=== PATIENT | female | born 1990 | race Caucasian/White ===

== ENCOUNTER 2016-09-26 11:56 | Emergency (ER) | payer OTHER ==
[2016-09-26] MEDS ORDERED: NS 0.9% 1000 ML* 1,000 ML IV ONE (12:34)
[2016-09-26] MEDS ORDERED: NS 0.9% 1000 ML* 2,500 ML IV ONE (12:38)
[2016-09-26 13:11] LABS: Hematocrit 40 % (35-47); Mean Corpuscular HGB Conc 35 g/dl (31-36); Mean Corpuscular Hemoglobin 30 pg (27-31); Mean Corpuscular Volume 87 fL (80-97); Mean Platelet Volume 9 um3 (7.4-10.4); Red Blood Count 4.63 10^6/ul (4.0-5.4); Red Cell Distribution Width 13 % (10.5-15); White Blood Count 9.2 10^3/ul (3.5-10.8)
[2016-09-26 13:28] LABS: ALT 29 U/L (7-52); AST 23 U/L (13-39); Albumin 3.6 g/dL (3.2-5.2); Alkaline Phosphatase 79 U/L (34-104); BUN/Creatinine Ratio 12.7 (8-20); Blood Urea Nitrogen 10 mg/dL (6-24); CO2 Carbon Dioxide 29 mmol/L (22-32); Calcium 8.9 mg/dL (8.6-10.3); Chloride 90 mmol/L (101-111); EGFR African American 112.3 (>60); EGFR Non-African American 87.3 (>60); Globulin 3.9 g/dL (2-4); Glucose 101 mg/dL (70-100); Sodium 129 mmol/L (133-145); Total Protein 7.5 g/dL (6.4-8.9)
[2016-09-26 13:31] LABS: Anion Gap 10 mmol/L (2-11); Potassium 2.5 mmol/L (3.5-5.0)
--- NOTE | 2016-09-26 13:41 | ED ---
Laceration/Wound HPI - History of Current Complaint Stated Complaint: CHEST PAIN/VOMITING/FEVER Time Seen by Provider: 09/26/16 12:34 Pain Intensity: 10 - Allergy/Home Medications Allergies/Adverse Reactions: Allergies Allergy/AdvReac Type Severity Reaction Status Date / Time Ibuprofen Allergy Intermediate Rash Verified 04/23/13 10:44 Sulfa Drugs Allergy Unknown Unknown Verified 04/23/13 10:44 Reaction Details PMH/Surg Hx/FS Hx/Imm Hx Endocrine/Hematology History: Denies: Hx Anticoagulant Therapy Infectious Disease History: No Infectious Disease History: Denies: Traveled Outside the [place] in Last 30 Days - Social History Alcohol Use: Rare Substance Use Type: Reports: None 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 Smoking Status (MU): Light Every Day Tobacco Smoker Physical Exam Vital Signs On Initial Exam: Initial Vitals Temp Pulse Resp BP Pulse Ox 103.3 F 126 20 150/78 100 09/26/16 11:59 09/26/16 11:59 09/26/16 11:59 09/26/16 11:59 09/26/16 11:59 - Valerie Coma Scale Coma Scale Total: 15 Diagnostics - Vital Signs Vital Signs Temp Pulse Resp BP Pulse Ox 09/26/16 13:20 98.8 F 112 18 118/62 100 09/26/16 13:00 117 118/82 94 09/26/16 12:52 130/90 09/26/16 12:47 116 94 09/26/16 12:41 128 97 09/26/16 11:59 103.3 F 126 20 150/78 100 - Laboratory Lab Results: Lab Results 09/26/16 09/26/16 09/26/16 Range/Units 13:00 13:00 13:00 WBC 9.2 (3.5-10.8) 10^3/ul RBC 4.63 (4.0-5.4) 10^6/ul Hgb 14.0 (12.0-16.0) g/dl Hct 40 (35-47) % MCV 87 (80-97) fL MCH 30 (27-31) pg MCHC 35 (31-36) g/dl RDW 13 (10.5-15) % Plt Count 110 L (150-450) 10^3/ul MPV 9 (7.4-10.4) um3 Neut % (Auto) 89.0 H (38-83) % Lymph % (Auto) 7.0 L (25-47) % [place] % (Auto) 3.6 (1-9) % Eos % (Auto) 0.1 (0-6) % Baso % (Auto) 0.3 (0-2) % Absolute Neuts (auto) 8.2 H (1.5-7.7) 10^3/ul Absolute Lymphs (auto) 0.6 L (1.0-4.8) 10^3/ul Absolute Monos (auto) 0.3 (0-0.8) 10^3/ul Absolute Eos (auto) 0 (0-0.6) 10^3/ul Absolute Basos (auto) 0 (0-0.2) 10^3/ul Absolute Nucleated RBC 0 10^3/ul Nucleated RBC % 0.1 Sodium 129 L (133-145) mmol/L Potassium 2.5 L* (3.5-5.0) mmol/L Chloride 90 L (101-111) mmol/L Carbon Dioxide 29 (22-32) mmol/L Anion Gap 10 (2-11) mmol/L BUN 10 (6-24) mg/dL Creatinine 0.79 (0.51-0.95) mg/dL Est GFR ( Amer) 112.3 (>60) Est GFR (Non-Af Amer) 87.3 (>60) BUN/Creatinine Ratio 12.7 (8-20) Glucose 101 H (70-100) mg/dL Lactic Acid 2.2 H* (0.5-2.0) mmol/L Calcium 8.9 (8.6-10.3) mg/dL Total Bilirubin 0.60 (0.2-1.0) mg/dL AST 23 (13-39) U/L ALT 29 (7-52) U/L Alkaline Phosphatase 79 (34-104) U/L C-React Prot High Sens Pending Total Protein 7.5 (6.4-8.9) g/dL Albumin 3.6 (3.2-5.2) g/dL Globulin 3.9 (2-4) g/dL Albumin/Globulin Ratio 0.9 L (1-3) Beta HCG, Quant < 0.60 mIU/mL Result Diagrams: 09/26/16 13:00 09/26/16 13:00 Lab Statement: Any lab studies that have been ordered have been reviewed, and results considered in the medical decision making process.
[2016-09-26] MEDS ORDERED: Potassium Chlor TAB* 20 MEQ TAB.ER PO ONE (13:43)
[2016-09-26] MEDS ORDERED: KCL 10 MEQ/50 ML IVPREMIX* 10 MEQ/50 ML BAG IV ONE ×2 (13:44→14:21)
--- NOTE | 2016-09-26 14:12 | ED ---
Influenza-Like Illness - HPI Summary HPI Summary: 26F presents with fever, cough, headache for 6 days. She said it started with cough and chest tightness 6 days ago and then she developed a fever. She states she is having chest pain only when she coughs. She is nauseous and vomiting. She states she does not have an appetite. She denies any abdominal pain. She develops SOB when she coughs. She states her symptoms are worst when she lies down. She smokes and is on the mirena. She denies any recent travel, history of blood clots, calf pain, She also admits to a generalized headache. - History of Current Complaint Chief Complaint: EDUpperRespComplaint Time Seen by Provider: 09/26/16 12:34 - Allergy/Home Medications Allergies/Adverse Reactions: Allergies Allergy/AdvReac Type Severity Reaction Status Date / Time Ibuprofen Allergy Intermediate Rash Verified 04/23/13 10:44 Sulfa Drugs Allergy Unknown Unknown Verified 04/23/13 10:44 Reaction Details PMH/Surg Hx/FS Hx/Imm Hx Endocrine/Hematology History: Denies: Hx Anticoagulant Therapy Respiratory History: Denies: Hx Asthma Infectious Disease History: No Infectious Disease History: Denies: Traveled Outside the [place] in Last 30 Days - Family History Known Family History: Positive: Cardiac Disease - Social History Alcohol Use: Rare Substance Use Type: Reports: None 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 Negative: Abdominal Pain, Diarrhea Positive: Headache All Other Systems Reviewed And Are Negative: Yes Physical Exam Triage Information Reviewed: Yes Vital Signs On Initial Exam: Initial Vitals Temp Pulse Resp BP Pulse Ox 103.3 F 126 20 150/78 100 09/26/16 11:59 09/26/16 11:59 09/26/16 11:59 09/26/16 11:59 09/26/16 11:59 Vital Signs Reviewed: Yes Appearance: Positive: Ill-Appearing Skin: Positive: Warm, Dry Head/Face: Positive: Normal Head/Face Inspection Eyes: Positive: Normal, Conjunctiva Clear ENT: Positive: Normal ENT inspection, Pharynx normal, TMs normal Respiratory/Lung Sounds: Positive: Breath Sounds Present, Other - rhonchi presents with some wheezes Cardiovascular: Positive: Normal, Tachycardia Abdomen Description: Positive: Nontender, Soft Bowel Sounds: Positive: Present - [place] Coma Scale Coma Scale Total: 15 Diagnostics - Vital Signs Vital Signs Temp Pulse Resp BP Pulse Ox 09/26/16 14:00 121 21 95 09/26/16 13:30 111 21 124/80 95 09/26/16 13:20 98.8 F 112 18 118/62 100 09/26/16 13:00 117 118/82 94 09/26/16 12:52 130/90 09/26/16 12:47 116 94 09/26/16 12:41 128 97 09/26/16 11:59 103.3 F 126 20 150/78 100 - Laboratory Lab Results: Lab Results 09/26/16 09/26/16 09/26/16 Range/Units 13:00 13:00 13:00 WBC 9.2 (3.5-10.8) 10^3/ul RBC 4.63 (4.0-5.4) 10^6/ul Hgb 14.0 (12.0-16.0) g/dl Hct 40 (35-47) % MCV 87 (80-97) fL MCH 30 (27-31) pg MCHC 35 (31-36) g/dl RDW 13 (10.5-15) % Plt Count 110 L (150-450) 10^3/ul MPV 9 (7.4-10.4) um3 Neut % (Auto) 89.0 H (38-83) % Lymph % (Auto) 7.0 L (25-47) % [place] % (Auto) 3.6 (1-9) % Eos % (Auto) 0.1 (0-6) % Baso % (Auto) 0.3 (0-2) % Absolute Neuts (auto) 8.2 H (1.5-7.7) 10^3/ul Absolute Lymphs (auto) 0.6 L (1.0-4.8) 10^3/ul Absolute Monos (auto) 0.3 (0-0.8) 10^3/ul Absolute Eos (auto) 0 (0-0.6) 10^3/ul Absolute Basos (auto) 0 (0-0.2) 10^3/ul Absolute Nucleated RBC 0 10^3/ul Nucleated RBC % 0.1 Sodium 129 L (133-145) mmol/L Potassium 2.5 L* (3.5-5.0) mmol/L Chloride 90 L (101-111) mmol/L Carbon Dioxide 29 (22-32) mmol/L Anion Gap 10 (2-11) mmol/L BUN 10 (6-24) mg/dL Creatinine 0.79 (0.51-0.95) mg/dL Est GFR ( Amer) 112.3 (>60) Est GFR (Non-Af Amer) 87.3 (>60) BUN/Creatinine Ratio 12.7 (8-20) Glucose 101 H (70-100) mg/dL Lactic Acid 2.2 H* (0.5-2.0) mmol/L Calcium 8.9 (8.6-10.3) mg/dL Total Bilirubin 0.60 (0.2-1.0) mg/dL AST 23 (13-39) U/L ALT 29 (7-52) U/L Alkaline Phosphatase 79 (34-104) U/L C-React Prot High Sens Pending Total Protein 7.5 (6.4-8.9) g/dL Albumin 3.6 (3.2-5.2) g/dL Globulin 3.9 (2-4) g/dL Albumin/Globulin Ratio 0.9 L (1-3) Beta HCG, Quant < 0.60 mIU/mL Result Diagrams: 09/26/16 13:00 09/26/16 13:00 Lab Statement: Any lab studies that have been ordered have been reviewed, and results considered in the medical decision making process. - Radiology chest Xray Interpretation: Positive (See Comments) - IMPRESSION: BILATERAL NODULAR AND PATCHY INFILTRATES MOST CONSISTENT WITH PNEUMONIA. RECOMMEND FOLLOW-UP CHEST X-RAYS TO RESOLUTION. Radiology Interpretation Completed By: Radiologist - CT chest CT Interpretation: Positive (See Comments) - IMPRESSION: 1. Multiple cavitary pulmonary lesions most consistent with infectious etiology given the clinical context. The differential includes typical and atypical bacterial as well as fungal pathogens. Less likely potential noninfectious etiologies include granulomatous disease or cavitary metastasis. Correlate with clinical assessment. 2. Upper normal bilateral hilar lymph nodes. Negative for thoracic lymphadenopathy by size criteria. 3. Negative for pulmonary embolus. 4. Splenomegaly. CT Interpretation Completed By: Radiologist - EKG 1st Cardiac Rate: Tachycardia EKG Rhythm: Sinus Tachycardia ST Segment: Non-Specific EKG Interpretation: Abnormalities of T waves, large R waves V1,V@ 2nd Cardiac Rate: Tachycardia EKG Rhythm: Sinus Tachycardia EKG Interpretation: ST depression, flat T waves EKG Comparison: Other - large R waves lessen in v, v2 Re-Evaluation - Re-Evaluation First Eval Re-Evaluation Time: 15:55 Change: Improved Comment: feeling better after nebulize treatment, lungs CTA Flu Symptom Course/Dx - Course Course Of Treatment: 26F presents with fever, cough, chest pain with coughing, n /v for 6 days, no exam lungs have rhonchi with wheezes, patient fits sepsis criteria so did septic workup, xray had some difficulty transmitting but final appeared and said pneumonia present so gave levofloxacin, potassium was low so supplemented, patient had EKG changes with some ST depression and tachycardia rate 130, dr radford called dr laureano and said likely pericarditis, dr radford saw patient and states that lungs sound like upper respiratory illness, gave nebulizer and lungs sounded better, due to persistent tachycardia spoke to dr vines said get d-dimer which was positive so got CTA, heart rate final dropped to 110 and patient did not want to be admitted so felt okay to send her home, will treat for pneumonia and potential pericarditis, patient understands and agrees with plan - Diagnoses Differential Diagnosis/HQI/PQRI: Positive: Influenza, Pneumonia, Upper Respiratory Infection, Other - pericariditis Provider Diagnoses: Pneumonia - Physician Notifications Discussed Care Of Patient With: dr laureano Time Discussed With Above Provider: 14:00 - dr radford spoke with dr laureano said to get repeat ekg, esr, and crp likely pericarditis Discharge - Discharge Plan Condition: Stable Disposition: HOME Prescriptions: Albuterol 2.5MG/3ML (0.083%)* [Ventolin 2.5 MG/3 ML NEB.KVNG*] 2.5 mg INH Q4H # 20 neb.kvng Benzonatate CAP* [Tessalon CAP*] 100 mg PO TID PRN #15 cap PRN Reason: Cough Levofloxacin TAB* [Levaquin 750 MG TAB*] 750 mg PO DAILY #7 tab predniSONE TAB* [Deltasone TAB*] 40 mg PO DAILY #5 tab Patient Education Materials: Community Acquired Pneumonia (ED) Referrals: Alex Castellano MD [Primary Care Provider] - Additional Instructions: Take antibiotic once a day for 7 days, starting tomorrow Take steroid once a day for 5 days Use inhaler as need every 4 hours for cough Take tessalon three times a day for cough Drink fluids and eat food as tolerate Take ibuprofen every 6 hours for fever and potential pericarditis Follow up with primary within 5 days Return to ED if develop shortness of breath, fever that not respond to ibuprofen , or any new or worsening symptoms
[2016-09-26] MEDS ORDERED: Acetaminophen TAB* 325 MG PO ONE (14:30)
[2016-09-26 14:32] LABS: Troponin I 0.03 ng/mL (<0.04)
[2016-09-26 14:40] LABS: C Reactive Protein 286.06 mg/L (< 5.00)
--- NOTE | 2016-09-26 15:12 | RAD ---
INDICATION: Cough and fever. COMPARISON: Correlation is made with a prior study from April 30, 2012. TECHNIQUE: Dual-energy PA and lateral views of the chest were obtained. FINDINGS: The heart is within normal limits in size. Mediastinal and hilar contours appear within normal limits. There are nodular patchy infiltrates present at both lung bases and in the left upper lobe. No pleural effusion is seen. IMPRESSION: BILATERAL NODULAR AND PATCHY INFILTRATES MOST CONSISTENT WITH PNEUMONIA. RECOMMEND FOLLOW-UP CHEST X-RAYS TO RESOLUTION.
[2016-09-26] MEDS ORDERED: Albuterol 2.5 MG/3 ML NEB.SOL* (0.083%) INH ONE (15:23)
[2016-09-26] MEDS ORDERED: Levofloxacin 500 MG IVPREMIX(* 500 MG/100 ML BAG IVPB ONE (15:32)
[2016-09-26 15:39] LABS: Erythrocyte Sed Rate 66 mm/Hr (0-14)
[2016-09-26 16:35] LABS: Urine Bacteria Absent (Absent); Urine Bilirubin Negative (Negative); Urine Glucose Negative (Negative); Urine Nitrite Negative (Negative)
[2016-09-26] MEDS ORDERED: Iohexol 350* (CONTRAST) 500 ML MDV IV ONE (17:11)
--- NOTE | 2016-09-26 17:54 | RAD ---
INDICATION: Fever, cold, chills, chest congestion and pain. Nausea and vomiting. Elevated d-dimer, tachycardia. COMPARISON: September 26, 2016 chest radiograph. TECHNIQUE: Multidetector CT images were obtained from the lung apices to the upper abdomen with 73 mL Omnipaque 350 IV contrast. Pulmonary angiogram protocol. Multiplanar reformation including with maximum intensity projection. REPORT: Bilateral predominantly mid to lower lung zone ill-defined and well-defined pulmonary nodules with the dominant nodules demonstrating central cavitation. Dominant RIGHT pulmonary lesion measures up to 1.9 cm maximum dimension at the posterior basal segment of the RIGHT lower lobe. Dominant LEFT upper lobe lesion measures up to 1.7 cm diameter at the apical posterior segment. Dominant LEFT lower lobe lesion measures up to 1.4 cm at the posterior basal segment of the LEFT lower lobe. Negative for pleural effusion or pneumothorax. Upper normal bilateral hilar lymph nodes. Negative for lymphadenopathy by size criteria. No filling defects are identified from the main to the subsegmental pulmonary arteries to indicate presence of a pulmonary embolism. Limited images through the upper abdomen are remarkable for splenomegaly. 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 No suspicious focal osseous lesions evident. IMPRESSION: 1. Multiple cavitary pulmonary lesions most consistent with infectious etiology given the clinical context. The differential includes typical and atypical bacterial as well as fungal pathogens. Less likely potential noninfectious etiologies include granulomatous disease or cavitary metastasis. Correlate with clinical assessment. 2. Upper normal bilateral hilar lymph nodes. Negative for thoracic lymphadenopathy by size criteria. 3. Negative for pulmonary embolus. 4. Splenomegaly.
[2016-09-26] MEDS ORDERED: Albuterol HFA INHALER* 8 gm MDI INH ONE (18:08)
[2016-09-26 18:14] VITALS: BP 117/76
--- NOTE | 2016-09-27 19:43 | ED ---
Progress - Progress Note Progress Note: Pt's bood cx returns w/ (+) staph aureus - after reviewing report, pt needs to return to ED for admission. LMTC. Will also mail letter. Notified tere [place] clerk. Re-Evaluation - Re-Evaluation First Eval Re-Evaluation Time: 15:55 Change: Improved Comment: feeling better after nebulize treatment, lungs CTA Course/Dx - Course Course Of Treatment: 26F presents with fever, cough, chest pain with coughing, n /v for 6 days, no exam lungs have rhonchi with wheezes, patient fits sepsis criteria so did septic workup, xray had some difficulty transmitting but final appeared and said pneumonia present so gave levofloxacin, potassium was low so supplemented, patient had EKG changes with some ST depression and tachycardia rate 130, dr radford called dr laureano and said likely pericarditis, dr radford saw patient and states that lungs sound like upper respiratory illness, gave nebulizer and lungs sounded better, due to persistent tachycardia spoke to dr vines said get d-dimer which was positive so got CTA, heart rate final dropped to 110 and patient did not want to be admitted so felt okay to send her home, will treat for pneumonia and potential pericarditis, patient understands and agrees with plan - Diagnoses Provider Diagnoses: Pneumonia - Provider Notifications Discussed Care Of Patient With: dr laureano Time Discussed With Above Provider: 14:00 - dr radford spoke with dr laureano said to get repeat ekg, esr, and crp likely pericarditis
== END 2016-09-26 18:14 | disposition home or self-care (01) ==
LOC: ED 11:56
DX: J18.9 Pneumonia, unspecified organism (principal); R07.9 Chest pain, unspecified; R11.2 Nausea with vomiting, unspecified; R50.9 Fever, unspecified; R05 Cough; R51 Headache; F17.210 Nicotine dependence, cigarettes, uncomplicated
CPT/HCPCS: 36415; 71020; 71275; 80053; 81003; 81015; 83605; 84484; 84702; 85025; 85379; 85652; 86140; 86141; 87040; 87077; 87086; 87150; 87186; 87205; 87502; 93005; 94640; 99283; A9270-GY; J1956; J3480; Q9967

== ENCOUNTER 2016-10-06 17:33 | Emergency (ER) | payer OTHER ==
[2016-10-06 18:48] LABS: Hematocrit 41 % (35-47); Hemoglobin 13.7 g/dl (12.0-16.0); Mean Corpuscular HGB Conc 34 g/dl (31-36); Mean Corpuscular Hemoglobin 29 pg (27-31); Mean Corpuscular Volume 87 fL (80-97); Mean Platelet Volume 8 um3 (7.4-10.4); Red Blood Count 4.68 10^6/ul (4.0-5.4); Red Cell Distribution Width 14 % (10.5-15); White Blood Count 11.5 10^3/ul (3.5-10.8)
--- NOTE | 2016-10-06 19:03 | RAD ---
Indication: Chest discomfort. 2 views of the chest including dual energy PA views are reviewed. No mediastinal shift is noted. Heart is of normal size and configuration. There is a left upper lobe nodule which was present on September 26, 2016. This is likely due to the cavitary lesion identified previously. Nodular densities are noted in the right and left lung base. Base. These likely represent nodules identified on prior CT of September 26, 2016. IMPRESSION: LEFT UPPER LOBE NODULE AND MULTIPLE RIGHT BASILAR NODULE. THERE MAY BE LEFT BASILAR NODULES WELL. THIS IS CONSISTENT WITH MULTIPLE CAVITARY LESIONS IDENTIFIED ON CT..
[2016-10-06 19:06] LABS: Albumin 3.7 g/dL (3.2-5.2); BUN/Creatinine Ratio 15.7 (8-20); Calcium 9.4 mg/dL (8.6-10.3); EGFR African American 129.1 (>60); EGFR Non-African American 100.4 (>60); Potassium 4.2 mmol/L (3.5-5.0); Total Bilirubin 0.6 mg/dL (0.2-1.0); Total Protein 7.7 g/dL (6.4-8.9)
--- NOTE | 2016-10-06 19:11 | ED ---
Respiratory - HPI Summary HPI Summary: 26 F states has difficulty swallowing for a couple days. She was seen here and treated for pneumonia a week ago. She said that since she stopped the prednisone she noticed that she feels like there is a lump in her esophagus. She says that she is still able to swallow food and water. She does not vomiting and she denies any symptoms of heart burn. She denies any fever or cough. She says the prednisone helps. She states that she did use IV drugs a couple years ago. She states that she has not traveled anywhere. She denies any recent fevers besides the one had with pneumonia. She denies any night sweats or weight loss. - History of Current Complaint Chief Complaint: EDGeneral Stated Complaint: DX PNEUMONIA/CHEST DISCOMFORT Time Seen by Provider: 10/06/16 18:20 Pain Intensity: 3 - Allergy/Home Medications Allergies/Adverse Reactions: Allergies Allergy/AdvReac Type Severity Reaction Status Date / Time Ibuprofen Allergy Intermediate Rash Verified 04/23/13 10:44 Sulfa Drugs Allergy Unknown Unknown Verified 04/23/13 10:44 Reaction Details PMH/Surg Hx/FS Hx/Imm Hx Endocrine/Hematology History: Denies: Hx Anticoagulant Therapy, Hx Diabetes Respiratory History: Denies: Hx Asthma Infectious Disease History: No Infectious Disease History: Denies: Traveled Outside the [place] in Last 30 Days - Family History Known Family History: Positive: Cardiac Disease - Social History Alcohol Use: Rare Substance Use Type: Reports: None 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 Smoking Status (MU): Light Every Day Tobacco Smoker Review of Systems Negative: Fever Negative: Chest Pain Negative: Shortness Of Breath Positive: Other - lump in esophagus All Other Systems Reviewed And Are Negative: Yes Physical Exam Triage Information Reviewed: Yes Vital Signs On Initial Exam: Initial Vitals Temp Pulse Resp BP Pulse Ox 98.9 F 95 16 120/60 100 10/06/16 17:35 10/06/16 17:35 10/06/16 17:35 10/06/16 17:35 10/06/16 17:35 Vital Signs Reviewed: Yes Appearance: Positive: Well-Appearing Skin: Positive: Warm, Dry, Other - yellow crusted lesion present near mouth Head/Face: Positive: Normal Head/Face Inspection ENT: Positive: Normal ENT inspection, Pharynx normal, TMs normal Respiratory/Lung Sounds: Positive: Clear to Auscultation, Breath Sounds Present Cardiovascular: Positive: Normal, RRR - [place] Coma Scale Coma Scale Total: 15 Diagnostics - Vital Signs Vital Signs Temp Pulse Resp BP Pulse Ox 10/06/16 17:57 55 84 10/06/16 17:35 98.9 F 95 16 120/60 100 - Laboratory Lab Results: Lab Results 10/06/16 10/06/16 10/06/16 Range/Units 18:40 18:40 18:40 WBC 11.5 H (3.5-10.8) 10^3/ul RBC 4.68 (4.0-5.4) 10^6/ul Hgb 13.7 (12.0-16.0) g/dl Hct 41 (35-47) % MCV 87 (80-97) fL MCH 29 (27-31) pg MCHC 34 (31-36) g/dl RDW 14 (10.5-15) % Plt Count 309 (150-450) 10^3/ul MPV 8 (7.4-10.4) um3 Neut % (Auto) 86.5 H (38-83) % Lymph % (Auto) 8.9 L (25-47) % [place] % (Auto) 3.5 (1-9) % Eos % (Auto) 0.2 (0-6) % Baso % (Auto) 0.9 (0-2) % Absolute Neuts (auto) 10.0 H (1.5-7.7) 10^3/ul Absolute Lymphs (auto) 1.0 (1.0-4.8) 10^3/ul Absolute Monos (auto) 0.4 (0-0.8) 10^3/ul Absolute Eos (auto) 0 (0-0.6) 10^3/ul Absolute Basos (auto) 0.1 (0-0.2) 10^3/ul Absolute Nucleated RBC 0 10^3/ul Nucleated RBC % 0 Sodium 133 (133-145) mmol/L Potassium 4.2 (3.5-5.0) mmol/L Chloride 100 L (101-111) mmol/L Carbon Dioxide 28 (22-32) mmol/L Anion Gap 5 (2-11) mmol/L BUN 11 (6-24) mg/dL Creatinine 0.70 (0.51-0.95) mg/dL Est GFR ( Amer) 129.1 (>60) Est GFR (Non-Af Amer) 100.4 (>60) BUN/Creatinine Ratio 15.7 (8-20) Glucose 111 H (70-100) mg/dL Lactic Acid 1.1 (0.5-2.0) mmol/L Calcium 9.4 (8.6-10.3) mg/dL Total Bilirubin 0.60 (0.2-1.0) mg/dL AST 15 (13-39) U/L ALT 15 (7-52) U/L Alkaline Phosphatase 66 (34-104) U/L C-React Prot High Sens 50.05 mg/L Total Protein 7.7 (6.4-8.9) g/dL Albumin 3.7 (3.2-5.2) g/dL Globulin 4.0 (2-4) g/dL Albumin/Globulin Ratio 0.9 L (1-3) Result Diagrams: 10/06/16 18:40 10/06/16 18:40 Lab Statement: Any lab studies that have been ordered have been reviewed, and results considered in the medical decision making process. - Radiology chest Xray Interpretation: Positive (See Comments) - IMPRESSION: LEFT UPPER LOBE NODULE AND MULTIPLE RIGHT BASILAR NODULE. THERE MAY BE LEFT BASILAR NODULES WELL. THIS IS CONSISTENT WITH MULTIPLE CAVITARY LESIONS IDENTIFIED ON CT.. Radiology Interpretation Completed By: Radiologist Disposition - Course Course Of Treatment: 26F presents with lump in esophagus. Was seen by me a week ago and diagnosed with pneumonia. blood cultures later showed staph aureus which patient did not return for. patient currently asx and says that is feeling great. only compliant is that after stopped prednisone stated to feel lump in esophagus. She is still able to drink and eat okay. discussed with dr carson and due to age unlike is stricture and not having vomiting or regurgation and is still able to swallow. got a follow up chest xray and still has nodule in lungs. will test for TB and have follow up with primary and pulmonology. discussed options and patient would like to do a short course of prednisone again. also has yellow crusted lesions near mouth so will treat for impetigo. patient understands and agrees with plan - Differential Dx - Cardiopulmonary Differential Diagnoses - Cardiopulmonary: Bronchitis, Lower Resp Infection, Other - TB, stricture - Diagnoses Provider Diagnoses: Pulmonary nodules, Impetigo, Dysphagia Discharge - Discharge Plan Condition: Good Disposition: HOME Prescriptions: Ibuprofen TAB* [Motrin TAB* 800 MG] 800 mg PO Q6H #25 tab Mupirocin 2% CREAM* [Bactroban 2% CREAM*] 1 applic TOPICAL TID #1 tube predniSONE TAB* [Deltasone TAB*] 40 mg PO DAILY #5 tab Patient Education Materials: Pulmonary Nodules (ED), Impetigo (ED) Referrals: Zak MON,Maksim Staley [Primary Care Provider] - Avril Cheatham MD [Medical Doctor] - Additional Instructions: Take prednisone once a day for 5 days Apply ointment to affected area 3 times daily until resolves Take ibuprofen as needed for pain every 6 hours Establish care with primary to follow up about nodules in lungs and about difficulty swallowing Follow up with pulmonology Return to ED if develop any new or worsening symptoms
[2016-10-06 20:17] VITALS: BP 115/63
[2016-10-07 12:24] LABS: Call Hep C TO BE CALLED
[2016-10-08 13:39] LABS: M tuberculosis by Quantiferon Negative (Negative); TB Ag minus Nil Result 0.01 IU/mL
--- NOTE | 2016-10-08 15:47 | ED ---
Progress - Progress Note Progress Note: Pt with lab results of + Hep C. Called phone number in pt's chart without option to leave message. Then called Pilar Gonzalez, next of kin contact, and mailbox is full w/o option to leave a message. Will mail letter to address provided. tere Hernandez, aware. Needs education about diagnosis as well as f/u w/ Dr. Jimy Sterling (Infectious Disease). Will leave note at PA desk to continue to attempt contacting pt. Course/Dx - Course Course Of Treatment: 26F presents with lump in esophagus. Was seen by me a week ago and diagnosed with pneumonia. blood cultures later showed staph aureus which patient did not return for. patient currently asx and says that is feeling great. only compliant is that after stopped prednisone stated to feel lump in esophagus. She is still able to drink and eat okay. discussed with dr carson and due to age unlike is stricture and not having vomiting or regurgation and is still able to swallow. got a follow up chest xray and still has nodule in lungs. will test for TB and have follow up with primary and pulmonology. discussed options and patient would like to do a short course of prednisone again. also has yellow crusted lesions near mouth so will treat for impetigo. patient understands and agrees with plan - Diagnoses Provider Diagnoses: Pulmonary nodules, Impetigo, Dysphagia
== END 2016-10-06 20:15 | disposition home or self-care (01) ==
LOC: ED 17:33
DX: R91.1 Solitary pulmonary nodule (principal); L01.00 Impetigo, unspecified; R13.10 Dysphagia, unspecified; Z72.0 Tobacco use; Z88.2 Allergy status to sulfonamides
CPT/HCPCS: 36415; 71020; 80053; 83605; 85025; 86141; 86480; 86703; 86803; 99283

== ENCOUNTER 2016-10-12 18:52 | Inpatient (IN) | payer OTHER ==
[2016-10-12] MEDS: NS 0.9% 1000 ML* 2,000 ML IV ONE (20:19)
[2016-10-12 20:22] LABS: Hematocrit 36 % (35-47); Hemoglobin 12.2 g/dl (12.0-16.0); Mean Corpuscular HGB Conc 34 g/dl (31-36); Mean Corpuscular Hemoglobin 29 pg (27-31); Mean Corpuscular Volume 85 fL (80-97); Mean Platelet Volume 11 um3 (7.4-10.4); Red Blood Count 4.22 10^6/ul (4.0-5.4); Red Cell Distribution Width 15 % (10.5-15); White Blood Count 13.3 10^3/ul (3.5-10.8)
[2016-10-12 20:27] LABS: Add Diff/Slide Review? Slide Review Added; Comments Flag Yes
[2016-10-12 20:40] LABS: ALT 15 U/L (7-52); Albumin 2.7 g/dL (3.2-5.2); Alkaline Phosphatase 117 U/L (34-104); BUN/Creatinine Ratio 24.7 (8-20); Blood Urea Nitrogen 39 mg/dL (6-24); C Reactive Protein 309.51 mg/L (< 5.00); CO2 Carbon Dioxide 23 mmol/L (22-32); Calcium 8.7 mg/dL (8.6-10.3); Chloride 92 mmol/L (101-111); Creatine Kinase 30 U/L (10-223); EGFR African American 50.5 (>60); EGFR Non-African American 39.2 (>60); Globulin 4.2 g/dL (2-4); Glucose 88 mg/dL (70-100); Sodium 126 mmol/L (133-145); Total Protein 6.9 g/dL (6.4-8.9)
[2016-10-12 20:43] LABS: Troponin I 0.02 ng/mL (<0.04)
--- NOTE | 2016-10-12 21:16 | RAD ---
Indication: Shortness of breath. Single frontal view of the chest performed at 2052 hours was reviewed. Comparison is made with previous exam dated October 06, 2016. No mediastinal shift is noted. Heart is normal size and configuration. Multiple areas of rounded areas of airspace disease are noted. The possibility of septic emboli should BE considered. This has progressed since October 06, 2016. IMPRESSION: MULTIPLE AREAS OF ROUNDED AIRSPACE DISEASE SOME OF WHICH MAY BE CAVITARY. THIS MAY REPRESENT SEPTIC EMBOLI. THIS APPEARS TO BE PROGRESSIVE SINCE PREVIOUS EXAM.
[2016-10-12] MEDS ORDERED: Acetaminophen SUPP* 650 MG SUPP PR PRN (21:31)
[2016-10-12] MEDS ORDERED: NS 0.9% 1000 ML* 1,000 ML IV SCH (21:45)
--- NOTE | 2016-10-12 22:27 | RAD ---
Indication: Right foot pain and swelling. 3 views of the right foot demonstrates no fracture. No other bone or joint abnormality is identified. IMPRESSION: No fracture of the right foot is noted.
--- NOTE | 2016-10-12 22:28 | RAD ---
Indication: Right hand pain and swelling. 4 views of the right hand demonstrates no fracture. No other bone or joint abnormality is identified. IMPRESSION: Unremarkable right hand.
[2016-10-12 22:44] LABS: Erythrocyte Sed Rate 63 mm/Hr (0-14)
--- NOTE | 2016-10-12 22:47 | ED ---
Newton Sheppard Janilya, scribed for Drew Stallworth MD on 10/12/16 at 1936 . HPI Chest Pain - HPI Summary HPI Summary: A 26 y/o female came in to [facility] presenting w/ a gradual onset of constant CP and SOB starting end of August. Pt states 2 weeks ago she was diagnosed with PNA. The medication (Abx) helped: pt felt better and a lump in her chest dissolved. However, after her medication ended, her condition deteriorated. She states there is swelling in both upper and lower extremities as well as pain ( started yesterday) in feet and hands. She states she has also been coughing up blood in the past 2 days. In addition, pt reports visual changes; she states there is a line peripherally in her right eye. In the night time, she has also been having fevers, that is alleviated with ibuprofen. SHx drug use 4-5 years ago. - History of Current Complaint Chief Complaint: EDChestPainROMI Time Seen by Provider: 10/12/16 19:32 Hx Obtained From: Patient Onset/Duration: Started Weeks Ago, Atraumatic, Still Present Timing: Constant Initial Severity: Moderate Current Severity: Moderate Pain Intensity: 10 Pain Scale Used: 0-10 Numeric Chest Pain Location: Diffuse Chest Pain Radiates: No Aggravating Factor(s): Nothing Alleviating Factor(s): Other: - Abx Associated Signs and Symptoms: Positive: Chest Pain, Shortness of Breath, Swelling, Cough, Calf Pain/Swelling - Allergy/Home Medications Allergies/Adverse Reactions: Allergies Allergy/AdvReac Type Severity Reaction Status Date / Time Sulfa Drugs Allergy Unknown Unknown Verified 10/12/16 18:57 Reaction Details Home Medications: Home Medications Mupirocin 2% OINT* [Bactroban 2 % Oint*] 1 apply TOPICAL TID PRN 10/12/16 [ History Confirmed 10/12/16] PMH/Surg Hx/FS Hx/Imm Hx Previously Healthy: Yes Endocrine/Hematology History: Denies: Hx Anticoagulant Therapy, Hx Diabetes Respiratory History: Denies: Hx Asthma Infectious Disease History: No Infectious Disease History: Denies: Traveled Outside the [place] in Last 30 Days - Family History Known Family History: Positive: Cardiac Disease - Social History Alcohol Use: None Substance Use Type: Reports: None 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 Smoking Status (MU): Light Every Day Tobacco Smoker Review of Systems Positive: Fever Positive: Chest Pain Positive: Shortness Of Breath, Cough - bloody Positive: Arthralgia - both extremities, Myalgia - both extremities, Edema - both extremities All Other Systems Reviewed And Are Negative: Yes Physical Exam Triage Information Reviewed: Yes Vital Signs On Initial Exam: Initial Vitals Temp Pulse Resp BP Pulse Ox 96.8 F 134 24 147/77 97 10/12/16 18:58 10/12/16 18:58 10/12/16 18:58 10/12/16 18:58 10/12/16 18:58 Vital Signs Reviewed: Yes Appearance: Positive: No Pain Distress, Ill-Appearing - mildly Skin: Positive: Warm, Skin Color Reflects Adequate Perfusion, Dry Head/Face: Positive: Normal Head/Face Inspection Eyes: Positive: Normal, EOMI, ALYSA ENT: Positive: Normal ENT inspection Neck: Positive: Supple, Nontender Respiratory/Lung Sounds: Positive: Clear to Auscultation, Breath Sounds Present Cardiovascular: Positive: Tachycardia Abdomen Description: Positive: Nontender, Soft Bowel Sounds: Positive: Present Musculoskeletal: Positive: Strength/ROM Intact, Pain @, Edema Right, Other - Dorsal right hand and dorsal right foot tednerness and swelling with full ROM and good capillary refill. No calf tenderness. Neurological: Positive: Normal, Sensory/Motor Intact, Alert, Oriented to Person Place, Time Psychiatric: Positive: Affect/Mood Appropriate - Valerie Coma Scale Coma Scale Total: 15 Diagnostics - Vital Signs Vital Signs Temp Pulse Resp BP Pulse Ox 10/12/16 19:21 96.5 F 121 25 116/68 96 10/12/16 18:58 96.8 F 134 24 147/77 97 - Laboratory Lab Results: Lab Results 10/12/16 10/12/16 10/12/16 Range/Units 20:10 20:10 20:10 WBC 13.3 H (3.5-10.8) 10^3/ul RBC 4.22 (4.0-5.4) 10^6/ul Hgb 12.2 (12.0-16.0) g/dl Hct 36 (35-47) % MCV 85 (80-97) fL MCH 29 (27-31) pg MCHC 34 (31-36) g/dl RDW 15 (10.5-15) % Plt Count 104 L (150-450) 10^3/ul MPV 11 H (7.4-10.4) um3 Neut % (Auto) 86.1 H (38-83) % Lymph % (Auto) 5.0 L (25-47) % [place] % (Auto) 6.7 (1-9) % Eos % (Auto) 1.9 (0-6) % Baso % (Auto) 0.3 (0-2) % Absolute Neuts (auto) 11.4 H (1.5-7.7) 10^3/ul Absolute Lymphs (auto) 0.7 L (1.0-4.8) 10^3/ul Absolute Monos (auto) 0.9 H (0-0.8) 10^3/ul Absolute Eos (auto) 0.3 (0-0.6) 10^3/ul Absolute Basos (auto) 0 (0-0.2) 10^3/ul Absolute Nucleated RBC 0 10^3/ul Nucleated RBC % 0 ESR 63 H (0-14) mm/Hr INR (Anticoag Therapy) 1.23 H (0.89-1.11) APTT 25.1 L (26.0-36.3) seconds Sodium 126 L (133-145) mmol/L Potassium TNP Chloride 92 L (101-111) mmol/L Carbon Dioxide 23 (22-32) mmol/L Anion Gap TNP BUN 39 H (6-24) mg/dL Creatinine 1.58 H (0.51-0.95) mg/dL Est GFR ( Amer) 50.5 (>60) Est GFR (Non-Af Amer) 39.2 (>60) BUN/Creatinine Ratio 24.7 H (8-20) Glucose 88 (70-100) mg/dL Lactic Acid (0.5-2.0) mmol/L Calcium 8.7 (8.6-10.3) mg/dL Magnesium TNP Total Bilirubin 1.60 H (0.2-1.0) mg/dL AST TNP ALT 15 (7-52) U/L Alkaline Phosphatase 117 H (34-104) U/L Total Creatine Kinase 30 (10-223) U/L CK-MB (CK-2) 4.3 (0.6-6.3) ng/mL Troponin I 0.02 (<0.04) ng/mL C-Reactive Protein 309.51 H (< 5.00) mg/L Total Protein 6.9 (6.4-8.9) g/dL Albumin 2.7 L (3.2-5.2) g/dL Globulin 4.2 H (2-4) g/dL Albumin/Globulin Ratio 0.6 L (1-3) TSH Pending Beta HCG, Quant 0.81 mIU/mL 10/12/16 Range/Units 20:10 WBC (3.5-10.8) 10^3/ul RBC (4.0-5.4) 10^6/ul Hgb (12.0-16.0) g/dl Hct (35-47) % MCV (80-97) fL MCH (27-31) pg MCHC (31-36) g/dl RDW (10.5-15) % Plt Count (150-450) 10^3/ul MPV (7.4-10.4) um3 Neut % (Auto) (38-83) % Lymph % (Auto) (25-47) % [place] % (Auto) (1-9) % Eos % (Auto) (0-6) % Baso % (Auto) (0-2) % Absolute Neuts (auto) (1.5-7.7) 10^3/ul Absolute Lymphs (auto) (1.0-4.8) 10^3/ul Absolute Monos (auto) (0-0.8) 10^3/ul Absolute Eos (auto) (0-0.6) 10^3/ul Absolute Basos (auto) (0-0.2) 10^3/ul Absolute Nucleated RBC 10^3/ul Nucleated RBC % ESR (0-14) mm/Hr INR (Anticoag Therapy) (0.89-1.11) APTT (26.0-36.3) seconds Sodium (133-145) mmol/L Potassium Chloride (101-111) mmol/L Carbon Dioxide (22-32) mmol/L Anion Gap BUN (6-24) mg/dL Creatinine (0.51-0.95) mg/dL Est GFR ( Amer) (>60) Est GFR (Non-Af Amer) (>60) BUN/Creatinine Ratio (8-20) Glucose (70-100) mg/dL Lactic Acid 1.2 (0.5-2.0) mmol/L Calcium (8.6-10.3) mg/dL Magnesium Total Bilirubin (0.2-1.0) mg/dL AST ALT (7-52) U/L Alkaline Phosphatase (34-104) U/L Total Creatine Kinase (10-223) U/L CK-MB (CK-2) (0.6-6.3) ng/mL Troponin I (<0.04) ng/mL C-Reactive Protein (< 5.00) mg/L Total Protein (6.4-8.9) g/dL Albumin (3.2-5.2) g/dL Globulin (2-4) g/dL Albumin/Globulin Ratio (1-3) TSH Beta HCG, Quant mIU/mL Result Diagrams: 10/12/16 20:10 10/12/16 21:32 Lab Statement: Any lab studies that have been ordered have been reviewed, and results considered in the medical decision making process. - Radiology CXR Xray Interpretation: Positive (See Comments) - IMPRESSION: MULTIPLE AREAS OF ROUNDED AIRSPACE DISEASE SOME OF WHICH MAY BE CAVITARY. THIS MAY REPRESENT SEPTIC EMBOLI. THIS APPEARS TO BE PROGRESSIVE SINCE PREVIOUS EXAM. Radiology Interpretation Completed By: Radiologist - EKG 1910 Cardiac Rate: Tachycardia - 127 bpm EKG Rhythm: Sinus Rhythm EKG Interpretation: Left atrial enlargement, premature atrial complex, LVH Chest Pain Course/Dx - Course Assessment/Plan: Pt is a 26 y/o female c/o CP, SOB, weakness, tenderness and swelling of extremities. Pt was seen on 09/26 d/c with CP, fever, and vomiting and on 10/06 d/c with pneumonia and chest congestion. Her EKG shows tachycardia , PAC, LVH, left ventricular enlargement. CXR, that's much more progressive since previous exam, suggests possible septic emboli. Pt used to be IV drug user. She states the last time was 4-5 years ago. Pt is going to be admitted for bilateral pneumonia. Dr. Swartz (hospitalist) agrees. Pt also agrees with this plan. ADMIT HOSPITALIST GUARDED. - Diagnoses Provider Diagnoses: Endocarditis, Pneumonia - Provider Notifications Discussed Care Of Patient With: Dr. Swartz (hospitalist) at 2044: agrees to admit pt. Discharge - Discharge Plan Condition: Guarded Disposition: ADMITTED TO [facility] The documentation as recorded by the Newton rivera Janilya accurately reflects the service I personally performed and the decisions made by me, Drew Stallworth MD.
[2016-10-12 23:09] LABS: Urine Bacteria 1+ (Absent); Urine Bilirubin Negative (Negative); Urine Glucose Negative (Negative); Urine Nitrite Negative (Negative)
[2016-10-12 23:16] LABS: TSH (Thyroid Stimulating Horm) 7.54 mcIU/mL (0.34-5.60)
[2016-10-13] MEDS: Heparin VIAL(*) 5000 UNITS/ML VIAL (FIVE THOUSAND) SUBCUT SCH ×4 (00:04→20:52)
[2016-10-13] MEDS: NS 0.9% w/ 20 Meq KCL 1000 ML* 1,000 ML IV SCH ×2 (00:10→15:54)
[2016-10-13] MEDS ORDERED: Ibuprofen TAB* 600 MG ONE (01:18)
[2016-10-13] MEDS ORDERED: LORazepam INJ* 2 MG/ML 1 ML VIAL ONE (01:18)
[2016-10-13] MEDS: Ibuprofen TAB* 600 MG PO PRN ×2 (01:20→09:41)
[2016-10-13] MEDS: LORazepam INJ* 2 MG/ML 1 ML VIAL IV PUSH PRN ×3 (01:22→19:54)
--- NOTE | 2016-10-13 02:38 | HP ---
HISTORY AND PHYSICAL: DATE OF ADMISSION: 10/12/16 CHIEF COMPLAINT: Ankle, foot, and hand pain. HISTORY OF PRESENT ILLNESS: The patient is a 26-year-old woman who presents to [facility] with a chief complaint of right foot, ankle and right hand pain. This started in the last 1 to 2 days. This actually initially started approximately 1 month ago when she thought she had pneumonia. Her chest would hurt and she would have a cough. She came to the ER, was evaluated , was placed on Levaquin and prednisone and felt better. However, after she finished the prednisone, about a day or two later, she felt like something was stuck in her esophagus. This lasted for another day or two and then went away. Then yesterday, she felt her ankle and her hands kept hurting. They felt like they were broken, but she did not do any damage to it. She has also had a fever in night and shortness of breath at rest. When the patient came to the ER initially, she has blood cultures done on 09/26/16. Those blood cultures grew out methicillin sensitive Staph aureus. The patient was advised to stay in the hospital but refused and received oral antibiotics. Today, she comes in with similar symptoms. She is an IV drug user. She has an x-ray, which looks consistent with septic emboli. PAST MEDICAL HISTORY: She has no significant past medical history. MEDICATIONS: Include: 1. IUD. 2. Ibuprofen p.r.n. ALLERGIES: She has an allergy/adverse reaction to SULFA DRUGS. FAMILY HISTORY: Mother is alive at 51, alive and well. Father at young age of lung cancer. SOCIAL HISTORY: Smokes one pack a day, denies the need for nicotine replacement. No alcohol. Shoots heroin occasionally and did so in fact today. She is unemployed. She has a son. She is not . REVIEW OF SYSTEMS: A 14-point review of systems was completed with the patient. All pertinent positives and negatives are in the history of present illness; otherwise, it is negative. PHYSICAL EXAMINATION GENERAL: She is a pleasant woman, lying in bed, in no acute distress. VITAL SIGNS: Blood pressure is 116/67, pulse ox 96%, respiratory rate 30 breaths per minute, heart rate 118 beats per minute, temperature 96.5 degrees. HEENT: Normocephalic, atraumatic. Pupils equal, round, reactive to light. Moist mucous membranes. NECK: Supple. No JVD, bruits, palpable thyroid, or lymphadenopathy. CHEST: Clear to auscultation and percussion bilaterally. CARDIOVASCULAR: S1, S2 appreciated. No murmurs, gallops or rubs. ABDOMEN: Positive bowel sounds in all 4 quadrants. Soft, nontender. EXTREMITIES: She does have some swelling in her right hand and tenderness, but no erythema. No warmth. She has some tenderness in her right foot, but no swelling or erythema or warmth. NEUROLOGICAL: She is alert and oriented x3. Moves all extremities. She is nonfocal. SKIN: No distinct rashes or abnormalities. DIAGNOSTIC STUDIES/LAB DATA: White count 13.3, hemoglobin 12.2, hematocrit 36 , platelets 104, ESR is pending. Sodium 126, potassium 2.8, chloride 92, CO2 is 23, BUN 39, creatinine 1.58, glucose 88, CRP is 309.51. Total bili 1.6. Chest x-ray was interpreted by Radiology as multiple areas of rounded airspace disease some of which may be cavitary. This may represent septic emboli. This appears to be progressive since previous exam. Right foot x-ray was interpreted by Radiology as no fracture of the right foot is noted. Right hand x-ray interpreted by Radiology as unremarkable right hand. EKG shows sinus tachycardia at 127 beats per minute. Normal axis. No acute ST- T wave changes. Possible LVH. ASSESSMENT AND PLAN: 1. Likely endocarditis. The patient is an intravenous drug user. She looks like she has septic emboli. She has MSSA in her blood culture of 09/26/16. I will place her on oxacillin 2 g IV q.4 hours. We will get ID consult. We will get transthoracic echocardiogram initially, but may benefit from transesophageal echocardiogram. Long discussion with the patient about her continued use of intravenous drugs and how serious this infection is and she states she understands and will comply with all the regimen we will prescribe. 2. FEN. Regular diet. 3. DVT prophylaxis. Heparin subcu. 4. The patient is a full code. TIME SPENT: Over 75 minutes were spent on this H and P, and more than 40 minutes of which was spent in direct [id number] contact with the patient in evaluation, physical exam, and counseling, and coordination of care. CC: Dr. Maksim Crespo * [id number]/[facility] #: [id number] LAY
[2016-10-13] MEDS ORDERED: Loperamide CAP* 4 MG INITIAL PRN DOSE PO ONE (09:00)
[2016-10-13] MEDS ORDERED: Loperamide CAP* 2 MG AFTER EACH LOOSE STOOL MDD 16 MG PO PRN (09:00)
[2016-10-13] MEDS ORDERED: Acetaminophen TAB* 325 MG PO PRN (09:13)
[2016-10-13] MEDS ORDERED: Cyclobenzaprine TAB* 10 MG PO PRN (09:15)
[2016-10-13] MEDS ORDERED: LORazepam INJ* 2 MG/ML 1 ML VIAL IV PUSH ONE (09:32)
--- NOTE | 2016-10-13 09:42 | PN ---
Subjective Date of Service: 10/13/16 Interval History: Patient seen and examined at bedside. She is clearly distressed and is hyperventilating and crying out. Patient reports that it hurts to breathe and reports pain in her right wrist, right ankle, and right foot. She reports her last heroin use was yesterday (10/12) and has a 3-4 year IVDA history. She reports coughing up blood-tinged sputum. She denies n/v/d. Patient reports that she was treated for pneumonia "a few weeks ago" but then started to feel progressively worse, finally coming to the ED due to pain in her wrist and RLE. Family History: Unchanged from Admission Social History: Unchanged from Admission Past Medical History: Unchanged from Admission Objective Active Medications: Acetaminophen (Tylenol Supp*) 650 mg NJ Q4H PRN PRN Reason: FEVER/PAIN Acetaminophen (Tylenol Tab*) 650 mg PO Q4H PRN PRN Reason: FEVER/PAIN Clonidine HCl (Catapres Tab*) 0.4 mg PO ONCE ONE Stop: 10/13/16 10:01 Clonidine HCl (Catapres Tab*) 0.1 mg PO Q4HR [facility] Stop: 10/16/16 23:59 Clonidine HCl (Catapres Tab*) 0 - 0.6 mg PO Q8HR [facility] Stop: 10/17/16 23:59 Clonidine HCl (Catapres Tab*) 0 - 0.3 mg PO Q8HR [facility] Stop: 10/18/16 23:59 Clonidine HCl (Catapres Tab*) 0 - 0.15 mg PO Q12HR AYDIN PRN Reason: Protocol Stop: 10/19/16 23:59 Clonidine HCl (Catapres Tab*) 0.1 mg PO Q4H PRN PRN Reason: DETOX Stop: 10/16/16 23:59 Cyclobenzaprine HCl (Flexeril Tab*) 10 mg PO TID PRN PRN Reason: SPASMS - MUSCLE Heparin Sodium (Porcine) (Heparin Vial(*)) 5,000 units SUBCUT Q8HR [facility] Last Admin: 10/13/16 05:49 Dose: 5,000 units Oxacillin Sodium 2 gm/ Sodium (Chloride) 100 mls @ 200 mls/hr IVPB Q4H [facility] Last Admin: 10/13/16 08:36 Dose: 200 mls/hr Potassium Chloride/Sodium Chloride (Ns 0.9% W/ 20 Meq Kcl 1000 Ml*) 1,000 mls @ 100 mls/hr IV PER RATE AYDIN Last Admin: 10/13/16 00:10 Dose: 100 mls/hr Ibuprofen (Motrin Tab*) 600 mg PO Q8H PRN PRN Reason: PAIN Last Admin: 10/13/16 01:20 Dose: 600 mg Loperamide HCl (Imodium Cap*) 2 mg PO .SEE BELOW PRN PRN Reason: DIARRHEA Lorazepam (Ativan Inj*) 1 mg IV PUSH Q6H PRN PRN Reason: ANXIETY Last Admin: 10/13/16 07:39 Dose: 1 mg Multivitamins/Minerals (Theragran/Minerals Tab*) 1 tab PO DAILY [facility] Vital Signs 10/12/16 10/12/16 10/12/16 21:57 22:00 23:02 Temperature 97.5 F Pulse Rate 117 118 128 Respiratory 30 23 32 Rate Blood Pressure 116/67 111/65 109/55 (mmHg) O2 Sat by Pulse 96 95 98 Oximetry 10/12/16 10/13/16 10/13/16 23:28 01:22 02:22 Temperature Pulse Rate Respiratory 32 36 32 Rate Blood Pressure (mmHg) O2 Sat by Pulse Oximetry 10/13/16 10/13/16 10/13/16 03:56 07:39 08:32 Temperature 97.6 F 98.0 F Pulse Rate 121 128 Respiratory 30 30 32 Rate Blood Pressure 125/94 130/77 (mmHg) O2 Sat by Pulse 93 96 Oximetry 10/13/16 08:35 Temperature Pulse Rate Respiratory 32 Rate Blood Pressure (mmHg) O2 Sat by Pulse Oximetry Oxygen Devices in Use Now: None Appearance: Ill-appearing, female patient, lying in bed, hyperventilating and crying out Eyes: PERRLA Ears/Nose/Mouth/Throat: - - dry oral mucosa, poor dentition/mostly edentulous Neck: NL Appearance and Movements; NL JVP Respiratory: Symmetrical Chest Expansion and Respiratory Effort, Clear to Auscultation - coarse Cardiovascular: NL Sounds; No Murmurs; No JVD, RRR - tachycardic Abdominal: NL Sounds; No Tenderness; No Distention Extremities: - - right wrist edema, mild right ankle edema Skin: - - no splinter hemorrhages or Jan[place]ay lesions noted; patient with hyperemic palms. Multiple puncture wounds to BUE resembling track molina Neurological: Alert and Oriented x 3, NL Muscle Strength and Tone Lines/Tubes/Other Access: Clean, Dry and Intact Peripheral IV Nutrition: Taking PO's Result Diagrams: 10/12/16 20:10 10/13/16 11:22 Additional Lab and Data: Lab Results 10/12/16 10/12/16 10/12/16 Range/Units 20:10 20:10 20:10 WBC 13.3 H (3.5-10.8) 10^3/ul RBC 4.22 (4.0-5.4) 10^6/ul Hgb 12.2 (12.0-16.0) g/dl Hct 36 (35-47) % MCV 85 (80-97) fL MCH 29 (27-31) pg MCHC 34 (31-36) g/dl RDW 15 (10.5-15) % Plt Count 104 L (150-450) 10^3/ul MPV 11 H (7.4-10.4) um3 Neut % (Auto) 86.1 H (38-83) % Lymph % (Auto) 5.0 L (25-47) % [place] % (Auto) 6.7 (1-9) % Eos % (Auto) 1.9 (0-6) % Baso % (Auto) 0.3 (0-2) % Absolute Neuts (auto) 11.4 H (1.5-7.7) 10^3/ul Absolute Lymphs (auto) 0.7 L (1.0-4.8) 10^3/ul Absolute Monos (auto) 0.9 H (0-0.8) 10^3/ul Absolute Eos (auto) 0.3 (0-0.6) 10^3/ul Absolute Basos (auto) 0 (0-0.2) 10^3/ul Absolute Nucleated RBC 0 10^3/ul Nucleated RBC % 0 ESR 63 H (0-14) mm/Hr INR (Anticoag Therapy) 1.23 H (0.89-1.11) APTT 25.1 L (26.0-36.3) seconds Sodium 126 L (133-145) mmol/L Potassium TNP Chloride 92 L (101-111) mmol/L Carbon Dioxide 23 (22-32) mmol/L Anion Gap TNP BUN 39 H (6-24) mg/dL Creatinine 1.58 H (0.51-0.95) mg/dL Est GFR ( Amer) 50.5 (>60) Est GFR (Non-Af Amer) 39.2 (>60) BUN/Creatinine Ratio 24.7 H (8-20) Glucose 88 (70-100) mg/dL Lactic Acid (0.5-2.0) mmol/L Calcium 8.7 (8.6-10.3) mg/dL Magnesium TNP Total Bilirubin 1.60 H (0.2-1.0) mg/dL AST TNP ALT 15 (7-52) U/L Alkaline Phosphatase 117 H (34-104) U/L Total Creatine Kinase 30 (10-223) U/L CK-MB (CK-2) 4.3 (0.6-6.3) ng/mL Troponin I 0.02 (<0.04) ng/mL C-Reactive Protein 309.51 H (< 5.00) mg/L Total Protein 6.9 (6.4-8.9) g/dL Albumin 2.7 L (3.2-5.2) g/dL Globulin 4.2 H (2-4) g/dL Albumin/Globulin Ratio 0.6 L (1-3) TSH Pending Beta HCG, Quant 0.81 mIU/mL 10/12/16 Range/Units 20:10 WBC (3.5-10.8) 10^3/ul RBC (4.0-5.4) 10^6/ul Hgb (12.0-16.0) g/dl Hct (35-47) % MCV (80-97) fL MCH (27-31) pg MCHC (31-36) g/dl RDW (10.5-15) % Plt Count (150-450) 10^3/ul MPV (7.4-10.4) um3 Neut % (Auto) (38-83) % Lymph % (Auto) (25-47) % [place] % (Auto) (1-9) % Eos % (Auto) (0-6) % Baso % (Auto) (0-2) % Absolute Neuts (auto) (1.5-7.7) 10^3/ul Absolute Lymphs (auto) (1.0-4.8) 10^3/ul Absolute Monos (auto) (0-0.8) 10^3/ul Absolute Eos (auto) (0-0.6) 10^3/ul Absolute Basos (auto) (0-0.2) 10^3/ul Absolute Nucleated RBC 10^3/ul Nucleated RBC % ESR (0-14) mm/Hr INR (Anticoag Therapy) (0.89-1.11) APTT (26.0-36.3) seconds Sodium (133-145) mmol/L Potassium Chloride (101-111) mmol/L Carbon Dioxide (22-32) mmol/L Anion Gap BUN (6-24) mg/dL Creatinine (0.51-0.95) mg/dL Est GFR ( Amer) (>60) Est GFR (Non-Af Amer) (>60) BUN/Creatinine Ratio (8-20) Glucose (70-100) mg/dL Lactic Acid 1.2 (0.5-2.0) mmol/L Calcium (8.6-10.3) mg/dL Magnesium Total Bilirubin (0.2-1.0) mg/dL AST ALT (7-52) U/L Alkaline Phosphatase (34-104) U/L Total Creatine Kinase (10-223) U/L CK-MB (CK-2) (0.6-6.3) ng/mL Troponin I (<0.04) ng/mL C-Reactive Protein (< 5.00) mg/L Total Protein (6.4-8.9) g/dL Albumin (3.2-5.2) g/dL Globulin (2-4) g/dL Albumin/Globulin Ratio (1-3) TSH Beta HCG, Quant mIU/mL Microbiology and Other Data: Microbiology 10/12/16 21:32 Aerobic Blood Culture - Preliminary Blood Venous Assess/Plan/Problems-Billing Assessment: Ms. Gonzalez is a 26 yo female with a PMH of heroin use who presented to the ED with wrist and lower extremity pain that is likely secondary to septic emboli from infective endocarditis; patient also with cavitary lesions that also appear to be secondary to septic emboli. - Patient Problems (1) Endocarditis Code(s): I38 - ENDOCARDITIS, VALVE UNSPECIFIED Comment: Awaiting echocardiogram to confirm diagnosis. Blood cultures from 09/26/16 and this admission growing MSSA. Continue oxacillin q4h. ID consult for Friday. (2) Septic embolism Code(s): I26.90 - SEPTIC PULMONARY EMBOLISM WITHOUT ACUTE COR PULMONALE Comment: Now with worsening cavitary pulmonary nodules and mediastinal and hilar lymphadenopathy seen on CTA, likely secondary to septic emobli. Patient initially evaluated in ED on 09/26/16 and discharged on levofloxacin for treatment of CAP and suspected pericarditis. Message and letter sent to patient to return to hospital on 09/27/16 after positive MSSA blood cx; pt did not return. Likely secondary to endocarditis, continue oxacillin. (3) Opiate withdrawal Code(s): F11.23 - OPIOID DEPENDENCE WITH WITHDRAWAL Comment: Last heroin use was 10/12 prior to coming in to hospital. Clonidine protocol (obtained form [facility]) ordered. Supportive care. Will attempt to avoid narcotic use, but given acuity of patient and presence of septic emboli, narcotic use may be clinically warranted for the time being. SW consult. (4) DVT prophylaxis Code(s): EDD3544 - Status and Disposition: Inpatient admission. Anticipate increased LOS secondary to need for IV antibiotics.
[2016-10-13] MEDS: Multivitamins/Minerals TAB* DAILY PO SCH (09:56)
[2016-10-13] MEDS ORDERED: cloNIDine TAB* 0.4 FIRST DOSE PT > 70 KG PO ONE (10:00)
[2016-10-13] MEDS: cloNIDine TAB* 0.1 MG Q4H DAYS 1 TO 4 PO SCH ×4 (10:04→20:40)
[2016-10-13] MEDS ORDERED: Iodixanol* (CONTRAST) 320 MG/ML 100 ML SDV IV ONE (10:16)
--- NOTE | 2016-10-13 11:31 | RAD ---
INDICATION: Tachypnea, hemoptysis. History of endocarditis. COMPARISON: September 26, 2016 CT. TECHNIQUE: Multidetector CT images were obtained from the lung apices to the upper abdomen with 80 mL Visipaque 320 IV contrast. Pulmonary angiogram protocol. Multiplanar reformation including with maximum intensity projection. REPORT: Severe burden of the cavitary pulmonary nodules with severe progression of disease compared with the September 26, 2016 exam. Dominant cavitary lesion on the RIGHT measures up to 2.9 cm maximum dimension at the anterior basal segment of the RIGHT lower lobe. Dominant cavitary pulmonary lesion on the LEFT measures up to 2.5 cm diameter at the anterior segment of the LEFT upper lobe. Trace RIGHT and small LEFT pleural effusions. Negative for pneumothorax. Mediastinum and bilateral hilar lymphadenopathy with interval enlargement of lymph nodes compared with the prior exam. RIGHT suprahilar node measures 1.5 cm short axis. Subcarinal node measures 1.2 cm short axis, LEFT infrahilar node measures 1.5 cm short axis. Upper normal heart size. Small pericardial effusion increased over the prior exam. Motion artifact degrades image quality of the CT pulmonary angiogram. While assessment is limited there is no compelling filling defect from the main through the segmental and where visualized subsegmental pulmonary arteries to indicate pulmonary embolism. Images through the upper abdomen are remarkable for splenomegaly. 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 No suspicious focal pulmonary lesions. IMPRESSION: 1. Severe burden of the cavitary pulmonary nodules with severe progression of disease compared with the September 26, 2016 exam. Given history of endocarditis and marked change agent a short time interval septic emboli are strongly favored. 2. Mediastinal and hilar lymphadenopathy, likely reactive, with interval enlargement of lymph nodes. 3. Small pericardial effusion. 4. Splenomegaly.
[2016-10-13 11:54] LABS: BUN/Creatinine Ratio 30.7 (8-20); Calcium 7.9 mg/dL (8.6-10.3); EGFR African American 99.1 (>60); EGFR Non-African American 77.1 (>60)
[2016-10-13 11:58] LABS: Potassium 2.7 mmol/L (3.5-5.0)
[2016-10-13] MEDS ORDERED: Morphine INJ* 4 MG/ML 1 ML SYRINGE IV PRN ×2 (11:58→17:51)
[2016-10-13] MEDS: KCL 20 MEQ/100 ML IVPREMIX* 20 MEQ/100 ML BAG IV SCH ×3 (13:04→20:41)
--- NOTE | 2016-10-13 13:47 | ECHO ---
Patient: ALYSON BASURTO [facility] Rec#: [id number] : 1990 Date: 10/13/2016 Age: 26y Height: 170.18 cm / 67.0 in Weight: 83.91 kg / 184.9 lbs Sex: F BSA: 1.96 Room#: 341 Admit Date#: 10/12/2016 Type: Inpatient Referring: Desmond Swartz MD Reading: Chun Ferguson DO Linseed Cake Trimmer: Pilar Jimenez OMAR CC: Maksim Crespo MD Transthoracic Echocardiogram Indication: Endocarditis/Bacteremia BP: 125/94 HR: 126 Rhythm: Tachycardia Findings History: Heroin IVDA,MRSA,smoker. Technical Comments: The study is technically limited due to patient body habitus. The study is technically limited due to the patient's smoking history. The study was technically limited due to the patient's inability to lay in the left lateral decubitus position. Left Ventricle: The left ventricular chamber size is normal. There is no left ventricular hypertrophy. Global left ventricular wall motion and contractility are within normal limits. There is normal left ventricular systolic function. The estimated ejection fraction is 60-65%. The patient was unable to perform a Valsalva maneuver. Left Atrium: The left atrial chamber size is normal. Right Ventricle: The right ventricle is mildly dilated. The right ventricular global systolic function is mildly reduced. Aortic Valve: The aortic valve is trileaflet. There is no evidence of aortic regurgitation. There is no evidence of aortic stenosis. Mitral Valve: The mitral valve leaflets appear myxomatous. There is a trace of mitral regurgitation. There is no evidence of mitral stenosis. Tricuspid Valve: There is mild tricuspid regurgitation.that is eccentric. There appears to be a possible mobile echodensity attached to the tricuspid valve best visualized image 19 Unable to estimate the right ventricular systolic pressure. There is no tricuspid stenosis. Pulmonic Valve: The pulmonic valve structure is not well visualized. There is no evidence of pulmonic regurgitation. There is no pulmonic stenosis. Pericardium: There is a small pericardial effusion. There are no signs of significant hemodynamic compromise. Aorta: There is no dilatation of the ascending aorta. There is no dilatation of the aortic arch. There is no dilation of the aortic root. Pulmonary Artery: The main pulmonary artery is not well visualized. Venous: The venous system is not well visualized. Conclusions The left ventricular chamber size is normal. There is no left ventricular hypertrophy. Global left ventricular wall motion and contractility are within normal limits. There is normal left ventricular systolic function. The estimated ejection fraction is 60-65%. The left atrial chamber size is normal. The right ventricle is mildly dilated. The right ventricular global systolic function is mildly reduced. There is mild tricuspid valve regurgitation that is eccentric. There appears to be a possible mobile echodensity (vs. leaflet destruction or a combination of both) attached to the tricuspid valve best visualized on image 19. In the setting of IVDU, + blood cultures with staph aureus and septic emboli, finding is highly concerning for infective endocarditis. There is a very small pericardial effusion with no signs of significant hemodynamic compromise. No prior studies available for comparison at time of interpretation. Measurements Name Value Normal Range RVIDd (AP) 2D 2.1 cm (0.9 - 2.6) RVDdMajor (2D) 3.5 cm (2.2 - 4.4) RAd ISD 4CH 4.3 cm (3.4 - 4.9) RA (A4C)W 3.6 cm (2.9 - 4.6) IVSd (2D) 1 cm (0.6 - 1) LVPWd (2D) 1 cm (0.6 - 1) LVIDd (2D) 3.8 cm (3.6 - 5.4) LVIDs (2D) 2.4 cm - LV FS (2D) 36 % (25 - 45) Aortic Annulus 1.9 cm (1.4 - 2.6) Ao root diameter (2D) 3.1 cm (2.1 - 3.5) Ascending Ao 3.1 cm (2.1 - 3.4) Aortic arch 2 cm (1.8 - 3.4) Descending Ao 1.1 cm - LA dimension (AP) 2D 2.7 cm (2.3 - 3.8) LAd ISD 4CH 4.3 cm (2.9 - 5.3) LA ISD 4CH W 4.4 cm (2.5 - 4.5) Name Value Normal Range LA ESV SP 4CH (A/L) 33 ml - LA ESV SP 2CH (A/L) 20 ml - LA ESV BP (A/L) 27 ml - LA ESV BP (A/L) index 13.58 ml/m2 - LA ESV SP 4CH (MOD) 28 ml - LA ESV SP 2CH (MOD) 18 ml - Name Value Normal Range MV E-wave Vmax 0.7 m/sec - MV deceleration time 116 msec - MV A-wave Vmax 1 m/sec - MV E:A ratio 0.67 ratio - LV septal e' Vmax 0.09 m/sec - LV lateral e' Vmax 0.08 m/sec - LV E:e' septal ratio 7.78 ratio - LV E:e' lateral ratio 8.75 ratio - Name Value Normal Range AV Vmax 1.5 m/sec - AV VTI 17.8 cm - AV peak gradient 8.77 mmHg - AV mean gradient 4.99 mmHg - LVOT Vmax 1.1 m/sec - LVOT VTI 14 cm - LVOT peak gradient 4.5 mmHg - LVOT mean gradient 2.56 mmHg - Name Value Normal Range TR Vmax 2.3 m/sec - TR peak gradient 21 mmHg - Name Value Normal Range PV Vmax 0.9 m/sec - PV peak gradient 3.12 mmHg -
[2016-10-13] MEDS: Chlorhexidine MOUTHWASH 0.12%* 15 ML UDC SWISH SPIT SCH ×2 (15:19→20:58)
[2016-10-13] MEDS ORDERED: LORazepam INJ* 2 MG/ML 1 ML VIAL IV PUSH PRN (17:51)
[2016-10-13] MEDS: Morphine INJ* 10 MG/ML 1 ML SYRINGE IV PRN ×2 (20:51→23:30)
[2016-10-14] MEDS: LORazepam INJ* 2 MG/ML 1 ML VIAL IV PUSH PRN ×3 (00:24→17:10)
[2016-10-14] MEDS: HYDROmorphone* 2 MG/ML 1 ML SYR IV SLOW PU PRN (01:49)
[2016-10-14] MEDS: cloNIDine TAB* 0.1 MG Q4H DAYS 1 TO 4 PO SCH ×6 (01:59→22:25)
[2016-10-14] MEDS: Morphine INJ* 10 MG/ML 1 ML SYRINGE IV PRN ×4 (04:54→20:28)
[2016-10-14] MEDS: Heparin VIAL(*) 5000 UNITS/ML VIAL (FIVE THOUSAND) SUBCUT SCH ×3 (05:12→22:26)
[2016-10-14] MEDS: NS 0.9% w/ 20 Meq KCL 1000 ML* 1,000 ML IV SCH (05:12)
[2016-10-14 06:44] LABS: Hematocrit 32 % (35-47); Hemoglobin 10.8 g/dl (12.0-16.0); Mean Corpuscular HGB Conc 34 g/dl (31-36); Mean Corpuscular Hemoglobin 29 pg (27-31); Mean Corpuscular Volume 85 fL (80-97); Mean Platelet Volume 11 um3 (7.4-10.4); Red Blood Count 3.76 10^6/ul (4.0-5.4); Red Cell Distribution Width 15 % (10.5-15); White Blood Count 17.9 10^3/ul (3.5-10.8)
[2016-10-14 08:03] LABS: BUN/Creatinine Ratio 31.4 (8-20); Calcium 7.6 mg/dL (8.6-10.3); EGFR African American 129.1 (>60); EGFR Non-African American 100.4 (>60); Potassium 3.6 mmol/L (3.5-5.0)
[2016-10-14] MEDS: Multivitamins/Minerals TAB* DAILY PO SCH (08:56)
[2016-10-14] MEDS: Ibuprofen TAB* 600 MG PO PRN (08:56)
[2016-10-14] MEDS: Chlorhexidine MOUTHWASH 0.12%* 15 ML UDC SWISH SPIT SCH ×3 (08:57→22:27)
[2016-10-14] MEDS ORDERED: Metoprolol Tartrate IV* 1 MG/ML 5 ML VIAL IV ONE (12:11)
--- NOTE | 2016-10-14 12:12 | PN ---
Subjective Date of Service: 10/14/16 Interval History: Patient seen and examined at bedside. She reports persistent pain that is "all over" though worse in her right hand and in her right leg. She reports cough and pain with inspiration. Denies n/v, abd pain. She thinks the medications are helping but "is not sure." Telemetry: Sinus tachycardia 130s Family History: Unchanged from Admission Social History: Unchanged from Admission Past Medical History: Unchanged from Admission Objective Active Medications: Acetaminophen (Tylenol Supp*) 650 mg TX Q4H PRN PRN Reason: FEVER/PAIN Acetaminophen (Tylenol Tab*) 650 mg PO Q4H PRN PRN Reason: FEVER/PAIN Chlorhexidine Gluconate (Peridex Mouth Wash 0.12%*) 15 ml SWISH SPIT TID [facility] Last Admin: 10/14/16 08:57 Dose: 15 ml Clonidine HCl (Catapres Tab*) 0.1 mg PO Q4HR AYDIN Stop: 10/16/16 23:59 Last Admin: 10/14/16 08:56 Dose: 0.1 mg Clonidine HCl (Catapres Tab*) 0 - 0.6 mg PO Q8HR AYDIN Stop: 10/17/16 23:59 Clonidine HCl (Catapres Tab*) 0 - 0.3 mg PO Q8HR AYDIN Stop: 10/18/16 23:59 Clonidine HCl (Catapres Tab*) 0 - 0.15 mg PO Q12HR AYDIN PRN Reason: Protocol Stop: 10/19/16 23:59 Clonidine HCl (Catapres Tab*) 0.1 mg PO Q4H PRN PRN Reason: DETOX Stop: 10/16/16 23:59 Cyclobenzaprine HCl (Flexeril Tab*) 10 mg PO TID PRN PRN Reason: SPASMS - MUSCLE Heparin Sodium (Porcine) (Heparin Vial(*)) 5,000 units SUBCUT Q8HR AYDIN Last Admin: 10/14/16 05:12 Dose: 5,000 units Hydromorphone HCl (Dilaudid Iv*) 2 mg IV SLOW PU Q4H PRN PRN Reason: PAIN Last Admin: 10/14/16 01:49 Dose: 2 mg Oxacillin Sodium 2 gm/ Sodium (Chloride) 100 mls @ 200 mls/hr IVPB Q4H AYDIN Last Admin: 10/14/16 08:57 Dose: 200 mls/hr Potassium Chloride/Sodium Chloride (Ns 0.9% W/ 20 Meq Kcl 1000 Ml*) 1,000 mls @ 100 mls/hr IV PER RATE [facility] Last Admin: 10/14/16 05:12 Dose: 100 mls/hr Ibuprofen (Motrin Tab*) 600 mg PO Q8H PRN PRN Reason: PAIN Last Admin: 10/14/16 08:56 Dose: 600 mg Loperamide HCl (Imodium Cap*) 2 mg PO .SEE BELOW PRN PRN Reason: DIARRHEA Lorazepam (Ativan Inj*) 2 mg IV PUSH Q4H PRN PRN Reason: ANXIETY Last Admin: 10/14/16 08:57 Dose: 2 mg Morphine Sulfate (Morphine Inj (Syringe)*) 6 mg IV Q2H PRN PRN Reason: PAIN Last Admin: 10/14/16 04:54 Dose: 6 mg Multivitamins/Minerals (Theragran/Minerals Tab*) 1 tab PO DAILY [facility] Last Admin: 10/14/16 08:56 Dose: 1 tab Vital Signs 10/13/16 10/13/16 10/13/16 12:26 13:00 13:26 Temperature Pulse Rate Respiratory 38 40 Rate Blood Pressure (mmHg) O2 Sat by Pulse 90 Oximetry 10/13/16 10/13/16 10/13/16 13:31 14:30 15:00 Temperature 98.0 F 99.4 F 99.4 F Pulse Rate 127 126 126 Respiratory 40 26 26 Rate Blood Pressure 154/81 136/80 136/80 (mmHg) O2 Sat by Pulse 95 96 2 Oximetry 10/13/16 10/13/16 10/13/16 15:18 17:00 18:10 Temperature 97.8 F 98.7 F Pulse Rate 125 124 Respiratory 19 26 25 Rate Blood Pressure 124/79 130/78 (mmHg) O2 Sat by Pulse 97 96 Oximetry 10/13/16 10/13/16 10/13/16 19:10 19:29 19:54 Temperature 98.4 F Pulse Rate 121 Respiratory 26 19 26 Rate Blood Pressure 123/69 (mmHg) O2 Sat by Pulse 97 Oximetry 10/13/16 10/13/16 10/13/16 20:00 20:51 20:54 Temperature Pulse Rate Respiratory 26 28 23 Rate Blood Pressure (mmHg) O2 Sat by Pulse Oximetry 10/13/16 10/13/16 10/14/16 21:51 23:30 00:13 Temperature 98.1 F Pulse Rate 125 Respiratory 26 26 Rate Blood Pressure 150/92 (mmHg) O2 Sat by Pulse 92 Oximetry 10/14/16 10/14/16 10/14/16 00:24 00:30 00:49 Temperature 98.7 F Pulse Rate 126 Respiratory 28 32 Rate Blood Pressure 151/77 (mmHg) O2 Sat by Pulse Oximetry 10/14/16 10/14/16 10/14/16 01:24 01:49 02:49 Temperature Pulse Rate Respiratory 30 32 26 Rate Blood Pressure (mmHg) O2 Sat by Pulse Oximetry 10/14/16 10/14/16 10/14/16 03:36 04:54 05:54 Temperature 100.1 F Pulse Rate 133 Respiratory 28 24 Rate Blood Pressure 123/85 (mmHg) O2 Sat by Pulse 93 Oximetry 10/14/16 10/14/16 10/14/16 08:00 08:11 08:57 Temperature 97.6 F Pulse Rate 136 Respiratory 28 28 28 Rate Blood Pressure 147/85 (mmHg) O2 Sat by Pulse 92 Oximetry 10/14/16 10/14/16 09:13 09:57 Temperature Pulse Rate 130 Respiratory 24 Rate Blood Pressure (mmHg) O2 Sat by Pulse Oximetry Oxygen Devices in Use Now: None Appearance: Female patient, lying in bed, tachypneic, ill-appearing Eyes: PERRLA Ears/Nose/Mouth/Throat: - - thrush Neck: NL Appearance and Movements; NL JVP Respiratory: Symmetrical Chest Expansion and Respiratory Effort, Clear to Auscultation - fair aeration through all lung holley, coarse breath sounds Cardiovascular: NL Sounds; No Murmurs; No JVD, RRR - tachycardic Abdominal: NL Sounds; No Tenderness; No Distention Extremities: - - right hand/wrist swelling, lateral right foot with mild edema Skin: - - multiple scars and puncture type wounds to BUE Neurological: Alert and Oriented x 3 Lines/Tubes/Other Access: Clean, Dry and Intact Peripheral IV Nutrition: Taking PO's Result Diagrams: 10/14/16 05:17 10/14/16 05:17 Additional Lab and Data: Lab Results 10/12/16 10/12/16 10/12/16 Range/Units 20:10 20:10 20:10 WBC 13.3 H (3.5-10.8) 10^3/ul RBC 4.22 (4.0-5.4) 10^6/ul Hgb 12.2 (12.0-16.0) g/dl Hct 36 (35-47) % MCV 85 (80-97) fL MCH 29 (27-31) pg MCHC 34 (31-36) g/dl RDW 15 (10.5-15) % Plt Count 104 L (150-450) 10^3/ul MPV 11 H (7.4-10.4) um3 Neut % (Auto) 86.1 H (38-83) % Lymph % (Auto) 5.0 L (25-47) % [place] % (Auto) 6.7 (1-9) % Eos % (Auto) 1.9 (0-6) % Baso % (Auto) 0.3 (0-2) % Absolute Neuts (auto) 11.4 H (1.5-7.7) 10^3/ul Absolute Lymphs (auto) 0.7 L (1.0-4.8) 10^3/ul Absolute Monos (auto) 0.9 H (0-0.8) 10^3/ul Absolute Eos (auto) 0.3 (0-0.6) 10^3/ul Absolute Basos (auto) 0 (0-0.2) 10^3/ul Absolute Nucleated RBC 0 10^3/ul Nucleated RBC % 0 ESR 63 H (0-14) mm/Hr INR (Anticoag Therapy) 1.23 H (0.89-1.11) APTT 25.1 L (26.0-36.3) seconds Sodium 126 L (133-145) mmol/L Potassium TNP Chloride 92 L (101-111) mmol/L Carbon Dioxide 23 (22-32) mmol/L Anion Gap TNP BUN 39 H (6-24) mg/dL Creatinine 1.58 H (0.51-0.95) mg/dL Est GFR ( Amer) 50.5 (>60) Est GFR (Non-Af Amer) 39.2 (>60) BUN/Creatinine Ratio 24.7 H (8-20) Glucose 88 (70-100) mg/dL Lactic Acid (0.5-2.0) mmol/L Calcium 8.7 (8.6-10.3) mg/dL Magnesium TNP Total Bilirubin 1.60 H (0.2-1.0) mg/dL AST TNP ALT 15 (7-52) U/L Alkaline Phosphatase 117 H (34-104) U/L Total Creatine Kinase 30 (10-223) U/L CK-MB (CK-2) 4.3 (0.6-6.3) ng/mL Troponin I 0.02 (<0.04) ng/mL C-Reactive Protein 309.51 H (< 5.00) mg/L Total Protein 6.9 (6.4-8.9) g/dL Albumin 2.7 L (3.2-5.2) g/dL Globulin 4.2 H (2-4) g/dL Albumin/Globulin Ratio 0.6 L (1-3) TSH Pending Beta HCG, Quant 0.81 mIU/mL 10/12/16 Range/Units 20:10 WBC (3.5-10.8) 10^3/ul RBC (4.0-5.4) 10^6/ul Hgb (12.0-16.0) g/dl Hct (35-47) % MCV (80-97) fL MCH (27-31) pg MCHC (31-36) g/dl RDW (10.5-15) % Plt Count (150-450) 10^3/ul MPV (7.4-10.4) um3 Neut % (Auto) (38-83) % Lymph % (Auto) (25-47) % [place] % (Auto) (1-9) % Eos % (Auto) (0-6) % Baso % (Auto) (0-2) % Absolute Neuts (auto) (1.5-7.7) 10^3/ul Absolute Lymphs (auto) (1.0-4.8) 10^3/ul Absolute Monos (auto) (0-0.8) 10^3/ul Absolute Eos (auto) (0-0.6) 10^3/ul Absolute Basos (auto) (0-0.2) 10^3/ul Absolute Nucleated RBC 10^3/ul Nucleated RBC % ESR (0-14) mm/Hr INR (Anticoag Therapy) (0.89-1.11) APTT (26.0-36.3) seconds Sodium (133-145) mmol/L Potassium Chloride (101-111) mmol/L Carbon Dioxide (22-32) mmol/L Anion Gap BUN (6-24) mg/dL Creatinine (0.51-0.95) mg/dL Est GFR ( Amer) (>60) Est GFR (Non-Af Amer) (>60) BUN/Creatinine Ratio (8-20) Glucose (70-100) mg/dL Lactic Acid 1.2 (0.5-2.0) mmol/L Calcium (8.6-10.3) mg/dL Magnesium Total Bilirubin (0.2-1.0) mg/dL AST ALT (7-52) U/L Alkaline Phosphatase (34-104) U/L Total Creatine Kinase (10-223) U/L CK-MB (CK-2) (0.6-6.3) ng/mL Troponin I (<0.04) ng/mL C-Reactive Protein (< 5.00) mg/L Total Protein (6.4-8.9) g/dL Albumin (3.2-5.2) g/dL Globulin (2-4) g/dL Albumin/Globulin Ratio (1-3) TSH Beta HCG, Quant mIU/mL Microbiology and Other Data: Microbiology 10/12/16 21:32 Aerobic Blood Culture - Preliminary Blood Venous Assess/Plan/Problems-Billing Assessment: Ms. Gonzalez is a 26 yo female with a PMH of heroin use who presented to the ED with wrist and lower extremity pain that is likely secondary to septic emboli from infective endocarditis; patient also with cavitary lesions that also appear to be secondary to septic emboli. - Patient Problems (1) Endocarditis Code(s): I38 - ENDOCARDITIS, VALVE UNSPECIFIED Comment: Echocardiogram shows possible mobile echodensity to tricuspid valve, highly suspicious for infective endocarditis. Blood cultures from 09/26/16 and this admission growing MSSA. Continue oxacillin q4h. ID consult for Friday. Concern for joint involvement; CT scan ordered but currently on hold. Per radiology, it would be best to determine a plan with ID (given her multiple complaints) in order to best utilize radiology resources. (2) Septic embolism Code(s): I26.90 - SEPTIC PULMONARY EMBOLISM WITHOUT ACUTE COR PULMONALE Comment: Now with worsening cavitary pulmonary nodules and mediastinal and hilar lymphadenopathy seen on CTA, likely secondary to septic emobli. Also with RUE and RLE pain. Patient initially evaluated in ED on 09/26/16 and discharged on levofloxacin for treatment of CAP and suspected pericarditis. Message and letter sent to patient to return to hospital on 09/27/16 after positive MSSA blood cx; pt did not return. Likely secondary to endocarditis, continue oxacillin. (3) Opiate withdrawal Code(s): F11.23 - OPIOID DEPENDENCE WITH WITHDRAWAL Comment: Last heroin use was 10/12 prior to coming in to hospital. Clonidine protocol (obtained form [facility]) ordered. Supportive care. Overall would like to avoid narcotic use, but given acuity of patient and presence of septic emboli, narcotic use clinically warranted for the time being. SW consult. (4) DVT prophylaxis Code(s): LBQ4630 - Comment: SQ heparin Status and Disposition: Inpatient admission. Anticipate increased LOS secondary to need for IV antibiotics.
[2016-10-14 12:35] LABS: Call Hep C TO BE CALLED
[2016-10-14] MEDS: cloNIDine TAB* 0.1 MG ADDITIONAL PRN DOSES DAYS 1-4 PO (12:44)
[2016-10-14] MEDS: Nystatin SUSPENSION* 100000 UNITS/ML 5 ML UDC PO SCH ×2 (17:10→22:27)
[2016-10-14 17:34] LABS: T4 3.17 g/dL (6.09-12.23)
[2016-10-14 17:40] LABS: Free T4 0.89 ng/dL (0.61-1.12)
[2016-10-14 17:44] LABS: Total T3 0.48 ng/mL (0.87-1.78)
[2016-10-14] MEDS: Ibuprofen TAB* 600 MG PO SCH (18:09)
--- NOTE | 2016-10-15 00:28 | CONS ---
CONSULTATION REPORT: DATE OF CONSULTATION: 10/14/16 REQUESTING PROVIDER: Claudia Streeter NP. CONSULTING SERVICE: Infectious Disease. REASON FOR CONSULTATION: Staphylococcal endocarditis. IMPRESSION: 1. MSSA bacteremia with a tricuspid valve vegetation on transthoracic echocardiogram; tricuspid valve endocarditis complicated by bilateral septic pulmonary emboli which is quite severe. 2. Right wrist and hand finger edema, decreased flexion and extension, question tenosynovitis. I think abscess less likely, immune complex arthritis is a consideration given endocarditis. 3. Right foot and ankle pain without ankle effusion, I do not think there is a septic joint, could also be a new complex or injection, complication related. 4. Injection drug use, in brief remission. 5. Hepatitis C antibody positive. RECOMMENDATIONS: 1. Oxacillin 2 g IV every 4 hours. Recheck the blood cultures tomorrow. When the blood cultures are cleared, she could have a midline catheter. If there are access issues before then, she could have a midline catheter. 2. MRI of the right wrist and hand to evaluate for tenosynovitis, which could be an embolic complication or could be immune complex related. 3. Outpatient hepatitis C viral load and genotype, not needed while in the hospital. 4. Scheduled Tylenol and ibuprofen. HISTORY OF PRESENT ILLNESS: A 26-year-old woman who injects heroin has been to the ER a couple of times with chest pain or cough, found to have bilateral pulmonary abnormalities on a chest CT scan, September 26, and is readmitted with staphylococcal bacteremia and chest pain. White count 13,000, fevers and sweats at home, 2 to 3 days of right wrist pain is what brought her in. She does inject in her right hand, has had worsening pain and swelling in that joint as well as in the right foot, though not as bad as in the wrist. She was started on oxacillin here. Her blood cultures are growing Staphylococcus aureus , methicillin sensitive. Her drug of choice is heroin. She has been injecting up until a couple of weeks ago when she got sick. ALLERGIES: SULFA, unknown reaction. MEDICATIONS: 1. Tylenol. 2. Chlorhexidine swish and spit. 3. Flexeril. 4. Dilaudid. 5. Heparin subcutaneous injection. 6. Ibuprofen. 7. Oxacillin 3 g every 4 hours. 8. Clonidine p.r.n. SOCIAL HISTORY: Inject heroin, lives with her mother. She smokes tobacco. She has one son. She is unemployed. FAMILY HISTORY: Mother is alive at 51 and healthy. Father of lung cancer. REVIEW OF SYSTEMS: A 12-point review of systems was all negative except as noted above. PHYSICAL EXAM: Vital Signs: Temperature 36, heart rate 140, respiratory rate 20, blood pressure 130/60, O2 sat 95% on 2 L. In general, she appears in pain and distress. She is not diaphoretic. Neurologically, she awakens her eyes to voice. She follows some commands and answers questions. She is oriented x3. Cranial nerves II through XII are intact. HEENT: There is no conjunctival hemorrhage. Oropharynx without lesions. Neck is supple without nuchal rigidity. Lymph Nodes: There is no cervical, supraclavicular, inguinal, axillary, or epitrochlear lymphadenopathy. Heart is regular and tachycardic without murmurs. Lungs: There are coarse bilateral breath sounds throughout without wheeze or rale. Abdomen is mildly distended. Soft. There are bowel sounds present. There is no hepatosplenomegaly. Skin: There is no rash or splinter hemorrhages. Musculoskeletal: There is no spine tenderness to palpation. The right wrist, there is diffuse edema. There is no crepitus or fluctuance. Her fingers are flexed. There is decreased flexion and marked decreased extension. The right ankle, there is trace edema. There is no effusion. There is tenderness through the midfoot without crepitus or fluctuance. There is no erythema. There is trace warmth. LABORATORY DATA: White blood cell count 17, hemoglobin 10, platelets 62,000. Creatinine is 0.7. HCG is negative. CRP 300. Please see impressions and recommendations as outlined above, which I have discussed with Claudia Streeter NP. Thanks for asking me to see Ms. Gonzalez in consultation. [id number]/[facility] #: [id number] LAY
[2016-10-15] MEDS: LORazepam INJ* 2 MG/ML 1 ML VIAL IV PUSH PRN ×2 (01:18→08:46)
[2016-10-15] MEDS: Ibuprofen TAB* 600 MG PO SCH ×3 (01:33→18:15)
[2016-10-15] MEDS: cloNIDine TAB* 0.1 MG Q4H DAYS 1 TO 4 PO SCH ×4 (01:35→14:30)
[2016-10-15] MEDS: Morphine INJ* 10 MG/ML 1 ML SYRINGE IV PRN ×4 (01:36→11:31)
[2016-10-15 04:52] LABS: Hematocrit 29 % (35-47); Hemoglobin 9.7 g/dl (12.0-16.0); Mean Corpuscular HGB Conc 34 g/dl (31-36); Mean Corpuscular Hemoglobin 28 pg (27-31); Mean Corpuscular Volume 84 fL (80-97); Mean Platelet Volume 10 um3 (7.4-10.4); Red Blood Count 3.43 10^6/ul (4.0-5.4); Red Cell Distribution Width 15 % (10.5-15); White Blood Count 15.5 10^3/ul (3.5-10.8)
[2016-10-15 04:59] LABS: Comments Flag Yes
[2016-10-15 05:02] LABS: Albumin 1.7 g/dL (3.2-5.2); BUN/Creatinine Ratio 34.7 (8-20); Calcium 7.9 mg/dL (8.6-10.3); EGFR African American 119.2 (>60); EGFR Non-African American 92.7 (>60); Globulin 3.7 g/dL (2-4); Total Bilirubin 3.3 mg/dL (0.2-1.0); Total Protein 5.4 g/dL (6.4-8.9)
[2016-10-15] MEDS: Heparin VIAL(*) 5000 UNITS/ML VIAL (FIVE THOUSAND) SUBCUT SCH ×3 (05:52→21:22)
[2016-10-15] MEDS ORDERED: LORazepam INJ* 2 MG/ML 1 ML VIAL IM ONE (08:28)
[2016-10-15] MEDS: Nystatin SUSPENSION* 100000 UNITS/ML 5 ML UDC PO SCH ×4 (08:31→21:21)
[2016-10-15] MEDS: Chlorhexidine MOUTHWASH 0.12%* 15 ML UDC SWISH SPIT SCH ×3 (08:31→21:21)
[2016-10-15] MEDS: Potassium Chlor TAB* 20 MEQ TAB.ER PO SCH ×3 (08:32→21:22)
[2016-10-15] MEDS: Multivitamins/Minerals TAB* DAILY PO SCH (08:32)
[2016-10-15] MEDS ORDERED: Potassium Chlor TAB* 20 MEQ TAB.ER PO ONE ×2 (09:00→14:02)
--- NOTE | 2016-10-15 10:00 | PN ---
Subjective Date of Service: 10/15/16 Interval History: Patient seen and examined at bedside at 0955 and again at 1200. Patient reports pain to right hand and with respirations. She reports overall body aches. She responds "yes" when I ask if she has pain in her BLE, though her left leg looks more swollen. She states her breathing is not worse, it just "hurts." At 1200, patient with increased O2 requirements, now requiring 5L to maintain O2 of 90-93%. Telemetry: Sinus tachycardia 120s Family History: Unchanged from Admission Social History: Unchanged from Admission Past Medical History: Unchanged from Admission Objective Active Medications: Acetaminophen (Tylenol Supp*) 650 mg WI Q4H PRN PRN Reason: FEVER/PAIN Acetaminophen (Tylenol Tab*) 650 mg PO Q4H PRN PRN Reason: FEVER/PAIN Chlorhexidine Gluconate (Peridex Mouth Wash 0.12%*) 15 ml SWISH SPIT TID [facility] Last Admin: 10/15/16 08:31 Dose: 15 ml Clonidine HCl (Catapres Tab*) 0.1 mg PO Q4HR [facility] Stop: 10/16/16 23:59 Last Admin: 10/15/16 08:32 Dose: 0.1 mg Clonidine HCl (Catapres Tab*) 0 - 0.6 mg PO Q8HR [facility] Stop: 10/17/16 23:59 Clonidine HCl (Catapres Tab*) 0 - 0.3 mg PO Q8HR [facility] Stop: 10/18/16 23:59 Clonidine HCl (Catapres Tab*) 0 - 0.15 mg PO Q12HR AYDIN PRN Reason: Protocol Stop: 10/19/16 23:59 Clonidine HCl (Catapres Tab*) 0.1 mg PO Q4H PRN PRN Reason: DETOX Stop: 10/16/16 23:59 Last Admin: 10/14/16 12:44 Dose: 0.1 mg Cyclobenzaprine HCl (Flexeril Tab*) 10 mg PO TID PRN PRN Reason: SPASMS - MUSCLE Last Admin: 10/15/16 08:34 Dose: 10 mg Heparin Sodium (Porcine) (Heparin Vial(*)) 5,000 units SUBCUT Q8HR [facility] Last Admin: 10/15/16 05:52 Dose: 5,000 units Hydromorphone HCl (Dilaudid Iv*) 2 mg IV SLOW PU Q4H PRN PRN Reason: PAIN Last Admin: 10/14/16 01:49 Dose: 2 mg Oxacillin Sodium 2 gm/ Sodium (Chloride) 100 mls @ 200 mls/hr IVPB Q4H [facility] Last Admin: 10/15/16 08:53 Dose: 200 mls/hr Lactated Ringer's (Lactated Ringers 1000 Ml Bag*) 1,000 mls @ 125 mls/hr IV PER RATE [facility] Last Admin: 10/15/16 02:07 Dose: 125 mls/hr Ibuprofen (Motrin Tab*) 600 mg PO Q8H [facility] Last Admin: 10/15/16 01:33 Dose: 600 mg Loperamide HCl (Imodium Cap*) 2 mg PO .SEE BELOW PRN PRN Reason: DIARRHEA Lorazepam (Ativan Inj*) 2 mg IV PUSH Q4H PRN PRN Reason: ANXIETY Last Admin: 10/15/16 08:46 Dose: 2 mg Morphine Sulfate (Morphine Inj (Syringe)*) 6 mg IV Q2H PRN PRN Reason: PAIN Last Admin: 10/15/16 08:21 Dose: 6 mg Multivitamins/Minerals (Theragran/Minerals Tab*) 1 tab PO DAILY [facility] Last Admin: 10/15/16 08:32 Dose: 1 tab Nystatin (Nystatin Suspension*) 500,000 units PO QID [facility] Stop: 10/21/16 16:38 Last Admin: 10/15/16 08:31 Dose: 500,000 units Potassium Chloride (Klor Con Er Tab*) 20 meq PO TID [facility] Last Admin: 10/15/16 08:32 Dose: 20 meq Vital Signs 10/14/16 10/14/16 10/14/16 11:27 12:45 13:45 Temperature 97.3 F Pulse Rate 125 Respiratory 28 22 22 Rate Blood Pressure 135/91 (mmHg) O2 Sat by Pulse 94 Oximetry 10/14/16 10/14/16 10/14/16 15:33 16:07 17:07 Temperature 97.3 F Pulse Rate 132 Respiratory 22 22 22 Rate Blood Pressure 131/63 (mmHg) O2 Sat by Pulse 95 Oximetry 10/14/16 10/14/16 10/14/16 17:10 18:10 20:00 Temperature Pulse Rate Respiratory 22 22 40 Rate Blood Pressure (mmHg) O2 Sat by Pulse 95 Oximetry 10/14/16 10/14/16 10/14/16 20:28 20:41 21:28 Temperature 97.7 F Pulse Rate 91 Respiratory 40 26 40 Rate Blood Pressure 124/69 (mmHg) O2 Sat by Pulse 95 Oximetry 10/15/16 10/15/16 10/15/16 00:00 00:13 01:18 Temperature 98.4 F Pulse Rate 115 Respiratory 44 40 Rate Blood Pressure 145/86 (mmHg) O2 Sat by Pulse 94 94 Oximetry 10/15/16 10/15/16 10/15/16 01:36 02:18 02:36 Temperature Pulse Rate Respiratory 44 35 35 Rate Blood Pressure (mmHg) O2 Sat by Pulse Oximetry 10/15/16 10/15/16 10/15/16 03:14 05:53 06:53 Temperature 98.1 F Pulse Rate 130 Respiratory 42 18 38 Rate Blood Pressure 140/95 (mmHg) O2 Sat by Pulse 94 Oximetry 10/15/16 10/15/16 10/15/16 07:44 08:21 08:34 Temperature 99.2 F Pulse Rate 111 Respiratory 30 30 34 Rate Blood Pressure 129/80 (mmHg) O2 Sat by Pulse 97 Oximetry 10/15/16 10/15/16 08:46 09:21 Temperature Pulse Rate Respiratory 37 28 Rate Blood Pressure (mmHg) O2 Sat by Pulse Oximetry Oxygen Devices in Use Now: None Appearance: Ill appearing, female patient, lying in bed, increased work of breathing Eyes: PERRLA Ears/Nose/Mouth/Throat: - - poor dentition, appears to have thrush and cold sores around lips Neck: NL Appearance and Movements; NL JVP Respiratory: Symmetrical Chest Expansion and Respiratory Effort, - - coarse, crackles in RUL anteriorly Cardiovascular: NL Sounds; No Murmurs; No JVD, RRR - tachycardic Abdominal: NL Sounds; No Tenderness; No Distention Extremities: - - LLE edema, right hand/wrist edema Skin: - - multiple puncture wounds to right hand wrist and to BUE Neurological: - - arousable, slow to respond Lines/Tubes/Other Access: Clean, Dry and Intact Peripheral IV Nutrition: Taking PO's Result Diagrams: 10/15/16 04:36 10/15/16 04:36 Additional Lab and Data: Lab Results 10/12/16 10/12/16 10/12/16 Range/Units 20:10 20:10 20:10 WBC 13.3 H (3.5-10.8) 10^3/ul RBC 4.22 (4.0-5.4) 10^6/ul Hgb 12.2 (12.0-16.0) g/dl Hct 36 (35-47) % MCV 85 (80-97) fL MCH 29 (27-31) pg MCHC 34 (31-36) g/dl RDW 15 (10.5-15) % Plt Count 104 L (150-450) 10^3/ul MPV 11 H (7.4-10.4) um3 Neut % (Auto) 86.1 H (38-83) % Lymph % (Auto) 5.0 L (25-47) % [place] % (Auto) 6.7 (1-9) % Eos % (Auto) 1.9 (0-6) % Baso % (Auto) 0.3 (0-2) % Absolute Neuts (auto) 11.4 H (1.5-7.7) 10^3/ul Absolute Lymphs (auto) 0.7 L (1.0-4.8) 10^3/ul Absolute Monos (auto) 0.9 H (0-0.8) 10^3/ul Absolute Eos (auto) 0.3 (0-0.6) 10^3/ul Absolute Basos (auto) 0 (0-0.2) 10^3/ul Absolute Nucleated RBC 0 10^3/ul Nucleated RBC % 0 ESR 63 H (0-14) mm/Hr INR (Anticoag Therapy) 1.23 H (0.89-1.11) APTT 25.1 L (26.0-36.3) seconds Sodium 126 L (133-145) mmol/L Potassium TNP Chloride 92 L (101-111) mmol/L Carbon Dioxide 23 (22-32) mmol/L Anion Gap TNP BUN 39 H (6-24) mg/dL Creatinine 1.58 H (0.51-0.95) mg/dL Est GFR ( Amer) 50.5 (>60) Est GFR (Non-Af Amer) 39.2 (>60) BUN/Creatinine Ratio 24.7 H (8-20) Glucose 88 (70-100) mg/dL Lactic Acid (0.5-2.0) mmol/L Calcium 8.7 (8.6-10.3) mg/dL Magnesium TNP Total Bilirubin 1.60 H (0.2-1.0) mg/dL AST TNP ALT 15 (7-52) U/L Alkaline Phosphatase 117 H (34-104) U/L Total Creatine Kinase 30 (10-223) U/L CK-MB (CK-2) 4.3 (0.6-6.3) ng/mL Troponin I 0.02 (<0.04) ng/mL C-Reactive Protein 309.51 H (< 5.00) mg/L Total Protein 6.9 (6.4-8.9) g/dL Albumin 2.7 L (3.2-5.2) g/dL Globulin 4.2 H (2-4) g/dL Albumin/Globulin Ratio 0.6 L (1-3) TSH Pending Beta HCG, Quant 0.81 mIU/mL 10/12/16 Range/Units 20:10 WBC (3.5-10.8) 10^3/ul RBC (4.0-5.4) 10^6/ul Hgb (12.0-16.0) g/dl Hct (35-47) % MCV (80-97) fL MCH (27-31) pg MCHC (31-36) g/dl RDW (10.5-15) % Plt Count (150-450) 10^3/ul MPV (7.4-10.4) um3 Neut % (Auto) (38-83) % Lymph % (Auto) (25-47) % [place] % (Auto) (1-9) % Eos % (Auto) (0-6) % Baso % (Auto) (0-2) % Absolute Neuts (auto) (1.5-7.7) 10^3/ul Absolute Lymphs (auto) (1.0-4.8) 10^3/ul Absolute Monos (auto) (0-0.8) 10^3/ul Absolute Eos (auto) (0-0.6) 10^3/ul Absolute Basos (auto) (0-0.2) 10^3/ul Absolute Nucleated RBC 10^3/ul Nucleated RBC % ESR (0-14) mm/Hr INR (Anticoag Therapy) (0.89-1.11) APTT (26.0-36.3) seconds Sodium (133-145) mmol/L Potassium Chloride (101-111) mmol/L Carbon Dioxide (22-32) mmol/L Anion Gap BUN (6-24) mg/dL Creatinine (0.51-0.95) mg/dL Est GFR ( Amer) (>60) Est GFR (Non-Af Amer) (>60) BUN/Creatinine Ratio (8-20) Glucose (70-100) mg/dL Lactic Acid 1.2 (0.5-2.0) mmol/L Calcium (8.6-10.3) mg/dL Magnesium Total Bilirubin (0.2-1.0) mg/dL AST ALT (7-52) U/L Alkaline Phosphatase (34-104) U/L Total Creatine Kinase (10-223) U/L CK-MB (CK-2) (0.6-6.3) ng/mL Troponin I (<0.04) ng/mL C-Reactive Protein (< 5.00) mg/L Total Protein (6.4-8.9) g/dL Albumin (3.2-5.2) g/dL Globulin (2-4) g/dL Albumin/Globulin Ratio (1-3) TSH Beta HCG, Quant mIU/mL Microbiology and Other Data: Microbiology 10/12/16 21:32 Aerobic Blood Culture - Preliminary Blood Venous Assess/Plan/Problems-Billing Assessment: Ms. Gonzalez is a 26 yo female with a PMH of heroin use who presented to the ED with wrist and lower extremity pain that is likely secondary to septic emboli from infective endocarditis; patient also with cavitary lesions that also appear to be secondary to septic emboli. - Patient Problems (1) Endocarditis Code(s): I38 - ENDOCARDITIS, VALVE UNSPECIFIED Comment: Echocardiogram shows possible mobile echodensity to tricuspid valve, highly suspicious for infective endocarditis. Blood cultures from 09/26/16 and this admission growing MSSA. Continue oxacillin q4h. ID consult for Friday. Concern for joint involvement, MRI right wrist pending. Check LLE US to r/o emboli. (2) Septic embolism Code(s): I26.90 - SEPTIC PULMONARY EMBOLISM WITHOUT ACUTE COR PULMONALE Comment: Now with worsening cavitary pulmonary nodules and mediastinal and hilar lymphadenopathy seen on CTA, likely secondary to septic emobli. Also with RUE and RLE pain. Patient initially evaluated in ED on 09/26/16 and discharged on levofloxacin for treatment of CAP and suspected pericarditis. Message and letter sent to patient to return to hospital on 09/27/16 after positive MSSA blood cx; pt did not return. Likely secondary to endocarditis, continue oxacillin. (3) Opiate withdrawal Code(s): F11.23 - OPIOID DEPENDENCE WITH WITHDRAWAL Comment: Last heroin use was 10/12 prior to coming in to hospital. Clonidine protocol (obtained form [facility]) ordered. Supportive care. Overall would like to avoid narcotic use, but given acuity of patient and presence of septic emboli, narcotic use clinically warranted for the time being. SW consult. (4) DVT prophylaxis Code(s): SWP5838 - Comment: SQ heparin Status and Disposition: Inpatient admission. Transfer to ICU for closer monitoring.
[2016-10-15] MEDS: HYDROmorphone* 2 MG/ML 1 ML SYR IV SLOW PU PRN ×2 (10:06→21:59)
[2016-10-15] MEDS: cloNIDine TAB* 0.1 MG ADDITIONAL PRN DOSES DAYS 1-4 PO (11:32)
--- NOTE | 2016-10-15 12:57 | RAD ---
Indication: Tachypnea. Endocarditis with extensive septic pulmonary emboli. Comparison: October 13, 2016 CT and October 12, 2016 chest radiograph. Technique: Upright AP 1230 hours Report: Bilateral cavitary nodular pulmonary opacities and generalized alveolar consolidation with interval worsening compared with the October 12, 2016 chest radiograph. Probable small pleural effusions. Negative for pneumothorax. Negative for cardiomegaly. The central pulmonary vasculature is largely obscured limiting assessment. IMPRESSION: Worsening of bilateral pneumonia with innumerable cavitary septic emboli. Report called to Nurse Roblero in the ICU at 1253 hours October 15, 2016.
--- NOTE | 2016-10-15 14:08 | RAD ---
Indication: Left leg edema. Duplex Doppler sonography of the deep venous system of the left lower extremity deep venous system was performed. Bilaterally the common femoral veins appear patent and compressible. Left proximal greater saphenous vein, proximal deep femoral vein, femoral vein, popliteal vein, posterior tibial veins and peroneal veins appear patent and compressible. Complex fluid collection in the medial calf is noted measuring 15.7 x 1.4 x 3.5 cm. Multiple lymph nodes are noted in the inguinal region. IMPRESSION: NO EVIDENCE OF DEEP VENOUS THROMBOSIS IS IDENTIFIED. MEDIAL CALF COMPLEX FLUID COLLECTION MEASURING 15.7 X 1.4 X 3.5 CM.
[2016-10-15] MEDS: Dexmedetomidine* 50 ML IVPB SCH (14:21)
[2016-10-15] MEDS: Acetaminophen TAB* 325 MG PO SCH ×3 (14:29→21:21)
[2016-10-15] MEDS ORDERED: Albuterol 2.5 MG/3 ML NEB.SOL* (0.083%) INH PRN (14:34)
[2016-10-15] MEDS: Docosanol 10%* CREAM 2 GM TUBE TOPICAL SCH ×3 (14:44→21:22)
--- NOTE | 2016-10-15 15:08 | CONSULT ---
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 Once therapy complete at home she developed increased upper and lower extremity pain, more so in the hands and the feet. She has been sob+, CP still present with inhalation, cough+ with some amounts of blood also prior to admission. Fevers+, chills+. Admitted for progressive pneumonia, sepsis. Floor Course: since admission, antibiotics restarted, blood cultures positive for MSSA. Her cxr has shown progression with bilateral cavitary pulmonary nodules. CT chest was done demonstrating severe cavitary pulm nodules bilaterally, more peripherally. An ECHO was performed and found to have suspicion for Tricuspid valve vegetation. Due to ongoing distress, diffuse pain , joint involvement, worsening hypoxia in setting of MSSA endocarditis, she was transferred to the ICU. ROS: unable to obtain completely due to distress/pain, not giving all responses back. PMHx: IVDA PSHx: none Family History: cardiac disease Social History: Alcohol-no, Smoking-yes, Drug use-IVDA with heroin (active) Allergies: sulfa drugs Home Medications: Albuterol 2.5MG/3ML (0.083%)* [Ventolin 2.5 MG/3 ML NEB.KVNG*] 2.5 mg INH Q4H # 20 neb.kvng 09/26/16 [Rx Confirmed 10/15/16] Mupirocin 2% OINT* [Bactroban 2 % Oint*] 1 apply TOPICAL TID PRN 10/12/16 [ History Confirmed 10/12/16] Tele: sinus tachycardia Vitals: Vital Signs Temp 99 F 10/15/16 13:19 Pulse 108 10/15/16 14:00 Resp 36 10/15/16 14:00 BP 104/62 10/15/16 14:00 Pulse Ox 95 10/15/16 14:07 Intake & Output 10/14/16 10/15/16 10/15/16 18:59 06:59 18:59 Intake Total 1510 2646 609 Output Total 0 0 Balance 1510 2646 609 Intake: IV Fluids 1441 LR 1371 Oxacillin 70 IVPB 255 609 LR 509 Oxacillin 255 100 Oral 1510 950 0 Output: Urine 0 0 Other: Estimated Void Large # Bowel Movements 0 # Voids 0 0 O2/Vent: hiflow NC 40lpm, 100% fio2 rr 25, sat 100% Infusions: LR 75cc/hour Current Medications: Acetaminophen (Tylenol Tab*) 650 mg PO Q4H [facility] Last Admin: 10/15/16 14:29 Dose: 650 mg Albuterol (Albuterol (2.5 Mg) 0.5 % Conc) 2.5 mg INH Q4H PRN PRN Reason: SOB/WHEEZING Chlorhexidine Gluconate (Peridex Mouth Wash 0.12%*) 15 ml SWISH SPIT TID [facility] Last Admin: 10/15/16 14:30 Dose: 15 ml Clonidine HCl (Catapres Tab*) 0.1 mg PO Q4HR [facility] Stop: 10/16/16 23:59 Last Admin: 10/15/16 14:30 Dose: 0.1 mg Clonidine HCl (Catapres Tab*) 0 - 0.6 mg PO Q8HR [facility] Stop: 10/17/16 23:59 Clonidine HCl (Catapres Tab*) 0 - 0.3 mg PO Q8HR [facility] Stop: 10/18/16 23:59 Clonidine HCl (Catapres Tab*) 0 - 0.15 mg PO Q12HR [facility] PRN Reason: Protocol Stop: 10/19/16 23:59 Clonidine HCl (Catapres Tab*) 0.1 mg PO Q4H PRN PRN Reason: DETOX Stop: 10/16/16 23:59 Last Admin: 10/15/16 11:32 Dose: 0.1 mg Cyclobenzaprine HCl (Flexeril Tab*) 10 mg PO TID PRN PRN Reason: SPASMS - MUSCLE Last Admin: 10/15/16 08:34 Dose: 10 mg Docosanol (Abreva 10%*) 1 applic TOPICAL FIVE TIMES DAILY [facility] Last Admin: 10/15/16 14:44 Dose: 1 applic Heparin Sodium (Porcine) (Heparin Vial(*)) 5,000 units SUBCUT Q8HR [facility] Last Admin: 10/15/16 14:30 Dose: 5,000 units Hydromorphone HCl (Dilaudid Iv*) 2 mg IV SLOW PU Q4H PRN PRN Reason: PAIN Last Admin: 10/15/16 10:06 Dose: 2 mg Oxacillin Sodium 2 gm/ Sodium (Chloride) 100 mls @ 200 mls/hr IVPB Q4H [facility] Last Admin: 10/15/16 13:52 Dose: 200 mls/hr Lactated Ringer's (Lactated Ringers 1000 Ml Bag*) 1,000 mls @ 75 mls/hr IV PER RATE [facility] Last Admin: 10/15/16 12:23 Dose: 75 mls/hr Dexmedetomidine HCl (Precedex*) 50 mls @ 8.392 mls/hr IVPB .(Initial Rate) [facility] PRN Reason: 0.4 MCG/KG/HR Last Admin: 10/15/16 14:21 Dose: 8.392 mls/hr Ibuprofen (Motrin Tab*) 600 mg PO Q8H [facility] Last Admin: 10/15/16 10:06 Dose: 600 mg Loperamide HCl (Imodium Cap*) 2 mg PO .SEE BELOW PRN PRN Reason: DIARRHEA Lorazepam (Ativan Inj*) 2 mg IV PUSH Q4H PRN PRN Reason: ANXIETY Last Admin: 10/15/16 08:46 Dose: 2 mg Morphine Sulfate (Morphine Inj (Syringe)*) 6 mg IV Q2H PRN PRN Reason: PAIN Last Admin: 10/15/16 11:31 Dose: 6 mg Multivitamins/Minerals (Theragran/Minerals Tab*) 1 tab PO DAILY [facility] Last Admin: 10/15/16 08:32 Dose: 1 tab Nystatin (Nystatin Suspension*) 500,000 units PO QID [facility] Stop: 10/21/16 16:38 Last Admin: 10/15/16 14:30 Dose: 500,000 units Potassium Chloride (Klor Con Er Tab*) 20 meq PO TID [facility] Last Admin: 10/15/16 08:32 Dose: 20 meq Physical Exam: General: awake, alert, generalized distress from pain, mild resp distress, no diaphoresis Head: normocephalic, atraumatic HEENT: no pallor, no icterus, moist mucous membranes Neck: no stridor, no jvd CVS: tachycardic, normal rhythm, no murmur Resp: bilateral air entry, diffuse rhales, no wheeze, no rhonchi, no acc muscle use Abdomen: soft, nontender, nondistended, bowel sounds present Ext: pulses+, warm, no edema; right wrist/hand swollen but nonerythematous, tender+, dec ROM; ankles are tender to touch but no erythema/swelling. Skin: intact, no breakdown; track molina noted on upper extremities? Neuro: awake, alert, orientedx3, moving all extremities, no gross focal deficit Labs: 10/12/16 10/12/16 10/12/16 20:10 20:10 20:10 WBC 13.3 H RBC 4.22 Hgb 12.2 Hct 36 MCV 85 MCH 29 MCHC 34 RDW 15 Plt Count 104 L MPV 11 H Immature Gran % (Auto) Neut % (Auto) 86.1 H Lymph % (Auto) 5.0 L Garvin % (Auto) 6.7 Eos % (Auto) 1.9 Baso % (Auto) 0.3 Absolute Neuts (auto) 11.4 H Absolute Lymphs (auto) 0.7 L Absolute Monos (auto) 0.9 H Absolute Eos (auto) 0.3 Absolute Basos (auto) 0 Absolute Nucleated RBC 0 Neutrophils % Band Neutrophils % Lymphocytes % Reactive Lymphs % Monocytes % Eosinophils % Basophils % Metamyelocytes % Myelocytes % Promyelocytes % Blast Cells % Nucleated RBC % 0 Nucleated RBCs/100 WBC Differential Comment Toxic Granulation Platelet Morphology Normal RBC Morphology Polychromasia Hypochromasia Basophilic Stippling Microcytosis Macrocytosis Spherocytes RBC Inclusion Granules Sickle Cells Target Cells Tear Drop Cells Stomatocytes [place] Cells Elliptocytes Acanthocytes (Spur) Rouleaux Schistocytes ESR 63 H INR (Anticoag Therapy) 1.23 H APTT 25.1 L Sodium 126 L Potassium TNP Chloride 92 L Carbon Dioxide 23 Anion Gap TNP BUN 39 H Creatinine 1.58 H Est GFR ( Amer) 50.5 Est GFR (Non-Af Amer) 39.2 BUN/Creatinine Ratio 24.7 H Glucose 88 Lactic Acid Calcium 8.7 Magnesium TNP Total Bilirubin 1.60 H AST TNP ALT 15 Alkaline Phosphatase 117 H Total Creatine Kinase 30 CK-MB (CK-2) 4.3 Troponin I 0.02 C-Reactive Protein 309.51 H C-React Prot High Sens Total Protein 6.9 Albumin 2.7 L Globulin 4.2 H Albumin/Globulin Ratio 0.6 L TSH 7.54 H Free T4 Thyroxine (T4) Total T3 Beta HCG, Quant 0.81 Urine Color Urine Appearance Urine pH Ur Specific Lyndon Urine Protein Urine Ketones Urine Blood Urine Nitrate Urine Bilirubin Urine Urobilinogen Ur Leukocyte Esterase Urine WBC (Auto) Urine RBC (Auto) Ur Squamous Epith Cells Urine Bacteria Urine Glucose Hepatitis C Antibody HIV 1&2 Antibody 10/12/16 10/12/16 10/12/16 20:10 21:32 22:40 WBC RBC Hgb Hct MCV MCH MCHC RDW Plt Count MPV Immature Gran % (Auto) Neut % (Auto) Lymph % (Auto) Garvin % (Auto) Eos % (Auto) Baso % (Auto) Absolute Neuts (auto) Absolute Lymphs (auto) Absolute Monos (auto) Absolute Eos (auto) Absolute Basos (auto) Absolute Nucleated RBC Neutrophils % Band Neutrophils % Lymphocytes % Reactive Lymphs % Monocytes % Eosinophils % Basophils % Metamyelocytes % Myelocytes % Promyelocytes % Blast Cells % Nucleated RBC % Nucleated RBCs/100 WBC Differential Comment Toxic Granulation Platelet Morphology Normal RBC Morphology Polychromasia Hypochromasia Basophilic Stippling Microcytosis Macrocytosis Spherocytes RBC Inclusion Granules Sickle Cells Target Cells Tear Drop Cells Stomatocytes [place] Cells Elliptocytes Acanthocytes (Spur) Rouleaux Schistocytes ESR INR (Anticoag Therapy) APTT Sodium Potassium 2.8 L Chloride Carbon Dioxide Anion Gap BUN Creatinine Est GFR ( Amer) Est GFR (Non-Af Amer) BUN/Creatinine Ratio Glucose Lactic Acid 1.2 Calcium Magnesium 2.0 Total Bilirubin AST 19 ALT Alkaline Phosphatase Total Creatine Kinase CK-MB (CK-2) Troponin I C-Reactive Protein C-React Prot High Sens Total Protein Albumin Globulin Albumin/Globulin Ratio TSH Free T4 Thyroxine (T4) Total T3 Beta HCG, Quant Urine Color Yellow Urine Appearance Cloudy Urine pH 5.0 Ur Specific Lyndon 1.009 L Urine Protein 1+(30 mg/dl) H Urine Ketones Negative Urine Blood 2+ H Urine Nitrate Negative Urine Bilirubin Negative Urine Urobilinogen Positive H Ur Leukocyte Esterase 1+ H Urine WBC (Auto) 3+(>20/hpf) H Urine RBC (Auto) 2+(6-10/hpf) H Ur Squamous Epith Cells Present H Urine Bacteria 1+ H Urine Glucose Negative Hepatitis C Antibody HIV 1&2 Antibody 03/19/17 03/19/17 03/20/17 11:22 11:23 05:17 WBC 17.9 H RBC 3.76 L Hgb 10.8 L Hct 32 L MCV 85 MCH 29 MCHC 34 RDW 15 Plt Count 62 L MPV 11 H Immature Gran % (Auto) Cancelled Neut % (Auto) 84.8 H Lymph % (Auto) 5.5 L Garvin % (Auto) 8.6 Eos % (Auto) 0.2 Baso % (Auto) 0.9 Absolute Neuts (auto) 15.1 H Absolute Lymphs (auto) 1.0 Absolute Monos (auto) 1.5 H Absolute Eos (auto) 0 Absolute Basos (auto) 0.2 Absolute Nucleated RBC 0 Neutrophils % Cancelled Band Neutrophils % Cancelled Lymphocytes % Cancelled Reactive Lymphs % Cancelled Monocytes % Cancelled Eosinophils % Cancelled Basophils % Cancelled Metamyelocytes % Cancelled Myelocytes % Cancelled Promyelocytes % Cancelled Blast Cells % Cancelled Nucleated RBC % 0 Nucleated RBCs/100 WBC Cancelled Differential Comment Cancelled Toxic Granulation Cancelled Platelet Morphology Cancelled Normal RBC Morphology Cancelled Polychromasia Cancelled Hypochromasia Cancelled Basophilic Stippling Cancelled Microcytosis Cancelled Macrocytosis Cancelled Spherocytes Cancelled RBC Inclusion Granules Cancelled Sickle Cells Cancelled Target Cells Cancelled Tear Drop Cells Cancelled Stomatocytes Cancelled [place] Cells Cancelled Elliptocytes Cancelled Acanthocytes (Spur) Cancelled Rouleaux Cancelled Schistocytes Cancelled ESR INR (Anticoag Therapy) APTT Sodium 135 D Potassium 2.7 L* Chloride 102 Carbon Dioxide 22 Anion Gap 11 BUN 27 H Creatinine 0.88 Est GFR ( Amer) 99.1 Est GFR (Non-Af Amer) 77.1 BUN/Creatinine Ratio 30.7 H Glucose 96 Lactic Acid Calcium 7.9 L Magnesium Total Bilirubin AST ALT Alkaline Phosphatase Total Creatine Kinase CK-MB (CK-2) Troponin I C-Reactive Protein C-React Prot High Sens Total Protein Albumin Globulin Albumin/Globulin Ratio TSH Free T4 Thyroxine (T4) Total T3 Beta HCG, Quant Urine Color Urine Appearance Urine pH Ur Specific Lyndon Urine Protein Urine Ketones Urine Blood Urine Nitrate Urine Bilirubin Urine Urobilinogen Ur Leukocyte Esterase Urine WBC (Auto) Urine RBC (Auto) Ur Squamous Epith Cells Urine Bacteria Urine Glucose Hepatitis C Antibody High reactive H HIV 1&2 Antibody Nonreactive 10/14/16 10/15/16 10/15/16 05:17 04:36 04:36 WBC 15.5 H RBC 3.43 L Hgb 9.7 L Hct 29 L MCV 84 MCH 28 MCHC 34 RDW 15 Plt Count 76 L MPV 10 Immature Gran % (Auto) Neut % (Auto) 85.2 H Lymph % (Auto) 7.3 L Garvin % (Auto) 6.3 Eos % (Auto) 0.2 Baso % (Auto) 1.0 Absolute Neuts (auto) 13.2 H Absolute Lymphs (auto) 1.1 Absolute Monos (auto) 1.0 H Absolute Eos (auto) 0 Absolute Basos (auto) 0.2 Absolute Nucleated RBC 0 Neutrophils % Band Neutrophils % Lymphocytes % Reactive Lymphs % Monocytes % Eosinophils % Basophils % Metamyelocytes % Myelocytes % Promyelocytes % Blast Cells % Nucleated RBC % 0 Nucleated RBCs/100 WBC Differential Comment Toxic Granulation Platelet Morphology Normal RBC Morphology Polychromasia Hypochromasia Basophilic Stippling Microcytosis Macrocytosis Spherocytes RBC Inclusion Granules Sickle Cells Target Cells Tear Drop Cells Stomatocytes [place] Cells Elliptocytes Acanthocytes (Spur) Rouleaux Schistocytes ESR INR (Anticoag Therapy) APTT Sodium 138 135 Potassium 3.6 3.0 L Chloride 108 106 Carbon Dioxide 21 L 22 Anion Gap 9 7 BUN 22 26 H Creatinine 0.70 0.75 Est GFR ( Amer) 129.1 119.2 Est GFR (Non-Af Amer) 100.4 92.7 BUN/Creatinine Ratio 31.4 H 34.7 H Glucose 95 96 Lactic Acid Calcium 7.6 L 7.9 L Magnesium Total Bilirubin 3.30 H D AST 30 ALT 12 Alkaline Phosphatase 85 Total Creatine Kinase CK-MB (CK-2) Troponin I C-Reactive Protein C-React Prot High Sens 301.10 Total Protein 5.4 L Albumin 1.7 L Globulin 3.7 Albumin/Globulin Ratio 0.5 L TSH Free T4 0.89 Thyroxine (T4) 3.17 L Total T3 0.48 L Beta HCG, Quant Urine Color Urine Appearance Urine pH Ur Specific Lyndon Urine Protein Urine Ketones Urine Blood Urine Nitrate Urine Bilirubin Urine Urobilinogen Ur Leukocyte Esterase Urine WBC (Auto) Urine RBC (Auto) Ur Squamous Epith Cells Urine Bacteria Urine Glucose Hepatitis C Antibody HIV 1&2 Antibody Imaging: CXR 10/15 worsening bilateral pneumonia with innumerable cavitary septic emboli CT chest/abd/pelvis 3/19 severe burden of the cavitary pulm nodules with severe progression of disease; mediastinal/hilar lymphadenopathy; small pericardial effusion; splenomegaly. 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 Now with progressive respiratory distress. -Acute Hypoxic Respiratory Failure/ARDS -MSSA pneumonia, MSSA septic cavitary pulmonary nodules -MSSA Bacteremia/Endocarditis with TV vegetation -Opiate Withdrawal -AUGUST, septic /pre-renal azotemia, improved -Severe Sepsis -Hypokalemia -Thrombocytopenia -Hyperbilirubinemia -Anemia -Hypoalbuminemia -Hep C Ab+ Plan: Neuro- stable, in distress. Likely ongoing opiate withdrawal. Clonidine, IV dilaudid has not helped, has persistent diffuse pain. Start precedex infusion to help with withdrawal symptoms. Monitor for lethargy. Hold opiates and clonidine, likely to d/c clonidine once precedex working. Neuro checks qshift. CVS-hemodyn stable, tachycardic/hypertensive likely from pain +/- resp distress. IVF LR infusion ongoing. Less febrile. Making urine. Cont ABx. TV involvement+, will repeat echo in a few days or next week and reassess status of valve. So far no signs of intracardiac/mural involvement, systemic emboli outside lungs, no CVA, no other foreign objects. Resp- when pain controlled and patient calm, RR down to 20s, no acc muscle use. Hypoxic yes but there is a component of just distress from pain causing tachypnea. Precedex infusion should help. On hiflow 40lpm 100% fio2 now, doing well. If resp distress does progress, discussed about NIV support. Cont Oxacillin for pulm coverage/bacteremia. Bronchodilators PRN. Keep sat >92%. Close monitoring for acute hypoxic decompensation given cavity lesions and progressive pneumonia with MSSA, known to cause severe lung injury, potential for PTX given peripheral lesions also. Encourgage coughing. Pain control for pleuritic chest pain. ID- not febrile. Wbc 15, fluctuating. On Oxacillin for MSSA bacteremia (day#4, start 10/12). Repeat blood cx sent today to eval status of bacteremia. TV vegetation+. No other source/location of septic emboli. GI- stable. Renal-AUGUST resolved. Maintain IVF infusion with LR. Positive balance overall, no perez in place. Follow weights daily. Heme- new onset anemia developing, r/o bleeding, r/o hemolysis, check iron panel /b12/folate. Possible anemia of chronic disease developing. Thrombocytopenia, monitor for bleeding, if further drop in AM then d/c heparin sq. Endo- stable Musculsk-diffuse pain, arthralgias and arthritis. Agree with ID, tenosynovitis? Immune complex deposits? Pain med prn. Could trial prednisone. Colchicine work? For scheduled MRI of right hand. Wounds-right ahdn swollem, pain control. Nutrition- regular diet DVT prophylaxis: heparin sq GI prophylaxis: none Central Line: no Arterial Line: no Perez Cathetor: no Disposition: ICU for respiratory distress Code Status: full code Total Critical Care time is 50 minutes, excluding procedures/teaching Julio Mariscal MD Business Broker (Electronically Signed)
--- NOTE | 2016-10-15 15:14 | PN ---
Progress Note - Progress Note SOAP: Subjective: DOS: 10/15/16 CC: endocarditis HPI: 26 year old woman IVD, admitted with chest pain, right wrist and ankle pain and cavitary lung masses. TTE showed TV endocarditis. Moved to ICU for distress, improved with dex. Per RN hemodynamically stable no diarrhea. Limited history from her due to sedation. Objective: [] Vital Signs Temp 37.2 C 10/15/16 13:19 Pulse 108 10/15/16 14:00 Resp 36 10/15/16 14:00 BP 104/62 10/15/16 14:00 Pulse Ox 95 10/15/16 14:07 Intake & Output 10/14/16 10/15/16 10/15/16 18:59 06:59 18:59 Intake Total 1510 2646 609 Output Total 0 0 Balance 1510 2646 609 Intake: IV Fluids 1441 LR 1371 Oxacillin 70 IVPB 255 609 LR 509 Oxacillin 255 100 Oral 1510 950 0 Output: Urine 0 0 Other: Estimated Void Large # Bowel Movements 0 # Voids 0 0 Gen: no distress Neuro: sedated, opens eyes to voice, follows commands; strength 5/5 quad/TA/ gastroc BL, no LE clonus BL HEENT:PERRL, MMM Neck:supple Heart:Regular and tachycardid, no murmur Lungs:coarse BS BL Abd:+BS NTND soft Skin: no rash MSK: R wrist and hand edema mild warmth no erythema, R ankle trace edema Pain with palpation all bony prominence including entire spine Laboratory Results - last 24 hr 10/13/16 10/14/16 10/15/16 11:23 05:17 04:36 WBC 15.5 H RBC 3.43 L Hgb 9.7 L Hct 29 L MCV 84 MCH 28 MCHC 34 RDW 15 Plt Count 76 L MPV 10 Neut % (Auto) 85.2 H Lymph % (Auto) 7.3 L Navarro % (Auto) 6.3 Eos % (Auto) 0.2 Baso % (Auto) 1.0 Absolute Neuts (auto) 13.2 H Absolute Lymphs (auto) 1.1 Absolute Monos (auto) 1.0 H Absolute Eos (auto) 0 Absolute Basos (auto) 0.2 Absolute Nucleated RBC 0 Nucleated RBC % 0 Sodium Potassium Chloride Carbon Dioxide Anion Gap BUN Creatinine Est GFR ( Amer) Est GFR (Non-Af Amer) BUN/Creatinine Ratio Glucose Calcium Total Bilirubin AST ALT Alkaline Phosphatase Total Protein Albumin Globulin Albumin/Globulin Ratio Free T4 0.89 Thyroxine (T4) 3.17 L Total T3 0.48 L Hepatitis C Antibody High reactive H HIV 1&2 Antibody Nonreactive 10/15/16 04:36 WBC RBC Hgb Hct MCV MCH MCHC RDW Plt Count MPV Neut % (Auto) Lymph % (Auto) [place] % (Auto) Eos % (Auto) Baso % (Auto) Absolute Neuts (auto) Absolute Lymphs (auto) Absolute Monos (auto) Absolute Eos (auto) Absolute Basos (auto) Absolute Nucleated RBC Nucleated RBC % Sodium 135 Potassium 3.0 L Chloride 106 Carbon Dioxide 22 Anion Gap 7 BUN 26 H Creatinine 0.75 Est GFR ( Amer) 119.2 Est GFR (Non-Af Amer) 92.7 BUN/Creatinine Ratio 34.7 H Glucose 96 Calcium 7.9 L Total Bilirubin 3.30 H D AST 30 ALT 12 Alkaline Phosphatase 85 Total Protein 5.4 L Albumin 1.7 L Globulin 3.7 Albumin/Globulin Ratio 0.5 L Free T4 Thyroxine (T4) Total T3 Hepatitis C Antibody HIV 1&2 Antibody Assessment: 1. MSSA TV endocariditis, no surgical indication 2. septic pulmonary emboli with acute hypoxemic respiratory failure, present on admission 3. encephalopathy, present on admission; non focal neuro exam 4. R wrist pain diff dx IC mediated due to endocarditis vs hematogenous spread of infection less likely 5. HCV Ab + 6. IVDU in brief remission Plan: 1. oxacillin 2gm IV Q4hrs, recheck BC pending 2. sedation per ICU 3. MRI right wrist Discussed with Dr Mariscal
[2016-10-15] MEDS ORDERED: NS 0.9% 1000 ML* 1,000 ML IV ONE (16:17)
[2016-10-15] MEDS ORDERED: DOPamine 200 MG/250 ML IVPREM* 200 MG/250 ML ML IV SCH (16:30)
--- NOTE | 2016-10-15 16:30 | PN ---
Progress Note - Progress Note Note: Called because of hypotenstion to 70s. Noted that patient had been getting clonidine po, ativan prn, morphine prn, dilaudid prn, flexeril prn on the floors prior to transfer to ICU. Once in ICU, we start precedex. Will bolus 1 liter NS now Dopamine/pressors if no adequate response to blood pressure with IVF likely hypotension from all the alpha-2 blockade as well as bdz and opiates she may have gotten. D/C all clonidine, will hold precedex. IVF and prn pressors. She is sleepy but awakens. Midline placed earlier today once in ICU Likely some hypotension from drug effect combination (bdz/opiates/clonidine). Reassess after 1 liter. Julio Mariscal Transit [employer]anner
[2016-10-16] MEDS: Acetaminophen TAB* 325 MG PO SCH ×4 (01:18→14:25)
[2016-10-16] MEDS: Ibuprofen TAB* 600 MG PO SCH ×2 (01:18→09:20)
[2016-10-16] MEDS: HYDROmorphone* 2 MG/ML 1 ML SYR IV SLOW PU PRN ×3 (03:25→11:23)
[2016-10-16] MEDS: Dexmedetomidine* 50 ML IVPB SCH (03:36)
[2016-10-16] MEDS: Heparin VIAL(*) 5000 UNITS/ML VIAL (FIVE THOUSAND) SUBCUT SCH ×3 (05:35→20:38)
[2016-10-16] MEDS: Docosanol 10%* CREAM 2 GM TUBE TOPICAL SCH ×5 (05:35→20:38)
--- NOTE | 2016-10-16 08:03 | PN ---
Subjective Date of Service: 10/16/16 Interval History: Patient seen and examined at bedside. Ms. Gonzalez is more alert this morning and states, "I'm scared" when asked why she is whimpering. I discussed the patient' s treatment. She agrees that the body aches and hypersensitivity are better today. She did articulate that her primary concern is pain with inspiration; she gets anxious and begins to hyperventilate. We discussed working on taking calm, deep breaths as much as she can tolerate. She reports pain across her chest with breathing and feels SOB with exertion. She denies abd pain, n/v. She denies dysuria, vaginal itching. She denies LLE pain though does report some pain in her right ankle and foot that is "not as bad" as previous. She continues to report right hand/wrist pain. Patient not able to go to MRI yesterday due to hemodynamic instability. Telemetry: Sinus rhythm in the 80s Family History: Unchanged from Admission Social History: Unchanged from Admission Past Medical History: Unchanged from Admission Objective Active Medications: Acetaminophen (Tylenol Tab*) 650 mg PO Q4H [facility] Last Admin: 10/16/16 05:35 Dose: 650 mg Albuterol (Ventolin 2.5 Mg/3 Ml Neb.Keyonna*) 2.5 mg INH Q4H PRN PRN Reason: SOB/WHEEZING Chlorhexidine Gluconate (Peridex Mouth Wash 0.12%*) 15 ml SWISH SPIT TID [facility] Last Admin: 10/15/16 21:21 Dose: 15 ml Clonidine HCl (Catapres Tab*) 0.1 mg PO Q4H PRN PRN Reason: DETOX Stop: 10/16/16 23:59 Last Admin: 10/15/16 11:32 Dose: 0.1 mg Cyclobenzaprine HCl (Flexeril Tab*) 10 mg PO TID PRN PRN Reason: SPASMS - MUSCLE Last Admin: 10/15/16 08:34 Dose: 10 mg Docosanol (Abreva 10%*) 1 applic TOPICAL FIVE TIMES DAILY [facility] Last Admin: 10/16/16 05:35 Dose: 1 applic Heparin Sodium (Porcine) (Heparin Vial(*)) 5,000 units SUBCUT Q8HR [facility] Last Admin: 10/16/16 05:35 Dose: 5,000 units Hydromorphone HCl (Dilaudid Iv*) 1 mg IV SLOW PU Q4H PRN PRN Reason: PAIN Last Admin: 10/16/16 07:36 Dose: 1 mg Oxacillin Sodium 2 gm/ Sodium (Chloride) 100 mls @ 200 mls/hr IVPB Q4H [facility] Last Admin: 10/16/16 05:35 Dose: 200 mls/hr Lactated Ringer's (Lactated Ringers 1000 Ml Bag*) 1,000 mls @ 75 mls/hr IV PER RATE [facility] Last Admin: 10/15/16 16:09 Dose: 75 mls/hr Dexmedetomidine HCl (Precedex*) 50 mls @ 8.392 mls/hr IVPB .(Initial Rate) [facility] PRN Reason: 0.4 MCG/KG/HR Last Admin: 10/16/16 03:36 Dose: 8.392 mls/hr Dopamine HCl (Dopamine 200 Mg/250 Ml Ivprem*) 200 mg in 250 mls @ 0 mls/hr IV .Initial Rate [facility]; Per Protocol PRN Reason: Protocol Ibuprofen (Motrin Tab*) 600 mg PO Q8H [facility] Last Admin: 10/16/16 01:18 Dose: 600 mg Loperamide HCl (Imodium Cap*) 2 mg PO .SEE BELOW PRN PRN Reason: DIARRHEA Multivitamins/Minerals (Theragran/Minerals Tab*) 1 tab PO DAILY [facility] Last Admin: 10/15/16 08:32 Dose: 1 tab Nystatin (Nystatin Suspension*) 500,000 units PO QID [facility] Stop: 10/21/16 16:38 Last Admin: 10/15/16 21:21 Dose: 500,000 units Potassium Chloride (Klor Con Er Tab*) 20 meq PO TID [facility] Last Admin: 10/15/16 21:22 Dose: 20 meq Vital Signs 10/15/16 10/15/16 10/15/16 08:21 08:34 08:46 Temperature Pulse Rate Respiratory 30 34 37 Rate Blood Pressure (mmHg) O2 Sat by Pulse Oximetry 10/15/16 10/15/16 10/15/16 09:21 10:06 10:30 Temperature Pulse Rate Respiratory 28 38 36 Rate Blood Pressure (mmHg) O2 Sat by Pulse Oximetry 10/15/16 10/15/16 10/15/16 11:06 11:25 11:31 Temperature 98.7 F Pulse Rate 114 Respiratory 28 48 30 Rate Blood Pressure 128/82 (mmHg) O2 Sat by Pulse 86 Oximetry 10/15/16 10/15/16 10/15/16 12:31 12:35 13:00 Temperature Pulse Rate Respiratory 40 33 Rate Blood Pressure (mmHg) O2 Sat by Pulse 86 Oximetry 10/15/16 10/15/16 10/15/16 13:03 13:19 14:00 Temperature 99 F Pulse Rate 119 117 108 Respiratory 39 47 36 Rate Blood Pressure 126/59 126/59 104/62 (mmHg) O2 Sat by Pulse 94 95 100 Oximetry 10/15/16 10/15/16 10/15/16 14:07 15:00 15:14 Temperature 99 F Pulse Rate 102 Respiratory 36 35 Rate Blood Pressure 110/62 (mmHg) O2 Sat by Pulse 95 100 Oximetry 10/15/16 10/15/16 10/15/16 16:00 16:02 16:07 Temperature Pulse Rate 75 75 83 Respiratory 33 33 36 Rate Blood Pressure 81/39 75/45 (mmHg) O2 Sat by Pulse 100 100 100 Oximetry 10/15/16 10/15/16 10/15/16 16:32 16:35 16:45 Temperature Pulse Rate 74 86 Respiratory 36 27 38 Rate Blood Pressure 80/36 81/45 (mmHg) O2 Sat by Pulse 100 100 Oximetry 10/15/16 10/15/16 10/15/16 17:00 17:15 17:24 Temperature Pulse Rate 89 86 Respiratory 31 34 34 Rate Blood Pressure 82/37 83/37 (mmHg) O2 Sat by Pulse 100 100 Oximetry 10/15/16 10/15/16 10/15/16 17:30 17:45 18:00 Temperature Pulse Rate 81 81 84 Respiratory 35 36 35 Rate Blood Pressure 84/37 86/37 81/40 (mmHg) O2 Sat by Pulse 100 100 100 Oximetry 10/15/16 10/15/16 10/15/16 18:15 18:30 18:45 Temperature Pulse Rate 86 95 97 Respiratory 33 32 35 Rate Blood Pressure 85/39 98/57 87/25 (mmHg) O2 Sat by Pulse 100 98 99 Oximetry 10/15/16 10/15/16 10/15/16 19:00 19:15 19:30 Temperature Pulse Rate 90 94 91 Respiratory 37 40 33 Rate Blood Pressure 98/68 92/53 96/52 (mmHg) O2 Sat by Pulse 100 99 100 Oximetry 10/15/16 10/15/16 10/15/16 19:40 19:45 20:00 Temperature 97.9 F Pulse Rate 87 94 Respiratory 38 38 Rate Blood Pressure 94/49 102/53 (mmHg) O2 Sat by Pulse 100 95 Oximetry 10/15/16 10/15/16 10/15/16 20:15 20:30 20:45 Temperature Pulse Rate 89 96 94 Respiratory 40 27 32 Rate Blood Pressure 120/53 105/60 (mmHg) O2 Sat by Pulse 96 96 95 Oximetry 10/15/16 10/15/16 10/15/16 21:00 21:15 21:30 Temperature Pulse Rate 91 92 93 Respiratory 35 42 40 Rate Blood Pressure 114/65 104/60 121/77 (mmHg) O2 Sat by Pulse 96 96 96 Oximetry 10/15/16 10/15/16 10/15/16 21:45 21:59 22:00 Temperature Pulse Rate 92 99 Respiratory 22 38 36 Rate Blood Pressure 122/79 (mmHg) O2 Sat by Pulse 97 95 Oximetry 10/15/16 10/15/16 10/15/16 22:02 22:30 22:45 Temperature Pulse Rate 95 92 90 Respiratory 39 36 37 Rate Blood Pressure 108/58 103/60 (mmHg) O2 Sat by Pulse 96 96 96 Oximetry 10/15/16 10/15/16 10/15/16 23:00 23:15 23:30 Temperature Pulse Rate 86 85 86 Respiratory 36 36 31 Rate Blood Pressure 101/55 92/69 103/62 (mmHg) O2 Sat by Pulse 96 96 96 Oximetry 10/15/16 10/16/16 10/16/16 23:45 00:00 00:01 Temperature 96.0 F Pulse Rate 85 84 82 Respiratory 32 37 35 Rate Blood Pressure 114/74 102/59 (mmHg) O2 Sat by Pulse 97 96 96 Oximetry 10/16/16 10/16/16 10/16/16 00:15 00:22 00:30 Temperature Pulse Rate 81 84 82 Respiratory 34 35 37 Rate Blood Pressure 124/61 101/61 (mmHg) O2 Sat by Pulse 96 96 97 Oximetry 10/16/16 10/16/16 10/16/16 00:45 01:00 01:15 Temperature Pulse Rate 80 74 Respiratory 36 36 36 Rate Blood Pressure 97/57 104/65 116/55 (mmHg) O2 Sat by Pulse 96 96 Oximetry 10/16/16 10/16/16 10/16/16 01:30 01:45 02:00 Temperature Pulse Rate 80 79 80 Respiratory 35 37 38 Rate Blood Pressure 98/62 95/56 99/68 (mmHg) O2 Sat by Pulse 96 96 96 Oximetry 10/16/16 10/16/16 10/16/16 02:15 02:30 02:45 Temperature Pulse Rate 79 76 78 Respiratory 37 37 34 Rate Blood Pressure 100/62 95/61 98/54 (mmHg) O2 Sat by Pulse 96 96 97 Oximetry 10/16/16 10/16/16 10/16/16 03:00 03:15 03:25 Temperature Pulse Rate 81 80 Respiratory 31 39 28 Rate Blood Pressure 95/58 95/59 (mmHg) O2 Sat by Pulse 96 96 Oximetry 10/16/16 10/16/16 10/16/16 03:39 03:41 04:00 Temperature 96.8 F Pulse Rate 80 Respiratory 28 37 Rate Blood Pressure 98/60 (mmHg) O2 Sat by Pulse 96 Oximetry 10/16/16 10/16/16 10/16/16 04:06 04:47 05:00 Temperature Pulse Rate 85 Respiratory 37 39 Rate Blood Pressure 95/60 (mmHg) O2 Sat by Pulse 96 97 Oximetry 10/16/16 10/16/16 10/16/16 06:00 07:00 07:36 Temperature Pulse Rate 87 79 Respiratory 42 42 32 Rate Blood Pressure 93/56 109/60 (mmHg) O2 Sat by Pulse 99 98 Oximetry 10/16/16 07:37 Temperature 98.7 F Pulse Rate Respiratory Rate Blood Pressure (mmHg) O2 Sat by Pulse Oximetry Oxygen Devices in Use Now: None Appearance: Ill appearing female, anxious, but is able to sit up and drink orange juice. More alert. Eyes: PERRLA Ears/Nose/Mouth/Throat: - - cold scores around lips, poor dentition, dry oral mucosa Neck: NL Appearance and Movements; NL JVP Respiratory: Symmetrical Chest Expansion and Respiratory Effort, - - coarse lung sounds, fair aeration in all lung holley, with fine crackles in right base Cardiovascular: RRR Abdominal: NL Sounds; No Tenderness; No Distention Extremities: - - LLE edema, right hand/wrist edema Skin: - - appears jaundiced, cold sores around mouth, multiple puncture wounds to BUE (particularly to right hand) Neurological: Alert and Oriented x 3 Lines/Tubes/Other Access: Clean, Dry and Intact Peripheral IV Nutrition: Taking PO's Result Diagrams: 10/15/16 04:36 10/15/16 04:36 Additional Lab and Data: Lab Results 10/12/16 10/12/16 10/12/16 Range/Units 20:10 20:10 20:10 WBC 13.3 H (3.5-10.8) 10^3/ul RBC 4.22 (4.0-5.4) 10^6/ul Hgb 12.2 (12.0-16.0) g/dl Hct 36 (35-47) % MCV 85 (80-97) fL MCH 29 (27-31) pg MCHC 34 (31-36) g/dl RDW 15 (10.5-15) % Plt Count 104 L (150-450) 10^3/ul MPV 11 H (7.4-10.4) um3 Neut % (Auto) 86.1 H (38-83) % Lymph % (Auto) 5.0 L (25-47) % [place] % (Auto) 6.7 (1-9) % Eos % (Auto) 1.9 (0-6) % Baso % (Auto) 0.3 (0-2) % Absolute Neuts (auto) 11.4 H (1.5-7.7) 10^3/ul Absolute Lymphs (auto) 0.7 L (1.0-4.8) 10^3/ul Absolute Monos (auto) 0.9 H (0-0.8) 10^3/ul Absolute Eos (auto) 0.3 (0-0.6) 10^3/ul Absolute Basos (auto) 0 (0-0.2) 10^3/ul Absolute Nucleated RBC 0 10^3/ul Nucleated RBC % 0 ESR 63 H (0-14) mm/Hr INR (Anticoag Therapy) 1.23 H (0.89-1.11) APTT 25.1 L (26.0-36.3) seconds Sodium 126 L (133-145) mmol/L Potassium TNP Chloride 92 L (101-111) mmol/L Carbon Dioxide 23 (22-32) mmol/L Anion Gap TNP BUN 39 H (6-24) mg/dL Creatinine 1.58 H (0.51-0.95) mg/dL Est GFR ( Amer) 50.5 (>60) Est GFR (Non-Af Amer) 39.2 (>60) BUN/Creatinine Ratio 24.7 H (8-20) Glucose 88 (70-100) mg/dL Lactic Acid (0.5-2.0) mmol/L Calcium 8.7 (8.6-10.3) mg/dL Magnesium TNP Total Bilirubin 1.60 H (0.2-1.0) mg/dL AST TNP ALT 15 (7-52) U/L Alkaline Phosphatase 117 H (34-104) U/L Total Creatine Kinase 30 (10-223) U/L CK-MB (CK-2) 4.3 (0.6-6.3) ng/mL Troponin I 0.02 (<0.04) ng/mL C-Reactive Protein 309.51 H (< 5.00) mg/L Total Protein 6.9 (6.4-8.9) g/dL Albumin 2.7 L (3.2-5.2) g/dL Globulin 4.2 H (2-4) g/dL Albumin/Globulin Ratio 0.6 L (1-3) TSH Pending Beta HCG, Quant 0.81 mIU/mL 10/12/ Range/Units 20:10 WBC (3.5-10.8) 10^3/ul RBC (4.0-5.4) 10^6/ul Hgb (12.0-16.0) g/dl Hct (35-47) % MCV (80-97) fL MCH (27-31) pg MCHC (31-36) g/dl RDW (10.5-15) % Plt Count (150-450) 10^3/ul MPV (7.4-10.4) um3 Neut % (Auto) (38-83) % Lymph % (Auto) (25-47) % [place] % (Auto) (1-9) % Eos % (Auto) (0-6) % Baso % (Auto) (0-2) % Absolute Neuts (auto) (1.5-7.7) 10^3/ul Absolute Lymphs (auto) (1.0-4.8) 10^3/ul Absolute Monos (auto) (0-0.8) 10^3/ul Absolute Eos (auto) (0-0.6) 10^3/ul Absolute Basos (auto) (0-0.2) 10^3/ul Absolute Nucleated RBC 10^3/ul Nucleated RBC % ESR (0-14) mm/Hr INR (Anticoag Therapy) (0.89-1.11) APTT (26.0-36.3) seconds Sodium (133-145) mmol/L Potassium Chloride (101-111) mmol/L Carbon Dioxide (22-32) mmol/L Anion Gap BUN (6-24) mg/dL Creatinine (0.51-0.95) mg/dL Est GFR ( Amer) (>60) Est GFR (Non-Af Amer) (>60) BUN/Creatinine Ratio (8-20) Glucose (70-100) mg/dL Lactic Acid 1.2 (0.5-2.0) mmol/L Calcium (8.6-10.3) mg/dL Magnesium Total Bilirubin (0.2-1.0) mg/dL AST ALT (7-52) U/L Alkaline Phosphatase (34-104) U/L Total Creatine Kinase (10-223) U/L CK-MB (CK-2) (0.6-6.3) ng/mL Troponin I (<0.04) ng/mL C-Reactive Protein (< 5.00) mg/L Total Protein (6.4-8.9) g/dL Albumin (3.2-5.2) g/dL Globulin (2-4) g/dL Albumin/Globulin Ratio (1-3) TSH Beta HCG, Quant mIU/mL Microbiology and Other Data: Microbiology 10/12/16 21:32 Aerobic Blood Culture - Preliminary Blood Venous Assess/Plan/Problems-Billing Assessment: Ms. Gonzalez is a 26 yo female with a PMH of heroin use who presented to the ED with wrist and lower extremity pain that is likely secondary to septic emboli from infective endocarditis; patient also with cavitary lesions that also appear to be secondary to septic emboli. - Patient Problems (1) Acute respiratory failure with hypoxia Code(s): J96.01 - ACUTE RESPIRATORY FAILURE WITH HYPOXIA Comment: Secondary to previous pneumonia and worsening cavitary lesions, likely septic emboli On Vapotherm with maximal settings. Patient's inspiratory effort is poor, likely secondary to pain. Continue oxacillin for treatment of endocarditis (likely source for septic emboli). Will encourage IS. (2) Endocarditis Code(s): I38 - ENDOCARDITIS, VALVE UNSPECIFIED Comment: Echocardiogram shows possible mobile echodensity to tricuspid valve, highly suspicious for infective endocarditis. Blood cultures from 09/26/16 and this admission growing MSSA. New cultures drawn , results pending. Continue oxacillin q4h. ID input appreciated. Concern for joint involvement, MRI right wrist pending. LLE doppler shows fluid collection but no DVT. LLE is edematous but non-tender and no erythema, suspect third spacing/ dependent edema. (3) Hyperbilirubinemia Code(s): E80.6 - OTHER DISORDERS OF BILIRUBIN METABOLISM Comment: Recheck LFTs this AM. ALT/AST/Alk phosphatase WNL. May be secondary to hepatitis C and acute inflammation/infection (4) Septic embolism Code(s): I26.90 - SEPTIC PULMONARY EMBOLISM WITHOUT ACUTE COR PULMONALE Comment: Now with worsening cavitary pulmonary nodules and mediastinal and hilar lymphadenopathy seen on CTA, likely secondary to septic emobli. Also with RUE and RLE pain. Patient initially evaluated in ED on 09/26/16 and discharged on levofloxacin for treatment of CAP and suspected pericarditis. Message and letter sent to patient to return to hospital on 09/27/16 after positive MSSA blood cx; pt did not return. Likely secondary to endocarditis, continue oxacillin. (5) Opiate withdrawal Code(s): F11.23 - OPIOID DEPENDENCE WITH WITHDRAWAL Comment: Last heroin use was 10/12 prior to coming in to hospital. Clonidine protocol (obtained from [facility]) ordered. Started on Precedex in the ICU on 10/15 with notable improvement. Supportive care. Overall would like to avoid narcotic use, but given acuity of patient and presence of septic emboli, narcotic use clinically warranted for the time being. SW consult. (6) Acute urinary retention Code(s): R33.8 - OTHER RETENTION OF URINE Comment: Suspect secondary to AUGUST from sepsis and opiate and benzo use. Continue perez catheter, as it is warranted for hemodynamic monitoring. (7) DVT prophylaxis Code(s): JEA3865 - Comment: SQ heparin Status and Disposition: Inpatient admission. Appreciate insurance actuary input. Increased LOS secondary to infection and need for IV antibiotics.
[2016-10-16] MEDS: Chlorhexidine MOUTHWASH 0.12%* 15 ML UDC SWISH SPIT SCH (09:19)
[2016-10-16] MEDS: Nystatin SUSPENSION* 100000 UNITS/ML 5 ML UDC PO SCH ×4 (09:19→20:37)
[2016-10-16] MEDS: Multivitamins/Minerals TAB* DAILY PO SCH (09:19)
[2016-10-16] MEDS: Potassium Chlor TAB* 20 MEQ TAB.ER PO SCH ×2 (09:19→14:27)
--- NOTE | 2016-10-16 10:45 | PN ---
Progress Note - Progress Note SOAP: Subjective: DOS: 10/16/16 CC: endocarditis HPI: 26 year old woman IVD, admitted with chest pain, right wrist and ankle pain and cavitary lung masses. TTE showed TV endocarditis. Hypotensive overnight, resolved with fluids. No back pain, rash, or diarrhea. Objective: [] Vital Signs Temp 37.1 C 10/16/16 08:00 Pulse 87 10/16/16 08:00 Resp 29 10/16/16 08:00 BP 97/45 10/16/16 08:00 Pulse Ox 96 10/16/16 08:00 Intake & Output 10/15/16 10/16/16 10/16/16 18:59 06:59 18:59 Intake Total 1359 1937 Output Total 395 515 Balance 964 1422 Weight 190 lb 14.725 oz Intake: IV Fluids 150 868 LR 100 868 Oxacillin 50 IVPB 609 1021 LR 509 1021 Oxacillin 100 Medicated IV 48 Precedex 48 Oral 600 Output: Urine 0 Villegas 515 Residual 395 16 Fr Temperature Probe 395 Other: # Voids 0 Gen: no distress Neuro: sedated, opens eyes to voice, follows commands; moves all extremities strength 5/5 quad/TA/gastroc BL, no LE clonus BL HEENT:PERRL, MMM Neck:supple Heart:Regular and tachycardid, no murmur Lungs:coarse BS BL Abd:+BS NTND soft Skin: no rash MSK: R wrist and hand edema mild warmth no erythema, R ankle trace edema Pain with palpation all bony prominence including entire spine Laboratory Results - last 24 hr 10/13/16 11:23 Hepatitis C Antibody High reactive H HIV 1&2 Antibody Nonreactive Assessment: 1. MSSA TV endocariditis and bacteremia, persistent due to extensive burden of infection in lungs. 2. septic pulmonary emboli with acute hypoxemic respiratory failure, present on admission 3. encephalopathy, present on admission; non focal neuro exam 4. R wrist pain diff dx IC mediated due to endocarditis vs hematogenous spread of infection less likely 5. HCV Ab + 6. 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 left leg complex fluid collection likely abscess 8. acute hypoxemic respiratory failure Plan: 1. oxacillin 2gm IV Q4hrs, recheck BC positive non unexpected given extensive pulmonary involvement. Recheck BC 10/16, if still pos, then recheck echo later this week for change in size of vegetation. 2. sedation per ICU 3.IR aspiration of left leg collection, MRI right wrist when able, if not able then US wrist Discussed with Dr Carr and Claudia Streeter [employer]
[2016-10-16 12:13] LABS: FIO2 100
[2016-10-16 12:17] LABS: PCO2 Arterial 32 mmHg (35-45)
--- NOTE | 2016-10-16 12:25 | PN ---
Progress Note - Progress Note Note: CRITICAL CARE MEDICINE Date: 10/16/16 Time: 1145 SUBJECTIVE: Patient seen and examined. PHYSICAL EXAM: Vital Signs: Reviewed. Neurologic: lethargic, fatigued. tangential thinking. not holding capacity HEENT: pupils equal. Sclera anicteric. Trachea midline. Cardiovascular: S1 S2 tachy Respiratory: coarse rales bl; significant wob Abdomen: Soft, nt. No r/g/r. Extremities: Warm. Access: piv LABS: Reviewed. IMAGING: Reviewed. MEDICATIONS: Reviewed. ASSESSMENT: 26 F IVDA Acute hypoxic resp failure Multiple septic emboli with cavitaric lung lesions Severe sepsis sec to mssa TV endocarditis Opitate withdrawal Thrombocytopenia/anemia sec to septic consumption Chronic Hep C Malnutition - moderate degree Left leg abscess PLAN: Neurologic: withdrawal seems better controlled post precedex however demands of metabolics still remain despite this tx sec to lung dz. will need further sedatives and ventilatory support. f/u withdrawal needs. Cardiovascular: Perfusing on low end but considerable demands and still extensive time till recovery phase. volume status maybe a touch low intravascular and with interstiatial sequestration and considerable lung water, with a large component of that being exudative. TV IE. non surgical needs, but can f/u with NERY if intubated in a few days if not able to improve and can consider TVectomy. Will need fluid for right heart loading and likely need vasopressors given her current course. Respiratory: on HFO2. Wob quite extensive sec to demands and will remain so given her degree of sepsis and airspace lost with abscess and risk for ptx. Can check abg but likely to show acidosis without adequate compensation even given her degree of work. Unable to keep this pace for the amount of time needed. As much as we would prefer against ppv, we are headed that way and will discuss with her and attempting to d/w pts mother who also doesn't seem to be handling situation well. She will remain at risk for ptx with or without ppv as well. Only hope would be to maintain her through withdrawal state and allow spontaneous drainage of absecess via ett with time and avoid complications towards eventual healing and liberation. Gastrointestinal: weak nutrition. tf post intubation. Renal/Metabolic: renal function holding and would prefer to maintain that way with appropriate O2 delivery which is being sequestered to her wob currently. Infectious Disease: ID f/u. leg aspirate planned. on oxacillin continued. Hematology: deficient sec to septic consumption. at risk for dic. f/u Endocrine: no steroid need at present. Musculoskeletal: as above. deconditioned Psych/Social: social work f/u. Supportive and preventative care as ordered. SUP: ppi VTE prophylaxis: heparin Villegas catheter given critical illness, monitoring needs for accurate assessment of AUGUST and KDIGO criteria for critically ill patients and to avoid potential harms of urinary retention, skin breakdown/ulcers. Restraints: Reviewed and required. Disposition: ICU Code Status: Full Critical Care Time: 45min FNathne Carr DO
[2016-10-16] MEDS ORDERED: Propofol* 100 ML ONE (12:35)
[2016-10-16] MEDS ORDERED: Norepinephrine 16MCG/ML IVPRE* 4,000 MCG/250 ML BAG IV ONE (12:35)
[2016-10-16] MEDS ORDERED: fentaNYL* 50 MCG/ML 2 ML VIAL (100 MCG VIAL) ONE (12:37)
--- NOTE | 2016-10-16 12:45 | RAD ---
INDICATION: Right hand edema and a patient with a history of IV drug abuse COMPARISON: None TECHNIQUE: Real time ultrasound images of the right and were acquired with olivo scale and Doppler color flow imaging. FINDINGS: Overlying the dorsal hand there is an anechoic and avascular subcutaneous fluid collection just dorsal to the underlying bone measuring 1.1 x 0.8 x 2.5 cm. There is subcutaneous edema overlying this finding. IMPRESSION: Subcutaneous fluid collection measuring 2.5 cm in greatest dimension with overlying subcutaneous edema.
[2016-10-16] MEDS ORDERED: fentaNYL* 50 MCG/ML 5 ML VIAL (250 MCG VIAL) ONE ×2 (12:46→13:18)
[2016-10-16] MEDS ORDERED: Midazolam* 1 MG/ML 10 ML VIAL (10 MG) ONE ×2 (12:50→13:20)
[2016-10-16] MEDS ORDERED: Propofol* 10 MG/ML 20 ML BTL IV PUSH ONE (12:56)
[2016-10-16] MEDS ORDERED: NS 0.9% 1000 ML* 1,000 ML IV ONE (13:37)
[2016-10-16] MEDS ORDERED: fentaNYL* 50 MCG/ML 2 ML VIAL (100 MCG VIAL) IV SLOW PU PRN (13:42)
--- NOTE | 2016-10-16 13:51 | PN ---
Progress Note - Progress Note Note: CRITICAL CARE MEDICINE PROCEDURE NOTE DATE: 10/16/16 TIME: 1245 SERVICE: Critical Care Medicine LOCATION OF PROCEDURE: ICU PROCEDURE: Endotracheal intubation PROCEDURALIST: Dr. Carr Consent obtain: No, procedure performed emergently Time out held: Not indicated INDICATION: Acute hypoxic respiratory failure, ARDS PROCEDURE: Oxygenation maintained and vitals monitored. Patient in supine position. Pre-medication with fentanyl 200mcg, versed 4mg, propofol 100mg. Glidescope #3 inserted with Grade 2 view obtained. 8.0 endotracheal tube inserted to 21cm lip. Good chest rise with breath sounds appreciated in bilaterally lung holley. EtCO2 + color change. Portable chest x-ray pending. Patient otherwise tolerated well. Rebeka Carr, DO
--- NOTE | 2016-10-16 13:52 | PN ---
Progress Note - Progress Note Note: CRITICAL CARE MEDICINE PROCEDURE NOTE DATE: 10/16/16 TIME: 1315 SERVICE: Critical Care Medicine LOCATION OF PROCEDURE: ICU PROCEDURE: Central line insertion PROCEDURALIST: Dr. Carr Consent obtain: No, procedure performed emergently Time out held: Yes INDICATION: Acute respiratory failure, Septic shock, Pneumonia requiring vasopressors PROCEDURE: Oxygenation maintained and vitals monitored. Patient in supine position. SITE: RIGHT Internal jugular Site preparation with chlorhexidine locally. Full sterile drape, gown, hat, mask, gloves. 5ml 1% Lidocaine utilized at incision site. Standard sterile Seldinger technique utilized via ultrasound guidance and catheter was inserted to 16cm and sutured in place. Good blood return. Minimal blood loss but oozing post procedure. Site dressed with tegaderm. Portable chest x-ray pending. Patient otherwise tolerated well. Rebeka Carr DO
[2016-10-16] MEDS ORDERED: Propofol* 100 ML IV SCH (14:00)
[2016-10-16] MEDS ORDERED: fentaNYL PCA* 20 ML ONE (14:05)
[2016-10-16] MEDS: fentaNYL PCA* 20 ML PCA SCH (14:12)
--- NOTE | 2016-10-16 14:21 | RAD ---
Indication: Endocarditis with pulmonary septic emboli. Post RIGHT IJ central venous catheter, intubation, orogastric tube placement. Comparison: October 15, 2016 chest radiograph and October 13, 2016 CT. Technique: Upright AP 1357 hours. Report: Endotracheal tube tip 5.5 cm above the [place]. Nasogastric tube passes to the stomach and outside the [id number] at the level of the hypotonic gastric body. RIGHT IJ central venous catheter tip at level of RIGHT atrium. Severe bilateral cavitary nodular and ill-defined patchy pulmonary infiltrates. Small bilateral pleural effusions. Negative for pneumothorax. Upper normal heart size. While largely obscured the central pulmonary vasculature is grossly unremarkable. IMPRESSION: Tubes and lines as described. Bilateral cavitary nodules consistent with septic emboli in setting of endocarditis. Worsening of superimposed generalized pulmonary infiltrates and interval increase in small pleural effusions.
[2016-10-16] MEDS: Chlorhexidine MOUTHWASH 0.12%* 15 ML UDC TOPICAL SCH ×3 (14:23→20:38)
--- NOTE | 2016-10-16 14:46 | PN ---
Hospitalist Progress Note Patient with progressive decompensation of respiratory status and metabolic encephalopathy. Patient's condition discussed with her mother, who is in agreement with intubation, if deemed medically necessary. Consent also obtained via phone for fine needle aspiration of left calf fluid collection, as there is concern for purulent collection. Intubation performed by Dr. Carr (please see medical record) and central line placed. This was discussed with Pilar Gonzalez , patient's mother, who verbalized understanding. I did encourage her to come to the hospital to see her daughter and to further discuss concerns with pulp mill operator and myself as needed. Transfer of care to pulp mill operator while patient requiring mechanical ventilation.
[2016-10-16] MEDS: Propofol* 100 ML IV SCH ×3 (15:12→21:08)
[2016-10-16] MEDS: LORazepam INJ* 2 MG/ML 1 ML VIAL IV PUSH PRN (15:13)
[2016-10-16 15:16] LABS: Add Diff/Slide Review? Slide Review Added; Comments Flag Yes; Hematocrit 30 % (35-47); Mean Corpuscular HGB Conc 34 g/dl (31-36); Mean Corpuscular Hemoglobin 29 pg (27-31); Mean Corpuscular Volume 85 fL (80-97); Mean Platelet Volume 10 um3 (7.4-10.4); Red Blood Count 3.49 10^6/ul (4.0-5.4); Red Cell Distribution Width 15 % (10.5-15); White Blood Count 28.3 10^3/ul (3.5-10.8)
[2016-10-16 15:36] LABS: Albumin 1.7 g/dL (3.2-5.2); BUN/Creatinine Ratio 23.7 (8-20); Calcium 7.4 mg/dL (8.6-10.3); EGFR African American 41.8 (>60); EGFR Non-African American 32.5 (>60); Globulin 4.3 g/dL (2-4); Magnesium 2.3 mg/dL (1.9-2.7); Phosphorus 7.7 mg/dL (2.5-5.0); Potassium 4.2 mmol/L (3.5-5.0); Total Bilirubin 2.5 mg/dL (0.2-1.0)
[2016-10-16 15:54] LABS: Immature Granulocytes 10 % (0-9); Myelocytes % 2 % (0-1); Neutrophil % 81 % (38-83)
[2016-10-16 15:55] LABS: Hypochromasia 2+
[2016-10-16] MEDS ORDERED: Vasopressin* 100 UNITS in D5W 250 ML BAG* 245 ML IVPB SCH (16:15)
[2016-10-16] MEDS: Norepinephrine 16MCG/ML IVPRE* 4,000 MCG/250 ML BAG IV SCH ×2 (16:19→17:54)
[2016-10-16] MEDS ORDERED: NS 0.9% 1000 ML* 2,000 ML IV ONE (16:23)
--- NOTE | 2016-10-16 16:27 | PN ---
Progress Note - Progress Note Note: CRITICAL CARE MEDICINE Date: 10/16/16 Time: 1615 Pts mother updated at bedside. Attempted to educate on pts diagnosis and prognosis and condition. Mother expressed some understanding. Critical Care Time: 10min Rebeka Carr DO
[2016-10-16] MEDS: Albumin Human 25%* 100 ML in PREMIX* 0 ML IV SCH ×2 (16:39→20:37)
[2016-10-16] MEDS ORDERED: PREMIX* 0 ML ONE (20:27)
[2016-10-16] MEDS ORDERED: NS 0.9% 500 ML BAG* 500 ML IV ONE (23:00)
[2016-10-17] MEDS: Propofol* 100 ML IV SCH ×7 (00:20→20:47)
[2016-10-17] MEDS: Chlorhexidine MOUTHWASH 0.12%* 15 ML UDC TOPICAL SCH ×7 (01:31→23:35)
[2016-10-17] MEDS: Albumin Human 25%* 100 ML in PREMIX* 0 ML IV SCH ×2 (04:10→10:24)
[2016-10-17] MEDS: Docosanol 10%* CREAM 2 GM TUBE TOPICAL SCH ×2 (05:26→12:33)
[2016-10-17] MEDS: fentaNYL PCA* 20 ML PCA SCH ×2 (05:47→19:59)
[2016-10-17] MEDS: Heparin VIAL(*) 5000 UNITS/ML VIAL (FIVE THOUSAND) SUBCUT SCH ×3 (05:48→21:18)
[2016-10-17] MEDS ORDERED: cloNIDine TAB* DOSING for DAY 5 PO SCH (06:00)
[2016-10-17] MEDS: Multivitamins/Minerals TAB* DAILY PO SCH (07:22)
[2016-10-17] MEDS: Nystatin SUSPENSION* 100000 UNITS/ML 5 ML UDC PO SCH (07:22)
[2016-10-17] MEDS: Lansoprazole SOLUTAB* 30 MG G TUBE SCH (07:22)
[2016-10-17 08:01] LABS: Hematocrit 20 % (35-47); Hemoglobin 6.7 g/dl (12.0-16.0); Mean Corpuscular HGB Conc 34 g/dl (31-36); Mean Corpuscular Hemoglobin 29 pg (27-31); Mean Corpuscular Volume 86 fL (80-97); Mean Platelet Volume 10 um3 (7.4-10.4); Red Blood Count 2.29 10^6/ul (4.0-5.4); Red Cell Distribution Width 16 % (10.5-15); White Blood Count 10.4 10^3/ul (3.5-10.8)
[2016-10-17 08:05] LABS: Comments Flag Yes
[2016-10-17 08:09] LABS: Add Diff/Slide Review? Slide Review Added
--- NOTE | 2016-10-17 10:07 | RAD ---
HISTORY: ARDS, endocarditis COMPARISONS: October 16, 2016 VIEWS:1: Single frontal portable view of the chest at 9:30 AM FINDINGS: LINES AND TUBES: An endotracheal tube is noted with the tip overlying the trachea to the clavicles and the rebeca. A gastric tube is noted. The tip is below the cmfum-ad-pmpw of the current examination but is below the diaphragm. A right internal jugular venous catheter is noted with the tip overlying the superior vena cava. CARDIOMEDIASTINAL SILHOUETTE: The cardiomediastinal silhouette is normal for portable technique. PLEURA: The costophrenic angles are sharp. No pleural abnormalities are noted. LUNG PARENCHYMA: Again noted is a diffuse pattern of multifocal alveolar opacification throughout both lungs. This is stable from the previous examination. There are cavitary lesions of the upper lungs bilaterally. ABDOMEN: The upper abdomen is clear. There is no subphrenic gas. BONES AND SOFT TISSUES: No bone or soft tissue abnormalities are noted. IMPRESSION: 1. LINES AND TUBES ABOVE. 2. PERSISTENT MULTIFOCAL AIRSPACE DISEASE WITH MULTIPLE CAVITARY LESIONS OF THE LUNGS
[2016-10-17 10:10] LABS: BUN/Creatinine Ratio 17.5 (8-20); Calcium 6.9 mg/dL (8.6-10.3); EGFR African American 27.3 (>60); EGFR Non-African American 21.2 (>60); Phosphorus 7.2 mg/dL (2.5-5.0)
--- NOTE | 2016-10-17 10:49 | PN ---
Progress Note - Progress Note SOAP: Subjective: DOS: 10/17/16 CC: endocarditis HPI: 26 year old woman IVD, admitted with chest pain, right wrist and ankle pain and cavitary lung masses. TTE showed TV endocarditis. Intubated 10/17. ETT secretions, no diarrhea per RN. Objective: [] Vital Signs Temp 37.3 C 10/17/16 09:30 Pulse 86 10/17/16 09:30 Resp 21 10/17/16 10:00 BP 104/38 10/17/16 09:30 Pulse Ox 98 10/17/16 09:30 Intake & Output 10/16/16 10/17/16 10/17/16 18:59 06:59 18:59 Intake Total 3810 5073 Output Total 225 1503 72 Balance 3585 3570 -72 Weight 213 lb 10.047 oz Intake: IV Fluids 3640 1757 LR 640 1188 NS 3000 569 IVPB 2064 LR 589 NS 1475 Medicated IV 50 1252 CC - Norepinephrine/ 647 Levophed CC - Propofol/Diprivan 605 Precedex 50 Oral 120 Output: NG Tube Drainage Amount 1350 Villegas 225 153 72 Gen: no distress, not diaphoretic Neuro: sedated HEENT:PERRL, MMM Neck:supple Heart:Regular and tachycardic, no murmur Lungs:coarse BS BL Abd:+BS NTND soft Skin: no rash MSK: R wrist and hand edema mild warmth no erythema, R ankle trace edema Laboratory Results - last 24 hr 10/16/16 10/16/16 10/16/16 12:00 15:00 15:00 WBC 28.3 H RBC 3.49 L Hgb 10.0 L Hct 30 L MCV 85 MCH 29 MCHC 34 RDW 15 Plt Count 125 L MPV 10 Immature Gran % (Auto) 10 H Neut % (Auto) 87.6 H Lymph % (Auto) 6.9 L Floyd % (Auto) 4.3 Eos % (Auto) 0.3 Baso % (Auto) 0.9 Absolute Neuts (auto) 24.8 H Absolute Lymphs (auto) 1.9 Absolute Monos (auto) 1.2 H Absolute Eos (auto) 0.1 Absolute Basos (auto) 0.3 H Absolute Nucleated RBC 0.01 Neutrophils % 81 Band Neutrophils % 8 Lymphocytes % 8 L Monocytes % 1 Myelocytes % 2 H Nucleated RBC % 0 Normal RBC Morphology Not Reportable Hypochromasia 2+ INR (Anticoag Therapy) 1.35 H APTT 28.8 Fibrinogen 624 H Patient Temperature Not Reportable ABG pH 7.31 L ABG pCO2 32 L ABG pO2 162 H ABG HCO3 17.7 L ABG O2 Saturation 99.7 H ABG Base Excess -9.3 L Respiration Rate Not Reportable Ventilator Type Not Reportable Vent Mode Not Reportable FiO2 100 Inspiratory Time Not Reportable PEEP Not Reportable Pressure Support Not Reportable Pressure Control Not Reportable EPAP Not Reportable IPAP Not Reportable BiPAP Not Reportable Sodium Potassium Chloride Carbon Dioxide Anion Gap BUN Creatinine Est GFR ( Amer) Est GFR (Non-Af Amer) BUN/Creatinine Ratio Glucose Calcium Phosphorus Magnesium Total Bilirubin AST ALT Alkaline Phosphatase Total Protein Albumin Globulin Albumin/Globulin Ratio 10/16/16 10/17/16 10/17/16 15:00 06:00 09:20 WBC 10.4 RBC 2.29 L Hgb 6.7 L Hct 20 L MCV 86 MCH 29 MCHC 34 RDW 16 H Plt Count 74 L D MPV 10 Immature Gran % (Auto) Neut % (Auto) 83.9 H Lymph % (Auto) 9.7 L Floyd % (Auto) 5.5 Eos % (Auto) 0.5 Baso % (Auto) 0.4 Absolute Neuts (auto) 8.7 H Absolute Lymphs (auto) 1.0 Absolute Monos (auto) 0.6 Absolute Eos (auto) 0.1 Absolute Basos (auto) 0 Absolute Nucleated RBC 0.01 Neutrophils % Band Neutrophils % Lymphocytes % Monocytes % Myelocytes % Nucleated RBC % 0.1 Normal RBC Morphology Hypochromasia INR (Anticoag Therapy) APTT Fibrinogen Patient Temperature ABG pH ABG pCO2 ABG pO2 ABG HCO3 ABG O2 Saturation ABG Base Excess Respiration Rate Ventilator Type Vent Mode FiO2 Inspiratory Time PEEP Pressure Support Pressure Control EPAP IPAP BiPAP Sodium 134 135 Potassium 4.2 Chloride 106 110 Carbon Dioxide 18 L 15 L Anion Gap 10 BUN 44 H 47 H Creatinine 1.86 H 2.69 H Est GFR ( Amer) 41.8 27.3 Est GFR (Non-Af Amer) 32.5 21.2 BUN/Creatinine Ratio 23.7 H 17.5 Glucose 96 79 Calcium 7.4 L 6.9 L Phosphorus 7.7 H 7.2 H Magnesium 2.3 Total Bilirubin 2.50 H AST 26 ALT 11 Alkaline Phosphatase 92 Total Protein 6.0 L Albumin 1.7 L Globulin 4.3 H Albumin/Globulin Ratio 0.4 L Assessment: 1. MSSA TV endocariditis and bacteremia, persistent due to extensive burden of infection in lungs. 2. septic pulmonary emboli with acute hypoxemic respiratory failure, present on admission 3. encephalopathy, present on admission; non focal neuro exam 4. R wrist pain diff dx IC mediated due to endocarditis vs hematogenous spread of infection less likely 5. HCV Ab + 6. 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 left leg complex fluid collection likely abscess 8. acute hypoxemic respiratory failure 9. acute kidney injury ?ATN vs IE related GN Plan: 1. oxacillin 2gm IV Q4hrs, recheck BC positive non unexpected given extensive pulmonary involvement. Recheck BC 10/17. 2. sedation per ICU 3.IR aspiration of left leg collection, MRI right wrist when able, if not able then US wrist 4. complement levels, UA Discussed with Dr Crar
--- NOTE | 2016-10-17 11:15 | PN ---
Progress Note - Progress Note Note: CRITICAL CARE MEDICINE Date: 10/17/16 Time: 1000 SUBJECTIVE: Patient seen and examined. PHYSICAL EXAM: Vital Signs: Reviewed. Neurologic: Rass -3. overbreathing vent HEENT: pupils equal, reactive. Sclera anicteric. Trachea midline. Cardiovascular: S1 S2, 3/6 eladio Respiratory: coarse rales bl; poor compliance still with pressures at 25/5 and volumes~500ml Abdomen: Soft, nt. No r/g/r. Extremities: Warm. inc edema Access: RIJ intact LABS: Reviewed. IMAGING: Reviewed. MEDICATIONS: Reviewed. ASSESSMENT: 26 F IVDA Acute hypoxic resp failure Multiple septic emboli with cavitaric lung lesions Severe sepsis sec to mssa and post septic shock TV endocarditis Opitate withdrawal Thrombocytopenia/anemia sec to septic consumption Chronic Hep C Malnutition - moderate degree Left leg abscess AUGUST with component of ATN PLAN: Neurologic: withdrawal stable. keep propofol and fent today. dec fent slightly tomomrrow. f/u withdrawal needs. Cardiovascular: Perfusing ok. interstial vol up and intravasc maintained but still with Ebb component. keep colloid and crystolloid as is today and then look to cut back. Will consider f/u NERY when coags, plt etc more stable - perhaps friday. low dose vasopressors if needed. Looking more adrenal deficient now with low end diastolics. trial steroid pulse. Respiratory: PCV. CXR similar. unable to recruit much at this time and would rather allow some atectasis and secretion/pus drainage via ett prior to push to recruit with aprv unless we start to lose more compliance. Remains at inc risk for ptx and hoping to stabilize with time on ppv first prior to sustaining higher peep affects. O2 ok and MV holding in low teens. Gastrointestinal: weak nutrition. start tf Renal/Metabolic: renal function injury post her wob and o2 shunting. await recovery phase. may need to blunt phos from cellular breakdown. Infectious Disease: ID f/u appreciated. oxacillin continued. Hematology: deficient sec to septic consumption and further diulutional manuel and erythropoetin deficiency. Fibrinogen ok. f/u as no indication for transfusion at this time. hsq. Endocrine: steroid pulse. Musculoskeletal: deconditioned but bedrest currently Psych/Social: social work f/u. Supportive and preventative care as ordered. SUP: ppi VTE prophylaxis: heparin Villegas catheter given critical illness, monitoring needs for accurate assessment of AUGUST and KDIGO criteria for critically ill patients and to avoid potential harms of urinary retention, skin breakdown/ulcers. Disposition: ICU Code Status: Full Critical Care Time: 44min Rebeka Carr DO
[2016-10-17] MEDS: Hydrocortisone INJ* 100 MG VIAL IV SCH ×2 (11:28→19:53)
[2016-10-17 11:48] LABS: Magnesium 2.3 mg/dL (1.9-2.7)
[2016-10-18] MEDS: Propofol* 100 ML IV SCH ×7 (00:25→23:20)
[2016-10-18] MEDS: fentaNYL PCA* 20 ML PCA SCH ×3 (03:05→17:19)
[2016-10-18] MEDS: Hydrocortisone INJ* 100 MG VIAL IV SCH ×3 (03:37→20:20)
[2016-10-18] MEDS: Chlorhexidine MOUTHWASH 0.12%* 15 ML UDC TOPICAL SCH ×6 (03:37→23:20)
[2016-10-18] MEDS ORDERED: cloNIDine TAB* DOSING for DAY 6 PO SCH (06:00)
[2016-10-18 06:09] LABS: Hematocrit 30 % (35-47); Mean Corpuscular HGB Conc 34 g/dl (31-36); Mean Corpuscular Hemoglobin 28 pg (27-31); Mean Corpuscular Volume 85 fL (80-97); Mean Platelet Volume 10 um3 (7.4-10.4); Red Blood Count 3.52 10^6/ul (4.0-5.4); Red Cell Distribution Width 15 % (10.5-15); White Blood Count 16.2 10^3/ul (3.5-10.8)
[2016-10-18 06:12] LABS: Comments Flag Yes
[2016-10-18] MEDS: Heparin VIAL(*) 5000 UNITS/ML VIAL (FIVE THOUSAND) SUBCUT SCH ×3 (06:25→23:19)
[2016-10-18 06:29] LABS: Albumin 2.1 g/dL (3.2-5.2); BUN/Creatinine Ratio 18.7 (8-20); Calcium 7.4 mg/dL (8.6-10.3); EGFR African American 24.2 (>60); EGFR Non-African American 18.8 (>60); Globulin 3.9 g/dL (2-4); Magnesium 2.5 mg/dL (1.9-2.7); Phosphorus 8.7 mg/dL (2.5-5.0); Potassium 4.6 mmol/L (3.5-5.0); Total Bilirubin 1.6 mg/dL (0.2-1.0)
[2016-10-18] MEDS: Lansoprazole SOLUTAB* 30 MG G TUBE SCH (07:53)
[2016-10-18] MEDS: Multivitamins/Minerals TAB* DAILY PO SCH (07:53)
--- NOTE | 2016-10-18 11:20 | PN ---
Progress Note - Progress Note Note: CRITICAL CARE MEDICINE Date: 10/18/16 Time: 900 SUBJECTIVE: Patient seen and examined. PHYSICAL EXAM: Vital Signs: Reviewed. Neurologic: Rass -3. overbreathing vent. sedation vacation dominique but not following commands yet HEENT: pupils equal, reactive. Sclera anicteric. Trachea midline. Cardiovascular: S1 S2, 3/6 eladio Respiratory: coarse rales bl; vol better. changed to aprv at ph 30. see if she can gently recruit and spont resp Abdomen: Soft, nt, mild distention. Extremities: Warm. inc edema Access: RIJ intact LABS: Reviewed. IMAGING: Reviewed. MEDICATIONS: Reviewed. ASSESSMENT: 26 F IVDA Acute hypoxic resp failure Multiple septic emboli with cavitaric lung lesions Severe sepsis sec to mssa and post septic shock TV endocarditis Opitate withdrawal Thrombocytopenia/anemia sec to septic consumption Chronic Hep C Malnutition - moderate degree Left leg abscess AUGUST with component of ATN PLAN: Neurologic: withdrawal stable. less propofol. keep fent as is. Cardiovascular: Perfusing ok. interstitial vol up and await renal recovery. kvo. Respiratory: APRV. CXR perhaps later today to ensure stability. continued secretion clearance. inc spont resp Gastrointestinal: tf. sup. Renal/Metabolic: ATN - awaiting diuretic phase and recovery. may need lasix challenge. Infectious Disease: ID f/u. oxacillin continued. Hematology: stablized. hsq Endocrine: steroid pulse with better bp. Musculoskeletal: deconditioned but bedrest currently Psych/Social: social work f/u. Supportive and preventative care as ordered. SUP: ppi VTE prophylaxis: heparin Villegas catheter given critical illness, monitoring needs for accurate assessment of AUGUST and KDIGO criteria for critically ill patients and to avoid potential harms of urinary retention, skin breakdown/ulcers. Disposition: ICU Code Status: Full Critical Care Time: 40min FNathen Carr DO
--- NOTE | 2016-10-18 13:06 | RAD ---
HISTORY: Follow-up pneumonia COMPARISONS: October 17, 2016 VIEWS:1: Single frontal portable view of the chest at 12:40 PM FINDINGS: LINES AND TUBES: An endotracheal tube is noted with the tip overlying the trachea between the clavicles and the rebeca.. A right-sided internal jugular venous catheter is noted. Gastric tube is noted. The tip is below the tijau-pr-fymq of the current examination but is below the diaphragm CARDIOMEDIASTINAL SILHOUETTE: The cardiomediastinal silhouette is normal for portable technique. PLEURA: The costophrenic angles are sharp. No pleural abnormalities are noted. LUNG PARENCHYMA: Again noted is diffuse multifocal alveolar opacification seen cavitary changes. This is stable ABDOMEN: The upper abdomen is clear. There is no subphrenic gas. BONES AND SOFT TISSUES: No bone or soft tissue abnormalities are noted. IMPRESSION: Stable multifocal consolidation and cavitary changes
[2016-10-18] MEDS: Calcium Acetate CAP* 667 MG G TUBE SCH ×2 (14:43→20:20)
--- NOTE | 2016-10-18 17:14 | PN ---
Progress Note - Progress Note SOAP: Subjective: DOS: 10/18/16 CC: endocarditis HPI: 26 year old woman IVD, admitted with chest pain, right wrist and ankle pain and cavitary lung masses. TTE showed TV endocarditis. Intubated 10/17. ETT bloody secretions, no diarrhea per RN. No fever 24 hours. Objective: [] Vital Signs Temp 36.5 C 10/18/16 16:30 Pulse 74 10/18/16 16:30 Resp 19 10/18/16 16:46 BP 117/50 10/18/16 16:30 Pulse Ox 96 10/18/16 16:53 Intake & Output 10/17/16 10/18/16 10/18/16 18:59 06:59 18:59 Intake Total 1428 3363 1983 Output Total 546 308 170 Balance 882 3055 1813 Weight 216 lb 11.43 oz Intake: IV Fluids 1213 2414 882 LR 1030 1664 754 NS 83 315 128 Oxacillin 100 435 IVPB 274 Oxacillin 274 Medicated IV 215 405 145 CC - Propofol/Diprivan 215 405 145 Tube Feeding 544 682 Output: NG Tube Drainage Amount 300 Villegas 246 158 170 Suctioning 150 Gen: no distress, not diaphoretic Neuro: sedated HEENT:PERRL, MMM Neck:supple Heart:Regular and tachycardic, no murmur Lungs:coarse BS BL Abd:+BS NTND soft Skin: no rash LN: no palpable nodes MSK: R wrist and hand edema mild warmth no erythema, R ankle trace edema; BL calf non tender, trace edema, no warmth or erythema Laboratory Results - last 24 hr 10/18/16 10/18/16 10/18/16 05:40 05:40 05:40 WBC 16.2 H RBC 3.52 L Hgb 10.0 L Hct 30 L MCV 85 MCH 28 MCHC 34 RDW 15 Plt Count 94 L MPV 10 Neut % (Auto) 92.8 H Lymph % (Auto) 4.6 L [place] % (Auto) 2.4 Eos % (Auto) 0.1 Baso % (Auto) 0.1 Absolute Neuts (auto) 15.0 H Absolute Lymphs (auto) 0.7 L Absolute Monos (auto) 0.4 Absolute Eos (auto) 0 Absolute Basos (auto) 0 Absolute Nucleated RBC 0.01 Nucleated RBC % 0 INR (Anticoag Therapy) Sodium 135 Potassium 4.6 Chloride 106 Carbon Dioxide 16 L Anion Gap 13 H BUN 56 H Creatinine 2.99 H Est GFR ( Amer) 24.2 Est GFR (Non-Af Amer) 18.8 BUN/Creatinine Ratio 18.7 Glucose 159 H Calcium 7.4 L Phosphorus 8.7 H Magnesium 2.5 Total Bilirubin 1.60 H AST 16 ALT 8 Alkaline Phosphatase 91 Ammonia 39 Total Creatine Kinase 53 Total Protein 6.0 L Albumin 2.1 L Globulin 3.9 Albumin/Globulin Ratio 0.5 L 10/18/16 05:40 WBC RBC Hgb Hct MCV MCH MCHC RDW Plt Count MPV Neut % (Auto) Lymph % (Auto) [place] % (Auto) Eos % (Auto) Baso % (Auto) Absolute Neuts (auto) Absolute Lymphs (auto) Absolute Monos (auto) Absolute Eos (auto) Absolute Basos (auto) Absolute Nucleated RBC Nucleated RBC % INR (Anticoag Therapy) 1.14 H Sodium Potassium Chloride Carbon Dioxide Anion Gap BUN Creatinine Est GFR ( Amer) Est GFR (Non-Af Amer) BUN/Creatinine Ratio Glucose Calcium Phosphorus Magnesium Total Bilirubin AST ALT Alkaline Phosphatase Ammonia Total Creatine Kinase Total Protein Albumin Globulin Albumin/Globulin Ratio Assessment: 1. MSSA TV endocariditis and bacteremia, persistent due to extensive burden of infection in lungs. 2. septic pulmonary emboli with acute hypoxemic respiratory failure, present on admission 3. encephalopathy, present on admission; non focal neuro exam 4. R wrist pain diff with small abscess on US, at site of injection, edema improving 5. Hepatitis C infection, chronic 6. 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 left leg complex fluid collection likely abscess 8. acute hypoxemic respiratory failure 9. acute kidney injury ?ATN vs IE related GN Plan: 1. continue oxacillin 2gm IV Q4hrs, recheck BC pending 2. sedation per ICU 3. follow wrist and leg exam 4. complement levels, UA
[2016-10-18] MEDS: Senna TAB G TUBE SCH (20:21)
[2016-10-19] MEDS: Propofol* 100 ML IV SCH ×6 (00:40→18:52)
[2016-10-19] MEDS: Hydrocortisone INJ* 100 MG VIAL IV SCH ×4 (05:32→20:31)
[2016-10-19] MEDS: Heparin VIAL(*) 5000 UNITS/ML VIAL (FIVE THOUSAND) SUBCUT SCH ×3 (05:32→20:46)
[2016-10-19] MEDS: Chlorhexidine MOUTHWASH 0.12%* 15 ML UDC TOPICAL SCH ×5 (05:33→20:31)
[2016-10-19 05:54] LABS: Hematocrit 16 % (35-47); Mean Corpuscular HGB Conc 33 g/dl (31-36); Mean Corpuscular Hemoglobin 28 pg (27-31); Mean Corpuscular Volume 85 fL (80-97); Mean Platelet Volume 10 um3 (7.4-10.4); Red Cell Distribution Width 16 % (10.5-15); White Blood Count 24.1 10^3/ul (3.5-10.8)
[2016-10-19 06:03] LABS: Comments Flag Yes
[2016-10-19 06:04] LABS: Hemoglobin 5.4 g/dl (12.0-16.0)
[2016-10-19 06:13] LABS: BUN/Creatinine Ratio 24.4 (8-20); Calcium 7.1 mg/dL (8.6-10.3); EGFR African American 23.4 (>60); EGFR Non-African American 18.2 (>60); Magnesium 2.5 mg/dL (1.9-2.7); Phosphorus 9.4 mg/dL (2.5-5.0); Potassium 4.9 mmol/L (3.5-5.0)
[2016-10-19] MEDS ORDERED: Pantoprazole IV* 40 MG IV ONE (06:37)
[2016-10-19] MEDS ORDERED: Pantoprazole IV* 40 MG ONE (06:40)
[2016-10-19 06:51] LABS: Comments Flag Yes; Hematocrit 20 % (35-47); Hemoglobin 6.8 g/dl (12.0-16.0)
[2016-10-19] MEDS ORDERED: Pantoprazole IV* 80 MG in NS 0.9% 250 ML* 250 ML IVPB SCH (07:00)
--- NOTE | 2016-10-19 07:19 | PN ---
Progress Note - Progress Note Note: Nursing report HGB this am of 5.4, yesterday was 10.0. Upon evaluation she is normotensive, not tachycardic with pink complexion, red flushing of palm creases on extension, & pink palpebral fissures. Stool in the vault is firm and brown. Recheck HGB is 6.8. Type & screen ordered. D/C lansoprazole. Start pantoprazole bolus/GTT. Jitendra Carr MD stage electrician helper apprised, advised to hold on transfusion at this time & he will reassess.
[2016-10-19] MEDS: Thiamine TAB* 100 MG TAB G TUBE SCH (08:07)
[2016-10-19] MEDS: Senna TAB G TUBE SCH ×2 (08:08→20:32)
[2016-10-19] MEDS: fentaNYL PCA* 20 ML PCA SCH ×3 (08:24→22:01)
[2016-10-19] MEDS: Calcium Acetate CAP* 667 MG G TUBE SCH ×4 (08:35→20:35)
[2016-10-19] MEDS ORDERED: cloNIDine TAB* DOSING FOR DAY 7 PO SCH (09:00)
[2016-10-19] MEDS: LORazepam INJ* 2 MG/ML 1 ML VIAL IV PUSH PRN ×3 (11:05→18:53)
--- NOTE | 2016-10-19 11:23 | PN ---
Progress Note - Progress Note Note: CRITICAL CARE MEDICINE Date: 10/19/16 Time: 900 SUBJECTIVE: Patient seen and examined. PHYSICAL EXAM: Vital Signs: Reviewed. Neurologic: Rass -3. overbreathing vent. HEENT: pupils equal small, reactive. Sclera anicteric. Trachea midline. Cardiovascular: S1 S2, 3/6 eladio Respiratory: coarse rales bl; adjusted to aprv. difficulty yet again. vent to be changed. continuous secretions. Abdomen: Soft, nt, mild distention. Extremities: Warm. ++edema. hinson creases pink Access: RIJ intact LABS: Reviewed. IMAGING: Reviewed. MEDICATIONS: Reviewed. ASSESSMENT: 26 F IVDA Acute hypoxic resp failure Multiple septic emboli with cavitaric lung lesions Severe sepsis sec to mssa and post septic shock TV endocarditis Left leg abscess Opitate withdrawal Thrombocytopenia/anemia sec to septic consumption Chronic Hep C Malnutition - moderate degree Left leg abscess MIGEL with component of ATN PLAN: Neurologic: withdrawal stable but add long acting benzos to combat the amount of propofol needs. not sure inc fent gtt will change much for her. use prns. can consider addition of precedex. Cardiovascular: Perfusing ok. interstitial vol quite up now. Limit ivf. may try another 24hrs albumin and then trial diuretics. Respiratory: APRV. Lung compliance remains dismal and remain concerned about her healing potential and risk for pulm cripple. Need to try and recruit basilar lung with aprv and continued secretion clearance fostering. Worried she is not going to heal and recover with set up for trach and vent dependency. Gastrointestinal: tf. sup. tx overnight for heme + stools. can utilize bid ppi for now. no overt bleed but has risks. Renal/Metabolic: ATN - awaiting diuretic phase and recovery and lasix challenge soon post colloid load. Infectious Disease: ID f/u. oxacillin continued. Hematology: Hb down on lab. plt have come up. BUN up not helping bleeding potentials. multiple factors for anemia, consumption, inflammation, migel. No signs of hemolytic nor dic currently. f/u am labs. hold off on transfusion for now. Endocrine: steroid pulse and now taper. Musculoskeletal: deconditioned but bedrest currently given severity. skin precautions. Psych/Social: social work f/u. Remains with very high morbidity and mortality. Supportive and preventative care as ordered. SUP: ppi VTE prophylaxis: heparin Villegas catheter given critical illness, monitoring needs for accurate assessment of MIGEL and KDIGO criteria for critically ill patients and to avoid potential harms of urinary retention, skin breakdown/ulcers. Disposition: ICU Code Status: Full Critical Care Time: 40min Rebeka Carr DO
[2016-10-19] MEDS: ALBUMIN HUMAN 25% IV SCH ×2 (13:21→17:26)
[2016-10-19] MEDS: OXAZEPAM 15 MG G TUBE SCH ×2 (13:22→20:32)
[2016-10-19 13:26] LABS: Hematocrit 23 % (35-47); Hemoglobin 7.7 g/dl (12.0-16.0); Mean Corpuscular HGB Conc 33 g/dl (31-36); Mean Corpuscular Hemoglobin 28 pg (27-31); Mean Corpuscular Volume 86 fL (80-97); Mean Platelet Volume 10 um3 (7.4-10.4); Red Blood Count 2.72 10^6/ul (4.0-5.4); Red Cell Distribution Width 16 % (10.5-15); White Blood Count 24.1 10^3/ul (3.5-10.8)
--- NOTE | 2016-10-19 14:26 | PN ---
Progress Note - Progress Note Note: CRITICAL CARE MEDICINE Date: 10/19/16 Time: 1400 Still doing poorly. Could not sustain on APRV. Able to increased volumes but seemingly agonal for a time and poor R heart compensation. Placed back on PCV. MV remains up. continued metabolic acidosis with continued ATN renal failure. Keep sedated. f/u colloid and diuretic challange. Check cxr post aprv and given her acute agonal episodes to ensure no ptx. Otherwise, again, if only able to sustain with pcv she is likely to continue with her lung injury and cavitations with fibrotic changes ultimately. Dismal condition. Can try to lessen propofol, although not maribel, but less may benefit by adding benzos and precedex. Continued care. Disposition: ICU Code Status: Full Critical Care Time: 20min Rebeka Carr DO
[2016-10-19] MEDS ORDERED: Sodium Bicarbonate 8.4% IV* 50 ML VIAL ONE (14:57)
[2016-10-19 15:02] LABS: Complement C3 83 mg/dL (75 - 175)
[2016-10-19] MEDS: Sodium Bicarbonate 8.4% IV* 150 MEQ in D5W 1000 ML BAG* 1,000 ML IVPB SCH (15:06)
[2016-10-19] MEDS: Dexmedetomidine* 50 ML IVPB SCH ×2 (15:27→18:52)
--- NOTE | 2016-10-19 15:34 | RAD ---
INDICATION: Hypoxia COMPARISON: Most recent comparison chest x-rays dated October 18, 2016 TECHNIQUE: Single AP portable view of the chest was obtained. FINDINGS: Image quality is compromised due to the relative inferiority of a portable chest x-ray. The endotracheal tube terminates at the level the clavicular heads. There is a right neck central line with the tip terminating overlying the superior vena cava. The gastric tube terminates below the level of diaphragm overlying the gastric fundus. The heart is mildly enlarged similar to the previous chest x-ray. There is diffuse reticulonodular patchy densities as well as density obscuring the bilateral lung bases. Overall there is improved aeration when compared to the previous day chest x-ray. Visualized bones are normal for the patient's age. IMPRESSION: Chest x-ray findings are most indicative of cardiogenic pulmonary edema with bibasilar pleural effusions. Alternatively findings could represent pneumonitis or ARDS. Overall there has been improved aeration when compared to the previous day chest x-ray.
[2016-10-19] MEDS ORDERED: Furosemide IV* 10 MG/ML 10 ML VIAL (100 MG) IV ONE (18:00)
[2016-10-19 19:08] LABS: Hematocrit 19 % (35-47)
[2016-10-19 19:15] LABS: Comments Flag Yes
[2016-10-19 19:16] LABS: Hemoglobin 6.1 g/dl (12.0-16.0)
[2016-10-19] MEDS: Lansoprazole SOLUTAB* 30 MG G TUBE SCH (20:32)
[2016-10-20] MEDS: ALBUMIN HUMAN 25% IV SCH ×2 (00:04→04:59)
[2016-10-20] MEDS: Dexmedetomidine* 50 ML IVPB SCH ×8 (00:05→23:36)
[2016-10-20] MEDS: Propofol* 100 ML IV SCH ×3 (00:05→23:35)
[2016-10-20] MEDS: Chlorhexidine MOUTHWASH 0.12%* 15 ML UDC TOPICAL SCH ×6 (00:05→21:05)
[2016-10-20] MEDS: LORazepam INJ* 2 MG/ML 1 ML VIAL IV PUSH PRN ×4 (01:20→19:52)
[2016-10-20] MEDS: Hydrocortisone INJ* 100 MG VIAL IV SCH ×3 (03:26→19:36)
[2016-10-20] MEDS: OXAZEPAM 15 MG G TUBE SCH ×3 (04:58→21:05)
[2016-10-20] MEDS: fentaNYL PCA* 20 ML PCA SCH ×3 (05:05→19:04)
[2016-10-20] MEDS: Heparin VIAL(*) 5000 UNITS/ML VIAL (FIVE THOUSAND) SUBCUT SCH ×3 (05:12→21:06)
--- NOTE | 2016-10-20 05:26 | PN ---
Progress Note - Progress Note Note: RT called called w/ concern for increased vent pressures improved w/ positioning & sedation adjustment. Upon evaluation, vitals are stable, good saO2 , lungs equal B. pCXR w/o evidence of pneumothorax. Continue to monitor closely.
[2016-10-20 05:45] LABS: Hematocrit 18 % (35-47); Mean Corpuscular HGB Conc 33 g/dl (31-36); Mean Corpuscular Hemoglobin 28 pg (27-31); Mean Corpuscular Volume 85 fL (80-97); Mean Platelet Volume 9 um3 (7.4-10.4); Red Blood Count 2.13 10^6/ul (4.0-5.4); Red Cell Distribution Width 15 % (10.5-15); White Blood Count 13.9 10^3/ul (3.5-10.8)
[2016-10-20 05:46] LABS: Comments Flag Yes
[2016-10-20 05:55] LABS: Albumin 2.6 g/dL (3.2-5.2); BUN/Creatinine Ratio 27.9 (8-20); Calcium 7.8 mg/dL (8.6-10.3); EGFR African American 23.4 (>60); EGFR Non-African American 18.2 (>60); Globulin 3.6 g/dL (2-4); Magnesium 2.5 mg/dL (1.9-2.7); Phosphorus 8.4 mg/dL (2.5-5.0); Potassium 4.3 mmol/L (3.5-5.0); Total Protein 6.2 g/dL (6.4-8.9)
[2016-10-20 06:32] LABS: Hematocrit 16 % (35-47)
[2016-10-20 06:33] LABS: Comments Flag Yes
[2016-10-20 06:37] LABS: Hemoglobin 5.4 g/dl (12.0-16.0)
--- NOTE | 2016-10-20 06:42 | PN ---
Progress Note - Progress Note Note: HGB 6.0 this AM, 5.4 on recheck which is within her range over the last 24 hours. Jitendra Carr MD reimbursement spec aware and monitoring. No urgent need for transfusion as she remains clinically stable.
[2016-10-20] MEDS: Sodium Bicarbonate 8.4% IV* 150 MEQ in D5W 1000 ML BAG* 1,000 ML IVPB SCH (06:43)
[2016-10-20] MEDS: Calcium Acetate CAP* 667 MG G TUBE SCH ×3 (08:47→21:08)
[2016-10-20] MEDS: Lansoprazole SOLUTAB* 30 MG G TUBE SCH ×2 (08:47→21:06)
[2016-10-20] MEDS: Thiamine TAB* 100 MG TAB G TUBE SCH (08:48)
[2016-10-20] MEDS: Senna TAB G TUBE SCH ×2 (08:48→21:05)
--- NOTE | 2016-10-20 10:02 | RAD ---
INDICATION: Endocarditis COMPARISON: Most recent comparison chest x-ray is dated October 19, [address] of the chest dated October 13, 2016 TECHNIQUE: Single AP portable view of the chest was obtained. FINDINGS: Image quality is compromised due to the relative inferiority of a portable chest x-ray. Lines and tubes including the endotracheal tube, gastric tube and right neck central line are appropriately positioned and unchanged from the previous chest x-ray. There is a mild degree of cardiomegaly similar to the previous chest x-ray. There is worsening density obscuring the bilateral lung bases and blunting the costophrenic angles. Innumerable circumscribed lesions are seen throughout the lungs that corresponds to the cavitary lesion seen on the prior CT examination. Visualized bones are normal for the patient's age. IMPRESSION: Interval worsening of aeration when compared to the most recent October 19, 2016 chest x-ray with increased density obscuring the lung bases which could represent atelectasis/consolidation or pleural effusions. Innumerable round lesions throughout the lungs correspond to the innumerable cavitary lesion seen on the prior CT of the chest.
--- NOTE | 2016-10-20 10:51 | PN ---
Progress Note - Progress Note Note: CRITICAL CARE MEDICINE Date: 10/20/16 Time: 1010 SUBJECTIVE: Patient seen and examined. PHYSICAL EXAM: Vital Signs: Reviewed. Neurologic: Rass -3 and not following commands but opens eyes quikcer to stimuli. overbreathing vent. HEENT: pupils equal small, reactive. Sclera anicteric. Trachea midline. Cardiovascular: S1 S2, 3/6 eladio Respiratory: coarse rales bl; adjusted to aprv trial again from PCV. continued secretions. Abdomen: Soft, nt, mild distention. Extremities: Warm. ++edema. hinson creases pink Access: RIJ intact LABS: Reviewed. IMAGING: Reviewed. MEDICATIONS: Reviewed. ASSESSMENT: 26 F IVDA Acute hypoxic resp failure Multiple septic emboli with cavitaric lung lesions Severe sepsis sec to mssa and post septic shock TV endocarditis Left leg abscess Opitate withdrawal Thrombocytopenia/anemia sec to septic consumption Chronic Hep C Malnutition - moderate degree Left leg abscess AUGUST with component of ATN PLAN: Neurologic: withdrawal/agitation may be better controlled with precedex added as well as benzos. keep for now and keeping propofol low. fent as is. Cardiovascular: Perfusing ok. interstitial vol still up. Only marginal outout with lasix but given her dynamics will attempt to mobilize with lasix gtt today. would still like to avoid hd. Recieved colloid loading. no vasopressor needs Respiratory: APRV trial again, as unable to recruit with conventional and lungs remain dismal. Gastrointestinal: tf changed to nepro. bid ppi. no overt bleed and no indication for scope needs. Renal/Metabolic: ATN - force diuretic phase hopefully Infectious Disease: ID f/u. oxacillin continued. Hematology: Hb fluctuating and again multiple factors for anemia. one unit prbc colloid today. Endocrine: steroid pulse and can slowly taper. Musculoskeletal: deconditioned. not participating. skin precautions. Psych/Social: social work f/u. Remains with very high morbidity and mortality. Supportive and preventative care as ordered. SUP: ppi VTE prophylaxis: heparin Villegas catheter given critical illness, monitoring needs for accurate assessment of AUGUST and KDIGO criteria for critically ill patients and to avoid potential harms of urinary retention, skin breakdown/ulcers. Disposition: ICU Code Status: Full Critical Care Time: 40min Rebeka Carr DO
[2016-10-20] MEDS ORDERED: Furosemide IV* 10 MG/ML 10 ML VIAL (100 MG) IV ONE (11:00)
--- NOTE | 2016-10-20 16:26 | RAD ---
INDICATION: Respiratory distress in a patient with endocarditis COMPARISON: Same day chest x-ray acquired at 0402 hours TECHNIQUE: Single AP portable view of the chest was obtained on October 20, 2016 at 1436 hours. FINDINGS: Image quality is compromised due to the relative inferiority of a portable chest x-ray. The lines and tubes including the endotracheal tube, gastric tube and right neck central venous catheter are appropriately positioned and not significantly changed from the previous chest x-ray. There is mild cardiomegaly similar in appearance to the previous chest x-ray. Again seen are innumerable round lesions throughout both lungs that correspond to the multiple cavitary lesions seen on the previous CT the chest. There is worsening patchy density overlying the left lung and obscuring the bilateral lung bases and costophrenic angles. IMPRESSION: Overall increased density and worsening aeration relative to the chest x-ray acquired approximately 10 hours earlier.
[2016-10-20] MEDS: Acetaminophen TAB* 325 MG PO PRN (18:35)
[2016-10-21] MEDS: Chlorhexidine MOUTHWASH 0.12%* 15 ML UDC TOPICAL SCH ×6 (00:27→20:41)
[2016-10-21] MEDS: fentaNYL PCA* 20 ML PCA SCH ×4 (02:25→23:37)
[2016-10-21] MEDS: Dexmedetomidine* 50 ML IVPB SCH ×7 (02:43→22:59)
[2016-10-21] MEDS: Propofol* 100 ML IV SCH ×6 (02:43→21:01)
[2016-10-21] MEDS: Hydrocortisone INJ* 100 MG VIAL IV SCH ×3 (04:00→20:40)
[2016-10-21] MEDS: Heparin VIAL(*) 5000 UNITS/ML VIAL (FIVE THOUSAND) SUBCUT SCH ×3 (05:11→20:40)
[2016-10-21] MEDS: OXAZEPAM 15 MG G TUBE SCH ×3 (05:11→20:41)
[2016-10-21 06:19] LABS: BUN/Creatinine Ratio 32.2 (8-20); EGFR African American 25.4 (>60); EGFR Non-African American 19.8 (>60); Magnesium 2.4 mg/dL (1.9-2.7); Phosphorus 8.8 mg/dL (2.5-5.0); Potassium 3.8 mmol/L (3.5-5.0)
[2016-10-21 06:20] LABS: Hematocrit 18 % (35-47); Mean Corpuscular HGB Conc 34 g/dl (31-36); Mean Corpuscular Hemoglobin 29 pg (27-31); Mean Corpuscular Volume 85 fL (80-97); Mean Platelet Volume 9 um3 (7.4-10.4); Red Blood Count 2.12 10^6/ul (4.0-5.4); Red Cell Distribution Width 15 % (10.5-15); White Blood Count 11.7 10^3/ul (3.5-10.8)
[2016-10-21 06:31] LABS: Comments Flag Yes
[2016-10-21 06:32] LABS: Hemoglobin 6.1 g/dl (12.0-16.0)
[2016-10-21] MEDS: Lansoprazole SOLUTAB* 30 MG G TUBE SCH ×2 (08:46→20:40)
[2016-10-21] MEDS: Thiamine TAB* 100 MG TAB G TUBE SCH (08:46)
[2016-10-21] MEDS: HYDROmorphone* 2 MG/ML 1 ML SYR IV SLOW PU PRN ×3 (08:46→19:39)
[2016-10-21] MEDS: Senna TAB G TUBE SCH ×2 (08:47→20:40)
[2016-10-21] MEDS: Calcium Acetate CAP* 667 MG G TUBE SCH ×3 (09:05→20:43)
--- NOTE | 2016-10-21 11:27 | PN ---
Progress Note - Progress Note Note: CRITICAL CARE MEDICINE Date: 10/21/16 Time: 900 SUBJECTIVE: Patient seen and examined. PHYSICAL EXAM: Vital Signs: Reviewed. Neurologic: Rass -3 but arouses to stimuli. overbreathing vent. HEENT: pupils equal small, reactive. Sclera anicteric. Trachea midline. Cardiovascular: S1 S2, 3/6 eladio Respiratory: coarse rales bl; remains on PCV 20/10; 30%. continued copious secretions. Abdomen: Soft, nt Extremities: Warm. ++edema. Access: RIJ intact LABS: Reviewed. IMAGING: Reviewed. MEDICATIONS: Reviewed. ASSESSMENT: 26 F IVDA Acute hypoxic resp failure Multiple septic emboli with cavitaric lung lesions Severe sepsis sec to mssa and post septic shock TV endocarditis Left leg abscess Opitate withdrawal Thrombocytopenia/anemia sec to septic consumption Chronic Hep C Malnutition - moderate degree Left leg abscess AUGUST with component of ATN PLAN: Neurologic: continued to maintain with combo regimen to keep her sedate and controlled with vent. Keep benzos for now as well. Can consider clonidine td to help wean from precedex. prns. Cardiovascular: Perfusing. Able to move fluid with lasix gtt and continued today to hopefully promote renal recovery. Respiratory: Unable to tolerate arpv and lungs remain poor but able to oxygenate. PCV. allow drainage. Gastrointestinal: tf. bid ppi- again no overt bleed. Renal/Metabolic: as above. lasix gtt. Infectious Disease: ID f/u. oxacillin. Hematology: Hb still low end. one unit today. no signs of hemolysis, again just multifactorial. Endocrine: steroid pulse. Musculoskeletal: deconditioned. not participating. skin precautions. Psych/Social: social work f/u. Remains with very high morbidity and mortality. Supportive and preventative care as ordered. SUP: ppi VTE prophylaxis: heparin Villegas catheter given critical illness, monitoring needs for accurate assessment of AUGUST and KDIGO criteria for critically ill patients and to avoid potential harms of urinary retention, skin breakdown/ulcers. Disposition: ICU Code Status: Full Critical Care Time: 40min Rebeka Carr DO
--- NOTE | 2016-10-21 12:41 | PN ---
Progress Note - Progress Note SOAP: Subjective: DOS: 10/21/16 CC: endocarditis HPI: 26 year old woman IVD, admitted with chest pain, right wrist and ankle pain and cavitary lung masses. TTE showed TV endocarditis. Intubated 10/17. ETT continued secretions, no diarrhea per RN. Objective: [] Vital Signs Temp 38.0 C 10/21/16 11:00 Pulse 78 10/21/16 11:00 Resp 21 10/21/16 11:00 BP 144/67 10/21/16 11:00 Pulse Ox 97 10/21/16 11:00 Intake & Output 10/20/16 10/21/16 10/21/16 18:59 06:59 18:59 Intake Total 3280 2790 Output Total 1150 1150 Balance 2130 1640 Weight 227 lb 11.8 oz Intake: IV Fluids 1273 585 LR 135 83 NS 60 NS FENTANYL RIDER 45 36 Oxacillin 200 406 SODIUM BICARB 893 Medicated IV 277 837 CC - Propofol/Diprivan 102 403 Precedex 134 224 furosemide 41 210 IV Narcotic Infusion 749 846 Fentanyl 749 846 Tube Feeding 561 422 Tube Feeding Flush Amount 100 Packed Cells 320 NG Tube Irrigate Amount 100 Output: Villegas 1150 1150 Gen: intubated, no distress, not diaphoretic Neuro: sedated HEENT:PERRL, MMM Neck:supple Heart:Regular and tachycardic, no murmur Lungs:coarse BS BL Abd:+BS NTND soft Skin: no rash LN: no palpable nodes MSK: R wrist no fluctuance or crepitus, R ankle trace edema; BL calf non tender , trace edema, no warmth or erythema Laboratory Results - last 24 hr 10/19/16 10/21/16 10/21/16 06:44 05:30 05:30 WBC 11.7 H RBC 2.12 L Hgb 6.1 L* Hct 18 L MCV 85 MCH 29 MCHC 34 RDW 15 Plt Count 198 MPV 9 Sodium 140 Potassium 3.8 Chloride 105 Carbon Dioxide 21 L Anion Gap 14 H BUN 92 H Creatinine 2.86 H Est GFR ( Amer) 25.4 Est GFR (Non-Af Amer) 19.8 BUN/Creatinine Ratio 32.2 H Glucose 99 Calcium 8.0 L Phosphorus 8.8 H Magnesium 2.4 Blood Type A Positive Antibody Screen Negative Crossmatch See Detail Assessment: 1. MSSA TV endocariditis and bacteremia, cleared 2. septic pulmonary emboli with acute hypoxemic respiratory failure, present on admission 3. encephalopathy, present on admission; non focal neuro exam 4. R wrist pain diff with small abscess on US, at site of injection, edema improving 5. Hepatitis C infection, chronic 6. 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 left leg complex fluid collection likely abscess 8. acute hypoxemic respiratory failure 9. acute kidney injury ?ATN 10. anemia ?hemolysis ie MAHA; PLT normal. Beta lactams are associated with hemolysis. No evidence of blood loss. Plan: 1. continue oxacillin 2gm IV Q4hrs 2. add bilirbun, LDH, hapto, if evidence of hemolyisis can change to ancef 2 gm IV Q8hrs Discussed with Dr Carr
[2016-10-21 13:24] LABS: Albumin 2.4 g/dL (3.2-5.2); Direct Bilirubin 0.4 mg/dL (0.03-0.18); Globulin 3.5 g/dL (2-4); Indirect Bilirubin 0.4 mg/dL (0.3-1.0); Total Bilirubin 0.8 mg/dL (0.2-1.0); Total Protein 5.9 g/dL (6.4-8.9)
[2016-10-22] MEDS: Propofol* 100 ML IV SCH ×6 (01:43→23:21)
[2016-10-22] MEDS: Chlorhexidine MOUTHWASH 0.12%* 15 ML UDC TOPICAL SCH ×6 (01:43→19:32)
[2016-10-22] MEDS: Dexmedetomidine* 50 ML IVPB SCH ×7 (02:19→21:32)
[2016-10-22] MEDS: Hydrocortisone INJ* 100 MG VIAL IV SCH ×2 (04:16→16:37)
[2016-10-22] MEDS: OXAZEPAM 15 MG G TUBE SCH ×3 (04:16→20:50)
[2016-10-22] MEDS: Heparin VIAL(*) 5000 UNITS/ML VIAL (FIVE THOUSAND) SUBCUT SCH (05:36)
[2016-10-22 06:20] LABS: Venous Bicarbonate HCO3 24.6 mmol/L (24-28)
[2016-10-22 06:23] LABS: Hematocrit 21 % (35-47); Hemoglobin 7.1 g/dl (12.0-16.0); Mean Corpuscular HGB Conc 33 g/dl (31-36); Mean Corpuscular Hemoglobin 28 pg (27-31); Mean Corpuscular Volume 85 fL (80-97); Mean Platelet Volume 9 um3 (7.4-10.4); Red Cell Distribution Width 15 % (10.5-15); White Blood Count 13.7 10^3/ul (3.5-10.8)
[2016-10-22 06:32] LABS: Albumin 2.4 g/dL (3.2-5.2); BUN/Creatinine Ratio 33.8 (8-20); Calcium 8.1 mg/dL (8.6-10.3); EGFR African American 27.7 (>60); EGFR Non-African American 21.5 (>60); Globulin 3.8 g/dL (2-4); Magnesium 2.2 mg/dL (1.9-2.7); Phosphorus 7.8 mg/dL (2.5-5.0); Potassium 2.8 mmol/L (3.5-5.0); Total Bilirubin 0.8 mg/dL (0.2-1.0); Total Protein 6.2 g/dL (6.4-8.9)
[2016-10-22] MEDS: fentaNYL PCA* 20 ML PCA SCH ×3 (06:42→21:11)
[2016-10-22] MEDS ORDERED: KCL 20 MEQ/100 ML IVPREMIX* 100 ML BAG IV ONE (07:20)
[2016-10-22] MEDS: Lansoprazole SOLUTAB* 30 MG G TUBE SCH ×2 (08:20→20:50)
[2016-10-22] MEDS: Thiamine TAB* 100 MG TAB G TUBE SCH (08:20)
[2016-10-22] MEDS: Calcium Acetate CAP* 667 MG G TUBE SCH ×3 (08:22→20:50)
[2016-10-22] MEDS: KCL 20 MEQ/100 ML IVPREMIX* 20 MEQ/100 ML BAG IV SCH ×6 (08:52→23:00)
--- NOTE | 2016-10-22 08:56 | PN ---
Progress Note - Progress Note Note: Progress Note Critical Care 24 hour events/significant events: -remains intubated, requiring a lot of sedation -started on Lasix infusion for AUGUST and gross volume overload; no hemodyn change noted. -suctioning secretions but less compared to yesterday as per RT -repleting K this morning; good urine output noted overnight Tele: NSR Vitals: Vital Signs Temp 99.9 F 10/22/16 08:30 Pulse 95 10/22/16 08:30 Resp 26 10/22/16 08:30 BP 139/60 10/22/16 08:30 Pulse Ox 98 10/22/16 08:30 Intake & Output 10/21/16 10/22/16 10/22/16 18:59 06:59 18:59 Intake Total 1392 2945 Output Total 1700 4850 Balance -308 -1905 Weight 220 lb 0.341 oz Intake: IV Fluids 213 936 NS 174 146 NS FENTANYL RIDER 39 49 Oxacillin 741 IVPB 100 Oxacillin 100 Medicated IV 412 1239 CC - Propofol/Diprivan 182 534 Precedex 113 359 furosemide 117 346 Tube Feeding 197 469 Tube Feeding Flush Amount 100 121 Packed Cells 370 NG Tube Irrigate Amount 180 Output: Villegas 1700 4850 Other: Date of Last Bowel 10/22/16 Movement # Bowel Movements 1 Estimated Stool Amount Small O2/Vent: PC 20 peak, peep 10, 30% fio2; sat 100%, TV 600 Infusions: Propofol, precedex, fentanyl, Lasix infusion Medications: Acetaminophen (Tylenol Tab*) 650 mg PO Q4H PRN PRN Reason: FEVER Last Admin: 10/20/16 18:35 Dose: 650 mg Albuterol (Ventolin 2.5 Mg/3 Ml Neb.Keyonna*) 2.5 mg INH Q4H PRN PRN Reason: SOB/WHEEZING Calcium Acetate (Phoslo Cap*) 1,334 mg G TUBE TID AYDIN Last Admin: 10/22/16 08:22 Dose: 1,334 mg Chlorhexidine Gluconate (Peridex Mouth Wash 0.12%*) 15 ml TOPICAL Q4H AYDIN Last Admin: 10/22/16 08:21 Dose: 15 ml Cyclobenzaprine HCl (Flexeril Tab*) 10 mg PO TID PRN PRN Reason: SPASMS - MUSCLE Last Admin: 10/15/16 08:34 Dose: 10 mg Hydrocortisone Sodium Succinate (Solu-Cortef*) 50 mg IV Q12H AYDIN Hydromorphone HCl (Dilaudid Iv*) 1 mg IV SLOW PU Q4H PRN PRN Reason: PAIN Last Admin: 10/21/16 19:39 Dose: 1 mg Oxacillin Sodium 2 gm/ Sodium (Chloride) 100 mls @ 200 mls/hr IVPB Q4H AYDIN Last Admin: 10/22/16 08:20 Dose: 200 mls/hr Norepinephrine Bitartrate (Levophed 16 Mcg/Ml Premix Bag*) 4,000 mcg in 250 mls @ 75 mls/hr IV .INITIAL RATE AYDIN PRN Reason: 20 MCG/MIN Last Admin: 10/16/16 17:54 Dose: 75 mls/hr Propofol (Diprivan*) 100 mls @ 10.392 mls/hr IV .(Initial Rate) AYDIN; 20 MCG/KG/ MIN PRN Reason: Protocol Last Admin: 10/22/16 04:16 Dose: 10.392 mls/hr Fentanyl Citrate (Fentanyl Pulp Machine Operator*) 20 mls @ 2 mls/hr DIRECTOR UTILIZATION MANAGEMENT .change Q24H AYDIN; 100 MCG/HR PRN Reason: Protocol Last Admin: 10/22/16 06:42 Dose: 2 mls/hr Lactated Ringer's (Lactated Ringers 1000 Ml Bag*) 1,000 mls @ 0 mls/hr IV PER RATE AYDIN PRN Reason: KVO Last Admin: 10/19/16 02:37 Dose: 10 mls/hr Dexmedetomidine HCl (Precedex*) 50 mls @ 4.97 mls/hr IVPB .per rate AYDIN PRN Reason: 0.2 MCG/KG/HR Last Admin: 10/22/16 08:48 Dose: 4.97 mls/hr Potassium Chloride (Potassium Chloride 20 Meq/100 Ml Ivpremix*) 20 meq in 100 mls @ 50 mls/hr IV Q2H AYDIN Stop: 10/22/16 13:59 Furosemide 100 mg/ Sodium (Chloride) 100 mls @ 10 mls/hr IV .PER RATE AYDIN PRN Reason: 10 MG/HR Lansoprazole (Prevacid Solutab*) 30 mg G TUBE BID AYDIN Last Admin: 10/22/16 08:20 Dose: 30 mg Lorazepam (Ativan Inj*) 2 mg IV PUSH Q4H PRN PRN Reason: AGITATION Last Admin: 10/20/16 19:52 Dose: 2 mg Oxazepam (Serax Cap*) 15 mg G TUBE Q8H [facility] Last Admin: 10/22/16 04:16 Dose: 15 mg Senna (Senokot Tab*) 1 tab G TUBE BID [facility] Last Admin: 10/21/16 20:40 Dose: 1 tab Thiamine HCl (Vitamin B-1 Tab*) 100 mg G TUBE DAILY [facility] Last Admin: 10/22/16 08:20 Dose: 100 mg Physical Exam: General: intubated, sedated, opens eyes with stimuli, moves spontaneously Head: normocephalic, atraumatic HEENT: + pallor, no icterus, moist mucous membranes Neck: no stridor, no jvd CVS: normal rate, normal rhythm, systolic murmur+ Resp: bilateral air entry, coarse breath sounds with some scattered rhales, no wheeze, no acc muscle use Abdomen: soft, nontender, nondistended, bowel sounds present Ext: pulses+, warm, ++ edema Skin: intact, no breakdown, no dryness Neuro: intubated, sedated, moves spontaneously Labs: Laboratory Results - last 24 hr 10/19/16 10/21/16 10/22/16 06:44 05:30 05:55 WBC RBC Hgb Hct MCV MCH MCHC RDW Plt Count MPV Neut % (Auto) Lymph % (Auto) [place] % (Auto) Eos % (Auto) Baso % (Auto) Absolute Neuts (auto) Absolute Lymphs (auto) Absolute Monos (auto) Absolute Eos (auto) Absolute Basos (auto) Absolute Nucleated RBC Nucleated RBC % INR (Anticoag Therapy) VBG pH 7.36 VBG pCO2 45 VBG pO2 31 L VBG HCO3 24.6 VBG O2 Saturation 65.0 L VBG Base Excess 0 Sodium Potassium Chloride Carbon Dioxide Anion Gap BUN Creatinine Est GFR ( Amer) Est GFR (Non-Af Amer) BUN/Creatinine Ratio Glucose Calcium Ionized Calcium 4.52 L Phosphorus Magnesium Total Bilirubin 0.80 Direct Bilirubin 0.40 H Indirect Bilirubin 0.4 AST 12 L ALT 6 L Alkaline Phosphatase 56 Lactate Dehydrogenase 240 Total Protein 5.9 L Albumin 2.4 L Globulin 3.5 Albumin/Globulin Ratio 0.7 L Blood Type A Positive Antibody Screen Negative Crossmatch See Detail 10/22/16 10/22/16 10/22/16 05:55 05:55 05:55 WBC 13.7 H RBC 2.50 L Hgb 7.1 L Hct 21 L MCV 85 MCH 28 MCHC 33 RDW 15 Plt Count 283 MPV 9 Neut % (Auto) 89.8 H Lymph % (Auto) 5.7 L [place] % (Auto) 3.3 Eos % (Auto) 0.9 Baso % (Auto) 0.3 Absolute Neuts (auto) 12.3 H Absolute Lymphs (auto) 0.8 L Absolute Monos (auto) 0.5 Absolute Eos (auto) 0.1 Absolute Basos (auto) 0 Absolute Nucleated RBC 0 Nucleated RBC % 0 INR (Anticoag Therapy) 1.18 H VBG pH VBG pCO2 VBG pO2 VBG HCO3 VBG O2 Saturation VBG Base Excess Sodium 142 Potassium 2.8 L Chloride 104 Carbon Dioxide 24 Anion Gap 14 H BUN 90 H Creatinine 2.66 H Est GFR ( Amer) 27.7 Est GFR (Non-Af Amer) 21.5 BUN/Creatinine Ratio 33.8 H Glucose 129 H Calcium 8.1 L Ionized Calcium Phosphorus 7.8 H Magnesium 2.2 Total Bilirubin 0.80 Direct Bilirubin Indirect Bilirubin AST 12 L ALT 7 Alkaline Phosphatase 53 Lactate Dehydrogenase Total Protein 6.2 L Albumin 2.4 L Globulin 3.8 Albumin/Globulin Ratio 0.6 L Blood Type Antibody Screen Crossmatch Imaging: CXR 10/15 worsening bilateral pneumonia with innumerable cavitary septic emboli CT chest/abd/pelvis 10/13 severe burden of the cavitary pulm nodules with severe progression of disease; mediastinal/hilar lymphadenopathy; small pericardial effusion; splenomegaly. 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 -Acute Hypoxic Respiratory Failure -MSSA pneumonia, MSSA septic cavitary pulmonary nodules -MSSA Bacteremia/Endocarditis with TV vegetation -Left leg abscess/collection -Right hand collection/abscess -Opiate Withdrawal/IVDA use history -AUGUST, septic /pre-renal azotemia -Severe Sepsis -Hypokalemia -Thrombocytopenia/Anemia -Hyperbilirubinemia -Hypoalbuminemia -Chronic Hep C Plan: Neuro- on propofol/precedex/fentanyl infusion. High requirements given past drug use history. Seems comfortable, synced with vent, no distress. Daily sedation weaning and neuro checks as per protocol. Avoid BDZ. CVS-hemodyn stable, no hypotension/tachycardia. Gross overload, on Lasix infusion, dec to 10mg/hour. Great urine output, 6Liters out. Replete K with IV. Will repeat TTE to eval TV vegetation and status of valve. Decrease hydrocortisone to 50mg iv q12h. Resp- on PC mode now, tolerating well. Still has copious secretions.Chest PT ordered daily. Cont bedside suctioning/lavage. Will consider more Trendelenburg positioning for 1 hour/q8h or even proning to augment pulmonary toilet/ drainage. Cont oxacillin IV. CXR tomorrow. No plan for extubation or weaning yet , if secretions decrease, plan for trial in 48 hours. ID- afebrile, wbc fluctuating from sepsis/steroids. On Oxacillin for MSSA bacteremia (day#11, start 10/12). Blood cx neg 10/18. GI- on Tube feeds, tolerating, no diarrhea. GI prophylaxis. Renal-AUGUST. Gross overload. Hypokalemia, replete K. Lasix infusion with good urine output, dec to 10mg/hour and continue for now, reassess in AM. Villegas in place. Heme- Anemia, unclear source. Send off FOBT. LDH negative, bilirubin normal range. No evidence of hemolysis. s/p 1 unit prbc yesterday. Today hg 7.1, up from 6.1. Repeat hg in evening. Maintain Hg>7. Will hold heparin sq for 24-48 hours due to drop in hg and re-eval. Endo- stable Musculsk- stable; possible right hand abscess/collection and left leg abscess/ collection Wounds- as above Nutrition- Tube feeds DVT prophylaxis: discontinued for bleeding GI prophylaxis: PPI Central Line: yes Arterial Line: no Villegas Cathetor: yes Disposition: ICU for respiratory failure/severe sepsis/pneumonia Code Status: full code Total Critical Care time is 40 minutes, excluding procedures/teaching Julio Mariscal MD Supervisor Pig Machine (Electronically Signed)
[2016-10-22] MEDS: Senna TAB G TUBE SCH ×2 (09:28→20:50)
[2016-10-22] MEDS ORDERED: Furosemide IV* 10 MG/ML 10 ML VIAL (100 MG) ONE (12:35)
[2016-10-22] MEDS: LORazepam INJ* 2 MG/ML 1 ML VIAL IV PUSH PRN (13:03)
[2016-10-22] MEDS: HYDROmorphone* 2 MG/ML 1 ML SYR IV SLOW PU PRN (13:12)
[2016-10-22] MEDS: Acetaminophen TAB* 325 MG PO PRN (14:21)
--- NOTE | 2016-10-22 16:34 | ECHO ---
Patient: ALYSON BASURTO [facility] Rec#: [id number] : 1990 Date: 10/22/2016 Age: 26y Weight: kg / NaN lbs Sex: F Room#: [facility]12 Admit Date#: 10/12/2016 Type: Inpatient Referring: Julio Mariscal Reading: Dontrell Hernandez MD Counseling Services Director: Pilar Jimenez OMAR Counseling Services Director: Mae Ferrara CC: Maksim Crespo MD Transthoracic Echocardiogram Indication: Endocarditis, resp abn. BP: 131/68 HR: 92 Rhythm: NSR Findings History: Heroin IVDA, smoker, septic pulmonary emboli, endocarditis. Currently is sedated, intubated, and mechanically ventilated. This is a LIMITED study to evaluate tricuspid valve. Technical Comments: The study is technically limited due to patient being intubated and on a ventilator. Completed at 1500. Right Ventricle: Moderator Band present. The right ventricle is slightly dilated. The right ventricular global systolic function is low normal. Right Atrium: The right atrial cavity size is normal. Tricuspid Valve: The tricuspid valve leaflets are mildly thickened. Tricuspid valve leaflet mobility appears normal. There is evidence of moderate pulmonary hypertension.The degree of tricupid regurgitation is not well analyzed , shown only in the 4 chamber view in whixh it appears mild and eccentric toward thw interatrial septum. A mass is visualized on the tricuspid valve which appears consistent with a vegetation. Pericardium: A trivial pericardial effusion is visualized. There are no signs of significant hemodynamic compromise. Venous: Unable to accurately comment on the size collapsibility of the IVC as the patient in known to be on mechanical ventilation. Conclusions The study is technically limited due to patient being intubated and on a ventilator. The right ventricular global systolic function is low normal. The right ventricle is slightly dilated. The tricupid valve has a mobile vegetation measuring 1.8 cm x 2.5 cm in the parasternal short axis view and 1.6cm x 1.8 cm in the 4 chamber apical view. There is evidence of moderate pulmonary hypertension.The degree of tricupid regurgitation is not well analyzed , shown only in the 4 chamber view in whixh it appears mild and eccentric toward thw interatrial septum. A small pericardial effusion is seen. Compared to report of study from 10/13/2016 a definite mass /vegetation is sesn involving the tricupid valve (prior report had said a possible mobile density). This would suggest the it has grown in size since the last study. If more accurate assessment needed recommend NERY Measurements Name Value Normal Range TR Vmax 3.1 m/sec - TR peak gradient 39 mmHg - RAP 8 mmHg - RVSP 47 mmHg -
[2016-10-22 16:42] LABS: Hematocrit 23 % (35-47); Hemoglobin 7.9 g/dl (12.0-16.0)
[2016-10-22 17:40] LABS: BUN/Creatinine Ratio 32.6 (8-20); Calcium 8.5 mg/dL (8.6-10.3); EGFR African American 27.5 (>60); EGFR Non-African American 21.4 (>60); Potassium 3.1 mmol/L (3.5-5.0)
[2016-10-22] MEDS ORDERED: KCL 20 MEQ/100 ML IVPREMIX* 20 MEQ/100 ML BAG ONE (18:40)
[2016-10-22] MEDS ORDERED: Acetaminophen ADULT LIQ* 650 MG/20.3 ML UDC ONE (18:40)
[2016-10-23] MEDS: Dexmedetomidine* 50 ML IVPB SCH ×7 (00:42→20:45)
[2016-10-23] MEDS: Chlorhexidine MOUTHWASH 0.12%* 15 ML UDC TOPICAL SCH ×7 (00:42→20:33)
[2016-10-23 02:12] LABS: BUN/Creatinine Ratio 33.3 (8-20); Calcium 8.2 mg/dL (8.6-10.3); EGFR African American 29.4 (>60); EGFR Non-African American 22.9 (>60); Potassium 3.1 mmol/L (3.5-5.0)
[2016-10-23] MEDS: Propofol* 100 ML IV SCH ×6 (02:27→23:48)
[2016-10-23] MEDS: fentaNYL PCA* 20 ML PCA SCH ×3 (04:19→18:36)
[2016-10-23] MEDS: Hydrocortisone INJ* 100 MG VIAL IV SCH ×2 (04:30→09:20)
[2016-10-23] MEDS: OXAZEPAM 15 MG G TUBE SCH ×3 (04:31→20:33)
[2016-10-23 06:21] LABS: Hematocrit 21 % (35-47); Hemoglobin 7.1 g/dl (12.0-16.0); Mean Corpuscular HGB Conc 34 g/dl (31-36); Mean Corpuscular Hemoglobin 29 pg (27-31); Mean Corpuscular Volume 85 fL (80-97); Mean Platelet Volume 8 um3 (7.4-10.4); Red Blood Count 2.44 10^6/ul (4.0-5.4); Red Cell Distribution Width 15 % (10.5-15); White Blood Count 13.3 10^3/ul (3.5-10.8)
[2016-10-23 06:30] LABS: BUN/Creatinine Ratio 34.3 (8-20); Calcium 8.4 mg/dL (8.6-10.3); EGFR African American 29.2 (>60); EGFR Non-African American 22.7 (>60); Potassium 2.8 mmol/L (3.5-5.0)
[2016-10-23] MEDS: Lansoprazole SOLUTAB* 30 MG G TUBE SCH ×2 (07:43→20:35)
[2016-10-23] MEDS: Senna TAB G TUBE SCH ×2 (07:43→20:35)
[2016-10-23] MEDS: Thiamine TAB* 100 MG TAB G TUBE SCH (07:43)
[2016-10-23] MEDS: Calcium Acetate CAP* 667 MG G TUBE SCH ×3 (07:44→20:34)
--- NOTE | 2016-10-23 08:09 | RAD ---
INDICATION: Endocarditis COMPARISON: Most recent comparison chest x-ray October 20, 2016 TECHNIQUE: Single AP portable view of the chest was obtained. FINDINGS: Image quality is compromised due to the relative inferiority of a portable chest x-ray. Lines and tubes are unchanged from the previous chest x-ray and appropriately positioned. Again seen are multiple round cavitary lesions similar to the previous chest x-rays. There is density obscuring the bilateral lung bases and causing bilateral costophrenic angle blunting. Patchy density obscuring the left lower and lateral lung has improved relative to the previous chest x-ray. IMPRESSION: There is been small interval improvement in aeration when compared to the most recent October 20, 2016 chest x-ray as described above.
--- NOTE | 2016-10-23 09:03 | PN ---
Progress Note - Progress Note Note: Progress Note Critical Care 24 hour events/significant events: -remains intubated, still on propofol/fentanyl/precedex for sedation -lasix infusion ongoing at 10mg/hr, great urine output -secretions less from yesterday being suctioned; noted mild air leak around ETT but no drop in TV or desaturations; no air leak this morning Tele: NSR Vitals: Vital Signs Temp 98.8 F 10/23/16 08:30 Pulse 82 10/23/16 08:30 Resp 28 10/23/16 08:30 BP 159/86 10/23/16 08:30 Pulse Ox 91 10/23/16 08:30 Intake & Output 10/22/16 10/23/16 10/23/16 18:59 06:59 18:59 Intake Total 790.3 1518 Output Total 3825 3350 Balance -3034.7 -1832 Weight 214 lb 8.156 oz Intake: IV Fluids 337.3 NS 76.1 NS FENTANYL RIDER 45.2 Oxacillin 216 IVPB 390 NS 115 NS FENTANYL RIDER 75 Oxacillin 200 Medicated IV 453 1128 CC - Propofol/Diprivan 205 461 KCL 300 Precedex 135 219 furosemide 113 148 Output: Villegas 3825 3350 O2/Vent: PC 20 peak, peep 10, 30% fio2 --> PS 20/7, 30%, sat 94%, rr 22 Infusions: Propofol, precedex, fentanyl, Lasix infusion 10mg/hr Medications: Current Medications Acetaminophen (Tylenol Tab*) 650 mg PO Q4H PRN PRN Reason: FEVER Last Admin: 10/22/16 14:21 Dose: 650 mg Acetaminophen (Tylenol Adult Liq*) 650 mg G TUBE Q4H PRN PRN Reason: FEVER Albuterol (Ventolin 2.5 Mg/3 Ml Neb.Keyonna*) 2.5 mg INH Q4H PRN PRN Reason: SOB/WHEEZING Calcium Acetate (Phoslo Cap*) 1,334 mg G TUBE TID [facility] Last Admin: 10/23/16 07:44 Dose: 1,334 mg Chlorhexidine Gluconate (Peridex Mouth Wash 0.12%*) 15 ml TOPICAL Q4H [facility] Last Admin: 10/23/16 08:04 Dose: 15 ml Cyclobenzaprine HCl (Flexeril Tab*) 10 mg PO TID PRN PRN Reason: SPASMS - MUSCLE Last Admin: 10/15/16 08:34 Dose: 10 mg Hydrocortisone Sodium Succinate (Solu-Cortef*) 50 mg IV DAILY [facility] Stop: 10/24/16 09:01 Oxacillin Sodium 2 gm/ Sodium (Chloride) 100 mls @ 200 mls/hr IVPB Q4H [facility] Last Admin: 10/23/16 07:44 Dose: 200 mls/hr Propofol (Diprivan*) 100 mls @ 10.392 mls/hr IV .(Initial Rate) AYDIN; 20 MCG/KG/ MIN PRN Reason: Protocol Last Admin: 10/23/16 02:27 Dose: 30.6 mls/hr Fentanyl Citrate (Fentanyl Breeder Hen Service Technician*) 20 mls @ 2 mls/hr [employer] .change Q24H AYDIN; 100 MCG/HR PRN Reason: Protocol Last Admin: 10/23/16 04:19 Dose: 2 mls/hr Lactated Ringer's (Lactated Ringers 1000 Ml Bag*) 1,000 mls @ 0 mls/hr IV PER RATE AYDIN PRN Reason: KVO Last Admin: 10/19/16 02:37 Dose: 10 mls/hr Dexmedetomidine HCl (Precedex*) 50 mls @ 4.97 mls/hr IVPB .per rate AYDIN PRN Reason: 0.2 MCG/KG/HR Last Admin: 10/23/16 07:35 Dose: 4.97 mls/hr Furosemide 100 mg/ Sodium (Chloride) 100 mls @ 10 mls/hr IV .PER RATE AYDIN PRN Reason: 10 MG/HR Last Admin: 10/23/16 08:36 Dose: 10 mls/hr Potassium Chloride (Potassium Chloride 20 Meq/100 Ml Ivpremix*) 20 meq in 100 mls @ 50 mls/hr IV Q2H [facility] Stop: 10/23/16 14:59 Lansoprazole (Prevacid Solutab*) 30 mg G TUBE BID [facility] Last Admin: 10/23/16 07:43 Dose: 30 mg Lorazepam (Ativan Inj*) 2 mg IV PUSH Q4H PRN PRN Reason: AGITATION Last Admin: 10/22/16 13:03 Dose: 2 mg Oxazepam (Serax Cap*) 15 mg G TUBE Q8H [facility] Last Admin: 10/23/16 04:31 Dose: 15 mg Potassium Chloride (Klor-Con Liquid*) 40 meq NG TUBE Q12HR [facility] Senna (Senokot Tab*) 1 tab G TUBE BID [facility] Last Admin: 10/23/16 07:43 Dose: 1 tab Thiamine HCl (Vitamin B-1 Tab*) 100 mg G TUBE DAILY [facility] Last Admin: 10/23/16 07:43 Dose: 100 mg Physical Exam: General: intubated, sedated, opens eyes with stimuli, moves spontaneously Head: normocephalic, atraumatic HEENT: +pallor, no icterus, moist mucous membranes Neck: no jvd CVS: normal rate, normal rhythm, systolic murmur+ Resp: bilateral air entry, coarse breath sounds with some scattered rhales, no wheeze, no acc muscle use Abdomen: soft, nontender, nondistended, bowel sounds present Ext: pulses+, warm, ++ edema Skin: intact, no breakdown, no dryness Neuro: intubated, sedated, moves spontaneously Labs: Laboratory Results - last 24 hr 10/21/16 10/22/16 10/22/16 05:30 16:29 16:29 WBC RBC Hgb 7.9 L Hct 23 L MCV MCH MCHC RDW Plt Count MPV Haptoglobin 236 H Sodium 141 Potassium 3.1 L Chloride 103 Carbon Dioxide 26 Anion Gap 12 H BUN 87 H Creatinine 2.67 H Est GFR ( Amer) 27.5 Est GFR (Non-Af Amer) 21.4 BUN/Creatinine Ratio 32.6 H Glucose 102 H Calcium 8.5 L Magnesium 10/23/16 10/23/16 10/23/16 01:20 05:49 05:49 WBC 13.3 H RBC 2.44 L Hgb 7.1 L Hct 21 L MCV 85 MCH 29 MCHC 34 RDW 15 Plt Count 354 MPV 8 Haptoglobin Sodium 142 142 Potassium 3.1 L 2.8 L Chloride 104 103 Carbon Dioxide 27 28 Anion Gap 11 11 BUN 84 H 87 H Creatinine 2.52 H 2.54 H Est GFR ( Amer) 29.4 29.2 Est GFR (Non-Af Amer) 22.9 22.7 BUN/Creatinine Ratio 33.3 H 34.3 H Glucose 105 H 108 H Calcium 8.2 L 8.4 L Magnesium 2.0 Imaging: CXR 10/15 worsening bilateral pneumonia with innumerable cavitary septic emboli CT chest/abd/pelvis 10/13 severe burden of the cavitary pulm nodules with severe progression of disease; mediastinal/hilar lymphadenopathy; small pericardial effusion; splenomegaly. cxr 10/20 ett above rebeca, bilateral cavitary lesions multiple, left lower lobe consolidation+ cxr 10/23 - ett above rebeca, bilateral patchy infiltrates with cavitary lesions seen throughout. left lower lobe consolidation similar as prior, no sig change noted. 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 -Acute Hypoxic Respiratory Failure -MSSA pneumonia, MSSA septic cavitary pulmonary nodules -MSSA Bacteremia/Endocarditis with TV vegetation -Left leg abscess/collection -Right hand collection/abscess -Opiate Withdrawal/IVDA use history -AUGUST, septic /pre-renal azotemia -Severe Sepsis -Hypokalemia -Thrombocytopenia/Anemia -Hyperbilirubinemia -Hypoalbuminemia -Chronic Hep C Plan: Neuro- on propofol/precedex/fentanyl infusion. High requirements given past drug use history. Seems comfortable, synced with vent, no distress. Daily sedation weaning and neuro checks as per protocol. Avoid BDZ. CVS-hemodyn stable, no hypotension/tachycardia. Gross overload, on Lasix infusion 10mg/hour. Great urine output, Replete K. Will decrease to 5mg/hour. TTE for right heart/TV eval pending. Decrease hydrocortisone to 50mg iv qdaily for 2 more doses. Resp- Switched to PS mode this morning in attempt to start weaning her. Secretions improving now, far less copious as compared to prior as per staff. Chest PT. Cont bedside suctioning/lavage. Cont oxacillin IV. No plan for extubation or weaning yet, if secretions decrease, re-eval in 24-48 hours. ID- febrile, wbc fluctuating from sepsis/steroids. On Oxacillin for MSSA bacteremia (day#12, start 10/12). Blood cx neg 10/18. sputum cx pending. GI- on Tube feeds, tolerating, no diarrhea. GI prophylaxis. Renal-AUGUST slowly improving. Gross overload. Hypokalemia, replete K. Lasix infusion with good urine output, dec to 5mg/hour and continue for now, reassess in AM. Villegas in place. Heme- Anemia, unclear reason for drop. FOBT negSend off FOBT. LDH negative, bilirubin normal range, hapto not dec. No evidence of hemolysis. Hg 7.9 yesteray eveing, now 7.1, repeat in evening. Maintain Hg>7. Heparin sq on hold still. Avoiding SCDs due to fluid collection on left lower ext. Endo- stable Musculsk- stable; possible right hand abscess/collection and left leg collection Wounds- as above Nutrition- Tube feeds DVT prophylaxis: discontinued for bleeding GI prophylaxis: PPI Central Line: yes Arterial Line: no Villegas Cathetor: yes Disposition: ICU for respiratory failure/severe sepsis/pneumonia Code Status: full code Total Critical Care time is 40 minutes, excluding procedures/teaching Julio Mariscal MD [employer] (Electronically Signed)
[2016-10-23] MEDS: KCL 20 MEQ/100 ML IVPREMIX* 20 MEQ/100 ML BAG IV SCH ×3 (09:21→13:29)
[2016-10-23] MEDS: Potassium Chloride LIQUID* 20 MEQ PACKET NG TUBE SCH ×2 (09:21→20:35)
--- NOTE | 2016-10-23 16:47 | PN ---
Progress Note - Progress Note SOAP: Subjective: DOS: 10/23/16 CC: endocarditis HPI: 26 year old woman IVD, admitted with chest pain, right wrist and ankle pain and cavitary lung masses. TTE showed TV endocarditis. Intubated 10/17. ETT minimal secretions, no diarrhea per RN. Fever overnight. Objective: [] Vital Signs Temp 37.9 C 10/23/16 16:30 Pulse 67 10/23/16 16:30 Resp 16 10/23/16 16:30 BP 139/69 10/23/16 16:30 Pulse Ox 97 10/23/16 16:30 Intake & Output 10/22/16 10/23/16 10/23/16 18:59 06:59 18:59 Intake Total 790.3 1518 998.1 Output Total 3825 3350 2450 Balance -3034.7 -1832 -1451.9 Weight 214 lb 8.156 oz Intake: IV Fluids 337.3 205.7 NS 76.1 90.9 NS FENTANYL RIDER 45.2 41.8 Oxacillin 216 73 IVPB 390 NS 115 NS FENTANYL RIDER 75 Oxacillin 200 Medicated IV 453 1128 692.4 CC - Propofol/Diprivan 205 461 248 KCL 300 256 Precedex 135 219 124 furosemide 113 148 64.4 Tube Feeding Flush Amount 100 Output: Villegas 3825 3350 2450 Other: Date of Last Bowel 10/23/16 Movement # Bowel Movements 1 Estimated Stool Amount Small Gen: intubated, no distress, not diaphoretic Neuro: sedated HEENT:PERRL, MMM Neck:supple Heart:Regular and tachycardic, no murmur Lungs:coarse BS BL Abd:+BS NTND soft Skin: no rash LN: no palpable nodes MSK: R wrist no fluctuance or crepitus, R ankle trace edema; BL calf non tender , trace edema, no warmth or erythema Laboratory Results - last 24 hr 10/21/16 10/22/16 10/23/16 05:30 16:29 01:20 WBC RBC Hgb Hct MCV MCH MCHC RDW Plt Count MPV Haptoglobin 236 H Sodium 141 142 Potassium 3.1 L 3.1 L Chloride 103 104 Carbon Dioxide 26 27 Anion Gap 12 H 11 BUN 87 H 84 H Creatinine 2.67 H 2.52 H Est GFR ( Amer) 27.5 29.4 Est GFR (Non-Af Amer) 21.4 22.9 BUN/Creatinine Ratio 32.6 H 33.3 H Glucose 102 H 105 H Calcium 8.5 L 8.2 L Magnesium 10/23/16 10/23/16 05:49 05:49 WBC 13.3 H RBC 2.44 L Hgb 7.1 L Hct 21 L MCV 85 MCH 29 MCHC 34 RDW 15 Plt Count 354 MPV 8 Haptoglobin Sodium 142 Potassium 2.8 L Chloride 103 Carbon Dioxide 28 Anion Gap 11 BUN 87 H Creatinine 2.54 H Est GFR ( Amer) 29.2 Est GFR (Non-Af Amer) 22.7 BUN/Creatinine Ratio 34.3 H Glucose 108 H Calcium 8.4 L Magnesium 2.0 TTE: TV vegetation Assessment: 1. MSSA TV endocariditis and bacteremia, cleared 2. septic pulmonary emboli with acute hypoxemic respiratory failure, present on admission 3. encephalopathy, present on admission; non focal neuro exam 4. R wrist pain diff with small abscess on US, at site of injection, edema improving 5. Hepatitis C infection, chronic 6. 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 left leg complex fluid collection likely abscess 8. acute hypoxemic respiratory failure, decreasing ventilator support 9. acute kidney injury ?ATN 10. anemia Plan: 1. continue oxacillin 2gm IV Q4hrs, hold on broadening coverage unless increaseing FiO2 or vent support. Discussed with Dr Mariscal
[2016-10-23 17:36] LABS: Hematocrit 21 % (35-47)
[2016-10-23] MEDS: LORazepam INJ* 2 MG/ML 1 ML VIAL IV PUSH PRN (21:38)
[2016-10-24] MEDS: Dexmedetomidine* 50 ML IVPB SCH ×8 (00:13→23:05)
[2016-10-24] MEDS: Chlorhexidine MOUTHWASH 0.12%* 15 ML UDC TOPICAL SCH ×6 (00:14→20:19)
[2016-10-24] MEDS: fentaNYL PCA* 20 ML PCA SCH ×3 (01:40→22:43)
[2016-10-24] MEDS: Propofol* 100 ML IV SCH ×7 (02:58→22:47)
[2016-10-24] MEDS: LORazepam INJ* 2 MG/ML 1 ML VIAL IV PUSH PRN ×3 (04:05→21:46)
[2016-10-24] MEDS: OXAZEPAM 15 MG G TUBE SCH ×3 (04:46→20:34)
[2016-10-24 06:29] LABS: Hematocrit 24 % (35-47); Mean Corpuscular HGB Conc 33 g/dl (31-36); Mean Corpuscular Hemoglobin 29 pg (27-31); Mean Corpuscular Volume 86 fL (80-97); Mean Platelet Volume 9 um3 (7.4-10.4); Red Blood Count 2.76 10^6/ul (4.0-5.4); Red Cell Distribution Width 15 % (10.5-15); White Blood Count 14.5 10^3/ul (3.5-10.8)
[2016-10-24 06:44] LABS: BUN/Creatinine Ratio 34.2 (8-20); Calcium 8.5 mg/dL (8.6-10.3); EGFR African American 32.5 (>60); EGFR Non-African American 25.3 (>60); Magnesium 1.8 mg/dL (1.9-2.7)
[2016-10-24 06:45] LABS: Potassium 2.7 mmol/L (3.5-5.0)
[2016-10-24] MEDS ORDERED: KCL 20 MEQ/100 ML IVPREMIX* 20 MEQ/100 ML BAG ONE (06:58)
[2016-10-24] MEDS: KCL 20 MEQ/100 ML IVPREMIX* 20 MEQ/100 ML BAG IV SCH ×2 (06:59→09:25)
[2016-10-24] MEDS ORDERED: Magnesium Sulfate 2 GM IV* 2 GM/50 ML BAG IVPB ONE (07:30)
[2016-10-24] MEDS: Lansoprazole SOLUTAB* 30 MG G TUBE SCH ×2 (07:32→20:34)
[2016-10-24] MEDS: Potassium Chloride LIQUID* 20 MEQ PACKET NG TUBE SCH ×4 (07:32→20:36)
[2016-10-24] MEDS: Thiamine TAB* 100 MG TAB G TUBE SCH (07:32)
[2016-10-24] MEDS: Calcium Acetate CAP* 667 MG G TUBE SCH ×3 (07:32→20:36)
[2016-10-24] MEDS: Acetaminophen ADULT LIQ* 650 MG/20.3 ML UDC G TUBE PRN ×3 (07:50→20:40)
--- NOTE | 2016-10-24 08:29 | PN ---
Progress Note - Progress Note Note: Progress Note Critical Care 24 hour events/significant events: -remains intubated, still on propofol/fentanyl/precedex for sedation -lasix infusion ongoing at 5mg/hr, great urine output; repleting K -secretions again copious/brown; remains febrile 100.8 constantly -tolerated PS trial for 2-3 hours, then became apneic and switched back to PC mode; has been on PC mode overnight -required ativan x2 for waking/agitation Tele: tachycardic Vitals: Vital Signs Temp 100.7 F 10/24/16 07:00 Pulse 92 10/24/16 07:00 Resp 23 10/24/16 07:00 BP 131/78 10/24/16 07:00 Pulse Ox 96 10/24/16 07:00 Intake & Output 10/23/16 10/24/16 10/24/16 18:59 06:59 18:59 Intake Total 1674.1 2264 Output Total 2450 3300 Balance -775.9 -1036 Weight 209 lb 3.499 oz Intake: IV Fluids 205.7 278 NS 90.9 161 NS FENTANYL RIDER 41.8 117 Oxacillin 73 IVPB 441 Oxacillin 441 Medicated IV 692.4 867 CC - Propofol/Diprivan 248 491 KCL 256 69 Precedex 124 231 furosemide 64.4 76 Tube Feeding 676 378 Tube Feeding Flush Amount 100 300 Output: Villegas 2450 3300 Other: Date of Last Bowel 10/23/16 10/23/2016 Movement # Bowel Movements 1 Estimated Stool Amount Small Large O2/Vent: PC 20 peak, peep 10, 30% fio2 Infusions: Propofol, precedex, fentanyl, Lasix infusion 5mg/hr Medications: Acetaminophen (Tylenol Tab*) 650 mg PO Q4H PRN PRN Reason: FEVER Last Admin: 10/22/16 14:21 Dose: 650 mg Acetaminophen (Tylenol Adult Liq*) 650 mg G TUBE Q4H PRN PRN Reason: FEVER Last Admin: 10/24/16 07:50 Dose: 650 mg Albuterol (Ventolin 2.5 Mg/3 Ml Neb.Keyonna*) 2.5 mg INH Q4H PRN PRN Reason: SOB/WHEEZING Calcium Acetate (Phoslo Cap*) 1,334 mg G TUBE TID AYDIN Last Admin: 10/24/16 07:32 Dose: 1,334 mg Chlorhexidine Gluconate (Peridex Mouth Wash 0.12%*) 15 ml TOPICAL Q4H AYDIN Last Admin: 10/24/16 04:03 Dose: 15 ml Cyclobenzaprine HCl (Flexeril Tab*) 10 mg PO TID PRN PRN Reason: SPASMS - MUSCLE Last Admin: 10/15/16 08:34 Dose: 10 mg Hydrocortisone Sodium Succinate (Solu-Cortef*) 50 mg IV DAILY AYDIN Stop: 10/24/16 09:01 Last Admin: 10/23/16 09:20 Dose: 50 mg Oxacillin Sodium 2 gm/ Sodium (Chloride) 100 mls @ 200 mls/hr IVPB Q4H AYDIN Last Admin: 10/24/16 04:41 Dose: 200 mls/hr Propofol (Diprivan*) 100 mls @ 10.392 mls/hr IV .(Initial Rate) AYDIN; 20 MCG/KG/ MIN PRN Reason: Protocol Last Admin: 10/24/16 05:51 Dose: 30.6 mls/hr Fentanyl Citrate (Fentanyl Diesel Engine Mechanic*) 20 mls @ 2 mls/hr [employer]LECT[employer] TENSION TESTER .change Q24H AYDIN; 100 MCG/HR PRN Reason: Protocol Last Admin: 10/24/16 01:40 Dose: 2 mls/hr Lactated Ringer's (Lactated Ringers 1000 Ml Bag*) 1,000 mls @ 0 mls/hr IV PER RATE AYDIN PRN Reason: KVO Last Admin: 10/19/16 02:37 Dose: 10 mls/hr Dexmedetomidine HCl (Precedex*) 50 mls @ 4.97 mls/hr IVPB .per rate AYDIN PRN Reason: 0.2 MCG/KG/HR Last Admin: 10/24/16 07:02 Dose: 14.9 mls/hr Furosemide 100 mg/ Sodium (Chloride) 100 mls @ 5 mls/hr IV .PER RATE AYDIN PRN Reason: 5 MG/HR Last Admin: 10/24/16 04:03 Dose: 5 mls/hr Potassium Chloride (Potassium Chloride 20 Meq/100 Ml Ivpremix*) 20 meq in 100 mls @ 50 mls/hr IV Q2H [facility] Stop: 10/24/16 10:59 Last Admin: 10/24/16 06:59 Dose: 50 mls/hr Magnesium Sulfate (Magnesium Sulfate 2 Gm Iv*) 2 gm in 50 mls @ 50 mls/hr IVPB ONCE ONE Stop: 10/24/16 08:29 Last Admin: 10/24/16 07:33 Dose: 50 mls/hr Lansoprazole (Prevacid Solutab*) 30 mg G TUBE BID [facility] Last Admin: 10/24/16 07:32 Dose: 30 mg Lorazepam (Ativan Inj*) 2 mg IV PUSH Q4H PRN PRN Reason: AGITATION Last Admin: 10/24/16 04:05 Dose: 2 mg Oxazepam (Serax Cap*) 15 mg G TUBE Q8H [facility] Last Admin: 10/24/16 04:46 Dose: 15 mg Potassium Chloride (Klor-Con Liquid*) 40 meq NG TUBE TID [facility] Last Admin: 10/24/16 07:32 Dose: 40 meq Senna (Senokot Tab*) 1 tab G TUBE BID [facility] Last Admin: 10/23/16 20:35 Dose: 1 tab Thiamine HCl (Vitamin B-1 Tab*) 100 mg G TUBE DAILY [facility] Last Admin: 10/24/16 07:32 Dose: 100 mg Physical Exam: General: intubated, sedated, opens eyes with stimuli, moves spontaneously Head: normocephalic, atraumatic HEENT: +pallor, no icterus, moist mucous membranes Neck: no jvd CVS: normal rate, normal rhythm, systolic murmur+ Resp: bilateral air entry, coarse breath sounds with some scattered rhales, no wheeze, no acc muscle use Abdomen: soft, nontender, nondistended, bowel sounds present Ext: pulses+, warm, ++ edema (improving in UE) Skin: intact, no breakdown, no dryness Neuro: intubated, sedated, moves spontaneously Labs: Laboratory Results - last 24 hr 10/23/16 10/23/16 10/24/16 17:17 17:17 05:40 WBC RBC Hgb 7.0 L Hct 21 L MCV MCH MCHC RDW Plt Count MPV Sodium 142 Potassium 3.3 L 2.7 L* Chloride 103 Carbon Dioxide 28 Anion Gap 11 BUN 79 H Creatinine 2.31 H Est GFR ( Amer) 32.5 Est GFR (Non-Af Amer) 25.3 BUN/Creatinine Ratio 34.2 H Glucose 106 H Calcium 8.5 L Magnesium 1.8 L 10/24/16 05:40 WBC 14.5 H RBC 2.76 L Hgb 8.0 L Hct 24 L MCV 86 MCH 29 MCHC 33 RDW 15 Plt Count 418 MPV 9 Sodium Potassium Chloride Carbon Dioxide Anion Gap BUN Creatinine Est GFR ( Amer) Est GFR (Non-Af Amer) BUN/Creatinine Ratio Glucose Calcium Magnesium Imaging: CXR 10/15 worsening bilateral pneumonia with innumerable cavitary septic emboli CT chest/abd/pelvis 10/13 severe burden of the cavitary pulm nodules with severe progression of disease; mediastinal/hilar lymphadenopathy; small pericardial effusion; splenomegaly. cxr 10/20 ett above rebeca, bilateral cavitary lesions multiple, left lower lobe consolidation+ cxr 10/23 - ett above rebeca, bilateral patchy infiltrates with cavitary lesions seen throughout. left lower lobe consolidation similar as prior, no sig change noted. 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 -Acute Hypoxic Respiratory Failure -MSSA pneumonia, MSSA septic cavitary pulmonary nodules -MSSA Bacteremia/Endocarditis with TV vegetation -Left leg abscess/collection -Right hand collection/abscess -Opiate Withdrawal/IVDA use history -AUGUST, septic /pre-renal azotemia -Severe Sepsis -Hypokalemia -Thrombocytopenia/Anemia -Hyperbilirubinemia -Hypoalbuminemia -Chronic Hep C Plan: Neuro- on propofol/precedex/fentanyl infusion. High requirements given past drug use history. Seems comfortable, synced with vent, no distress. Daily sedation weaning and neuro checks as per protocol. Avoid BDZ unless needed for agitation. CVS-hemodyn stable, no hypotension/tachycardia. Gross overload, on Lasix infusion 5mg/hour, Great urine output, negative balance daily; Replete K. TTE reviewed, more distant TV vegetation is seen with low normal RV function, small pericardial effusion. D/C hydrocortisone after today. Resp- More secretions noted, will lavage aggressively today. Asked nursing to place patient in trendelenburg intermittently to help in postural drainage and to turn patient more frequently, as well as chest PT. Can try PS trial again later today but secretions may impede this today. Sputum cx pending, will ask ID to broaden coverage for gram negative coverage given persistent fever, necrotic lung lesions and high risk of HCAP. Cont oxacillin IV. No plan for extubation. ID- febrile low grade, wbc fluctuating from sepsis/steroids. On Oxacillin for MSSA bacteremia (day#13, start 10/12). Blood cx neg 10/18. sputum cx pending but prelim gram neg. GI- on Tube feeds, tolerating, no diarrhea. GI prophylaxis. Renal-AUGUST slowly improving. Gross overload. Hypokalemia, replete K. Lasix infusion with good urine output, 5mg/hour. Villegas in place. Heme- Anemia, unclear reason for drop. repeat hg overnight down to 7.0, this morning 8.0 now; no prbc given. FOBT neg. LDH negative, bilirubin normal range, hapto not dec. No evidence of hemolysis. Maintain Hg>7. Will restart Heparin sq. Avoiding SCDs due to fluid collection on left lower ext. Endo- stable Musculsk- stable; possible right hand abscess/collection and left leg collection Wounds- as above Nutrition- Tube feeds DVT prophylaxis: heparin sq GI prophylaxis: PPI Central Line: yes Arterial Line: no Villegas Cathetor: yes Critically ill, still vent dependant, unclear how long this drainage will continue; may have to consider tracheostomy if no improvment in next week or so. Disposition: ICU for respiratory failure/severe sepsis/pneumonia Code Status: full code Total Critical Care time is 40 minutes, excluding procedures/teaching Julio Mariscal MD [employer] (Electronically Signed)
[2016-10-24] MEDS: Hydrocortisone INJ* 100 MG VIAL IV SCH (09:25)
[2016-10-24] MEDS: Senna TAB G TUBE SCH ×3 (09:26→20:36)
[2016-10-24] MEDS: Heparin VIAL(*) 5000 UNITS/ML VIAL (FIVE THOUSAND) SUBCUT SCH ×2 (13:14→21:47)
[2016-10-24] MEDS: Piperac/Tazob 3.375 gm in NS* 3.375 GM/100 ML BAG IVPB SCH (17:18)
[2016-10-25] MEDS: Chlorhexidine MOUTHWASH 0.12%* 15 ML UDC TOPICAL SCH ×6 (00:11→22:19)
[2016-10-25] MEDS: Piperac/Tazob 3.375 gm in NS* 3.375 GM/100 ML BAG IVPB SCH ×2 (01:11→09:28)
[2016-10-25] MEDS: Propofol* 100 ML IV SCH ×7 (02:04→20:40)
[2016-10-25] MEDS: Dexmedetomidine* 50 ML IVPB SCH ×6 (02:16→22:41)
[2016-10-25] MEDS: Acetaminophen ADULT LIQ* 650 MG/20.3 ML UDC G TUBE PRN ×4 (03:37→22:19)
[2016-10-25] MEDS: OXAZEPAM 15 MG G TUBE SCH ×3 (03:37→22:20)
[2016-10-25] MEDS: LORazepam INJ* 2 MG/ML 1 ML VIAL IV PUSH PRN ×4 (05:29→20:51)
[2016-10-25] MEDS: Heparin VIAL(*) 5000 UNITS/ML VIAL (FIVE THOUSAND) SUBCUT SCH ×3 (05:29→22:20)
[2016-10-25] MEDS: fentaNYL PCA* 20 ML PCA SCH ×3 (05:50→19:58)
[2016-10-25 06:20] LABS: Hematocrit 23 % (35-47); Hemoglobin 7.8 g/dl (12.0-16.0); Mean Corpuscular HGB Conc 34 g/dl (31-36); Mean Corpuscular Hemoglobin 29 pg (27-31); Mean Corpuscular Volume 87 fL (80-97); Mean Platelet Volume 8 um3 (7.4-10.4); Red Blood Count 2.68 10^6/ul (4.0-5.4); Red Cell Distribution Width 15 % (10.5-15); White Blood Count 12.9 10^3/ul (3.5-10.8)
[2016-10-25 06:41] LABS: Calcium 8.8 mg/dL (8.6-10.3); EGFR African American 36.3 (>60); EGFR Non-African American 28.3 (>60); Potassium 3.1 mmol/L (3.5-5.0)
--- NOTE | 2016-10-25 08:39 | PN ---
Progress Note - Progress Note Note: Progress Note Critical Care 24 hour events/significant events: -remains intubated, still on propofol/fentanyl/precedex for sedation -lasix infusion ongoing at 5mg/hr, great urine output; repleting K -secretions copious/brown; febrile with lower grade temps of 100.7 -tolerated CPAP yesterday for a few hours; remains on PCV mode now Tele: tachycardic Vitals: Vital Signs Temp 100.7 F 10/25/16 07:00 Pulse 101 10/25/16 07:52 Resp 24 10/25/16 07:52 BP 123/64 10/25/16 07:00 Pulse Ox 99 10/25/16 07:52 Intake & Output 10/24/16 10/25/16 10/25/16 18:59 06:59 18:59 Intake Total 1217 1308.6 Output Total 2475 3500 Balance -1258 -2191.4 Weight 201 lb 4.513 oz Intake: IV Fluids 252 392 ABX - PIPERACILLIN 190 NS 124 NS FENTANYL RIDER 42 78 Oxacillin 210 Medicated IV 620 484.6 CC - Propofol/Diprivan 256 278 KCL 213 Precedex 125 129 furosemide 26 77.6 Tube Feeding 345 282 Tube Feeding Flush Amount 150 Output: Villegas 2475 3500 O2/Vent: PC 20 peak, peep 10, 30% fio2; TV 650, rr 23 Infusions: Propofol, precedex, fentanyl, Lasix infusion 5mg/hr Medications: Acetaminophen (Tylenol Tab*) 650 mg PO Q4H PRN PRN Reason: FEVER Last Admin: 10/22/16 14:21 Dose: 650 mg Acetaminophen (Tylenol Adult Liq*) 650 mg G TUBE Q4H PRN PRN Reason: FEVER Last Admin: 10/25/16 03:37 Dose: 650 mg Albuterol (Ventolin 2.5 Mg/3 Ml Neb.Keyonna*) 2.5 mg INH Q4H PRN PRN Reason: SOB/WHEEZING Calcium Acetate (Phoslo Cap*) 1,334 mg G TUBE TID [facility] Last Admin: 10/24/16 20:36 Dose: 1,334 mg Chlorhexidine Gluconate (Peridex Mouth Wash 0.12%*) 15 ml TOPICAL Q4H [facility] Last Admin: 10/25/16 04:29 Dose: 15 ml Cyclobenzaprine HCl (Flexeril Tab*) 10 mg PO TID PRN PRN Reason: SPASMS - MUSCLE Last Admin: 10/15/16 08:34 Dose: 10 mg Heparin Sodium (Porcine) (Heparin Vial(*)) 5,000 units SUBCUT Q8HR AYDIN Last Admin: 10/25/16 05:29 Dose: 5,000 units Propofol (Diprivan*) 100 mls @ 10.392 mls/hr IV .(Initial Rate) AYDIN; 20 MCG/KG/ MIN PRN Reason: Protocol Last Admin: 10/25/16 07:11 Dose: 10.392 mls/hr Fentanyl Citrate (Fentanyl Machine Welder*) 20 mls @ 2 mls/hr [employer] .change Q24H AYDIN; 100 MCG/HR PRN Reason: Protocol Last Admin: 10/25/16 05:50 Dose: 2 mls/hr Lactated Ringer's (Lactated Ringers 1000 Ml Bag*) 1,000 mls @ 0 mls/hr IV PER RATE AYDIN PRN Reason: KVO Last Admin: 10/19/16 02:37 Dose: 10 mls/hr Dexmedetomidine HCl (Precedex*) 50 mls @ 4.97 mls/hr IVPB .per rate AYDIN PRN Reason: 0.2 MCG/KG/HR Last Admin: 10/25/16 06:22 Dose: 4.97 mls/hr Furosemide 100 mg/ Sodium (Chloride) 100 mls @ 5 mls/hr IV .PER RATE AYDIN PRN Reason: 5 MG/HR Last Admin: 10/24/16 20:38 Dose: 5 mls/hr Piperacillin Sod/Tazobactam Sod (Zosyn 3.375 Gm In Ns Premix*) 3.375 gm in 100 mls @ 25 mls/hr IVPB Q8H AYDIN Last Admin: 10/25/16 01:11 Dose: 25 mls/hr Potassium Chloride (Potassium Chloride 20 Meq/100 Ml Ivpremix*) 20 meq in 100 mls @ 50 mls/hr IV Q2H AYDIN Stop: 10/25/16 13:59 Lansoprazole (Prevacid Solutab*) 30 mg G TUBE BID AYDIN Last Admin: 10/24/16 20:34 Dose: 30 mg Lorazepam (Ativan Inj*) 2 mg IV PUSH Q4H PRN PRN Reason: AGITATION Last Admin: 10/25/16 05:29 Dose: 2 mg Oxazepam (Serax Cap*) 15 mg G TUBE Q8H [facility] Last Admin: 10/25/16 03:37 Dose: 15 mg Potassium Chloride (Klor-Con Liquid*) 40 meq NG TUBE TID [facility] Last Admin: 10/24/16 20:36 Dose: 40 meq Senna (Senokot Tab*) 1 tab G TUBE BID [facility] Last Admin: 10/24/16 20:36 Dose: Not Given Thiamine HCl (Vitamin B-1 Tab*) 100 mg G TUBE DAILY [facility] Last Admin: 10/24/16 07:32 Dose: 100 mg Physical Exam: General: intubated, sedated, opens eyes with stimuli, moves spontaneously Head: normocephalic, atraumatic HEENT: +pallor, no icterus, moist mucous membranes Neck: no jvd CVS: normal rate, normal rhythm, systolic murmur+ Resp: bilateral air entry, coarse breath sounds with some scattered rhales, no wheeze, no acc muscle use Abdomen: soft, nontender, nondistended, bowel sounds present Ext: pulses+, warm, +edema (improving) Skin: intact, no breakdown, no dryness Neuro: intubated, sedated, moves spontaneously Labs: Laboratory Results - last 24 hr 10/24/16 10/24/16 10/25/16 09:38 15:54 05:53 WBC RBC Hgb Hct MCV MCH MCHC RDW Plt Count MPV APTT 28.3 Sodium 144 Potassium 3.6 3.1 L Chloride 103 Carbon Dioxide 29 Anion Gap 12 H BUN 65 H Creatinine 2.10 H Est GFR ( Amer) 36.3 Est GFR (Non-Af Amer) 28.3 BUN/Creatinine Ratio 31.0 H Glucose 94 Calcium 8.8 Magnesium 2.0 10/25/16 05:53 WBC 12.9 H RBC 2.68 L Hgb 7.8 L Hct 23 L MCV 87 MCH 29 MCHC 34 RDW 15 Plt Count 390 MPV 8 APTT Sodium Potassium Chloride Carbon Dioxide Anion Gap BUN Creatinine Est GFR ( Amer) Est GFR (Non-Af Amer) BUN/Creatinine Ratio Glucose Calcium Magnesium Imaging: CXR 10/15 worsening bilateral pneumonia with innumerable cavitary septic emboli CT chest/abd/pelvis 10/13 severe burden of the cavitary pulm nodules with severe progression of disease; mediastinal/hilar lymphadenopathy; small pericardial effusion; splenomegaly. cxr 10/20 ett above rebeca, bilateral cavitary lesions multiple, left lower lobe consolidation+ cxr 10/23 - ett above rebeca, bilateral patchy infiltrates with cavitary lesions seen throughout. left lower lobe consolidation similar as prior, no sig change noted. 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 -Acute Hypoxic Respiratory Failure -Citrobacter pneumonia, likely a VAP given new sputum cx/fevers -MSSA pneumonia, MSSA septic cavitary pulmonary nodules -MSSA Bacteremia/Endocarditis with TV vegetation -Left leg abscess/collection -Right hand collection/abscess -Opiate Withdrawal/IVDA use history -AUGUST, septic /pre-renal azotemia -Severe Sepsis -Hypokalemia -Thrombocytopenia/Anemia -Hyperbilirubinemia -Hypoalbuminemia -Chronic Hep C Plan: Neuro- on propofol/precedex/fentanyl infusion. High requirements given past drug use history. Seems comfortable, breathing over vent rate, no distress. Daily sedation weaning and neuro checks as per protocol. Avoid BDZ unless needed for restlessness/dyssynchrony. CVS-hemodyn stable, no hypotension/tachycardia. Volume overload improving, will cont lasix infusion another 24-48 hours and likely switch to IVP daily, negative balance daily; Replete K. TTE reviewed, more distant TV vegetation is seen with low normal RV function, small pericardial effusion. hydrocortisone off now. Resp- Still large amounts of brown/thick secretions. Now has Citrobacter growth from sputum, would explain the fevers and persistent secretions also; likely a VAP. Abx switched to Zosyn but still awaiting sensitivity for Citrobacter. Chest PT, postural drainage positioning to be done. PS trial again later today. Not ready for extubation given profuse secretions. CXR today, will consider CT chest repeat tomorrow to see progression of lung lesions/pneumonia. ID- febrile low grade, wbc fluctuating from sepsis/steroids. Now on Zosyn IV for MSSA bacteremia/pneumonia and Citrobacter pneumonia (day#14, start 10/12). Blood cx neg 10/18. Pending sensitivity of citrobacter. GI- on Tube feeds, tolerating, no diarrhea. GI prophylaxis. Renal- AUGUST slowly improving. Gross overload but improving with diuretics. Hypokalemia, replete K. Good urine output, lasix 5mg/hour. Villegas in place. Heme- Anemia, hg has been stable in 7-8 range, no bleeding. Heparin Sq restarted. FOBT neg. LDH negative, bilirubin normal range, hapto not dec. No evidence of hemolysis. Maintain Hg>7. No SCDs due to collection left lower ext. Endo- stable Musculsk- stable; possible right hand abscess/collection and left leg collection Wounds- as above Nutrition- Tube feeds DVT prophylaxis: heparin sq GI prophylaxis: PPI Central Line: yes Arterial Line: no Villegas Cathetor: yes Critically ill, still vent dependant, unclear how long this drainage will continue; may have to consider tracheostomy if no improvment in next week or so. Disposition: ICU for respiratory failure/severe sepsis/pneumonia Code Status: full code Total Critical Care time is 40 minutes, excluding procedures/teaching Julio Mariscal MD [employer] (Electronically Signed)
[2016-10-25] MEDS: Thiamine TAB* 100 MG TAB G TUBE SCH (09:09)
[2016-10-25] MEDS: Potassium Chloride LIQUID* 20 MEQ PACKET NG TUBE SCH ×3 (09:09→22:20)
[2016-10-25] MEDS: Lansoprazole SOLUTAB* 30 MG G TUBE SCH ×2 (09:09→22:20)
[2016-10-25] MEDS: Senna TAB G TUBE SCH ×2 (09:10→22:19)
[2016-10-25] MEDS: KCL 20 MEQ/100 ML IVPREMIX* 20 MEQ/100 ML BAG IV SCH ×3 (09:10→14:56)
--- NOTE | 2016-10-25 09:11 | RAD ---
INDICATION: Pneumonia COMPARISON: October 23, 2016 TECHNIQUE: An AP portable view obtained at 0845 hours is submitted. FINDINGS: Bones/Soft Tissues: There are no acute bony findings. There is no endotracheal tube in satisfactory position approximately 4 7 m above the rebeca. A nasogastric tube passes normally through the mediastinum. Cardiomediastinal: The cardiomediastinal silhouette is normal. Lungs: There are patchy, bilateral, alveolar and interstitial infiltrates with a rounded configuration. The appearance unchanged. Pleura: Small bilateral pleural effusions left greater than right without significant interval change. Other: None IMPRESSION: ENDOTRACHEAL TUBE IN PROPER POSITION. BILATERAL ROUNDED ALVEOLAR OPACITIES. BILATERAL EFFUSIONS.
[2016-10-25] MEDS: Calcium Acetate CAP* 667 MG G TUBE SCH ×3 (09:24→22:20)
[2016-10-25] MEDS ORDERED: Sodium Bicarbonate 8.4% IV* 50 ML VIAL ONE (10:57)
--- NOTE | 2016-10-25 12:31 | PN ---
Progress Note - Progress Note SOAP: Subjective: DOS: 10/25/16 CC: endocarditis HPI: 26 year old woman IVD, admitted with chest pain, right wrist and ankle pain and cavitary lung masses. TTE showed TV endocarditis. Intubated 10/17. ETT significant thick secretions, no diarrhea, ongoing fever. Objective: [] Vital Signs Temp 38.2 C 10/25/16 07:00 Pulse 101 10/25/16 07:52 Resp 33 10/25/16 09:09 BP 123/64 10/25/16 07:00 Pulse Ox 99 10/25/16 07:52 Intake & Output 10/24/16 10/25/16 10/25/16 18:59 06:59 18:59 Intake Total 1217 1308.6 300 Output Total 2475 3500 Balance -1258 -2191.4 300 Weight 201 lb 4.513 oz Intake: IV Fluids 252 392 ABX - PIPERACILLIN 190 NS 124 NS FENTANYL RIDER 42 78 Oxacillin 210 Medicated IV 620 484.6 CC - Propofol/Diprivan 256 278 KCL 213 Precedex 125 129 furosemide 26 77.6 Tube Feeding 345 282 Tube Feeding Flush Amount 150 NG Tube Irrigate Amount 300 Output: Villegas 2475 3500 Gen: intubated, no distress, not diaphoretic Neuro: sedated HEENT:PERRL, MMM Neck:supple Heart:Regular and tachycardic, no murmur Lungs:coarse BS BL Abd:+BS NTND soft Skin: no rash LN: no palpable nodes MSK: R wrist no fluctuance or crepitus, R ankle trace edema; BL calf non tender , trace edema, no warmth or erythema Assessment: 1. MSSA TV endocariditis and bacteremia, cleared 2. septic pulmonary emboli with significant lung necrosis and ongoing secretions from same 3. encephalopathy, present on admission; non focal neuro exam 4. R wrist pain diff with small abscess on US, at site of injection 5. Hepatitis C infection, chronic 6. 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 left leg complex fluid collection likely abscess 8. acute hypoxemic respiratory failure, decreasing ventilator support 9. acute kidney injury ?ATN, stable 10. anemia Plan: 1. change to ancef 2 gm IV Q12hrs dosed for GFR, bronchoscopy pending Abx day
--- NOTE | 2016-10-25 14:12 | PN ---
Progress Note - Progress Note Note: Bronchoscopy Procedure Note Indication: resp failure, PNA, excessive secretions Informed consent obtained from mother via phone, placed in bedside chart. Risks of procedure explained. Prior labs/imaging reviewed before procedure. Patient oxygenated with 100% Fi02, on mechanical ventilation. Propofol/fentanyl/precedex infusion already running for sedation 5.0 divehi scope inserted via ETT tube FINDINGS -ETT with mild higgins colored secretions but otherwise clear and without obstruction, in good position above rebeca -Continued higgins colored secretions coming from bilateral lungs, more so from RML/ RLL and LLL. BAL with sodium bicarbonate/normal saline was performed bilaterally with return of secretions/fluid upon suctioning. Despite continuous lavage secretions would continue. -No endobronchial lesions in proximal airways was identified, no erythematous areas seen No immediate complications during the procedure. Patient tolerated procedure well with 100% oxygenation, stable HR in 120s as prior to start of procedure. To obtain CT chest w/o contrast as part of further eval of fevers/pneumonia. Julio Mariscal MD [address] (electronically signed)
[2016-10-25] MEDS: HYDROmorphone* 1 MG/ML 1 ML SYR IV SLOW PU PRN ×2 (14:33→20:02)
[2016-10-25] MEDS: ceFAZolin 2 GM PREMIX(*) 2 GM/50 ML BAG IVPB SCH ×2 (14:56→22:18)
--- NOTE | 2016-10-25 16:52 | RAD ---
HISTORY: August, persistent fever COMPARISONS: CT of the chest dated October 13, 2016 TECHNIQUE: Multiple contiguous axial CT scans were obtained of the chest, abdomen, and pelvis, without intravenous contrast enhancement. Coronal and sagittal multiplanar reformations are submitted for review.. Oral contrast was not administered. FINDINGS: The study is limited by the lack of intravenous contrast. This limits evaluation of the solid organs and vasculature. CHEST NECK AND THYROID: The lower neck and thyroid are unremarkable. CHEST WALL: There is no lower cervical, axillary, or supraclavicular lymphadenopathy by size criteria. HEART AND PERICARDIUM: There is a small pericardial effusion AORTA AND PULMONARY VASCULATURE: The aorta and pulmonary vasculature are normal for noncontrast technique. MEDIASTINUM: There is no mediastinal lymphadenopathy by size criteria. VANCE: Evaluation of the vance is limited by the lack of intravenous contrast. There is no obvious hilar lymphadenopathy by size criteria. AIRWAY AND ESOPHAGUS: An endotracheal tube is noted with the tip in the trachea. A gastric tube is noted. The tip is in the stomach. LUNG PARENCHYMA: Again noted are multiple cavitary lesions throughout both lungs. These have become somewhat more confluent, with air-fluid levels within the lesions of the lower lobes bilaterally. There is associated bibasilar atelectasis. PLEURA: There are small bilateral pleural effusions BONES AND SOFT TISSUES: No bone or soft tissue abnormalities are noted. ABDOMEN/PELVIS: LIVER: The liver is normal in shape, size, contour, and attenuation. BILE DUCTS: There is no intrahepatic or extrahepatic biliary dilatation. GALLBLADDER: The gallbladder is normal, without pericholecystic inflammatory change. PANCREAS: The pancreas is normal, without mass or ductal dilatation. SPLEEN: The spleen is mildly enlarged measuring up to 15 cm in long axis. UPPER GI TRACT: Evaluation of the gastrointestinal tract is limited by incomplete gastric distention. The upper GI tract is unremarkable. SMALL BOWEL \T\ MESENTERY: The small bowel is normal in contour, course, and caliber. There is no obstruction or dilatation. COLON: The colon is normal in contour, course, caliber. There is no pericolonic inflammatory change. ADRENALS: Normal bilaterally. KIDNEYS: The kidneys are normal in shape, size, contour, and axis. There is no hydronephrosis or nephrolithiasis. BLADDER: A Villegas catheter is noted. PELVIC ORGANS: An IUD is noted. AORTA: The aorta is normal. IVC: Unremarkable LYMPH NODES: There is no lymphadenopathy by size criteria. ABDOMINAL WALL: Unremarkable BONES: There is extensive subcutaneous emphysema OTHER: There is small amount of ascites. IMPRESSION: 1. AGAIN NOTED ARE INNUMERABLE PULMONARY PARENCHYMAL CAVITARY NODULES. THESE HAVE BECOME MORE COALESCENT. SEVERAL AIR-FLUID LEVELS WHICH MAY INDICATE SUPERIMPOSED MULTIFOCAL PULMONARY PARENCHYMAL ABSCESS. 2. THERE ARE BILATERAL PLEURAL EFFUSIONS. 3. THERE IS A SMALL PERICARDIAL EFFUSION. 4. THERE IS A SMALL AMOUNT OF ASCITES. 5. SPLENOMEGALY
--- NOTE | 2016-10-25 17:52 | RAD ---
HISTORY: Follow-up fluid collection of calf COMPARISONS: October 15, 2016 TECHNIQUE: Multiple transverse and longitudinal ultrasound images were obtained of the calves bilaterally using grayscale and color Doppler imaging FINDINGS: On the right, there is subcutaneous edema without loculated fluid collection. On the left, there is a loculated fluid collection measuring 4.2 x 0.4 x 1.4 centers in size, decreased from 15.7 cm on the previous examination. There is subcutaneous edema IMPRESSION: SUBCUTANEOUS EDEMA BILATERALLY. PERSISTENT BUT IMPROVING SUBCUTANEOUS FLUID COLLECTION OF THE LEFT CALF
[2016-10-26] MEDS: Chlorhexidine MOUTHWASH 0.12%* 15 ML UDC TOPICAL SCH ×6 (00:15→20:39)
[2016-10-26] MEDS: Propofol* 100 ML IV SCH ×9 (01:09→23:25)
[2016-10-26] MEDS: Dexmedetomidine* 50 ML IVPB SCH ×7 (02:29→22:56)
[2016-10-26] MEDS: fentaNYL PCA* 20 ML PCA SCH ×3 (03:04→17:18)
[2016-10-26] MEDS: OXAZEPAM 15 MG G TUBE SCH ×3 (04:30→20:39)
[2016-10-26] MEDS: Acetaminophen ADULT LIQ* 650 MG/20.3 ML UDC G TUBE PRN ×2 (04:33→20:41)
[2016-10-26] MEDS: Heparin VIAL(*) 5000 UNITS/ML VIAL (FIVE THOUSAND) SUBCUT SCH ×3 (05:41→20:41)
[2016-10-26 06:31] LABS: Hematocrit 22 % (35-47); Hemoglobin 7.3 g/dl (12.0-16.0); Mean Corpuscular HGB Conc 34 g/dl (31-36); Mean Corpuscular Hemoglobin 29 pg (27-31); Mean Corpuscular Volume 87 fL (80-97); Mean Platelet Volume 8 um3 (7.4-10.4); Red Blood Count 2.49 10^6/ul (4.0-5.4); Red Cell Distribution Width 15 % (10.5-15)
[2016-10-26 06:46] LABS: BUN/Creatinine Ratio 28.4 (8-20); Calcium 8.9 mg/dL (8.6-10.3); EGFR African American 39.1 (>60); EGFR Non-African American 30.4 (>60); Magnesium 1.9 mg/dL (1.9-2.7); Potassium 3.3 mmol/L (3.5-5.0)
[2016-10-26] MEDS: Senna TAB G TUBE SCH ×2 (08:00→20:41)
[2016-10-26] MEDS: Lansoprazole SOLUTAB* 30 MG G TUBE SCH ×2 (08:00→20:40)
[2016-10-26] MEDS: Calcium Acetate CAP* 667 MG G TUBE SCH ×3 (08:00→20:41)
[2016-10-26] MEDS: Potassium Chloride LIQUID* 20 MEQ PACKET NG TUBE SCH ×3 (08:00→20:40)
[2016-10-26] MEDS: Thiamine TAB* 100 MG TAB G TUBE SCH (08:00)
[2016-10-26] MEDS: ceFAZolin 2 GM PREMIX(*) 2 GM/50 ML BAG IVPB SCH ×2 (08:01→20:41)
--- NOTE | 2016-10-26 09:13 | PN ---
Progress Note - Progress Note Note: Progress Note Critical Care 24 hour events/significant events: -remains intubated, still on propofol/fentanyl/precedex for sedation -lasix infusion ongoing at 5mg/hr -s/p bronchoscopy yesterday for BAL and to do washout -has episodes of vent dysynchrony and episodic dyspnea/tachypnea which requires diluadid/ativan to calm down, no hypoxia during those episodes -secretions copious/brown; less febrile overnight now to 99.8 -Abx changed to ancef by ID -CT chest/abd/pelvis done to eval progression of lung lesions/pneumonia as well as possible other sources of infection. Tele: sinus tachycardia Vitals: Vital Signs Temp 99.6 F 10/26/16 09:00 Pulse 93 10/26/16 09:00 Resp 28 10/26/16 09:17 BP 145/76 10/26/16 09:00 Pulse Ox 96 10/26/16 09:00 Intake & Output 10/25/16 10/26/16 10/26/16 18:59 06:59 18:59 Intake Total 1738 1575 180 Output Total 2950 3350 Balance -1212 -1775 180 Weight 203 lb 7.787 oz Intake: IV Fluids 199 177 NS 153 140 NS FENTANYL RIDER 46 37 IVPB 20 NS FENTANYL RIDER 20 Medicated IV 769 949 CC - Propofol/Diprivan 332 538 KCL 255 118 Precedex 136 226 furosemide 46 67 Tube Feeding 270 339 Tube Feeding Flush Amount 200 90 180 NG Tube Irrigate Amount 300 Output: Villegas 2950 3350 O2/Vent: AC 12/450/+6/30%, peak 25; breathing over the set rate at 23 Infusions: Propofol, precedex, fentanyl, Lasix infusion 5mg/hr Medications: Acetaminophen (Tylenol Tab*) 650 mg PO Q4H PRN PRN Reason: FEVER Last Admin: 10/22/16 14:21 Dose: 650 mg Acetaminophen (Tylenol Adult Liq*) 650 mg G TUBE Q4H PRN PRN Reason: FEVER Last Admin: 10/26/16 04:33 Dose: 650 mg Albuterol (Ventolin 2.5 Mg/3 Ml Neb.Keyonna*) 2.5 mg INH Q4H PRN PRN Reason: SOB/WHEEZING Calcium Acetate (Phoslo Cap*) 1,334 mg G TUBE TID AYDIN Last Admin: 10/26/16 08:00 Dose: 1,334 mg Chlorhexidine Gluconate (Peridex Mouth Wash 0.12%*) 15 ml TOPICAL Q4H [facility] Last Admin: 10/26/16 08:00 Dose: 15 ml Cyclobenzaprine HCl (Flexeril Tab*) 10 mg PO TID PRN PRN Reason: SPASMS - MUSCLE Last Admin: 10/15/16 08:34 Dose: 10 mg Heparin Sodium (Porcine) (Heparin Vial(*)) 5,000 units SUBCUT Q8HR [facility] Last Admin: 10/26/16 05:41 Dose: 5,000 units Hydromorphone HCl (Dilaudid Iv*) 1 mg IV SLOW PU Q4H PRN PRN Reason: Pain and respiratory distress Last Admin: 10/26/16 09:17 Dose: 1 mg Propofol (Diprivan*) 100 mls @ 10.392 mls/hr IV .(Initial Rate) AYDIN; 20 MCG/KG/ MIN PRN Reason: Protocol Last Admin: 10/26/16 08:01 Dose: 10.392 mls/hr Fentanyl Citrate (Fentanyl Infectious Diseases Physician*) 20 mls @ 2 mls/hr 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 .change Q24H [facility]; 100 MCG/HR PRN Reason: Protocol Last Admin: 10/26/16 03:04 Dose: 2 mls/hr Lactated Ringer's (Lactated Ringers 1000 Ml Bag*) 1,000 mls @ 0 mls/hr IV PER RATE [facility] PRN Reason: KVO Last Admin: 10/19/16 02:37 Dose: 10 mls/hr Dexmedetomidine HCl (Precedex*) 50 mls @ 4.97 mls/hr IVPB .per rate [facility] PRN Reason: 0.2 MCG/KG/HR Last Admin: 10/26/16 09:08 Dose: 4.97 mls/hr Cefazolin Sodium/Dextrose (Kefzol Premix(*)) 2 gm in 50 mls @ 100 mls/hr IVPB Q12HR [facility] Last Admin: 10/26/16 08:01 Dose: 100 mls/hr Furosemide 100 mg/ Sodium (Chloride) 100 mls @ 5 mls/hr IV Q20H [facility] PRN Reason: 5 MG/HR Last Admin: 10/25/16 14:29 Dose: 5 mls/hr Potassium Chloride (Potassium Chloride 20 Meq/100 Ml Ivpremix*) 20 meq in 100 mls @ 50 mls/hr IV Q2H [facility] Stop: 10/26/16 13:59 Lansoprazole (Prevacid Solutab*) 30 mg G TUBE BID [facility] Last Admin: 10/26/16 08:00 Dose: 30 mg Lorazepam (Ativan Inj*) 2 mg IV PUSH Q4H PRN PRN Reason: AGITATION Last Admin: 10/25/16 20:51 Dose: 2 mg Oxazepam (Serax Cap*) 15 mg G TUBE Q8H [facility] Last Admin: 10/26/16 04:30 Dose: 15 mg Potassium Chloride (Klor-Con Liquid*) 40 meq NG TUBE TID [facility] Last Admin: 10/26/16 08:00 Dose: 40 meq Senna (Senokot Tab*) 1 tab G TUBE BID [facility] Last Admin: 10/26/16 08:00 Dose: 1 tab Thiamine HCl (Vitamin B-1 Tab*) 100 mg G TUBE DAILY [facility] Last Admin: 10/26/16 08:00 Dose: 100 mg Physical Exam: General: intubated, sedated Head: normocephalic, atraumatic HEENT: +pallor, no icterus, moist mucous membranes Neck: no jvd CVS: tachycardic, normal rhythm, systolic murmur+ Resp: bilateral air entry, coarse breath sounds with some scattered rhales, no wheeze, no acc muscle use Abdomen: soft, nontender, nondistended, bowel sounds present Ext: pulses+, warm, +edema (improving) Skin: intact, no breakdown, no dryness Neuro: intubated, sedated, moves spontaneously Labs: Laboratory Results - last 24 hr 10/26/16 10/26/16 06:16 06:16 WBC 11.0 H RBC 2.49 L Hgb 7.3 L Hct 22 L MCV 87 MCH 29 MCHC 34 RDW 15 Plt Count 326 MPV 8 Sodium 143 Potassium 3.3 L Chloride 104 Carbon Dioxide 30 Anion Gap 9 BUN 56 H Creatinine 1.97 H Est GFR ( Amer) 39.1 Est GFR (Non-Af Amer) 30.4 BUN/Creatinine Ratio 28.4 H Glucose 99 Calcium 8.9 Magnesium 1.9 Imaging: CXR 10/15 worsening bilateral pneumonia with innumerable cavitary septic emboli CT chest/abd/pelvis 10/13 severe burden of the cavitary pulm nodules with severe progression of disease; mediastinal/hilar lymphadenopathy; small pericardial effusion; splenomegaly. cxr 10/20 ett above rebeca, bilateral cavitary lesions multiple, left lower lobe consolidation+ cxr 10/23 - ett above rebeca, bilateral patchy infiltrates with cavitary lesions seen throughout. left lower lobe consolidation similar as prior, no sig change noted. CT chest/abx/aplvis 10/25 - pulm parenchymal vacitary noduls, more coalescent, air-fluid levels with possible pulm parenchymal abscess, small edwin pleural effusions, small pericardial effusion, small ascites, splenomegaly. 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 -Acute Hypoxic Respiratory Failure -Citrobacter pneumonia, likely a VAP given new sputum cx/fevers -MSSA pneumonia, MSSA septic cavitary pulmonary nodules/necrosis -MSSA Bacteremia/Endocarditis with TV vegetation -Left leg abscess/collection -Right hand collection/abscess -Opiate Withdrawal/IVDA use history -AUGUST, septic /pre-renal azotemia -Severe Sepsis -Hypokalemia -Thrombocytopenia/Anemia -Hyperbilirubinemia -Hypoalbuminemia -Chronic Hep C Plan: Neuro- on propofol/precedex/fentanyl infusion. High requirements given past drug use history. THis morning more synchronous and no distress on vent. Daily sedation weaning and neuro checks as per protocol. BDZ as needed for distress/ restlessness/dyssynchrony. CVS-hemodyn stable, no hypotension, tachycardic at times still. Improving Edema , will cont lasix 5mg/hour today and likely d/c in evening and switch to IV push lasix daily/bid. Goal negative balance daily; Replete K. TTE reviewed, more distant TV vegetation is seen with low normal RV function, small pericardial effusion. Resp- Still large amounts of brown/thick secretions. Citrobacter growth from sputum, would explain the fevers and persistent secretions also; likely a VAP now. Fever curve improved with Abx change also, drug fevers? on Ancef now. Chest PT, postural drainage positioning being done this morning. CT chest reviewed, increased cavitary nodules. No clear large abscess but there is communication with bronchus. Unclear here if there is a surgical intervention that can be done. Improved WBC, less febrile today, AUGUST improving, not in septic shock now, bacteremia cleared. I doubt there is a role for VATS here. Is there a role for interventional pulm to help with drainage? Could IR place drain into lung? but risk of broncho-pleural fistula then. For now she is stable and improved overnight. Will obtain opinion from pulmonology. Bronschopy without much revealing information, just diffuse secretions on BAL, no endobronchial lesions. ID- lower grade temp now, wbc trending now, now 11, off steroids. On Ancef MSSA bacteremia/pneumonia and Citrobacter pneumonia (day#15, start 3), all pansensitive. Blood cx neg 10/18. GI- on Tube feeds, tolerating, no diarrhea. GI prophylaxis. Renal- AUGUST slowly improving. Gross overload but improving with diuretics, will likely switch to IV push today. Hypokalemia, replete K. Good urine output, lasix 5mg/hour. Villegas in place. Heme- Anemia, hg has been stable in 7-8 range, no bleeding. Heparin Sq q8h. FOBT neg. LDH negative, bilirubin normal range, hapto not dec. No evidence of hemolysis. Maintain Hg>7. No SCDs due to collection left lower ext. Endo- stable Musculsk- stable; possible right hand abscess/collection and left leg collection. Repeat LE ultrasound shows some improvement in left leg collection? no palpable mass/crepitus on examination otherwise. Wounds- as above Nutrition- Tube feeds DVT prophylaxis: heparin sq GI prophylaxis: PPI Central Line: yes Arterial Line: no Villegas Cathetor: yes Critically ill, still vent dependant, unclear how long this drainage will continue; may have to consider tracheostomy if no improvment in next week or so. Disposition: ICU for respiratory failure/severe sepsis/pneumonia Code Status: full code Total Critical Care time is 40 minutes, excluding procedures/teaching Julio Mariscal MD Natural Resources Specialist (Electronically Signed)
[2016-10-26] MEDS: HYDROmorphone* 1 MG/ML 1 ML SYR IV SLOW PU PRN ×3 (09:17→18:44)
[2016-10-26] MEDS: KCL 20 MEQ/100 ML IVPREMIX* 20 MEQ/100 ML BAG IV SCH ×2 (09:27→11:56)
[2016-10-26] MEDS: LORazepam INJ* 2 MG/ML 1 ML VIAL IV PUSH PRN ×2 (10:54→16:45)
[2016-10-26] MEDS: methylPREDNISolone SOD 40 MG* 1 ML VIAL IV SCH (15:52)
[2016-10-27] MEDS: fentaNYL PCA* 20 ML PCA SCH ×4 (00:17→17:28)
[2016-10-27] MEDS: Chlorhexidine MOUTHWASH 0.12%* 15 ML UDC TOPICAL SCH ×7 (00:22→23:26)
[2016-10-27] MEDS: Propofol* 100 ML IV SCH ×8 (01:41→19:50)
[2016-10-27] MEDS: Dexmedetomidine* 50 ML IVPB SCH ×7 (02:22→22:07)
[2016-10-27] MEDS: OXAZEPAM 15 MG G TUBE SCH ×3 (04:26→20:21)
[2016-10-27] MEDS: methylPREDNISolone SOD 40 MG* 1 ML VIAL IV SCH ×2 (04:27→15:46)
[2016-10-27 05:54] LABS: Hematocrit 21 % (35-47); Mean Corpuscular HGB Conc 34 g/dl (31-36); Mean Corpuscular Hemoglobin 29 pg (27-31); Mean Corpuscular Volume 88 fL (80-97); Mean Platelet Volume 8 um3 (7.4-10.4); Red Blood Count 2.33 10^6/ul (4.0-5.4); Red Cell Distribution Width 15 % (10.5-15); White Blood Count 10.1 10^3/ul (3.5-10.8)
[2016-10-27 05:59] LABS: Comments Flag Yes
[2016-10-27 06:00] LABS: Hemoglobin 6.9 g/dl (12.0-16.0)
[2016-10-27 06:07] LABS: BUN/Creatinine Ratio 30.1 (8-20); Calcium 9.1 mg/dL (8.6-10.3); EGFR African American 42.6 (>60); EGFR Non-African American 33.1 (>60); Magnesium 1.9 mg/dL (1.9-2.7); Potassium 3.8 mmol/L (3.5-5.0)
[2016-10-27] MEDS: Heparin VIAL(*) 5000 UNITS/ML VIAL (FIVE THOUSAND) SUBCUT SCH ×3 (06:34→21:29)
[2016-10-27] MEDS: Potassium Chloride LIQUID* 20 MEQ PACKET NG TUBE SCH ×3 (07:17→20:22)
[2016-10-27] MEDS: Senna TAB G TUBE SCH ×2 (07:17→20:21)
[2016-10-27] MEDS: ceFAZolin 2 GM PREMIX(*) 2 GM/50 ML BAG IVPB SCH ×2 (07:17→20:20)
[2016-10-27] MEDS: Lansoprazole SOLUTAB* 30 MG G TUBE SCH ×2 (07:17→20:20)
[2016-10-27] MEDS: Thiamine TAB* 100 MG TAB G TUBE SCH (07:17)
[2016-10-27] MEDS: Calcium Acetate CAP* 667 MG G TUBE SCH ×3 (07:18→20:22)
--- NOTE | 2016-10-27 09:24 | PN ---
Progress Note - Progress Note Note: Progress Note Critical Care 24 hour events/significant events: -remains intubated; more comfortable this morning, remains on sedation -we performed postural drainage by having her trendelenburg every few hours for 1 hour at a time; noted increased drainage and suctioning of secretions -past 24 hours only 1 temp spike 101, otherwise afebrile; wbc improving, less tachycardic, making good urine on lasix infusion. Tele: nsr Vitals: Vital Signs Temp 98.8 F 10/27/16 09:00 Pulse 70 10/27/16 09:00 Resp 25 10/27/16 09:00 BP 113/55 10/27/16 09:00 Pulse Ox 98 10/27/16 09:31 Intake & Output 10/26/16 10/27/16 10/27/16 18:59 06:59 18:59 Intake Total 1230 1801 Output Total 1850 2550 Balance -620 -749 Weight 186 lb 1.122 oz Intake: IV Fluids 116 NS 38 NS FENTANYL RIDER 78 IVPB 60 NS 60 Medicated IV 590 905 CC - Propofol/Diprivan 225 597 KCL 200 Precedex 125 230 furosemide 40 78 Tube Feeding 240 530 Tube Feeding Flush Amount 280 NG Tube Irrigate Amount 60 250 Output: Villegas 1850 2550 O2/Vent: AC 12/450/+6/30%, peak 21; breathing over the set rate at 22 Infusions: Propofol, precedex, fentanyl, Lasix infusion 5mg/hr Medications: Acetaminophen (Tylenol Tab*) 650 mg PO Q4H PRN PRN Reason: FEVER Last Admin: 10/22/16 14:21 Dose: 650 mg Acetaminophen (Tylenol Adult Liq*) 650 mg G TUBE Q4H PRN PRN Reason: FEVER Last Admin: 10/26/16 20:41 Dose: 650 mg Albuterol (Ventolin 2.5 Mg/3 Ml Neb.Keyonna*) 2.5 mg INH Q4H PRN PRN Reason: SOB/WHEEZING Calcium Acetate (Phoslo Cap*) 1,334 mg G TUBE TID [facility] Last Admin: 10/27/16 07:18 Dose: 1,334 mg Chlorhexidine Gluconate (Peridex Mouth Wash 0.12%*) 15 ml TOPICAL Q4H [facility] Last Admin: 10/27/16 07:17 Dose: 15 ml Cyclobenzaprine HCl (Flexeril Tab*) 10 mg PO TID PRN PRN Reason: SPASMS - MUSCLE Last Admin: 10/15/16 08:34 Dose: 10 mg Heparin Sodium (Porcine) (Heparin Vial(*)) 5,000 units SUBCUT Q8HR [facility] Last Admin: 10/27/16 06:34 Dose: 5,000 units Hydromorphone HCl (Dilaudid Iv*) 1 mg IV SLOW PU Q4H PRN PRN Reason: Pain and respiratory distress Last Admin: 10/26/16 18:44 Dose: 1 mg Propofol (Diprivan*) 100 mls @ 10.392 mls/hr IV .(Initial Rate) AYDIN; 20 MCG/KG/ MIN PRN Reason: Protocol Last Admin: 10/27/16 07:02 Dose: 10.392 mls/hr Fentanyl Citrate (Fentanyl Molder Pipe Covering*) 20 mls @ 2 mls/hr 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 .change Q24H [facility]; 100 MCG/HR PRN Reason: Protocol Last Admin: 10/27/16 07:28 Dose: 2 mls/hr Lactated Ringer's (Lactated Ringers 1000 Ml Bag*) 1,000 mls @ 0 mls/hr IV PER RATE [facility] PRN Reason: KVO Last Admin: 10/19/16 02:37 Dose: 10 mls/hr Dexmedetomidine HCl (Precedex*) 50 mls @ 4.97 mls/hr IVPB .per rate [facility] PRN Reason: 0.2 MCG/KG/HR Last Admin: 10/27/16 08:49 Dose: 4.97 mls/hr Cefazolin Sodium/Dextrose (Kefzol Premix(*)) 2 gm in 50 mls @ 100 mls/hr IVPB Q12HR [facility] Last Admin: 10/27/16 07:17 Dose: 100 mls/hr Furosemide 100 mg/ Sodium (Chloride) 100 mls @ 5 mls/hr IV Q20H [facility] PRN Reason: 5 MG/HR Last Admin: 10/27/16 06:34 Dose: 5 mls/hr Lansoprazole (Prevacid Solutab*) 30 mg G TUBE BID [facility] Last Admin: 10/27/16 07:17 Dose: 30 mg Lorazepam (Ativan Inj*) 2 mg IV PUSH Q4H PRN PRN Reason: AGITATION Last Admin: 10/26/16 16:45 Dose: 2 mg Methylprednisolone Sodium Succinate (Solu-Medrol*) 20 mg IV Q12H [facility] Last Admin: 10/27/16 04:27 Dose: 20 mg Oxazepam (Serax Cap*) 15 mg G TUBE Q8H [facility] Last Admin: 10/27/16 04:26 Dose: 15 mg Potassium Chloride (Klor-Con Liquid*) 40 meq NG TUBE TID [facility] Last Admin: 10/27/16 07:17 Dose: 40 meq Senna (Senokot Tab*) 1 tab G TUBE BID [facility] Last Admin: 10/27/16 07:17 Dose: 1 tab Thiamine HCl (Vitamin B-1 Tab*) 100 mg G TUBE DAILY [facility] Last Admin: 10/27/16 07:17 Dose: 100 mg Physical Exam: General: intubated, sedated Head: normocephalic, atraumatic HEENT: +pallor, no icterus, moist mucous membranes Neck: no jvd CVS: normal rate, normal rhythm, systolic murmur+ Resp: bilateral air entry, coarse breath sounds with some scattered rhales, no wheeze, no acc muscle use Abdomen: soft, nontender, nondistended, bowel sounds present Ext: pulses+, warm, +edema (improving) Skin: intact, no breakdown, no dryness Neuro: intubated, sedated, moves spontaneously Labs: Laboratory Results - last 24 hr 10/27/16 10/27/16 05:36 05:36 WBC 10.1 RBC 2.33 L Hgb 6.9 L Hct 21 L MCV 88 MCH 29 MCHC 34 RDW 15 Plt Count 304 MPV 8 Neut % (Auto) 79.4 Lymph % (Auto) 12.8 L Thomas % (Auto) 6.6 Eos % (Auto) 0.6 Baso % (Auto) 0.6 Absolute Neuts (auto) 8.0 H Absolute Lymphs (auto) 1.3 Absolute Monos (auto) 0.7 Absolute Eos (auto) 0.1 Absolute Basos (auto) 0.1 Absolute Nucleated RBC 0.01 Nucleated RBC % 0.1 Sodium 142 Potassium 3.8 Chloride 104 Carbon Dioxide 29 Anion Gap 9 BUN 55 H Creatinine 1.83 H Est GFR ( Amer) 42.6 Est GFR (Non-Af Amer) 33.1 BUN/Creatinine Ratio 30.1 H Glucose 112 H Calcium 9.1 Magnesium 1.9 Imaging: CXR 10/15 worsening bilateral pneumonia with innumerable cavitary septic emboli CT chest/abd/pelvis 10/13 severe burden of the cavitary pulm nodules with severe progression of disease; mediastinal/hilar lymphadenopathy; small pericardial effusion; splenomegaly. cxr 10/20 ett above rebeca, bilateral cavitary lesions multiple, left lower lobe consolidation+ cxr 10/23 - ett above rebeca, bilateral patchy infiltrates with cavitary lesions seen throughout. left lower lobe consolidation similar as prior, no sig change noted. CT chest/abx/aplvis 10/25 - pulm parenchymal vacitary noduls, more coalescent, air-fluid levels with possible pulm parenchymal abscess, small edwin pleural effusions, small pericardial effusion, small ascites, splenomegaly. 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 -Acute Hypoxic Respiratory Failure -Citrobacter pneumonia, likely a VAP given new sputum cx/fevers -MSSA pneumonia, MSSA septic cavitary pulmonary nodules/necrosis -MSSA Bacteremia/Endocarditis with TV vegetation -Left leg abscess/collection -Right hand collection/abscess -Opiate Withdrawal/IVDA use history -AUGUST, septic /pre-renal azotemia -Severe Sepsis -Hypokalemia -Thrombocytopenia/Anemia -Hyperbilirubinemia -Hypoalbuminemia -Chronic Hep C Plan: Neuro- on propofol/precedex/fentanyl infusion. High requirements given past drug use history. More synchronous and no distress on vent. Daily sedation weaning and neuro checks as per protocol. BDZ as needed for distress/ restlessness/dyssynchrony. CVS-hemodyn stable, no hypotension, less tachy now. Improving Edema, d/c lasix infusion today, start bid Lasix 20mg. Goal negative balance daily; Replete K as needed. TTE reviewed, more distant TV vegetation is seen with low normal RV function, small pericardial effusion. Resp- Better drainage with trendelenburg positioning. Still brownish/necrotic appearing secretions. Cont Pulm toilet/lavage. Less febrile. Cont ancef iv. Tolerating AC mode. Hope is try weaning/extubation this weak if secretions improved. Citrobacter Koseri/MSSA growth from sputum, likely a VAP now. Both organisms sensitive to Ancef. Chest PT, postural drainage. CT chest reviewed, increased cavitary nodules. No clear large abscess but there is communication with bronchus. ID- Febrile x1, less febrile overall. WBC improving. On Ancef MSSA bacteremia/ pneumonia and Citrobacter pneumonia (day#16, start 10/12), all pansensitive. Blood cx neg 10/18. GI- on Tube feeds, tolerating, no diarrhea. GI prophylaxis. Hold feeds 1-2 hours before postural drainage maneuvers, restart after normal positioning, watch for vomiting. Renal- AUGUST slowly improving. Gross overload but improving with diuretics, switch to IV push today. Hypokalemia, replete K. Good urine output. Villegas in place. Heme- Anemia, hg now 6.9, fluctuating in low 7s past few days. No bleeding noted. Will give 2 units prbc. Heparin Sq q8h. FOBT neg. LDH negative, bilirubin normal range, hapto not dec. No evidence of hemolysis. Maintain Hg>7. No SCDs due to collection left lower ext. Endo- stable Musculsk- stable; possible right hand abscess/collection and left leg collection. Repeat LE ultrasound shows some improvement in left leg collection? no palpable mass/crepitus on examination otherwise. Wounds- as above Nutrition- Tube feeds DVT prophylaxis: heparin sq GI prophylaxis: PPI Central Line: yes Arterial Line: no Villegas Cathetor: yes Critically ill, still vent dependant, unclear how long this drainage will continue; may have to consider tracheostomy if no improvment in coming days, will attemp weaning. Disposition: ICU for respiratory failure/severe sepsis/pneumonia Code Status: full code Total Critical Care time is 40 minutes, excluding procedures/teaching Julio Mariscal MD Vp Of [employer] (Electronically Signed)
[2016-10-27] MEDS: HYDROmorphone* 1 MG/ML 1 ML SYR IV SLOW PU PRN ×2 (12:55→23:07)
[2016-10-27] MEDS: LORazepam INJ* 2 MG/ML 1 ML VIAL IV PUSH PRN ×2 (16:44→21:24)
[2016-10-28] MEDS: fentaNYL PCA* 20 ML PCA SCH ×3 (00:20→16:20)
[2016-10-28] MEDS: Propofol* 100 ML IV SCH ×7 (01:05→21:36)
[2016-10-28] MEDS: LORazepam INJ* 2 MG/ML 1 ML VIAL IV PUSH PRN ×4 (01:13→21:19)
[2016-10-28] MEDS: Dexmedetomidine* 50 ML IVPB SCH ×7 (02:17→22:26)
[2016-10-28] MEDS: methylPREDNISolone SOD 40 MG* 1 ML VIAL IV SCH ×2 (03:55→15:32)
[2016-10-28] MEDS: Chlorhexidine MOUTHWASH 0.12%* 15 ML UDC TOPICAL SCH ×5 (03:55→20:18)
[2016-10-28] MEDS: OXAZEPAM 15 MG G TUBE SCH ×3 (03:55→20:19)
[2016-10-28 05:26] LABS: Hematocrit 28 % (35-47); Hemoglobin 9.1 g/dl (12.0-16.0); Mean Corpuscular HGB Conc 33 g/dl (31-36); Mean Corpuscular Hemoglobin 28 pg (27-31); Mean Corpuscular Volume 86 fL (80-97); Mean Platelet Volume 8 um3 (7.4-10.4); Red Blood Count 3.23 10^6/ul (4.0-5.4); Red Cell Distribution Width 16 % (10.5-15); White Blood Count 13.3 10^3/ul (3.5-10.8)
[2016-10-28] MEDS: Heparin VIAL(*) 5000 UNITS/ML VIAL (FIVE THOUSAND) SUBCUT SCH ×3 (05:26→20:19)
[2016-10-28 05:42] LABS: BUN/Creatinine Ratio 32.5 (8-20); Calcium 9.1 mg/dL (8.6-10.3); EGFR African American 48.7 (>60); EGFR Non-African American 37.8 (>60); Magnesium 1.9 mg/dL (1.9-2.7); Potassium 3.5 mmol/L (3.5-5.0)
[2016-10-28] MEDS: Senna TAB G TUBE SCH ×2 (07:51→20:07)
[2016-10-28] MEDS: Thiamine TAB* 100 MG TAB G TUBE SCH (07:52)
[2016-10-28] MEDS: Lansoprazole SOLUTAB* 30 MG G TUBE SCH ×2 (07:52→20:20)
[2016-10-28] MEDS: Potassium Chloride LIQUID* 20 MEQ PACKET NG TUBE SCH ×3 (07:52→20:18)
[2016-10-28] MEDS: ceFAZolin 2 GM PREMIX(*) 2 GM/50 ML BAG IVPB SCH ×2 (07:52→20:19)
[2016-10-28] MEDS: Calcium Acetate CAP* 667 MG G TUBE SCH (07:53)
[2016-10-28] MEDS: HYDROmorphone* 1 MG/ML 1 ML SYR IV SLOW PU PRN ×2 (08:22→17:37)
[2016-10-28] MEDS ORDERED: fentaNYL PATCH 75 MCG/HR* 75 MCG TRANSDERM SCH (10:00)
[2016-10-28] MEDS ORDERED: cloNIDine 0.2 MG PATCH* 0.2 MG/24 HR 7 DAY PATCH TRANSDERM SCH (10:00)
[2016-10-28] MEDS: Metoprolol Tartrate TAB* 25 MG G TUBE SCH ×2 (11:11→20:20)
--- NOTE | 2016-10-28 11:12 | PN ---
Progress Note - Progress Note Note: CRITICAL CARE MEDICINE Date: 10/28/16 Time: 755 SUBJECTIVE: Patient seen and examined. awakens. attempts to follow commands. PHYSICAL EXAM: Vital Signs: Reviewed. Neurologic: Rass -2; overbreathing vent. HEENT: pupils equal small, reactive. Sclera anicteric. Trachea midline. Cardiovascular: S1 S2, 3/6 eladio Respiratory: less rales bl just course. APV 450. 30%. Abdomen: Soft, nt Extremities: Warm. mild dep edema. Access: RIJ intact; midline LABS: Reviewed. IMAGING: Reviewed. MEDICATIONS: Reviewed. ASSESSMENT: 26 F IVDA Acute hypoxic resp failure Multiple septic emboli with cavitaric lung lesions Severe sepsis sec to mssa and post septic shock TV endocarditis Left leg abscess Opitate withdrawal - better, but requiring use. Thrombocytopenia/anemia sec to septic consumption Chronic Hep C Malnutrition - moderate degree Left leg abscess AUGUST with component of ATN - improving. Anasarca - improving. PLAN: Neurologic: add clondine td and fent td to see if we can dec gtt, especially to get off propofol. Can utilize benzos still and look to slowly wean. add bb for sym benefit as well. Cardiovascular: Perfusing. Vol status better. keep lasix as is today and come off tomorrow. bb. Respiratory: tolerating as well as can be expected. cpap trial today. see where secretions take us and then can hold off on postural drainage tonight. looking to liberate as early as tomorrow to HFO2 if she can tolerate. Will still need to work from there and pulm deficiencies still to remain chcf. Gastrointestinal: tf adjusted. sup Renal/Metabolic: lasix gtt. Infectious Disease: ID f/u. on ancef. Hematology: Hb more stable post transfusion. multifactorial. Endocrine: steroid pulse as is for now and hope to help avoid fibrotic lung phase. Musculoskeletal: deconditioned. see if she can participate post liberation. skin precautions. Psych/Social: will look to update mother Supportive and preventative care as ordered. SUP: ppi VTE prophylaxis: heparin Villegas catheter given critical illness, monitoring needs for accurate assessment of AUGUST and KDIGO criteria for critically ill patients and to avoid potential harms of urinary retention, skin breakdown/ulcers. Disposition: ICU Code Status: Full Critical Care Time: 35min FNathen Carr DO
[2016-10-28 11:42] LABS: Phosphorus 4.2 mg/dL (2.5-5.0)
[2016-10-28] MEDS: fentaNYL Patch Check Q Shift 1 NOTE SCH (20:04)
[2016-10-28] MEDS: Acetaminophen ADULT LIQ* 650 MG/20.3 ML UDC G TUBE PRN (20:19)
[2016-10-29] MEDS: Chlorhexidine MOUTHWASH 0.12%* 15 ML UDC TOPICAL SCH ×4 (00:41→12:13)
[2016-10-29] MEDS: HYDROmorphone* 1 MG/ML 1 ML SYR IV SLOW PU PRN ×3 (00:41→23:33)
[2016-10-29] MEDS: Dexmedetomidine* 50 ML IVPB SCH ×3 (02:30→12:30)
[2016-10-29] MEDS: Heparin VIAL(*) 5000 UNITS/ML VIAL (FIVE THOUSAND) SUBCUT SCH ×3 (04:49→22:09)
[2016-10-29] MEDS: methylPREDNISolone SOD 40 MG* 1 ML VIAL IV SCH (04:49)
[2016-10-29] MEDS: OXAZEPAM 15 MG G TUBE SCH ×2 (04:51→15:30)
[2016-10-29 06:03] LABS: Hematocrit 31 % (35-47); Hemoglobin 10.3 g/dl (12.0-16.0); Mean Corpuscular HGB Conc 34 g/dl (31-36); Mean Corpuscular Hemoglobin 29 pg (27-31); Mean Corpuscular Volume 85 fL (80-97); Mean Platelet Volume 8 um3 (7.4-10.4); Red Blood Count 3.57 10^6/ul (4.0-5.4); Red Cell Distribution Width 16 % (10.5-15); White Blood Count 13.9 10^3/ul (3.5-10.8)
[2016-10-29 06:22] LABS: Albumin 3.1 g/dL (3.2-5.2); BUN/Creatinine Ratio 31.1 (8-20); Calcium 9.8 mg/dL (8.6-10.3); Direct Bilirubin 0.3 mg/dL (0.03-0.18); EGFR African American 49.4 (>60); EGFR Non-African American 38.4 (>60); Globulin 5.3 g/dL (2-4); Indirect Bilirubin 0.3 mg/dL (0.3-1.0); Magnesium 1.9 mg/dL (1.9-2.7); Phosphorus 4.9 mg/dL (2.5-5.0); Potassium 3.7 mmol/L (3.5-5.0); Total Bilirubin 0.6 mg/dL (0.2-1.0); Total Protein 8.4 g/dL (6.4-8.9)
[2016-10-29] MEDS: LORazepam INJ* 2 MG/ML 1 ML VIAL IV PUSH PRN ×2 (06:47→08:59)
[2016-10-29] MEDS: Propofol* 100 ML IV SCH (06:52)
[2016-10-29] MEDS: fentaNYL Patch Check Q Shift 1 NOTE SCH ×2 (07:10→18:57)
[2016-10-29] MEDS: Potassium Chloride LIQUID* 20 MEQ PACKET NG TUBE SCH (07:52)
[2016-10-29] MEDS: ceFAZolin 2 GM PREMIX(*) 2 GM/50 ML BAG IVPB SCH ×2 (07:52→22:09)
[2016-10-29] MEDS: Acetaminophen ADULT LIQ* 650 MG/20.3 ML UDC G TUBE PRN (07:52)
[2016-10-29] MEDS: Lansoprazole SOLUTAB* 30 MG G TUBE SCH (07:53)
[2016-10-29] MEDS: Metoprolol Tartrate TAB* 25 MG G TUBE SCH (07:53)
[2016-10-29] MEDS: Senna TAB G TUBE SCH (07:53)
[2016-10-29] MEDS: Thiamine TAB* 100 MG TAB G TUBE SCH (07:53)
[2016-10-29] MEDS ORDERED: LORazepam INJ* 2 MG/ML 1 ML VIAL IV PUSH ONE (08:59)
[2016-10-29] MEDS: fentaNYL PCA* 20 ML PCA SCH (09:42)
--- NOTE | 2016-10-29 10:45 | PN ---
Progress Note - Progress Note Note: CRITICAL CARE MEDICINE Date: 10/29/16 Time: 900 SUBJECTIVE: Patient seen and examined. awakens. attempts at commands. PHYSICAL EXAM: Vital Signs: Reviewed. Neurologic: as above. overbreathing vent. HEENT: pupils equal small, reactive. Sclera anicteric. Trachea midline. Cardiovascular: S1 S2, 3/6 eladio Respiratory: less rhonchi. coarse. CPAP 14/6 with TV >500ml. 30%. dec secretions. Abdomen: Soft, nt Extremities: Warm. mild dep edema. Access: RIJ intact; midline LABS: Reviewed. IMAGING: Reviewed. MEDICATIONS: Reviewed. ASSESSMENT: 26 F IVDA Acute hypoxic resp failure Multiple septic emboli with cavitaric lung lesions Severe sepsis sec to mssa and post septic shock TV endocarditis Left leg abscess Opitate withdrawal - better, but requiring use. Thrombocytopenia/anemia sec to septic consumption Chronic Hep C Malnutrition - moderate degree Left leg abscess AUGUST with component of ATN - improving. Anasarca - improving. PLAN: Neurologic: added clondine td and can try to come off precedex post liberation today. fent td and dc gtt. off propofol. prn benzos and back down on routine. Cardiovascular: Perfusing. Vol status ok. hold lasix gtt. Respiratory: tolerating cpap. will liberate today. may need benefit of HFo2 but see what her mechanics and secretions dictate. Gastrointestinal: tf off. sup. swallow eval later in course. Renal/Metabolic: stable. Infectious Disease: ID f/u. on ancef. Hematology: Hb stable. Endocrine: steroid pulse as is and taper soon. Musculoskeletal: deconditioned. pt soon. Psych/Social: will f/u pt psych status post liberation. Supportive and preventative care as ordered. SUP: ppi VTE prophylaxis: heparin Villegas catheter given critical illness, monitoring needs for accurate assessment of AUGUST and KDIGO criteria for critically ill patients and to avoid potential harms of urinary retention, skin breakdown/ulcers. Disposition: ICU Code Status: Full Critical Care Time: 35min Rebeka Carr DO
[2016-10-29] MEDS ORDERED: Dexmedetomidine* 50 ML IVPB SCH (13:13)
[2016-10-29] MEDS ORDERED: Oxazepam CAP* 15 MG G TUBE PRN (13:13)
--- NOTE | 2016-10-29 16:07 | PN ---
Progress Note - Progress Note SOAP: Subjective: DOS:10/29/16 CC: endocarditis HPI: 26 year old woman IVD, admitted with chest pain, right wrist and ankle pain and cavitary lung masses. TTE showed TV endocarditis. Intubated 10/17. Extubated 10/29 Objective: [] Vital Signs Temp 38.0 C 10/29/16 15:00 Pulse 88 10/29/16 15:00 Resp 16 10/29/16 15:00 BP 147/88 10/29/16 15:00 Pulse Ox 99 10/29/16 15:00 Intake & Output 10/28/16 10/29/16 10/29/16 18:59 06:59 18:59 Intake Total 1153 1166 108 Output Total 2200 4025 1325 Balance -1047 -4619 -1217 Weight 175 lb 7.807 oz Intake: IV Fluids 80 198 NS KVO 80 148 Oxacillin 50 IVPB 50 NS KVO 50 Medicated IV 293 653 108 CC - Dexmedetomidine/ 125 236 108 Precedex CC - Propofol/Diprivan 125 337 GEN - Furosemide/Lasix 43 80 Tube Feeding 730 215 Tube Feeding Flush Amount 0 NG Tube Irrigate Amount 100 Output: Villegas 2200 4025 1325 Gen: no distress, not diaphoretic Neuro: awake, regards HEENT:PERRL, MMM Neck:supple Heart:Regular and tachycardic, no murmur Lungs:coarse BS BL Abd:+BS NTND soft Skin: no rash LN: no palpable nodes MSK: no muscle tenderness Laboratory Results - last 24 hr 10/29/16 10/29/16 05:50 05:50 WBC 13.9 H RBC 3.57 L Hgb 10.3 L Hct 31 L MCV 85 MCH 29 MCHC 34 RDW 16 H Plt Count 374 MPV 8 Sodium 138 Potassium 3.7 Chloride 95 L Carbon Dioxide 32 Anion Gap 11 BUN 50 H Creatinine 1.61 H Est GFR ( Amer) 49.4 Est GFR (Non-Af Amer) 38.4 BUN/Creatinine Ratio 31.1 H Glucose 110 H Calcium 9.8 Phosphorus 4.9 Magnesium 1.9 Total Bilirubin 0.60 Direct Bilirubin 0.30 H Indirect Bilirubin 0.3 AST 26 ALT 4 L Alkaline Phosphatase 70 Total Protein 8.4 Albumin 3.1 L Globulin 5.3 H Albumin/Globulin Ratio 0.6 L Assessment: 1. MSSA TV endocariditis and bacteremia, cleared 2. septic pulmonary emboli with acute hypoxemic respiratory failure, present on admission 3. encephalopathy, present on admission; non focal neuro exam, improving 4. R wrist pain diff with small abscess on US, at site of injection, edema improving 5. Hepatitis C infection, chronic 6. 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 left leg complex fluid collection likely abscess 8. acute kidney injury ?ATN, improving 10. anemia, stable Plan: 1.continue ancef 2 gm IV Q8hrs day 05/24 since negative BC. Discussed with Dr Carr
[2016-10-29] MEDS: Senna TAB PO SCH (19:22)
[2016-10-30] MEDS ORDERED: Temazepam CAP* 15 MG PO PRN (01:35)
[2016-10-30] MEDS: LORazepam INJ* 2 MG/ML 1 ML VIAL IV PUSH PRN (01:41)
[2016-10-30] MEDS: Metoprolol Tartrate IV* 1 MG/ML 5 ML VIAL IV PRN ×3 (01:50→18:06)
[2016-10-30] MEDS: Heparin VIAL(*) 5000 UNITS/ML VIAL (FIVE THOUSAND) SUBCUT SCH ×3 (05:57→22:24)
[2016-10-30 06:06] LABS: Hematocrit 27 % (35-47); Hemoglobin 9.3 g/dl (12.0-16.0); Mean Corpuscular HGB Conc 34 g/dl (31-36); Mean Corpuscular Hemoglobin 29 pg (27-31); Mean Corpuscular Volume 86 fL (80-97); Mean Platelet Volume 8 um3 (7.4-10.4); Red Blood Count 3.19 10^6/ul (4.0-5.4); Red Cell Distribution Width 15 % (10.5-15)
[2016-10-30 06:28] LABS: BUN/Creatinine Ratio 34.9 (8-20); Calcium 9.8 mg/dL (8.6-10.3); EGFR African American 65.5 (>60); EGFR Non-African American 50.9 (>60); Phosphorus 3.7 mg/dL (2.5-5.0); Potassium 3.1 mmol/L (3.5-5.0)
[2016-10-30] MEDS: fentaNYL Patch Check Q Shift 1 NOTE SCH ×2 (07:21→19:24)
[2016-10-30] MEDS: ceFAZolin 2 GM PREMIX(*) 2 GM/50 ML BAG IVPB SCH ×2 (09:18→21:15)
--- NOTE | 2016-10-30 10:03 | PN ---
Progress Note - Progress Note Note: CRITICAL CARE MEDICINE Date: 10/30/16 Time: 830 SUBJECTIVE: Patient seen and examined. awake, following commands but not making any attempts to verbalize PHYSICAL EXAM: Vital Signs: Reviewed. Neurologic: as above. JASON. HEENT: pupils equal larger, reactive. Sclera anicteric. Trachea midline. Cardiovascular: S1 S2, 3/6 eladio Respiratory: few rhonchi, always a bit fast but adequate excursion. Extremities: Warm. mild dep edema. Access: RIJ intact; midline LABS: Reviewed. IMAGING: Reviewed. MEDICATIONS: Reviewed. ASSESSMENT: 26 F IVDA Acute hypoxic resp failure Multiple septic emboli with cavitaric lung lesions Severe sepsis sec to mssa and post septic shock TV endocarditis Left leg abscess Opitate withdrawal - better, but requiring use. Thrombocytopenia/anemia sec to septic consumption Chronic Hep C Malnutrition - moderate degree Left leg abscess AUGUST with component of ATN - improving Anasarca - improved Delirium PLAN: Neurologic: clondine td as is. cut down on fent td. now off routine benzos but may still need prn. f/u delirium. Cardiovascular: Perfusing. Vol status ok. less uout off gtt but stable. see if she has a dependency. Respiratory: tolerating nc and just needs to continue to maintain vol expansion and secretion clearance. No HFO2 needs at this time nor ppv. try to work with flutter. oob. Gastrointestinal: swallow eval. hopefully can advance diet and po intake. doubt she'll cooperate with ngt. Renal/Metabolic: stable. Infectious Disease: ID f/u. on ancef. Hematology: Hb stable. Endocrine: steroid taper. Musculoskeletal: deconditioned. pt soon. Psych/Social: will delirium Supportive and preventative care as ordered. SUP: ppi VTE prophylaxis: heparin Villegas catheter given critical illness, monitoring needs for accurate assessment of AUGUST and KDIGO criteria for critically ill patients and to avoid potential harms of urinary retention, skin breakdown/ulcers. Disposition: ICU Code Status: Full Critical Care Time: 30min Rebeka Carr DO
[2016-10-30] MEDS: KCL 10 MEQ/50 ML IVPREMIX* 10 MEQ/50 ML BAG IV SCH ×3 (10:16→13:46)
[2016-10-30] MEDS: fentaNYL PATCH 25 MCG/HR TRANSDERM SCH (11:10)
[2016-10-30] MEDS ORDERED: Acetaminophen SUPP* 650 MG SUPP PR PRN (12:25)
[2016-10-30] MEDS: Senna TAB PO SCH ×2 (15:11→21:34)
[2016-10-30] MEDS: predniSONE TAB* 20 MG PO SCH (15:11)
[2016-10-30] MEDS: Metoprolol Tartrate TAB* 25 MG PO SCH ×2 (15:11→21:34)
[2016-10-31] MEDS: Metoprolol Tartrate IV* 1 MG/ML 5 ML VIAL IV PRN ×3 (02:39→17:02)
[2016-10-31] MEDS: Heparin VIAL(*) 5000 UNITS/ML VIAL (FIVE THOUSAND) SUBCUT SCH ×3 (06:54→21:05)
[2016-10-31 07:14] LABS: Hematocrit 29 % (35-47); Hemoglobin 9.4 g/dl (12.0-16.0); Mean Corpuscular HGB Conc 33 g/dl (31-36); Mean Corpuscular Hemoglobin 28 pg (27-31); Mean Corpuscular Volume 86 fL (80-97); Mean Platelet Volume 8 um3 (7.4-10.4); Red Blood Count 3.33 10^6/ul (4.0-5.4); Red Cell Distribution Width 16 % (10.5-15); White Blood Count 12.5 10^3/ul (3.5-10.8)
[2016-10-31] MEDS: fentaNYL Patch Check Q Shift 1 NOTE SCH ×2 (07:20→19:00)
[2016-10-31 07:30] LABS: BUN/Creatinine Ratio 45.6 (8-20); Calcium 9.9 mg/dL (8.6-10.3); EGFR African American 73.5 (>60); EGFR Non-African American 57.2 (>60); Magnesium 2.1 mg/dL (1.9-2.7); Phosphorus 3.6 mg/dL (2.5-5.0); Potassium 3.2 mmol/L (3.5-5.0)
[2016-10-31] MEDS: ceFAZolin 2 GM PREMIX(*) 2 GM/50 ML BAG IVPB SCH ×2 (09:12→21:06)
[2016-10-31] MEDS: NS 0.45% KCl 20 Meq 1000 ML* 1,000 ML IV SCH ×2 (09:41→19:23)
[2016-10-31] MEDS: KCL 20 MEQ/100 ML IVPREMIX* 20 MEQ/100 ML BAG IV SCH ×2 (09:41→12:43)
--- NOTE | 2016-10-31 09:47 | PN ---
Progress Note - Progress Note Note: CRITICAL CARE MEDICINE Date: 10/31/16 Time: 900 SUBJECTIVE: Patient seen and examined. awake, following commands and attempted to voice hello but no voice yet and limited attempts. PHYSICAL EXAM: Vital Signs: Reviewed. Neurologic: as above. JASON. HEENT: pupils equal, dil, reactive. Sclera anicteric. Trachea midline. Cardiovascular: S1 S2, 3/6 eladio Respiratory: few rhonchi less Extremities: Warm. mild dep edema. hyperactive to touch Access: RIJ intact; midline LABS: Reviewed. IMAGING: Reviewed. MEDICATIONS: Reviewed. ASSESSMENT: 26 F IVDA Acute hypoxic resp failure Multiple septic emboli with cavitaric lung lesions Severe sepsis sec to mssa and post septic shock TV endocarditis Left leg abscess Opitate withdrawal - better, but requiring use. Thrombocytopenia/anemia sec to septic consumption Chronic Hep C Malnutrition - moderate degree Left leg abscess AUGUST with component of ATN - improving Anasarca - improved Delirium PLAN: Neurologic: clondine td continued. leave low dose fent td for now. watch for benzo withdrawal. f/u delirium. Cardiovascular: Perfusing. Vol status a touch water deplete. can give back via iv today and need to move towards po intake. See if we can maintain piv and dc cvc. Respiratory: tolerating nc and continued improvement. oob. Gastrointestinal: swallow eval f/u. sup Renal/Metabolic: sun up. give ivf hypotonic fluid today Infectious Disease: ID following; on ancef. Hematology: Hb stable. Endocrine: steroid taper. Musculoskeletal: deconditioned. pt. Psych/Social: will f/u delirium Supportive and preventative care as ordered. SUP: ppi VTE prophylaxis: heparin Villegas catheter given critical illness, monitoring needs for accurate assessment of AUGUST and KDIGO criteria for critically ill patients and to avoid potential harms of urinary retention, skin breakdown/ulcers. Disposition: ICU Code Status: Full Critical Care Time: 28min Rebeka Carr DO
[2016-10-31] MEDS: Metoprolol Tartrate TAB* 25 MG PO SCH ×2 (11:13→21:05)
[2016-10-31] MEDS: predniSONE TAB* 20 MG PO SCH (11:13)
[2016-10-31] MEDS: Senna TAB PO SCH ×2 (11:16→21:05)
[2016-10-31] MEDS: LORazepam INJ* 2 MG/ML 1 ML VIAL IV PUSH PRN (14:04)
--- NOTE | 2016-10-31 16:57 | PN ---
Progress Note - Progress Note SOAP: Subjective: DOS:10/29/16 CC: endocarditis HPI: 26 year old woman IVD, admitted with chest pain, right wrist and ankle pain and cavitary lung masses. TTE showed TV endocarditis. Intubated 10/17. Extubated 10/29. No diarrhea or cough per RN. Had swallow evaluation today. Objective: [] Vital Signs Temp 38.6 C 10/31/16 15:08 Pulse 121 10/31/16 14:00 Resp 37 10/31/16 15:48 BP 157/92 10/31/16 15:08 Pulse Ox 93 10/31/16 14:00 Intake & Output 10/30/16 10/31/16 10/31/16 18:59 06:59 18:59 Intake Total 345 140 951 Output Total 750 1000 550 Balance -405 -860 401 Weight 167 lb 5.294 oz Intake: IV Fluids 90 801 NS (0.45%) 20 meq KCL 507 NS KVO 90 94 Potassium 200 IVPB 255 140 50 ABX - CEFAZOLIN 55 50 50 NS KVO 90 Potassium 200 Oral 0 100 Output: Villegas 750 1000 550 Gen: no distress, not diaphoretic Neuro: awake, regards HEENT:PERRL, MMM Neck:supple Heart:Regular and tachycardic, no murmur Lungs:coarse BS BL Abd:+BS NTND soft Skin: no rash LN: no palpable nodes MSK: no muscle tenderness Laboratory Results - last 24 hr 10/31/16 10/31/16 06:55 06:55 WBC 12.5 H RBC 3.33 L Hgb 9.4 L Hct 29 L MCV 86 MCH 28 MCHC 33 RDW 16 H Plt Count 367 MPV 8 Sodium 144 Potassium 3.2 L Chloride 104 Carbon Dioxide 29 Anion Gap 11 BUN 52 H Creatinine 1.14 H Est GFR ( Amer) 73.5 Est GFR (Non-Af Amer) 57.2 BUN/Creatinine Ratio 45.6 H Glucose 113 H Calcium 9.9 Phosphorus 3.6 Magnesium 2.1 Assessment: 1. MSSA TV endocariditis and bacteremia, cleared 2. septic pulmonary emboli with acute hypoxemic respiratory failure, present on admission 3. encephalopathy, present on admission; non focal neuro exam, continues to improve 4. Hepatitis C infection, chronic 5. 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 left leg complex fluid collection likely abscess 7. fever ?medication withdrawal, no focal signs or symptoms of other infection Plan: 1.continue ancef 2 gm IV Q8hrs day 06/24 since negative BC. Discussed with Dr Carr
[2016-10-31] MEDS: Acetaminophen TAB* 325 MG PO PRN (18:18)
[2016-11-01] MEDS: Heparin VIAL(*) 5000 UNITS/ML VIAL (FIVE THOUSAND) SUBCUT SCH ×3 (06:24→21:03)
[2016-11-01] MEDS: fentaNYL Patch Check Q Shift 1 NOTE SCH ×3 (07:01→19:01)
[2016-11-01] MEDS: ceFAZolin 2 GM PREMIX(*) 2 GM/50 ML BAG IVPB SCH ×2 (08:12→20:45)
[2016-11-01] MEDS: Metoprolol Tartrate TAB* 25 MG PO SCH (08:12)
[2016-11-01] MEDS: Senna TAB PO SCH ×2 (08:12→20:45)
[2016-11-01] MEDS: predniSONE TAB* 20 MG PO SCH (08:12)
--- NOTE | 2016-11-01 11:08 | PN ---
Progress Note - Progress Note Note: CRITICAL CARE MEDICINE Date: 11/01/16 Time: 900 SUBJECTIVE: Patient seen and examined. awake, following commands, attempted voice. discussed aspiration event yesterday PHYSICAL EXAM: Vital Signs: Reviewed. Neurologic: as above. JASON. HEENT: pupils equal, dil, reactive. Sclera anicteric. Trachea midline. Cardiovascular: S1 S2, 3/6 eladio Respiratory: rhonchi less Extremities: Warm. weak. Access: RIJ intact; midline LABS: Reviewed. IMAGING: Reviewed. MEDICATIONS: Reviewed. ASSESSMENT: 26 F IVDA Acute hypoxic resp failure Multiple septic emboli with cavitaric lung lesions Severe sepsis sec to mssa and post septic shock TV endocarditis Left leg abscess Opitate withdrawal - better, but requiring use. Thrombocytopenia/anemia sec to septic consumption Chronic Hep C Malnutrition - moderate degree Left leg abscess AUGUST with component of ATN - improving Anasarca - improved Delirium/mild hypoxic encephalopathy Deconditioning PLAN: Neurologic: clondine td continued. leave low dose fent td for another day or so and come off towards po prns. watching for benzo withdrawal and use prn. If she truly remains with this quiet delirium/mild hypoxic encephalopathy phase, she may need MRI to r/o adem etc. remains on steroid currently. Cardiovascular: Perfusing. Vol status ok. Can use bb to control HR and inprove bp. dc cvc Respiratory: tolerating nc or off to ra. avoid aspiration Gastrointestinal: return to po dysphagia diet today. sup Renal/Metabolic: f/u labs tomorrow. perez for now but out soon. Infectious Disease: ID following - on ancef. Hematology: Hb stable. Endocrine: steroid taper. Musculoskeletal: deconditioned. pt. Psych/Social: mom updated at bedside Supportive and preventative care as ordered. SUP: ppi VTE prophylaxis: heparin Perez catheter given critical illness, monitoring needs for accurate assessment of AUGUST and KDIGO criteria for critically ill patients and to avoid potential harms of urinary retention, skin breakdown/ulcers. Disposition: ICU Code Status: Full Critical Care Time: 28min Rebeka Carr DO
--- NOTE | 2016-11-01 15:22 | PN ---
Progress Note - Progress Note SOAP: Subjective: DOS:11/01/16 CC: endocarditis HPI: 26 year old woman IVD, admitted with chest pain, right wrist and ankle pain and cavitary lung masses. TTE showed TV endocarditis. Intubated 10/17. Extubated 10/29. No diarrhea or cough per RN. Denies pain. Objective: [] Vital Signs Temp 37.8 C 11/01/16 15:00 Pulse 67 11/01/16 15:00 Resp 29 11/01/16 15:00 BP 166/86 11/01/16 15:00 Pulse Ox 95 11/01/16 15:00 Intake & Output 10/31/16 11/01/16 11/01/16 18:59 06:59 18:59 Intake Total 951 2432 125 Output Total 550 950 425 Balance 401 1482 -300 Weight 163 lb 2.273 oz Intake: IV Fluids 801 1932 125 ABX - CEFAZOLIN 125 NS (0.45%) 20 meq KCL 507 1932 NS KVO 94 Potassium 200 IVPB 50 500 ABX - CEFAZOLIN 50 50 Potassium 450 Oral 100 Output: Urine 450 Villegas 550 500 425 Gen: no distress, not diaphoretic Neuro: awake, regards HEENT:PERRL, MMM Neck:supple Heart:Regular and tachycardic, no murmur Lungs:coarse BS BL Abd:+BS NTND soft Skin: no rash LN: no palpable nodes MSK: no muscle tenderness Assessment: 1. MSSA TV endocariditis 2. MSSA septic pulmonary emboli 3. encephalopathy, present on admission; improving 4. Hepatitis C infection, chronic 5. 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 left leg complex fluid collection likely abscess 7. fever ?medication withdrawal, no focal signs or symptoms of other infection Plan: 1.continue ancef 2 gm IV Q8hrs day 07/24 2. outpt hepatitis C workup after period of sobriety
[2016-11-01] MEDS: Metoprolol Tartrate TAB* 50 mg PO SCH (20:46)
[2016-11-02] MEDS: Heparin VIAL(*) 5000 UNITS/ML VIAL (FIVE THOUSAND) SUBCUT SCH ×3 (05:33→21:50)
[2016-11-02 06:05] LABS: Hematocrit 31 % (35-47); Hemoglobin 10.1 g/dl (12.0-16.0); Mean Corpuscular HGB Conc 33 g/dl (31-36); Mean Corpuscular Hemoglobin 28 pg (27-31); Mean Corpuscular Volume 86 fL (80-97); Mean Platelet Volume 8 um3 (7.4-10.4); Red Blood Count 3.61 10^6/ul (4.0-5.4); Red Cell Distribution Width 15 % (10.5-15); White Blood Count 11.2 10^3/ul (3.5-10.8)
[2016-11-02 06:21] LABS: Calcium 9.6 mg/dL (8.6-10.3); EGFR African American 87.6 (>60); EGFR Non-African American 68.1 (>60); Phosphorus 3.6 mg/dL (2.5-5.0); Potassium 3.1 mmol/L (3.5-5.0)
[2016-11-02] MEDS: fentaNYL Patch Check Q Shift 1 NOTE SCH (06:58)
[2016-11-02] MEDS: predniSONE TAB* 20 MG PO SCH (08:10)
[2016-11-02] MEDS: ceFAZolin 2 GM PREMIX(*) 2 GM/50 ML BAG IVPB SCH ×2 (08:11→20:28)
[2016-11-02] MEDS: Metoprolol Tartrate TAB* 50 mg PO SCH ×2 (08:11→20:26)
[2016-11-02] MEDS: Senna TAB PO SCH ×2 (08:11→20:27)
[2016-11-02] MEDS: fentaNYL PATCH 25 MCG/HR TRANSDERM SCH (09:13)
[2016-11-02] MEDS ORDERED: Potassium EFFERVESCENT TAB* 25 MEQ TAB.EFF PO ONE (09:51)
[2016-11-02] MEDS ORDERED: D5W KCl 40 MEQ 1000 ML* 1,000 ML IV SCH (10:00)
--- NOTE | 2016-11-02 12:01 | PN ---
Progress Note - Progress Note Note: CRITICAL CARE MEDICINE Date: 11/02/16 Time: 900 SUBJECTIVE: Patient seen and examined. PHYSICAL EXAM: Vital Signs: Reviewed. Neurologic: as above. JASON. smiles. attempts words but poor vocals and defiant. HEENT: pupils equal, less dil, reactive. Sclera anicteric. Trachea midline. Cardiovascular: S1 S2, 3/6 eladio Respiratory: rhonchi mild Extremities: Warm. weak. Access: RIJ intact and needs out; piv LABS: Reviewed. IMAGING: Reviewed. MEDICATIONS: Reviewed. ASSESSMENT: 26 F IVDA Acute hypoxic resp failure Multiple septic emboli with cavitaric lung lesions Severe sepsis sec to mssa and post septic shock TV endocarditis Left leg abscess Opitate withdrawal - better, but requiring use. Thrombocytopenia/anemia sec to septic consumption Chronic Hep C Malnutrition - moderate degree Left leg abscess AUGUST with component of ATN - improving Anasarca - improved Delirium/mild hypoxic encephalopathy Deconditioning PLAN: Neurologic: clondine td continued and helps with bp. still not taking po regular to utilize bb benefit. fent td for another day and then dc in favor of prn need. no great need for mri yet. Cardiovascular: Perfusing. Vol status a little water deficit. can give back with d5 given lack of po. bb. dc cvc Respiratory: tolerating ra. avoid aspiration Gastrointestinal: return to po dysphagia diet today. sup Renal/Metabolic: f/u stability. bun still up with steroids. perez for now. Infectious Disease: ID following - on ancef. Hematology: Hb stable. Endocrine: steroids off now given risk/benefit. Musculoskeletal: deconditioned. pt. Psych/Social: continued support Supportive and preventative care as ordered. SUP: ppi VTE prophylaxis: heparin Perez catheter given critical illness, monitoring needs for accurate assessment of AUGUST and KDIGO criteria for critically ill patients and to avoid potential harms of urinary retention, skin breakdown/ulcers. Disposition: ICU Code Status: Full Critical Care Time: 30min Rebeka Carr DO
[2016-11-02] MEDS: Potassium Chloride IV* 40 MEQ in D5W 1000 ML BAG* 1,000 ML IVPB SCH (13:39)
[2016-11-02] MEDS: LORazepam INJ* 2 MG/ML 1 ML VIAL IV PUSH PRN (17:33)
[2016-11-03] MEDS: LORazepam INJ* 2 MG/ML 1 ML VIAL IV PUSH PRN ×2 (02:09→19:30)
[2016-11-03] MEDS: Potassium Chloride IV* 40 MEQ in D5W 1000 ML BAG* 1,000 ML IVPB SCH (02:25)
[2016-11-03] MEDS: Heparin VIAL(*) 5000 UNITS/ML VIAL (FIVE THOUSAND) SUBCUT SCH ×3 (06:10→21:01)
[2016-11-03] MEDS: Metoprolol Tartrate IV* 1 MG/ML 5 ML VIAL IV PRN ×2 (08:18→19:43)
[2016-11-03] MEDS: ceFAZolin 2 GM PREMIX(*) 2 GM/50 ML BAG IVPB SCH ×2 (08:18→20:56)
[2016-11-03] MEDS ORDERED: cloNIDine 0.3 MG PATCH* 0.3 MG/24 HR 7 DAY PATCH TRANSDERM SCH (10:00)
[2016-11-03] MEDS: Senna TAB PO SCH ×2 (10:05→20:49)
[2016-11-03] MEDS: Metoprolol Tartrate TAB* 50 mg PO SCH ×2 (10:05→20:49)
--- NOTE | 2016-11-03 11:02 | PN ---
Progress Note - Progress Note Note: CRITICAL CARE MEDICINE Date: 11/03/16 Time: 800 SUBJECTIVE: Patient seen and examined. PHYSICAL EXAM: Vital Signs: Reviewed. Neurologic: as above. CASIE. smiles. attempted more movement and cooperation and communication. indicating she will try to eat more. HEENT: pupils equal. Sclera anicteric. Trachea midline. Cardiovascular: S1 S2, 3/6 eladio Respiratory: rhonchi mild Extremities: Warm. gloabally weak. Access: RIJ intact and needs out; piv LABS: Reviewed. IMAGING: Reviewed. MEDICATIONS: Reviewed. ASSESSMENT: 26 F IVDA Acute hypoxic resp failure Multiple septic emboli with cavitaric lung lesions Severe sepsis sec to mssa and post septic shock TV endocarditis Left leg abscess Opitate withdrawal - better, but requiring use. Thrombocytopenia/anemia sec to septic consumption Chronic Hep C Malnutrition - moderate degree Left leg abscess AUGUST with component of ATN - improving Anasarca - improved Delirium/mild hypoxic encephalopathy Deconditioning Depression PLAN: Neurologic: clondine td adjusted. keep. off fent td. prns. mentation improving slowly. Cardiovascular: Perfusing. Vol status ok. continue bb. Respiratory: tolerating ra. avoid aspiration Gastrointestinal: po dysphagia diet today. encourage otherwise needs ngt. sup Renal/Metabolic: holding. Infectious Disease: ID following - on ancef. Hematology: Hb stable. Endocrine: steroids off. Musculoskeletal: deconditioned. continued pt. Psych/Social: continued support. add zoloft Supportive and preventative care as ordered. SUP: ppi VTE prophylaxis: heparin Villegas catheter given critical illness, monitoring needs for accurate assessment of AUGUST and KDIGO criteria for critically ill patients and to avoid potential harms of urinary retention, skin breakdown/ulcers. Disposition: ICU Code Status: Full Critical Care Time: 25min Rebeka Carr DO
[2016-11-03] MEDS: Sertraline* 50 MG TAB PO SCH (11:30)
[2016-11-03] MEDS: Acetaminophen TAB* 325 MG PO PRN ×2 (16:57→20:49)
[2016-11-04] MEDS: Acetaminophen TAB* 325 MG PO PRN (00:08)
[2016-11-04] MEDS: Metoprolol Tartrate IV* 1 MG/ML 5 ML VIAL IV PRN ×2 (02:23→07:06)
[2016-11-04] MEDS ORDERED: LORazepam INJ* 2 MG/ML 1 ML VIAL ONE ×2 (02:43→09:41)
[2016-11-04 03:49] LABS: Hematocrit 37 % (35-47); Mean Corpuscular HGB Conc 33 g/dl (31-36); Mean Corpuscular Hemoglobin 29 pg (27-31); Mean Corpuscular Volume 88 fL (80-97); Mean Platelet Volume 8 um3 (7.4-10.4); Red Blood Count 4.21 10^6/ul (4.0-5.4); Red Cell Distribution Width 16 % (10.5-15); White Blood Count 16.6 10^3/ul (3.5-10.8)
[2016-11-04 03:59] LABS: BUN/Creatinine Ratio 40.6 (8-20); Calcium 9.5 mg/dL (8.6-10.3); EGFR Non-African American 62.2 (>60); Potassium 2.9 mmol/L (3.5-5.0)
[2016-11-04] MEDS: LORazepam INJ* 2 MG/ML 1 ML VIAL IV PUSH ONE ×2 (04:35→05:47)
[2016-11-04] MEDS ORDERED: Propofol* 100 ML ONE (04:44)
[2016-11-04] MEDS: Propofol* 1000 MG (10 MG/ML 100 ml) @ Per Protocol (in ICU Pyxis) IV SCH ×4 (04:45→13:34)
[2016-11-04] MEDS ORDERED: Succinylcholine* 20 MG/ML 10 ML VIAL ONE ×2 (04:45→04:49)
[2016-11-04] MEDS ORDERED: Propofol* 10 MG/ML 20 ML BTL IV PUSH ONE (04:47)
[2016-11-04 04:50] LABS: Schistocytes ABSENT
[2016-11-04 04:53] LABS: Fibrinogen 234 mg/dL (110.8-404.3)
[2016-11-04] MEDS ORDERED: levETIRAcetam IV* 1,000 MG in NS 100 mL IVPB ONE (05:30)
--- NOTE | 2016-11-04 05:39 | PN ---
Progress Note - Progress Note Note: ABC alert note Nursing called ABC alert for generalized tonic-clonic seizure activity with associated saO2 desaturation to the mid-60s, tachycardia to the 170s, & tachypnea to the mid-30s. Upon my arrival, her seizure activity has stopped, but vitals remained as stated. She was bag mask resuscitated with 100% oxygen and was recovered back to the 90s. Vitals gradually improved nearly to her recent baseline. She was given 2mg IV lorazepam, was placed on vapotherm, and remained stable until ~90minutes later when she had another seizure and a 2nd ABC alert was called. This time upon my arrival she was noted to have slow frequency generalized clonic activity associated with a fixed R lateral gaze & loss of her occulocephalic reflex. She was given an additional 2mg lorazepam IV and did not desatuate significantly with this episode. However, her respiratory remained in the mid-40s and labored, clearly an unsustainable situation given her baseline lung capacity and newly piyush out LLL. As such, she was re- intubated and placed on propofol GTT. Prior to going for CT brain, her fixed R gaze & lost occulocephalic reflex resolved. CT brain was personally reviewed, poor quality 2nd motion artifact, but no acute finding noted; official read pending. Labs from first episode reveal increased WBCs ? 2nd infection vs demarginalization w/ seizure. K is 2.9, 2 runs 20mEq IV ordered. Case was discussed w/ M MD [employer] supervisor telephone clerks after the 1st ABC. Thought was this could be benzodiazepine withdrawal seizure, but as she has now quickly had a 2nd event after 2mg IV lorazepam this is quesionable. Load with 1g levetiracetam.
--- NOTE | 2016-11-04 06:19 | PN ---
Progress Note - Progress Note Note: Imaging television installer reports CT brain WO showing small high L parietal subarachnoid hemorrhage & edema of the high R parietal lobe concerning for abscess given her clinical picture. Loaded w/ 1g levetiracetam & D/C'd heparin SQ. M MD Lilly marketing content manager apprised.
[2016-11-04 06:49] LABS: FIO2 80
[2016-11-04 06:53] LABS: PCO2 Arterial 49 mmHg (35-45)
[2016-11-04] MEDS: KCL 20 MEQ/100 ML IVPREMIX* 20 MEQ/100 ML BAG IV SCH ×2 (06:54→08:51)
[2016-11-04] MEDS: Heparin VIAL(*) 5000 UNITS/ML VIAL (FIVE THOUSAND) SUBCUT SCH (06:54)
[2016-11-04] MEDS: LORazepam INJ* 2 MG/ML 1 ML VIAL IV PUSH PRN (07:05)
[2016-11-04 07:27] LABS: BUN/Creatinine Ratio 40.8 (8-20); Calcium 9.6 mg/dL (8.6-10.3); EGFR African American 87.6 (>60); EGFR Non-African American 68.1 (>60); Magnesium 1.9 mg/dL (1.9-2.7); Phosphorus 4.2 mg/dL (2.5-5.0); Potassium 3.5 mmol/L (3.5-5.0)
--- NOTE | 2016-11-04 08:17 | RAD ---
INDICATION: Endocarditis. Hypoxia. COMPARISON: October 25, 2016 TECHNIQUE: An AP portable view obtained at 0414 hours is submitted. FINDINGS: Bones/Soft Tissues: There are no acute bony findings. Cardiomediastinal: The cardiac silhouette is enlarged. Lungs: There are multiple pulmonary masses some of which appear cavitary. There is progressive infiltrate with consolidation left lung base and/or increased left-sided pleural fluid. Pleura: Bilateral pleural effusions left greater than right. Other: None IMPRESSION: MULTIPLE LUNG MASSES. WORSENING INFILTRATE AND/OR PLEURAL FLUID LEFT LOWER CHEST.
--- NOTE | 2016-11-04 08:18 | RAD ---
HISTORY: Endotracheal tube placement, endocarditis COMPARISONS: November 04, 2016 at 4:14 AM VIEWS:1: Single frontal portable view of the chest at 5:55 AM FINDINGS: LINES AND TUBES: An endotracheal tube is noted with the tip overlying the trachea between the clavicles and the rebeca. CARDIOMEDIASTINAL SILHOUETTE: The cardiomediastinal silhouette is normal for portable technique. PLEURA: The costophrenic angles are sharp. No pleural abnormalities are noted. LUNG PARENCHYMA: Again noted are cavitary changes to the parenchyma bilaterally. There is improved aeration of the left lower lobe. ABDOMEN: There is gaseous distention of the stomach. BONES AND SOFT TISSUES: No bone or soft tissue abnormalities are noted. IMPRESSION: 1. LINES AND TUBES ABOVE. 2. STABLE CAVITARY CHANGES OF THE LUNGS, WITH IMPROVED AERATION OF THE LEFT LOWER LOBE
--- NOTE | 2016-11-04 08:26 | RAD ---
Indication: Seizure. History of endocarditis. Heroin abuse. Comparison: April 22, 2007 Technique: Noncontrast CT vertex of skull through foramen magnum. Report: Motion artifact degrades image quality. Unremarkable cerebral sulci, ventricles, and basal cisterns. At the level of the RIGHT superior parietal lobule there is edema within the subcortical white matter without definitive moore matter white matter obscuration. This is an asymmetric finding and new compared with the 2006 exam. No additional focal abnormalities of the cerebrum or posterior fossa evident. No intra or extra-axial hemorrhage evident. Unremarkable orbital contents. Clear visualized paranasal sinuses. Clear LEFT mastoid air spaces. Postsurgical change of RIGHT mastoidectomy. No suspicious lesions of the calvarium or skull base. Negative for scalp hematoma. IMPRESSION: Indeterminant focus of decreased density at the RIGHT superior parietal lobule subcortical white matter. Given the clinical context early cerebritis is not excluded. The differential includes acute or subacute ischemia. Contrast-enhanced MRI is suggested for further assessment if clinically feasible.
[2016-11-04] MEDS ORDERED: Acetaminophen IV 1GM/100ML * 100 ML ONE (08:29)
[2016-11-04] MEDS ORDERED: Acetaminophen IV 1GM/100ML * 1,000 MG in PREMIX* 0 ML IVPB ONE (08:30)
[2016-11-04] MEDS: Metoprolol Tartrate TAB* 50 mg PO SCH ×2 (08:37→21:40)
[2016-11-04] MEDS: Sertraline* 50 MG TAB PO SCH (08:38)
[2016-11-04] MEDS: Senna TAB PO SCH ×2 (08:38→21:40)
[2016-11-04] MEDS ORDERED: fentaNYL* 50 MCG/ML 2 ML VIAL (100 MCG VIAL) IV ONE (09:00)
[2016-11-04] MEDS ORDERED: hydrALAZINE IV* 20 MG/ML VIAL IV SLOW PU ONE (09:00)
[2016-11-04] MEDS ORDERED: fentaNYL* 50 MCG/ML 2 ML VIAL (100 MCG VIAL) ONE ×2 (09:41→10:48)
[2016-11-04] MEDS ORDERED: LORazepam INJ* 2 MG/ML 1 ML VIAL IV PUSH ONE ×2 (09:41→12:25)
[2016-11-04] MEDS ORDERED: NS 0.9% 1000 ML* 2,000 ML IV ONE (09:42)
[2016-11-04] MEDS ORDERED: fentaNYL* 50 MCG/ML 2 ML VIAL (100 MCG VIAL) IV SLOW PU ONE ×2 (09:42→10:50)
[2016-11-04] MEDS ORDERED: PHENYTOIN IV ONE (09:44)
[2016-11-04] MEDS ORDERED: NS 0.9% IV ONE (09:44)
[2016-11-04] MEDS ORDERED: Norepinephrine 16MCG/ML IVPRE* 4,000 MCG/250 ML BAG IV ONE (10:03)
[2016-11-04] MEDS ORDERED: Vancomycin(*) 1,500 MG in NS 0.9% 250 ML* 250 ML IVPB ONE ×2 (10:14→11:00)
[2016-11-04] MEDS ORDERED: Vancomycin per Pharmacy* NOTE FOLLOW UP PRN (10:24)
[2016-11-04] MEDS: ceFAZolin 2 GM PREMIX(*) 2 GM/50 ML BAG IVPB SCH (11:06)
--- NOTE | 2016-11-04 11:45 | RAD ---
INDICATION: Central line placement COMPARISON: November 04, 2016 TECHNIQUE: An AP portable view obtained at 1115 hours is submitted. FINDINGS: Bones/Soft Tissues: There are no acute bony findings. There is an endotracheal tube in proper position. Nasogastric tube passes normally through the mediastinum. There is a right IJ catheter terminating in the superior vena cava. There is no pneumothorax Cardiomediastinal: The heart is normal in size. Lungs: Bilateral cavitary lesions appear unchanged. Small bilateral effusions. Pleura: There are no pleural effusions. Other: None IMPRESSION: RIGHT CENTRAL VENOUS CATHETER IN APPROPRIATE POSITION WITHOUT EVIDENCE OF PNEUMOTHORAX. ENDOTRACHEAL TUBE IN PROPER POSITION. CAVITARY LUNG LESIONS AND EFFUSIONS, UNCHANGED.
[2016-11-04] MEDS ORDERED: Piperac/Tazob 3.375 gm in NS* 3.375 GM/100 ML BAG IVPB SCH (12:00)
[2016-11-04 12:09] LABS: Venous Bicarbonate HCO3 21.1 mmol/L (24-28)
[2016-11-04 12:29] LABS: Albumin 2.9 g/dL (3.2-5.2); Direct Bilirubin 0.3 mg/dL (0.03-0.18); Globulin 3.8 g/dL (2-4); Indirect Bilirubin 0.3 mg/dL (0.3-1.0); Total Bilirubin 0.6 mg/dL (0.2-1.0); Total Protein 6.7 g/dL (6.4-8.9)
--- NOTE | 2016-11-04 12:36 | PN ---
Progress Note - Progress Note SOAP: Subjective: DOS:11/04/16 CC: endocarditis HPI: 26 year old woman IVD, admitted with chest pain, right wrist and ankle pain and cavitary lung masses. TTE showed TV endocarditis. Intubated 10/17. Extubated 10/29. Seizure overnight, status this morning, intubated. Subsequent fever. Objective: [] Vital Signs Temp 38.9 C 11/04/16 10:01 Pulse 129 11/04/16 10:15 Resp 26 11/04/16 12:28 BP 119/77 11/04/16 10:15 Pulse Ox 100 11/04/16 10:15 Intake & Output 11/03/16 11/04/16 11/04/16 18:59 06:59 18:59 Intake Total 684 1150 Output Total 450 Balance 234 1150 Weight 154 lb 12.232 oz Intake: IV Fluids 684 D5W NS 40 meq KCL 684 IVPB 150 ABX - CEFAZOLIN 50 NS 100 Oral 0 Villegas Irrigate Amount 1000 Output: Villegas 450 Other: Date of Last Bowel 11/04/2016 Movement # Bowel Movements 2 Estimated Stool Amount Large Gen: intubated Neuro: sedated HEENT:PERRL, MMM Neck:supple Heart:Regular and tachycardic, no murmur Lungs:coarse BS BL Abd:+BS NTND soft Skin: no rash LN: no palpable nodes MSK: no muscle tenderness Assessment: 1. MSSA TV endocariditis 2. MSSA septic pulmonary emboli 3. seizure, abnormal brain CT; MRI pending 4. Hepatitis C infection, chronic 5. 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 left leg complex fluid collection likely abscess 7. fever ?medication withdrawal, no focal signs or symptoms of other infection Plan: 1.Abx day 15. On vancomycin and ceftriaxone while awaiting workup. Will add oxacillin to ensure optimal [employer] SPECIALIST penetration for MSSA treatment. Discussed with Dr Carr
[2016-11-04] MEDS ORDERED: Phenytoin IV(*) 100 MG in NS 0.9% 50 ML* 100 ML IVPB SCH (14:00)
--- NOTE | 2016-11-04 14:19 | PN ---
Progress Note - Progress Note Note: CRITICAL CARE MEDICINE Date: 11/04/16 Time: 1100 SUBJECTIVE: Patient seen and examined early this am. PHYSICAL EXAM: Vital Signs: Reviewed. febrile on my arrival. Neurologic: Eyes dysconjugate and deviated to the right. signs of SE. HEENT: 7.0 ett. pupils equal. Sclera anicteric. Trachea midline. Cardiovascular: S1 S2, 3/6 eladio Respiratory: bl rhonchi. not mildred aprv. changed to pcv Extremities: Warm. Access: piv LABS: Reviewed. IMAGING: Reviewed. CT with much motion artifact. MEDICATIONS: Reviewed. ASSESSMENT: 26 F IVDA Acute hypoxic resp failure Multiple septic emboli with cavitaric lung lesions Severe sepsis sec to mssa and post septic shock TV endocarditis Left leg abscess Opitate withdrawal - better, but requiring use. Thrombocytopenia/anemia sec to septic consumption Chronic Hep C Malnutrition - moderate degree Left leg abscess AUGUST with component of ATN - improving Anasarca - improved Delirium/mild hypoxic encephalopathy Deconditioning Depression Now.. Status epilepticus - question septic emboli and cerebral event, vs benzo/ narc withdrawal on top of her degree of toxic encephalopathy Re-intubated for acute hypoxic resp failure PLAN: Neurologic: given 4mg ativan. fent for potential withdrawal. Loaded with dilantin and another round of ativan. Febrile centrally and given cool saline and tylenol. EEG. Will need MRI as well. Cardiovascular: Malperfuse on my arrival. Vol status in ebb phase. given 2L NS. continue bb. Respiratory: vent adjusted. mlidred better. sync. no worsening lung disease other then micro and macro atelectasis with her underlying dismal lung ailments with ongoing components. f/u gas Gastrointestinal: ogt and tf later today. sup Renal/Metabolic: holding at the moment. catch up with fluid needs. Infectious Disease: could be a further ailment for her degree of IE, now leading to repeat septicemia, vs cerebral emboli (especially if pfo) and could have abscess formation perhaps. Inc abx to include vanco for health care coverage and to ceftriaxone up from [facility]. Will obtain MRI and if further medical affairs specialist needs, would escalate the dose. ID following. Hematology: Hb stable. plt ok. heparin held until mri. Endocrine: steroids may need to be re-issued. Musculoskeletal: deconditioned. Psych/Social: continued support. mom updated via phone. Supportive and preventative care as ordered. SUP: ppi VTE prophylaxis: heparin held and f/u Villegas catheter given critical illness, monitoring needs for accurate assessment of AUGUST and KDIGO criteria for critically ill patients and to avoid potential harms of urinary retention, skin breakdown/ulcers. Disposition: ICU Code Status: Full Critical Care Time: 60min Rebeka Carr DO
[2016-11-04] MEDS ORDERED: Chlorhexidine MOUTHWASH 0.12%* 15 ML UDC TOPICAL SCH (15:00)
--- NOTE | 2016-11-04 15:38 | PN ---
Progress Note - Progress Note Note: CRITICAL CARE MEDICINE PROCEDURE NOTE DATE: 11/04/16 TIME: 1130 SERVICE: Critical Care Medicine LOCATION OF PROCEDURE: ICU PROCEDURE: Central line insertion PROCEDURALIST: Dr. Carr Consent obtain: No, procedure performed emergently Time out held: Yes INDICATION: Status epilepticus and resp failure. PROCEDURE: Oxygenation maintained and vitals monitored. Patient in supine position. SITE: RIGHT Subclavian Site preparation with chlorhexidine locally. Full sterile drape, gown, hat, mask, gloves. 5ml 1% Lidocaine utilized at incision site. Standard sterile Seldinger technique utilized and catheter was inserted to 15cm and sutured in place. Good blood return. Minimal blood loss. Site dressed with tegaderm. Portable chest x-ray with good position. Patient otherwise tolerated well. Rebeka Carr DO
--- NOTE | 2016-11-04 15:54 | RAD ---
HISTORY: Seizure, endocarditis COMPARISONS: Head CT dated November 04, 2016 TECHNIQUE: The following sequences were obtained of the head: Sagittal T1-weighted images, axial T2-weighted images, axial FLAIR images, axial susceptibility weighted images, axial T1-weighted images, coronal T1, T2 and FLAIR images through the mesial temporal lobes. Additionally, axial diffusion-weighted images were obtained with calculated apparent diffusion coefficients. FINDINGS: HEMORRHAGE/INFARCT: There is no hemorrhage or acute infarct. MASSES/SHIFT: There is no mass or shift. EXTRA-AXIAL SPACES/MENINGES: There are no extra-axial fluid collections. SULCI AND VENTRICLES: The sulci and ventricles are normal in size and position for the patient's stated age. CEREBRUM: There is elevated T2/FLAIR signal in the vasogenic edema pattern of the superior parietal lobules bilaterally and to a lesser extent within the left occipital lobe. There is no associated restricted diffusion. The mesial temporal lobes are symmetric. BRAINSTEM: There are no focal parenchymal abnormalities. CEREBELLUM: There are no focal parenchymal abnormalities. The cerebellar tonsils are normal in size and position. SELLA: The sella is normal. PINEAL: The pineal region is clear. CP ANGLE/TEMPORAL BONES: The labyrinthine structures are grossly normal. VESSELS: Normal flow-voids are noted within the visualized vertebral vasculature. DIFFUSION ABNORMALITIES: There are no diffusion abnormalities. PARANASAL SINUSES/MASTOIDS: The paranasal sinuses are clear. There are bilateral mastoid effusions ORBITS: The orbits are unremarkable. BONES AND SOFT TISSUE: No bone or soft tissue abnormalities are noted. OTHER: None IMPRESSION: 1. MULTIFOCAL VASOGENIC EDEMA OF THE PARIETAL LOBES AND LEFT OCCIPITAL LOBE WITH RESTRICTED DIFFUSION TO SUGGEST ACUTE INFARCT. THE APPEARANCE IS SUGGESTIVE OF POSTERIOR REVERSIBLE ENCEPHALOPATHY SYNDROME, IN THE CORRECT CLINICAL SETTING. 2. BILATERAL MASTOID EFFUSIONS
[2016-11-04] MEDS: Oxazepam CAP* 15 MG G TUBE SCH ×2 (16:19→21:40)
[2016-11-04] MEDS: Propofol* 100 ML IV SCH ×3 (16:19→21:40)
[2016-11-04] MEDS ORDERED: Norepinephrine 16MCG/ML IVPRE* 4,000 MCG/250 ML BAG IV SCH (18:00)
[2016-11-04] MEDS: Vancomycin(*) 1,000 MG in NS 0.9% 250 ML* 250 ML IVPB SCH (21:27)
[2016-11-04] MEDS: Chlorhexidine MOUTHWASH 0.12%* 15 ML UDC TOPICAL SCH (21:40)
[2016-11-05] MEDS: Chlorhexidine MOUTHWASH 0.12%* 15 ML UDC TOPICAL SCH ×7 (00:13→23:50)
[2016-11-05] MEDS: Propofol* 100 ML IV SCH ×8 (00:17→19:55)
[2016-11-05] MEDS: Vancomycin(*) 1,000 MG in NS 0.9% 250 ML* 250 ML IVPB SCH (03:32)
[2016-11-05] MEDS: Oxazepam CAP* 15 MG G TUBE SCH ×3 (04:30→21:24)
[2016-11-05 05:38] LABS: Venous Bicarbonate HCO3 21.6 mmol/L (24-28)
[2016-11-05 05:41] LABS: Hematocrit 29 % (35-47); Hemoglobin 9.3 g/dl (12.0-16.0); Mean Corpuscular HGB Conc 33 g/dl (31-36); Mean Corpuscular Hemoglobin 29 pg (27-31); Mean Corpuscular Volume 88 fL (80-97); Mean Platelet Volume 9 um3 (7.4-10.4); Red Blood Count 3.25 10^6/ul (4.0-5.4); Red Cell Distribution Width 16 % (10.5-15); White Blood Count 12.6 10^3/ul (3.5-10.8)
[2016-11-05 06:05] LABS: BUN/Creatinine Ratio 37.3 (8-20); Calcium 8.4 mg/dL (8.6-10.3); EGFR African American 106.1 (>60); EGFR Non-African American 82.5 (>60); Magnesium 1.5 mg/dL (1.9-2.7); Phosphorus 3.2 mg/dL (2.5-5.0); Potassium 3.1 mmol/L (3.5-5.0)
[2016-11-05] MEDS: Lansoprazole SOLUTAB* 30 MG G TUBE SCH (09:11)
[2016-11-05] MEDS: Metoprolol Tartrate TAB* 50 mg PO SCH ×2 (09:11→21:23)
[2016-11-05] MEDS: Senna TAB PO SCH ×2 (09:11→21:24)
[2016-11-05] MEDS ORDERED: Magnesium Sulf 4 GM/100 ML IV* 4,000 MG/100 ML BAG IVPB ONE (09:31)
[2016-11-05] MEDS ORDERED: LORazepam INJ* 2 MG/ML 1 ML VIAL IV PUSH ONE (09:48)
[2016-11-05] MEDS: Potassium Chloride LIQUID* 20 MEQ PACKET G TUBE SCH ×3 (10:23→21:24)
--- NOTE | 2016-11-05 12:23 | PN ---
Progress Note - Progress Note Note: CRITICAL CARE MEDICINE Date: 11/05/16 Time: 1100 SUBJECTIVE: Patient seen and examined. eeg on. PHYSICAL EXAM: Vital Signs: Reviewed. afeb Neurologic: off propofol with eyes going from midline to dysconjugate and then deviated to the right with orbital myoclonus. propofol re-started. HEENT: 7.0 ett. pupils equal. Sclera anicteric. Trachea midline. Cardiovascular: S1 S2, 3/6 eladio Respiratory: bl rhonchi. better, pcv Extremities: Warm. Access: cvc LABS: Reviewed. IMAGING: Reviewed. MRI = pres MEDICATIONS: Reviewed. ASSESSMENT: 26 F IVDA Acute hypoxic resp failure Multiple septic emboli with cavitaric lung lesions Severe sepsis sec to mssa and post septic shock TV endocarditis Left leg abscess Opitate withdrawal - better, but requiring use. Thrombocytopenia/anemia sec to septic consumption Chronic Hep C Malnutrition - moderate degree Left leg abscess AUGUST with component of ATN - improving Anasarca - improved Delirium/mild hypoxic encephalopathy Deconditioning Depression Status epilepticus toxic encephalopathy Re-intubated for acute hypoxic resp failure 11/04 PLAN: Neurologic: given 4mg ativan, and back on propofol today. keep dilantin and keepra. resume burst suppression Cardiovascular: Perfuses. Vol status a bit up but ok. Resume bb when able. hold clonidine td but watch fow withdrawal there too. Respiratory: PCV. not ready for sbt. overbreathing at times Gastrointestinal: ogt and tf later today. sup Renal/Metabolic: stable. perez Infectious Disease: ceftriaxone and oxacillin at present. if cx neg then will let ID de-escalate to their choosing. Hematology: Hb stable. plt ok. heparin resumed Endocrine: steroids off Musculoskeletal: deconditioned. Psych/Social: continued support. mom updated via phone yesterday. Supportive and preventative care as ordered. SUP: ppi VTE prophylaxis: heparin held and f/u Perez catheter given critical illness, monitoring needs for accurate assessment of AUGUST and KDIGO criteria for critically ill patients and to avoid potential harms of urinary retention, skin breakdown/ulcers. Disposition: ICU Code Status: Full Critical Care Time: 35min Rebeka Carr DO
[2016-11-05] MEDS: Heparin VIAL(*) 5000 UNITS/ML VIAL (FIVE THOUSAND) SUBCUT SCH ×2 (14:31→21:24)
--- NOTE | 2016-11-05 16:00 | PN ---
Progress Note - Progress Note SOAP: Subjective: DOS:11/05/16 CC: endocarditis HPI: 26 year old woman IVD, admitted with chest pain, right wrist and ankle pain and cavitary lung masses. TTE showed TV endocarditis. Intubated 10/17. Extubated 10/29. Reintubated after seizure which is ongoing. Ferris secretions from ETT. Objective: [] Vital Signs Temp 37.0 C 11/05/16 15:15 Pulse 87 11/05/16 15:15 Resp 16 11/05/16 15:15 BP 112/68 11/05/16 15:15 Pulse Ox 98 11/05/16 15:52 Intake & Output 11/04/16 11/05/16 11/05/16 18:59 06:59 18:59 Intake Total 4238 4587.8 1685 Output Total 525 750 450 Balance 3713 3837.8 1235 Weight 154 lb Intake: IV Fluids 1999 1623 957 Med line w/ abx 1999 1063 433 NS and mag 560 524 IVPB 1982 2289 Med line w/ abx 1982 1501 NS and mag 788 Medicated IV 255 615.8 380 CC - Norepinephrine/ 116.8 Levophed CC - Propofol/Diprivan 255 499 280 dilantin 100 Tube Feeding 0 288 Tube Feeding Flush Amount 60 NG Tube Irrigate Amount 60 Output: Villegas 525 750 450 Gen: intubated Neuro: sedated, PERRL HEENT:PERRL, MMM Neck:supple Heart:Regular and tachycardic, no murmur Lungs:coarse BS BL Abd:+BS NTND soft Skin: no rash LN: no palpable nodes MSK: no muscle tenderness Assessment: 1. MSSA TV endocariditis 2. MSSA septic pulmonary emboli 3. seizure, abnormal brain CT; MRI c/w PRES, no infarct. No nuchal regidity, doubt meningitis. 4. Hepatitis C infection, chronic 5. 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 left leg complex fluid collection likely abscess Plan: 1.Abx day 16. Agree with stopping vanco, continue ceftriaxone, oxacillin while awaiting final BC. Discussed with Dr Carr
[2016-11-05] MEDS ORDERED: Phenytoin IV(*) 50 MG/ML 2 ML VIAL (100 MG) ONE (16:48)
--- NOTE | 2016-11-06 00:42 | EEG ---
ELECTROENCEPHALOGRAPHY: DATE OF STUDY: 11/04/16 - ROOM #ICU-06 DATE OF DICTATION: 11/05/16 ORDERING PHYSICIAN: Dr. Carr. LOCATION: The patient is an inpatient in the ICU. HISTORY: This is a 26-year-old woman who has been in the hospital for approximately 3 to 4 weeks. She is a heroin abuser. This morning she experienced a generalized tonic-clonic seizure associated with oxygen desaturation, tachycardia and tachypnea. Approximately 90 minutes later, she had another seizure associated with fixed right lateral gaze. Prior to the start of this recording, she was given 8 mg of Ativan, 300 mcg of fentanyl and is maintained on 80 mcg/kg per minute of propofol after being intubated. EEG is requested to evaluate for epileptiform abnormalities or ongoing seizures. MEDICATIONS: As noted in the history, otherwise not listed. DESCRIPTION: The background lacks the organization expected of the typical waking or sleep background. Instead, the background is characterized by a burst suppression pattern. Periods of diffuse voltage suppression last between 5 and 15 seconds and are punctuated by symmetric bursts of mixed frequency activity lasting 1 to 3 seconds. The bursts of activity consist of some sharp features, but there are no definitive epileptiform abnormalities noted. Throughout the 1 hour and 22 minute recording, there are no subclinical seizures noted. IMPRESSION: This is an abnormal EEG characterized by a burst suppression pattern with symmetrical bursts of activity. This is suggestive of a severe, diffuse encephalopathy which is likely related to the sedating medications the patient has been placed on. There are no subclinical seizures noted. [id number]/[facility] #: [id number] MTDD
[2016-11-06] MEDS: Propofol* 100 ML IV SCH ×8 (01:56→22:10)
--- NOTE | 2016-11-06 03:22 | EEG ---
AMENDED REPORT FOR DATE OF STUDY - ESIGNED BEFORE ADJUSTMENT ELECTROENCEPHALOGRAPHY: DATE OF STUDY: 11/05/16 PATIENT OF: Dr. Carr. CLINICAL PROBLEM: This is a 26-year-old woman who has endocarditis, has a prior history of heroin abuse who presented yesterday with a seizure and is now intubated on Keppra, Dilantin, and a propofol drip. This was a 4-hour EEG in the ICU under these conditions. For the most part, background cerebral activity consisted of a burst suppression pattern with moderate amplitude mixed frequency bursts lasting up to 2 to several seconds interspersed with periods of relative low amplitude attenuation. When the propofol is off, record becomes continuous with admixed alpha, delta, and theta activity. No clear-cut seizures are noted during this tracing. No major focal abnormalities are present. CLINICAL IMPRESSION: This EEG is abnormal because of a burst suppression pattern which is likely secondary to the propofol the patient is receiving. Record is also slow which is likely secondary to medications the patient is receiving as well. [id number]/[facility] #: [id number] [facility]ITAL[facility]
--- NOTE | 2016-11-06 03:30 | EEG ---
DICTATION ENDS ABRUPTLY ELECTROENCEPHALOGRAPHY: DATE OF STUDY: DATE OF DICTATION: 11/05/16 - ROOM #ICU-06 CLINICAL PROBLEM: She is a 26-year-old woman with endocarditis with a past history of heroin use and she has had a grand mal seizure yesterday and is intubated on Dilantin, Keppra, and propofol. REPORT: This was a prolonged EEG lasting more than 4 hours. During this time, she was mostly on propofol. There was a period where she was not and background becomes more continuous with frequency consisting of admixed theta and alpha range frequencies ranging up to 8 to 9 Hz in frequency. For most of the tracing while she was on the propofol, background consists of burst suppression pattern with burst lasting a few seconds and periods of relative suppression. DICTATION ENDS ABRUPTLY HERE Please see other dictation for this study [id number]/[facility] #: [id number] [facility]ITAL[facility]
[2016-11-06] MEDS: Chlorhexidine MOUTHWASH 0.12%* 15 ML UDC TOPICAL SCH ×6 (03:34→23:41)
[2016-11-06] MEDS: LORazepam INJ* 2 MG/ML 1 ML VIAL IV PUSH PRN ×3 (03:39→23:40)
[2016-11-06] MEDS: Oxazepam CAP* 15 MG G TUBE SCH ×3 (04:53→20:59)
[2016-11-06] MEDS: fentaNYL* 50 MCG/ML 2 ML VIAL (100 MCG VIAL) IV SLOW PU PRN ×2 (05:17→16:04)
[2016-11-06] MEDS: Heparin VIAL(*) 5000 UNITS/ML VIAL (FIVE THOUSAND) SUBCUT SCH ×3 (05:20→22:10)
[2016-11-06 05:33] LABS: Hematocrit 28 % (35-47); Hemoglobin 9.1 g/dl (12.0-16.0); Mean Corpuscular HGB Conc 32 g/dl (31-36); Mean Corpuscular Hemoglobin 28 pg (27-31); Mean Corpuscular Volume 88 fL (80-97); Mean Platelet Volume 9 um3 (7.4-10.4); Red Cell Distribution Width 17 % (10.5-15)
[2016-11-06 05:45] LABS: BUN/Creatinine Ratio 27.7 (8-20); Calcium 8.3 mg/dL (8.6-10.3); EGFR African American 91.9 (>60); EGFR Non-African American 71.4 (>60); Magnesium 2.1 mg/dL (1.9-2.7); Phosphorus 3.5 mg/dL (2.5-5.0); Potassium 3.8 mmol/L (3.5-5.0)
[2016-11-06] MEDS: Potassium Chloride LIQUID* 20 MEQ PACKET G TUBE SCH ×3 (07:44→20:59)
[2016-11-06] MEDS: Senna TAB PO SCH ×2 (07:45→20:59)
[2016-11-06] MEDS: Metoprolol Tartrate TAB* 50 mg PO SCH ×2 (07:45→20:59)
[2016-11-06] MEDS: Lansoprazole SOLUTAB* 30 MG G TUBE SCH (07:45)
[2016-11-06] MEDS ORDERED: Vancomycin Trough Check NOTE FOLLOW UP ONE (11:30)
--- NOTE | 2016-11-06 11:56 | PN ---
Progress Note - Progress Note Note: CRITICAL CARE MEDICINE Date: 11/06/16 Time: 915 SUBJECTIVE: Patient seen and examined. PHYSICAL EXAM: Vital Signs: Reviewed. low grade temp. Neurologic: rass -5 HEENT: 7.0 ett. pupils equal, small. Sclera anicteric. Trachea midline. Cardiovascular: S1 S2, 3/6 eladio Respiratory: bl rhonchi. stable, +secretions, pcv Extremities: Warm. Access: cvc LABS: Reviewed. IMAGING: Reviewed. MEDICATIONS: Reviewed. ASSESSMENT: 26 F IVDA Acute hypoxic resp failure Multiple septic emboli with cavitaric lung lesions Severe sepsis sec to mssa and post septic shock TV endocarditis Left leg abscess Opitate withdrawal - better, but requiring use. Thrombocytopenia/anemia sec to septic consumption Chronic Hep C Malnutrition - moderate degree Left leg abscess AUGUST with component of ATN - improving Anasarca - improved Delirium/mild hypoxic encephalopathy Deconditioning Depression Status epilepticus toxic encephalopathy Re-intubated for acute hypoxic resp failure 11/04 PLAN: Neurologic: lower propofol. she has shown signs previous of her seizure activity and re-check, but plan is to leave her in burst suppression today. re- check EEG tomorrow and see if we can lower propofol while on. keep keppra and dilantin and eval levels tomorrow. Cardiovascular: Perfusing. Vol status ok. Respiratory: PCV. no sbt yet. Gastrointestinal: ogt and tf continued but lower. sup Renal/Metabolic: stable. perez. f/u lytes Infectious Disease: ceftriaxone and oxacillin at present and per ID choosing. Hematology: Hb stable. plt ok. hsq Endocrine: no steroids Musculoskeletal: deconditioneing continued. f/u skin care, turning etc. Psych/Social: continued support. Supportive and preventative care as ordered. SUP: ppi VTE prophylaxis: heparin Perez catheter given critical illness, monitoring needs for accurate assessment of AUGUST and KDIGO criteria for critically ill patients and to avoid potential harms of urinary retention, skin breakdown/ulcers. Disposition: ICU Code Status: Full Critical Care Time: 35min FNathen Carr DO
[2016-11-06] MEDS: Thiamine IV* 100 MG/ML 2 ML VIAL IV SCH (14:52)
[2016-11-06] MEDS: Acetaminophen ADULT LIQ* 650 MG/20.3 ML UDC G TUBE PRN (16:04)
[2016-11-06 16:41] LABS: Free Phenytoin Level 3.2 mcg/mL (1.0 - 2.0)
--- NOTE | 2016-11-06 19:13 | CONS ---
CONSULTATION REPORT: DATE OF CONSULT: DATE OF DICTATION: 11/06/16 PATIENT OF: Dr. Carr. HISTORY OF PRESENT ILLNESS: This is a 26-year-old woman I am asked to evaluate for her encephalopathy and seizures. She was readmitted on October 12 with a history of bacterial endocarditis and MSSA bacteremia. She had tricuspid valve vegetations and had bilateral septic pulmonary emboli. She is also hepatitis C positive. Prior to her recent illness, she has had no significant past medical history. Her hospitalization has been complicated by hypotension, encephalopathy, and some seizures. She was thought to have status epilepticus on the because of dysconjugate eyes deviated to the right and was loaded with Dilantin at that point. Keppra had been added and then the patient was intubated and put on a propofol drip. Yesterday and today, the propofol was attempted to be weaned; however, she had abnormal eye movements and it was restarted today. Depakote was added in addition to increasing her Keppra. I spoke to the nurse who notes that even before she was intubated and put on propofol, she was encephalopathic. She could shake her head yes and at times squeezed hands on command, but did not follow any other commands. There were no asymmetries. MEDICATIONS: At home, included: IUD. Current medications include: 1. Ventolin 2.5 mg inhaled q.4 hours p.r.n. 2. Ceftriaxone 2 g q.12 hours. 3. Fentanyl p.r.n. pain. 4. Prevacid 30 mg G tube daily. 5. Keppra 1500 twice a day and this was increased as of today. 6. Dilantin 100 mg t.i.d. 7. Diprivan 80 mcg/kg/minute. 8. She has had thiamine and Depakote, this started today 500 q.8 hours. ALLERGIES: She is allergic to SULFA DRUGS. FAMILY HISTORY: Mother is alive and well. Father of lung cancer. SOCIAL HISTORY: She smokes 1 pack of cigarettes a day. Denies alcohol. She is a heroin addict. She has a son. She is not . REVIEW OF SYSTEMS: Otherwise negative on admission and she cannot give a more updated review of systems. PHYSICAL EXAM: Temperature 101, pulse 109, respirations 31, blood pressure 157/ 105. She was intubated and sedated. Cranial nerves II through XII were abnormal for left esotropia; right eye slightly downgoing. Pupils were 2 mm and sluggish. She was on the propofol and she had no movements to deep pain. Reflexes were mute. Chest: Clear. Cardiovascular: Regular rate and rhythm. Abdomen: Soft. There is no rash or edema. DIAGNOSTIC STUDIES/LAB DATA: Blood work includes a white count of 14,000, hematocrit 28, platelet count 207. PTT 26, INR 1.2. Most recent blood gas 7.3 , PCO2 49, PO2 170. Recent BMP had a bicarb of 20, BUN 26, creatinine 0.94, calcium of 8.3. Liver function tests have been normal. Direct bili 0.3. Albumin has been 2.9. She was HIV negative. Hepatitis C highly reactive. Reviewed her MRI scan which showed bioccipital and parietal vasogenic edema. There may have been a high frontal small area of edema as well. This is consistent with PRESS syndrome. IMPRESSION: Given this is a complex patient, her findings on EEG showing burst suppression, maybe secondary to either her ongoing encephalopathy or to the propofol. It is unclear to me if what was being observed by the nurse and Dr. Carr, who I spoke to both, were just abnormal eye movements related to her brain injury or whether they were truly seizures. I have a call in to Dr. Cifuentes to get a video EEG while we attempted to get her off the propofol tomorrow and then, if she is not having seizures, we will begin to simplify her anticonvulsant regimen. I have ordered a Dilantin level instead of the total and free because the Dilantin level will come back quick and we will have that result tomorrow. She also will need an MRI scan with and without contrast to make sure that there is no abscess , but hopefully, she will be extubated and we can do that when she is extubated. Thank you for sharing her case. [id number]/[facility] #: [id number] LAY
[2016-11-07] MEDS: Propofol* 100 ML IV SCH ×6 (00:53→21:34)
[2016-11-07] MEDS: fentaNYL* 50 MCG/ML 2 ML VIAL (100 MCG VIAL) IV SLOW PU PRN ×4 (01:38→21:51)
[2016-11-07] MEDS: Chlorhexidine MOUTHWASH 0.12%* 15 ML UDC TOPICAL SCH ×5 (04:03→21:12)
[2016-11-07] MEDS: LORazepam INJ* 2 MG/ML 1 ML VIAL IV PUSH PRN ×3 (04:03→19:21)
[2016-11-07] MEDS: Acetaminophen ADULT LIQ* 650 MG/20.3 ML UDC G TUBE PRN (04:27)
[2016-11-07] MEDS: Oxazepam CAP* 15 MG G TUBE SCH ×3 (04:34→21:13)
[2016-11-07] MEDS ORDERED: Morphine INJ* 4 MG/ML 1 ML SYRINGE IV ONE (04:50)
[2016-11-07] MEDS: Heparin VIAL(*) 5000 UNITS/ML VIAL (FIVE THOUSAND) SUBCUT SCH ×3 (05:19→21:13)
[2016-11-07 06:36] LABS: Phenytoin 6.5 mcg/mL (10-20)
[2016-11-07 06:37] LABS: Albumin 2.5 g/dL (3.2-5.2); BUN/Creatinine Ratio 23.9 (8-20); Calcium 8.2 mg/dL (8.6-10.3); EGFR African American 99.1 (>60); EGFR Non-African American 77.1 (>60); Globulin 3.8 g/dL (2-4); Magnesium 1.8 mg/dL (1.9-2.7); Potassium 4.4 mmol/L (3.5-5.0); Total Bilirubin 0.4 mg/dL (0.2-1.0); Total Protein 6.3 g/dL (6.4-8.9)
[2016-11-07] MEDS: Lansoprazole SOLUTAB* 30 MG G TUBE SCH (07:46)
[2016-11-07] MEDS: Potassium Chloride LIQUID* 20 MEQ PACKET G TUBE SCH ×3 (07:46→21:13)
[2016-11-07] MEDS: Senna TAB PO SCH ×2 (07:46→21:13)
[2016-11-07] MEDS: Thiamine IV* 100 MG/ML 2 ML VIAL IV SCH (07:46)
[2016-11-07] MEDS: Metoprolol Tartrate TAB* 50 mg PO SCH ×2 (07:46→21:12)
--- NOTE | 2016-11-07 12:03 | PN ---
Progress Note - Progress Note Note: CRITICAL CARE MEDICINE Date: 11/07/16 Time: 955 SUBJECTIVE: Patient seen and examined. PHYSICAL EXAM: Vital Signs: Reviewed. Neurologic: rass -5; dec sedation. HEENT: 7.0 ett. pupils equal, small. Sclera anicteric. Trachea midline. Cardiovascular: S1 S2, 3/6 eladio Respiratory: bl rhonchi. stable, +secretions, pcv Extremities: Warm. dep edema and deconditioning Access: cvc LABS: Reviewed. IMAGING: Reviewed. MEDICATIONS: Reviewed. ASSESSMENT: 26 F IVDA Acute hypoxic resp failure Multiple septic emboli with cavitaric lung lesions Severe sepsis sec to mssa and post septic shock TV endocarditis Left leg abscess Opitate withdrawal - better, but requiring use. Thrombocytopenia/anemia sec to septic consumption Chronic Hep C Malnutrition - moderate degree Left leg abscess AUGUST with component of ATN - improving Anasarca - improved Delirium/mild hypoxic encephalopathy Deconditioning Depression Status epilepticus toxic encephalopathy Re-intubated for acute hypoxic resp failure 11/04 PLAN: Neurologic: lower propofol today as we have multiple agents. Would hope she should have a much lower seizure threshold now. Dilantin dose was adjusted this am and if able to come off propofol would stop valproic today as well and ride this out with slowly de-escalating aeds. Cardiovascular: Perfusing. Vol status ok with dep interstitial edema. Respiratory: PCV. no sbt yet. Gastrointestinal: ogt and tf continued. sup Renal/Metabolic: stable. perez. f/u lytes Infectious Disease: ceftriaxone and oxacillin at present and per ID f/u as no new infective burden. Hematology: Hb stable. plt ok. hsq Endocrine: stable. Musculoskeletal: deconditioning continued. f/u skin care, rom. Psych/Social: mother updated at bedside. Explained dynamics and care, reminding her of pts high morbidity and mortality. She expressed understanding and appreciation. Supportive and preventative care as ordered. SUP: ppi VTE prophylaxis: heparin Perez catheter given critical illness, monitoring needs for accurate assessment of AUGUST and KDIGO criteria for critically ill patients and to avoid potential harms of urinary retention, skin breakdown/ulcers. Disposition: ICU; Code Status: Full Critical Care Time: 35min FNathen Carr DO
[2016-11-07] MEDS: NS 0.9% IVPB SCH (15:32)
[2016-11-07] MEDS: PHENYTOIN IVPB SCH (15:32)
--- NOTE | 2016-11-07 16:08 | EEG ---
HALFWAY VIDEO/EEG MONITORING - Monitoring Monitoring Start Date: 11/07/16 Current Monitoring Session: 11/07/16 at 08:02 to 11/08/16 at 10:03 EEG Clinical Indication: PT is a 26 year old female who has a history of heroin abuse. She came to the ED about 3 weeks ago and is admitted with endocarditis. She was in the ICU had a grand mal seizure and a CAT team was called on 11/04/16. PT is now intubated on dilantin, keppra, propofol. Long-term monitoring was requested in order to evaluate for epileptiform abnormalities or electrographic correlates to episodes of eye deviation. Introduction: INTRODUCTION: The EEG was monitored from 19 electrodes which consisted of the standard parasagittal, temporal and midline leads of the International 10-20 system. EEG data were recorded on an [facility] system with simultaneous MPEG-4 digital video recording of patient behavior. EEG recording was in a monopolar montage with all electrodes referenced to FCz. Significant behavioral events were signaled by an event button, or putative electrical seizure events were detected by a computer program. All EEG data were reviewed in their entirety on a monitor with reconstruction of montages and adjustments of sensitivity and filtering. Simultaneous patient behavior was viewed on an adjacent monitor and correlated with the EEG. - Medications Active Medications: Acetaminophen (Tylenol Tab*) 650 mg PO Q4H PRN PRN Reason: FEVER Last Admin: 11/04/16 00:08 Dose: 650 mg Acetaminophen (Tylenol Adult Liq*) 650 mg G TUBE Q4H PRN PRN Reason: FEVER Last Admin: 11/07/16 04:27 Dose: 650 mg Acetaminophen (Tylenol Supp*) [address] Q6H PRN PRN Reason: FEVER Last Admin: 11/04/16 06:54 Dose: 650 mg Albuterol (Ventolin 2.5 Mg/3 Ml Neb.Keyonna*) 2.5 mg INH Q4H PRN PRN Reason: SOB/WHEEZING Chlorhexidine Gluconate (Peridex Mouth Wash 0.12%*) 15 ml TOPICAL Q4H AYDIN Last Admin: 11/07/16 15:03 Dose: 15 ml Fentanyl Citrate (Fentanyl*) 50 mcg IV SLOW PU Q1H PRN PRN Reason: PAIN Last Admin: 11/07/16 14:28 Dose: 50 mcg Heparin Sodium (Porcine) (Heparin Vial(*)) 5,000 units SUBCUT Q8HR AYDIN Last Admin: 11/07/16 13:26 Dose: 5,000 units Ceftriaxone Sodium 2 gm/ (Sodium Chloride) 100 mls @ 200 mls/hr IVPB Q24H AYDIN Last Admin: 11/07/16 11:23 Dose: 200 mls/hr Oxacillin Sodium 2 gm/ Sodium (Chloride) 100 mls @ 200 mls/hr IVPB Q4HR AYDIN Last Admin: 11/07/16 13:27 Dose: 200 mls/hr Propofol (Diprivan*) 100 mls @ 34.368 mls/hr IV .(Initial Rate) AYDIN; 80 MCG/KG/ MIN PRN Reason: Protocol Last Admin: 11/07/16 13:35 Dose: 34.368 mls/hr Phenytoin Sodium 100 mg/ (Sodium Chloride) 102 mls @ 408 mls/hr IVPB Q8H AYDIN Stop: 11/07/16 16:29 Last Admin: 11/07/16 07:46 Dose: 408 mls/hr Norepinephrine Bitartrate (Levophed 16 Mcg/Ml Premix Bag*) 4,000 mcg in 250 mls @ 0 mls/hr IV .INITIAL RATE AYDIN; 0 MCG/MIN PRN Reason: Protocol Levetiracetam 1,500 mg/ Sodium (Chloride) 115 mls @ 440 mls/hr IVPB Q12H [facility] Last Admin: 11/07/16 05:19 Dose: 440 mls/hr Phenytoin Sodium 150 mg/ (Sodium Chloride) 103 mls @ 408 mls/hr IVPB Q8H [facility] Last Admin: 11/07/16 15:32 Dose: 408 mls/hr Lansoprazole (Prevacid Solutab*) 30 mg G TUBE DAILY [facility] Last Admin: 11/07/16 07:46 Dose: 30 mg Lorazepam (Ativan Inj*) 1 mg IV PUSH Q4H PRN PRN Reason: AGITATION Last Admin: 11/07/16 13:20 Dose: 1 mg Metoprolol Tartrate (Lopressor Iv*) 5 mg IV Q6H PRN PRN Reason: BLOOD PRESSURE Last Admin: 11/04/16 07:06 Dose: 5 mg Metoprolol Tartrate (Lopressor Tab*) 50 mg PO BID [facility] Last Admin: 11/07/16 07:46 Dose: 50 mg Oxazepam (Serax Cap*) 15 mg G TUBE Q8H [facility] Last Admin: 11/07/16 12:10 Dose: 15 mg Potassium Chloride (Klor-Con Liquid*) 20 meq G TUBE TID [facility] Last Admin: 11/07/16 13:26 Dose: 20 meq Senna (Senokot Tab*) 1 tab PO BID [facility] Last Admin: 11/07/16 07:46 Dose: 1 tab Thiamine HCl (Vitamin B1 Iv*) 100 mg IV DAILY [facility] Last Admin: 11/07/16 07:46 Dose: 100 mg - Description Background: At the onset of the recording, the patient was on 80mcg/kg/min proprofol. Over the course of the recording, this was dropped step-matson and at the end of the recording, the patient was on 20mcg/kg/min propofol. The background lacked the organization typically expected of the normal waking or sleep states. There were no clearly defined anterior-posterior voltage and frequency gradients nor posterior dominant rhythm. Instead, at the beginning of the recording, the background consisted of a relatively light burst suppression pattern. Periods of suppression lasted between 1 and 5 seconds and were by bursts of symmetrical, mixed frequency activity lasting 3 to 5 seconds. As the recording continued, the background gradually became more continuous and consisted of primarily polymorphic delta and theta range frequencies with superimposed spindle-like waveforms in the frontocentral regions. By approximately 1400, periods of arousal are characterized by a greater proportion of moderate to high voltage 1 to 2 Hz activity with overriding faster frequency activity. This delta activity is frontally predominant and often semi-rhythmic. The more quiet state is characterized by a greater proportion of moderate voltage, alpha and beta range frequencies, with intermixed slower frequencies as well. No definitive epileptiform abnormalities were recorded. There were no significant asymmetries. Intericatal Epileptiform Activity: None Ictal Activity: None Though the patient event button was not pressed, there was report of a clinical event of some type possibly involving eye deviation, around 0545 on 11/08. The EEG was carefully reviewed between 0500 and 0600 and no ictal patterns were evident. - Impression Impression: This is an abnormal long-term monitoring. Initially, the EEG demonstrated a light burst-suppression pattern which became more of a continuous pattern as the recording continued. Still, there was no evident organization throughout the duration of the long-term EEG and the background alternated between a more alert state consisted of a greater proportion of delta activity, and a quieter state consisting of spindle-like activity in the frontocentral regions. These findings are consistent with a moderate to severe, diffuse encephalopathy. There are no epileptiform abnormalities or seizures during this recording.
[2016-11-07] MEDS: Acetaminophen TAB* 325 MG PO PRN (21:13)
[2016-11-08] MEDS: Chlorhexidine MOUTHWASH 0.12%* 15 ML UDC TOPICAL SCH ×6 (00:20→20:00)
[2016-11-08] MEDS: NS 0.9% IVPB SCH ×2 (00:21→07:52)
[2016-11-08] MEDS: PHENYTOIN IVPB SCH ×2 (00:21→07:52)
[2016-11-08] MEDS: fentaNYL* 50 MCG/ML 2 ML VIAL (100 MCG VIAL) IV SLOW PU PRN ×4 (01:32→09:40)
[2016-11-08] MEDS: Oxazepam CAP* 15 MG G TUBE SCH ×3 (04:52→21:10)
[2016-11-08] MEDS: Propofol* 100 ML IV SCH ×5 (05:00→23:20)
[2016-11-08] MEDS: Heparin VIAL(*) 5000 UNITS/ML VIAL (FIVE THOUSAND) SUBCUT SCH ×3 (05:24→21:09)
[2016-11-08 05:29] LABS: Hematocrit 25 % (35-47); Mean Corpuscular HGB Conc 33 g/dl (31-36); Mean Corpuscular Hemoglobin 29 pg (27-31); Mean Corpuscular Volume 88 fL (80-97); Mean Platelet Volume 9 um3 (7.4-10.4); Red Cell Distribution Width 17 % (10.5-15); White Blood Count 13.4 10^3/ul (3.5-10.8)
[2016-11-08 05:43] LABS: BUN/Creatinine Ratio 31.1 (8-20); Calcium 8.3 mg/dL (8.6-10.3); EGFR African American 121.1 (>60); EGFR Non-African American 94.1 (>60); Magnesium 1.6 mg/dL (1.9-2.7); Phosphorus 4.2 mg/dL (2.5-5.0); Potassium 4.6 mmol/L (3.5-5.0)
[2016-11-08] MEDS: LORazepam INJ* 2 MG/ML 1 ML VIAL IV PUSH PRN ×3 (06:31→21:08)
--- NOTE | 2016-11-08 06:47 | PN ---
NEUROLOGY FOLLOWUP: DATE OF SERVICE: 11/07/16 - ROOM #ICU-06 PATIENT OF: Dr. Carr. HISTORY: This is 26-year-old with bacterial endocarditis and CREST syndrome, being treated for seizures and has been difficult to get off the ventilator. The propofol has been decreased from 80 mcg per kilo per minute down to 60, and there has been no clinical seizures. EEG appears somewhat discontinuous, but no clear epileptiform potentials from brief review. Other medications including her Keppra, Dilantin, and valproic acid remain unchanged. Temperature 99.3, respirations 18, pulse 86, blood pressure 135/91. She was unresponsive. Left eye was deviated nasally. Right eye was positioned slightly deviated laterally, but the gaze was disconjugate. Pupils were 2 mm and sluggish. She was not reactive in any extremities to noxious stim. Chest: Clear. Cardiovascular: Regular rate and rhythm. Abdomen: Soft. Her Dilantin level was 6.5. White count 14, platelet count 207 yesterday. Chemistries today showed a normal CMP other than bicarb of 19, calcium of 8.2, albumin of 2.5. Jhoan remains in a drug-induced coma at this point and the plan is while on video EEG, wean off the propofol over the course of a day. Hopefully, she will come off without seizures. If she has seizures, we can possibly push the Dilantin, but I would not increase at this point if there are no seizures. Indeed once we are off the propofol, the decision would be how best to wean some of her other anticonvulsants. Also once off the propofol, she will be extubated and I would get an MRI scan with and without contrast, although her endocarditis appeared to be right-sided and not left-sided. I discussed the plan with Dr. Carr. Dr. Cifuentes will be evaluating the video EEG and will be assuming her care tomorrow. [id number]/[facility] #: [id number] MED[facility] HEALTH NETWORKRamya
[2016-11-08] MEDS: Potassium Chloride LIQUID* 20 MEQ PACKET G TUBE SCH ×3 (08:26→21:09)
[2016-11-08] MEDS: Lansoprazole SOLUTAB* 30 MG G TUBE SCH (08:26)
[2016-11-08] MEDS: Senna TAB PO SCH ×2 (08:26→22:57)
[2016-11-08] MEDS: Thiamine IV* 100 MG/ML 2 ML VIAL IV SCH (08:26)
[2016-11-08] MEDS: Metoprolol Tartrate TAB* 50 mg PO SCH ×2 (08:26→21:10)
[2016-11-08] MEDS ORDERED: Magnesium Sulf 4 GM/100 ML IV* 4,000 MG/100 ML BAG IVPB ONE (09:30)
[2016-11-08] MEDS ORDERED: Furosemide IV* 10 MG/ML VIAL (40 MG) IV SLOW PU ONE (09:38)
[2016-11-08] MEDS: fentaNYL PATCH 50 MCG/HR TRANSDERM SCH (09:55)
--- NOTE | 2016-11-08 11:18 | RAD ---
Indication: Respiratory failure. History of endocarditis with cavitary septic pulmonary emboli. Comparison: November 04, 2016 chest radiograph and October 25, 2016 CT. Technique: Semierect AP 0945 hours Report: Multiple bilateral cavitary predominantly thin-walled pulmonary lesions. Opacification of the pulmonary nodules and adjacent alveolar consolidation more prominent on the RIGHT than the LEFT without significant interval change. On the LEFT there is an atypical peripheral scalloped margin of the lung parenchyma with absence of pulmonary markings at the extreme periphery suspicious for presence of a partially loculated pneumothorax. Additional lucency adjacent to the aortic arch and descending thoracic aorta confirms presence of a pneumothorax. This appearance is new compared with the November 04, 2016 exam. Probable small bilateral pleural effusions without change. Mild rightward mediastinal shift. Endotracheal tube tip 3.8 cm above the Corina. Nasogastric tube passes to the stomach and outside the [id number] caudally. Tip of RIGHT side central venous catheter at level of superior vena cava directed central. IMPRESSION: Compared with November 04, 2016 exam there is a new moderate partially loculated LEFT pneumothorax. Mild associated rightward mediastinal shift indicating a tension component. Results discussed with Dr. Carr 11/08/2016 11:13 AM EDT
--- NOTE | 2016-11-08 11:20 | PN ---
Progress Note - Progress Note Note: CRITICAL CARE MEDICINE Date: 11/08/16 Time: 1000 SUBJECTIVE: Patient seen and examined. PHYSICAL EXAM: Vital Signs: Reviewed. Neurologic: awake, and can follow commands with protruding tongue. waeker globally. HEENT: 7.0 ett. pupils equal, larger. Sclera anicteric. Trachea midline. Cardiovascular: S1 S2, 3/6 eladio Respiratory: Markedly dec left sided bs. less tv on same pcv. O2 stable, + secretions inc. Extremities: Warm. dep edema and deconditioning Access: cvc LABS: Reviewed. IMAGING: Reviewed. MEDICATIONS: Reviewed. ASSESSMENT: 26 F IVDA Acute hypoxic resp failure Multiple septic emboli with cavitaric lung lesions Severe sepsis sec to mssa and post septic shock TV endocarditis Left leg abscess Opitate withdrawal - better, but requiring use. Thrombocytopenia/anemia sec to septic consumption Chronic Hep C Malnutrition - moderate degree Left leg abscess AUGUST with component of ATN - improving Anasarca - improved Delirium/mild hypoxic encephalopathy Deconditioning Depression Status epilepticus - resolved toxic encephalopathy Re-intubated for acute hypoxic resp failure 11/04 Delirium PLAN: Neurologic: propofol at 25. May need a little more to sync with vent; add fent td rather then gtt. prns. gtube benzos and prn iv. No seizure signs. Remain on keppra and very slow benzo wean ultimately when improved overall. Otherwise continued de-escalating aeds Cardiovascular: Perfusing. Vol status up with dep interstitial edema. Respiratory: PCV. volumes less then prior. cxr to eval. inc secretions and wet. no sbt yet. Gastrointestinal: ogt and tf continued. sup Renal/Metabolic: stable. perez. f/u lytes Infectious Disease: ceftriaxone and oxacillin f/u Hematology: Hb stable. plt ok. hsq Endocrine: stable. Musculoskeletal: deconditioning continued. f/u skin care, rom. Psych/Social: time Supportive and preventative care as ordered. SUP: ppi VTE prophylaxis: heparin Perez catheter given critical illness, monitoring needs for accurate assessment of AUGUST and KDIGO criteria for critically ill patients and to avoid potential harms of urinary retention, skin breakdown/ulcers. Disposition: ICU. Code Status: Full Critical Care Time: 35min Rebeka Carr DO
--- NOTE | 2016-11-08 12:21 | RAD ---
HISTORY: Evaluate pneumothorax COMPARISONS: Chest x-ray dated November 08, 2016, CT dated October 25, 2016. TECHNIQUE: Multiple contiguous axial CT scans of the chest were obtained without intravenous contrast. Coronal and sagittal multiplanar reformations are also submitted for review. FINDINGS: The study is limited by the lack of intravenous contrast. This limits evaluation of the solid organs and vasculature. NECK AND THYROID: The lower neck and thyroid are unremarkable. CHEST WALL: There is no lower cervical, axillary, or supraclavicular lymphadenopathy by size criteria. A central venous catheter is noted from a subclavian approach on the right. HEART AND PERICARDIUM: The heart is unremarkable. AORTA AND PULMONARY VASCULATURE: The aorta and pulmonary vasculature are normal. MEDIASTINUM: There is no mediastinal lymphadenopathy by size criteria. VANCE: There is no hilar lymphadenopathy by size criteria. AIRWAY AND ESOPHAGUS: The endotracheal tube is noted, with the tip in the trachea between the clavicles and the rebeca.. A gastric tube is noted. The tip is below the [id number] the current examination but is below the diaphragm. LUNG PARENCHYMA: Again noted are multiple cavitary lesions of the lungs bilaterally, several with air-fluid levels. Direct comparison is limited due to the number of lesions; however, the appearance is similar to the previous examinations. PLEURA: There has been interval development of a large loculated pneumothorax on the left as noted on the previous chest x-ray. There are small bilateral pleural effusions. UPPER ABDOMEN: The upper abdomen is unremarkable. BONES AND SOFT TISSUES: There is fusion of C5-C6. OTHER: None. IMPRESSION: 1. NOTED ON THE PREVIOUS CHEST X-RAY, THERE HAS BEEN INTERVAL DEVELOPMENT OF LARGE A LOCULATED PNEUMOTHORAX ON THE LEFT. 2. AGAIN NOTED ARE CAVITARY LESIONS OF THE LUNGS BILATERALLY. 3. BILATERAL PLEURAL EFFUSIONS.
--- NOTE | 2016-11-08 13:31 | DS ---
CRITICAL CARE MEDICINE DISCHARGE SUMMARY ADMISSION DATE: 10/12/2016 ICU ADMISSION DATE: 10/13/2016 ICU DISCHARGE DATE: 11/08/2016 PRIMARY CARE PROVIDER: None. REFERRING PHYSICIAN: Federica. DIAGNOSIS: Acute hypoxic resp failure Tricuspid valve endocarditis. Severe sepsis secondary to mssa. Multiple septic emboli with multiple cavitary lung lesions. Septic embolic. Left thigh abscess. Intravenous drug abuse. Opitate withdrawal. Thrombocytopenia secondary to septic consumption. Anemia secondary to septic consumption. Chronic Hepatitis C. Malnutrition moderate degree. Acute renal failure with component of acute tubular necrosis. Anasarca. Mild hypoxic encephalopathy. Posterior reversible encephalopathy. Septic encephalopathy. Toxic encephalopathy. Status epilepticus. Deconditioning. Depression. PROCEDURES: Intubation 10/16/2016 extubated 10/29/2016; Re-intubated 11/04/2016. Right internal jugular central venous catheter insertion 10/16/2016 - discontinued 11/03/2016. Right subclavian central venous catheter insertion 11/04/2016. Microbiology 11/04/16 11:45 Blood Line Aerobic Blood Culture - Preliminary No Growth Day 4 11/04/16 11:45 Blood Line Anaerobic Blood Culture - Preliminary No Growth Day 4 11/04/16 11:45 Blood Line Blood Culture - Final 11/04/16 11:55 Sputum Induced Gram Stain - Final 11/04/16 11:55 Sputum Induced Sputum Culture - Final Citrobacter Koseri Staphylococcus Aureus Normal Kenia 10/22/16 14:20 Blood Arterial Aerobic Blood Culture - Final No Growth Day 5 10/22/16 14:20 Blood Arterial Anaerobic Blood Culture - Final No Growth Day 5 10/22/16 14:20 Blood Arterial Blood Culture - Final 10/23/16 09:45 Sputum Gram Stain - Final 10/23/16 09:45 Sputum Sputum Culture - Final Citrobacter Koseri Staphylococcus Aureus 10/18/16 16:20 Blood Venous Aerobic Blood Culture - Final No Growth Day 5 10/18/16 16:20 Blood Venous Anaerobic Blood Culture - Final No Growth Day 5 10/18/16 16:20 Blood Venous Blood Culture - Final 10/18/16 05:40 Blood Venous Aerobic Blood Culture - Final No Growth Day 5 10/18/16 05:40 Blood Venous Anaerobic Blood Culture - Final No Growth Day 5 10/18/16 05:40 Blood Venous Blood Culture - Final 10/19/16 06:30 Stool Stool Gross Appearance - Final 10/19/16 06:30 Stool Stool Occult Blood (ROBY) - Final 10/15/16 06:58 Blood Venous Aerobic Blood Culture - Final Staphylococcus Aureus 10/15/16 06:58 Blood Venous Anaerobic Blood Culture - Final Staphylococcus Aureus 10/15/16 06:58 Blood Venous Blood Culture - Final 10/15/16 06:58 Blood Venous Blood MRSA/MSSA (PCR) - Final Mrsa Negative S.aureus Positive 10/15/16 04:36 Blood Venous Aerobic Blood Culture - Final Staphylococcus Aureus 10/15/16 04:36 Blood Venous Anaerobic Blood Culture - Final Staphylococcus Aureus 10/15/16 04:36 Blood Venous Blood Culture - Final 10/12/16 21:32 Blood Venous Aerobic Blood Culture - Final Staphylococcus Aureus 10/12/16 21:32 Blood Venous Anaerobic Blood Culture - Final Staphylococcus Aureus 10/12/16 21:32 Blood Venous Blood Culture - Final 10/12/16 20:10 Blood Venous Aerobic Blood Culture - Final Staphylococcus Aureus 10/12/16 20:10 Blood Venous Anaerobic Blood Culture - Final Staphylococcus Aureus 10/12/16 20:10 Blood Venous Blood Culture - Final 10/12/16 20:10 Blood Venous Blood MRSA/MSSA (PCR) - Final Mrsa Negative S.aureus Positive MEDICATIONS AT DISCHARGE: Acetaminophen 650 mg PO/GTUBE/NC Q4H PRN Albuterol 2.5 mg INH Q4H PRN Chlorhexidine Gluconate 15 ml TOPICAL Q4H AYDIN Fentanyl 50 mcg TRANSDERM Q72H AYDIN Fentanyl Citrate 50 mcg IV SLOW PU Q1H PRN Heparin Sodium 5,000 units SUBCUT Q8HR AYDIN Anceff 2 Grams IV q8 hours. Propofol 50 MCG/KG/MIN: RASS -2 Levetiracetam 1,000 mg IVPB Q12H AYDIN Lansoprazole 30 mg G TUBE DAILY AYDIN Lorazepam 1 mg IV PUSH Q4H PRN Metoprolol Tartrate 5 mg IV Q6H PRN Metoprolol Tartrate 50 mg PO'GTUBE BID AYDIN Oxazepam 15 mg G TUBE Q8H AYDIN Potassium Chloride 20 meq G TUBE TID AYDIN Senna 1 tab PO BID AYDIN Thiamine HCl 100 mg IV DAILY [facility]: SULFA DRUGS. ADMISSION: "26y F w/pmhx of IVDA using Heroin (active user); recently diagnosed with pneumonia in August and was treated with abx. Once therapy complete at home she developed increased upper and lower extremity pain, more so in the hands and the feet. She has been sob+, CP still present with inhalation, cough+ with some amounts of blood also prior to admission. Fevers+, chills+. Admitted for progressive pneumonia, sepsis. Floor Course: since admission, antibiotics restarted, blood cultures positive for MSSA. Her cxr has shown progression with bilateral cavitary pulmonary nodules. CT chest was done demonstrating severe cavitary pulm nodules bilaterally, more peripherally. An ECHO was performed and found to have suspicion for Tricuspid valve vegetation. Due to ongoing distress, diffuse pain , joint involvement, worsening hypoxia in setting of MSSA endocarditis, she was transferred to the ICU." Dr. Mariscal. ICU COURSE: Neurologically: Mild toxic (drug induced) encephalopathy and withdraw dynamics on initial presentation. Placed on clonidine, narcotics utilized for pain and precedex drip. Mildly better but then concerning work of breathing requiring intubation. Sedation with propofol and fentanyl drips. Benzodiazipines added to regimen, decreasing agents. Precedex utilized. Able to improve neurologically as lungs stabilized over the first two weeks. Post extubation she was able to slowly communicate with low voice and slow speech and globally weakness. She was improving and tapering off narcotics, sedatives, and benzodiazepines. Unfortunately, these may have contributed to her seizure dynamics, worsening her breathing and requiring re-intubation. Signs of status epiletpics continued and patient placed on anticonvulsants and propofol drip towards burst suppression and cessation of seizures. MRI with signs of posterior reversible encephalopathy. Not performed with contract, but no distinct signs of paradoxical septic emboli nor abscess. Able to wean from medications other then those still listed with improved EEG, able to communicate again with simple commands being followed but globally weak. Agitation still present on lower sedation. Cardiovascular: Echo cardiograms per report. Required volume loading early on and rarely required any pressors during much of her ordeal. Heart rate tachycardiac and blunted with sedation and beta blockade. Did not have NERY. Respiratory: Placed on high flow oxygen in ICU from 10/13-10/16, requiring intubation with 8.0 ett at that time secondary to work of breathing. Difficulty with ventilation and always worried for pneumonthorax potentials. Difficulty recruiting lung and just allowed clearance of copious secretions. Remained mainly on pressure control; would not tolerate APRV for much time. Postural drainage for about a week with good secretions/pus clearance. Oxygentation continued to improve and able to liberate on 10/29/2016. Able to slowly wean oxygen and participate with pulmonary toliet. Remained with rapid respiratory pattern but adequete dynamics and oxygen able to be turned off at times. Re- intubated with increased work of breathing and seizure dynamics ensuing overnight 11/04/2016 with 7.0 ett. Continued secretions and ventilatory tolerance with pressure control Pinsp 25 peep 5 and FIO2 35%. Decreased volumes and breath sounds on left this am with irregular multiple areas of pneumothorax on the left via chest x-ray and CT scan. Hemilick valve placed for some decompression by surgery today with some relief. Seeking transfer for impending respiratory/surgical needs. GI: Off and on oral gastric tube feeds. Little po intake during liberation time period. Stress ulcer prophylaxis. Not on chronic hepatitis C therapy. Renal: Suffered acute renal failure after initial presentation, lagging for multiple days with ATN injury, with Cr peaking at 3.08 on 10/20/2016. Mobilized fluid thereafter towards liberation. Cr has improved daily. Multiple electrolyte replacements. Villegas catheter remains. ID: Placed on vancomycin initially but then to oxacillin alone with MSSA bactermia. Remained on oxacillin, but had some fevers and rechecked sputum with citrobacter as well and changed to ancef per ID. When she worsened with seizures , her coverage was broaden and concerns for potential [employer]NAGEMENT [employer]OCIATE infection, but no change in cultures and MRI non-revealing. De-escalated again to ceftriaxone and oxacillin and now back on Ancef day planned. Cultures as above. HEME: Multifactorial anemia. Mainly consumptive. Did receive 3 prbc transfusions during her early stay. Equilibrated. Has remained on heparin subcutaneous prophylaxis. ENDO: Received steroids during course in thoughts to prevent lung fibrosis. Tapered off after 2 week course. Glucose stable. MSK: Deconditioned and weak unable to participate with physical therapy. Was out of bed on the ventilator and while off. SOCIAL: Mother is next of kin. She is overwhelmed. DISPOSITION: To [facility] c/o Dr. Thomas. DIET: Tube feeds, promote 40ml/hr. ACTIVITY: OOB to chair as tolerated. CODE STATUS: FULL CODE. Rebeka Carr DO
--- NOTE | 2016-11-08 13:38 | PN ---
Progress Note - Progress Note Note: CRITICAL CARE MEDICINE Date: 11/09/16 Time: [address] performed to eval further. Quite extensive cavities and disease with ongoing problematic course and chances for BPF beyond the practice here needing CT surgery expert. Discussed with surgery here and they concur. Will consider benefit of hemilick valve to support transfer, otherwise would rather have her at the right care [facility]. D/w Jose and Dr. Thomas is gracious enough to accept. Will be working on bed arrangements and transfer center ([facility]) will arrange for there CT transfer team to pickup for transfer. Called pts mother and had explained the dynamic and needs. She expressed emotion but understanding for us to do what we had too. She prefers to send to [place] if I feel that is best for her. Disposition: Strong when bed available. Code Status: Full Critical Care Time: 25min Rebeka Carr, DO
[2016-11-08] MEDS: ceFAZolin 2 GM PREMIX(*) 2 GM/50 ML BAG IVPB SCH ×2 (15:41→23:20)
[2016-11-08] MEDS: Acetaminophen ADULT LIQ* 650 MG/20.3 ML UDC G TUBE PRN ×2 (16:02→21:09)
[2016-11-08 16:49] LABS: Free Phenytoin Level 2.2 mcg/mL (1.0 - 2.0)
[2016-11-08] MEDS: fentaNYL Patch Check Q Shift 1 NOTE SCH (19:25)
[2016-11-09] MEDS: Chlorhexidine MOUTHWASH 0.12%* 15 ML UDC TOPICAL SCH ×6 (01:04→19:30)
[2016-11-09] MEDS: Propofol* 100 ML IV SCH ×6 (02:32→22:53)
[2016-11-09] MEDS: Oxazepam CAP* 15 MG G TUBE SCH ×3 (06:08→19:30)
[2016-11-09] MEDS: Heparin VIAL(*) 5000 UNITS/ML VIAL (FIVE THOUSAND) SUBCUT SCH ×3 (06:08→21:41)
[2016-11-09 06:29] LABS: Hematocrit 25 % (35-47); Hemoglobin 8.1 g/dl (12.0-16.0); Mean Corpuscular HGB Conc 33 g/dl (31-36); Mean Corpuscular Hemoglobin 29 pg (27-31); Mean Corpuscular Volume 87 fL (80-97); Mean Platelet Volume 9 um3 (7.4-10.4); Red Blood Count 2.85 10^6/ul (4.0-5.4); Red Cell Distribution Width 17 % (10.5-15); White Blood Count 11.2 10^3/ul (3.5-10.8)
[2016-11-09 06:45] LABS: BUN/Creatinine Ratio 32.4 (8-20); Calcium 8.3 mg/dL (8.6-10.3); EGFR African American 133.5 (>60); EGFR Non-African American 103.8 (>60); Magnesium 1.9 mg/dL (1.9-2.7); Phosphorus 3.9 mg/dL (2.5-5.0); Potassium 4.2 mmol/L (3.5-5.0)
[2016-11-09] MEDS: fentaNYL Patch Check Q Shift 1 NOTE SCH ×2 (07:08→19:28)
[2016-11-09] MEDS: Thiamine IV* 100 MG/ML 2 ML VIAL IV SCH (07:45)
[2016-11-09] MEDS: Metoprolol Tartrate TAB* 50 mg PO SCH ×2 (07:45→19:30)
[2016-11-09] MEDS: Senna TAB PO SCH ×2 (07:45→19:15)
[2016-11-09] MEDS: Lansoprazole SOLUTAB* 30 MG G TUBE SCH (07:45)
[2016-11-09] MEDS: Potassium Chloride LIQUID* 20 MEQ PACKET G TUBE SCH ×3 (07:45→19:30)
[2016-11-09] MEDS: ceFAZolin 2 GM PREMIX(*) 2 GM/50 ML BAG IVPB SCH ×3 (07:46→22:52)
[2016-11-09] MEDS: fentaNYL* 50 MCG/ML 2 ML VIAL (100 MCG VIAL) IV SLOW PU PRN ×5 (09:30→21:58)
[2016-11-09] MEDS: Acetaminophen ADULT LIQ* 650 MG/20.3 ML UDC G TUBE PRN ×3 (09:30→21:41)
[2016-11-09] MEDS ORDERED: Furosemide IV* 10 MG/ML VIAL (40 MG) IV SLOW PU ONE (10:26)
--- NOTE | 2016-11-09 10:50 | PN ---
Progress Note - Progress Note Note: CRITICAL CARE MEDICINE Date: 11/09/16 Time: 1000 SUBJECTIVE: Patient seen and examined. PHYSICAL EXAM: Vital Signs: Reviewed. Neurologic: awakens, somewhat sedate but restless at times on propfol gtt. keeping sedate to not harm self on vent further as she is not ready to wean yet. HEENT: 7.0 ett. pupils equal reactive. Sclera anicteric. Trachea midline. Cardiovascular: S1 S2, 3/6 eladio GI: tf. sup Respiratory: + secretions. Hemilick valve not leaking. dec BS remain on left. Extremities: Warm. dep edema and deconditioning Access: cvc LABS: Reviewed. IMAGING: Reviewed. MEDICATIONS: Reviewed. ASSESSMENT: 26 F IVDA Acute hypoxic resp failure Multiple septic emboli with cavitaric lung lesions Severe sepsis sec to mssa and post septic shock TV endocarditis Left leg abscess Opitate withdrawal - better, but requiring use. Thrombocytopenia/anemia sec to septic consumption Chronic Hep C Malnutrition - moderate degree Left leg abscess AUGUST with component of ATN - improving Anasarca - improved Delirium/mild hypoxic encephalopathy Deconditioning Depression Status epilepticus - resolved toxic encephalopathy Re-intubated for acute hypoxic resp failure 11/04 Delirium Worsening left sided lung cavities to bullae to probably ptx PLAN: Neurologic: propofol at 60. sedation to not allow all the coughing fighting she does with vent. fent td. benzos via ng. No seizure signs. lower keppra and keep benzos for her withdrawal liek seizures. Cardiovascular: Perfusing. Vol status up with dep interstitial edema and give lasix today. Respiratory: PCV. volumes up from yesetrday am. MV stable. 02 stable. awaiting transfer as there is little else we can perform easily on her lung disease other then try to maintain stability. [facility] has accepted and awaiting bed. Gastrointestinal: ogt and tf continued. sup Renal/Metabolic: stable. perez. f/u lytes Infectious Disease: Back to [facility] alone. Hematology: Hb stable. plt ok. hsq Endocrine: stable. Musculoskeletal: deconditioning continued. f/u skin care, rom. Psych/Social: time; mom updated by nursing Supportive and preventative care as ordered. SUP: ppi VTE prophylaxis: heparin Perez catheter given critical illness, monitoring needs for accurate assessment of AUGUST and KDIGO criteria for critically ill patients and to avoid potential harms of urinary retention, skin breakdown/ulcers. Disposition: ICU, awaiting transfer bed. Code Status: Full Critical Care Time: 35min Rebeka Carr DO
--- NOTE | 2016-11-09 11:39 | RAD ---
HISTORY: Endocarditis, follow-up chest tube COMPARISONS: November 08, 2016 VIEWS:1: Single frontal portable view of the chest at 11:05 AM FINDINGS: LINES AND TUBES: There has been interval placement of a self locking drainage catheter overlying the left hemithorax. An endotracheal tube is noted with the tip overlying the trachea. A gastric tube is noted. The tip is in the left upper quadrant and at report position. A right-sided central venous catheter is noted from a subclavian approach with tip overlying the superior vena cava. CARDIOMEDIASTINAL SILHOUETTE: The cardiomediastinal silhouette is normal for portable technique. PLEURA: Again noted is a loculated left-sided pneumothorax. This is persistent, but moderately decreased in size. LUNG PARENCHYMA: Again noted is multifocal cavitary airspace disease throughout both lungs ABDOMEN: The upper abdomen is clear. There is no subphrenic gas. BONES AND SOFT TISSUES: No bone or soft tissue abnormalities are noted. IMPRESSION: 1. PERSISTENT BUT DECREASED LEFT LOCULATED PNEUMOTHORAX. 2. PERSISTENT MULTIFOCAL AIRSPACE AND CAVITARY LUNG PARENCHYMAL DISEASE. 3. LINES AND TUBES ABOVE.
[2016-11-09] MEDS: LORazepam INJ* 2 MG/ML 1 ML VIAL IV PUSH PRN (20:00)
[2016-11-09] MEDS ORDERED: Bisacodyl SUPP* 10 MG SUPP PR PRN (20:53)
[2016-11-10] MEDS: Propofol* 100 ML IV SCH ×6 (00:48→21:48)
[2016-11-10] MEDS: Chlorhexidine MOUTHWASH 0.12%* 15 ML UDC TOPICAL SCH ×7 (00:48→23:50)
[2016-11-10] MEDS: LORazepam INJ* 2 MG/ML 1 ML VIAL IV PUSH PRN ×3 (01:33→15:17)
[2016-11-10] MEDS: Heparin VIAL(*) 5000 UNITS/ML VIAL (FIVE THOUSAND) SUBCUT SCH ×3 (05:30→21:36)
[2016-11-10] MEDS: fentaNYL* 50 MCG/ML 2 ML VIAL (100 MCG VIAL) IV SLOW PU PRN ×5 (05:30→21:35)
[2016-11-10] MEDS: Oxazepam CAP* 15 MG G TUBE SCH ×3 (05:31→20:46)
[2016-11-10] MEDS: Acetaminophen ADULT LIQ* 650 MG/20.3 ML UDC G TUBE PRN ×4 (05:31→20:24)
[2016-11-10] MEDS: fentaNYL Patch Check Q Shift 1 NOTE SCH ×2 (06:50→19:13)
[2016-11-10] MEDS: Thiamine IV* 100 MG/ML 2 ML VIAL IV SCH (07:19)
[2016-11-10] MEDS: Senna TAB PO SCH ×2 (07:20→20:34)
[2016-11-10] MEDS: ceFAZolin 2 GM PREMIX(*) 2 GM/50 ML BAG IVPB SCH ×3 (07:20→23:13)
[2016-11-10] MEDS: Potassium Chloride LIQUID* 20 MEQ PACKET G TUBE SCH ×3 (07:20→20:34)
[2016-11-10] MEDS: Lansoprazole SOLUTAB* 30 MG G TUBE SCH (07:20)
[2016-11-10] MEDS: Metoprolol Tartrate TAB* 50 mg PO SCH ×2 (07:20→20:34)
--- NOTE | 2016-11-10 10:50 | PN ---
Progress Note - Progress Note Note: CRITICAL CARE MEDICINE Date: 11/10/16 Time: 800 SUBJECTIVE: Patient seen and examined. PHYSICAL EXAM: Vital Signs: Reviewed. Neurologic: awakens and can respond to some activity but not commands. HEENT: 7.0 ett. pupils equal reactive. Sclera anicteric. Trachea midline. Cardiovascular: S1 S2, 3/6 eladio GI: tf. sup Respiratory: + secretions. Hemilick valve stable. no active leak. dec BS remain on left. Extremities: Warm. dep edema and deconditioning Access: cvc intact LABS: Reviewed. IMAGING: Reviewed. MEDICATIONS: Reviewed. ASSESSMENT: 26 F IVDA Acute hypoxic resp failure Multiple septic emboli with cavitaric lung lesions Severe sepsis sec to mssa and post septic shock TV endocarditis Left leg abscess Opitate withdrawal - better, but requiring use. Thrombocytopenia/anemia sec to septic consumption Chronic Hep C Malnutrition - moderate degree Left leg abscess AUGUST with component of ATN - improving Anasarca - improved Delirium/mild hypoxic encephalopathy Deconditioning Depression Status epilepticus - resolved toxic encephalopathy Re-intubated for acute hypoxic resp failure 11/04 Delirium Worsening left sided lung cavities to bullae to probable ptx PLAN: Neurologic: propofol at 60. avoiding full vacation in order not to promote too much dysync with vent. No seizure signs. lowering keppra slowly and maintaining with benzos. trial precedex to see if we can lighten propofol today. Cardiovascular: Perfusing. Vol status up and can mobilize with lasix but not flow phase much without. no urgency with volume as R heart on ppv will remain dep on volume anyway. Respiratory: PCV. volumes stable. [facility] has accepted and awaiting bed. Still have time with stability, but she will need more definitive care. Gastrointestinal: ogt and tf continued. sup Renal/Metabolic: stable. perez. f/u lytes Infectious Disease: Ancef Hematology: f/u Endocrine: stable. Musculoskeletal: deconditioning. f/u skin care, rom. Psych/Social: time Supportive and preventative care as ordered. SUP: ppi VTE prophylaxis: heparin Perez catheter given critical illness, monitoring needs for accurate assessment of AUGUST and KDIGO criteria for critically ill patients and to avoid potential harms of urinary retention, skin breakdown/ulcers. Disposition: ICU, awaiting transfer bed. Code Status: Full Critical Care Time: 35min Rebeka Carr DO
[2016-11-10] MEDS: Dexmedetomidine* 50 ML IVPB SCH ×4 (11:58→23:50)
--- NOTE | 2016-11-10 14:17 | DS ---
CRITICAL CARE MEDICINE DISCHARGE SUMMARY PLEASE SEE DISCHARGE SUMMARY FROM 11/08/16. Update: Patient has remained stable in ICU over weekend. Remains sedated mostly with propofol drip at 60mcg/kg/min. Added Precedex in attempted to wean propofol more as she becomes agitated easily. Remains on serax via ogt and ativan prn which has been helping with withdrawal and agitation ailments. Heimlich valve remains in place without leak. Chest x-ray stable. Oxygenation and ventilation stable on PCV 25/5, 35%. Labs stable. Awaiting anticipated date of discharge/transfer as 11/11/16. Rebeka Carr DO
[2016-11-11] MEDS: Propofol* 100 ML IV SCH ×5 (01:06→14:40)
[2016-11-11] MEDS: Dexmedetomidine* 50 ML IVPB SCH ×3 (04:12→12:43)
[2016-11-11] MEDS: Chlorhexidine MOUTHWASH 0.12%* 15 ML UDC TOPICAL SCH ×3 (04:12→11:38)
[2016-11-11] MEDS: Oxazepam CAP* 15 MG G TUBE SCH ×2 (04:59→12:52)
[2016-11-11] MEDS: Heparin VIAL(*) 5000 UNITS/ML VIAL (FIVE THOUSAND) SUBCUT SCH ×2 (05:54→12:52)
[2016-11-11 05:57] LABS: Hematocrit 23 % (35-47); Hemoglobin 7.5 g/dl (12.0-16.0); Mean Corpuscular HGB Conc 33 g/dl (31-36); Mean Corpuscular Hemoglobin 28 pg (27-31); Mean Corpuscular Volume 87 fL (80-97); Mean Platelet Volume 9 um3 (7.4-10.4); Red Blood Count 2.63 10^6/ul (4.0-5.4); Red Cell Distribution Width 17 % (10.5-15); White Blood Count 12.1 10^3/ul (3.5-10.8)
[2016-11-11 05:58] LABS: Add Diff/Slide Review? Slide Review Added; Comments Flag Yes; Venous Bicarbonate HCO3 26.1 mmol/L (24-28)
[2016-11-11 06:15] LABS: ALT < 3 U/L (7-52); AST 11 U/L (13-39); Albumin 2.7 g/dL (3.2-5.2); Alkaline Phosphatase 72 U/L (34-104); Anion Gap 8 mmol/L (2-11); BUN/Creatinine Ratio 33.9 (8-20); Blood Urea Nitrogen 20 mg/dL (6-24); CO2 Carbon Dioxide 27 mmol/L (22-32); Calcium 8.9 mg/dL (8.6-10.3); Chloride 102 mmol/L (101-111); EGFR African American 157.2 (>60); EGFR Non-African American 122.3 (>60); Globulin 4.1 g/dL (2-4); Glucose 107 mg/dL (70-100); Lipase 12 U/L (11.0-82.0); Magnesium 1.6 mg/dL (1.9-2.7); Phosphorus 4.1 mg/dL (2.5-5.0); Potassium 3.5 mmol/L (3.5-5.0); Sodium 137 mmol/L (133-145); Total Protein 6.8 g/dL (6.4-8.9); Triglycerides 249 mg/dL
[2016-11-11 06:19] LABS: Prealbumin 11 mg/dL (18-38)
[2016-11-11] MEDS: ceFAZolin 2 GM PREMIX(*) 2 GM/50 ML BAG IVPB SCH (06:34)
[2016-11-11] MEDS: LORazepam INJ* 2 MG/ML 1 ML VIAL IV PUSH PRN ×2 (06:34→11:05)
[2016-11-11] MEDS: fentaNYL Patch Check Q Shift 1 NOTE SCH (07:19)
[2016-11-11] MEDS: Potassium Chloride LIQUID* 20 MEQ PACKET G TUBE SCH ×2 (08:05→12:52)
[2016-11-11] MEDS: Senna TAB PO SCH (08:05)
[2016-11-11] MEDS: Thiamine IV* 100 MG/ML 2 ML VIAL IV SCH (08:08)
[2016-11-11] MEDS: Lansoprazole SOLUTAB* 30 MG G TUBE SCH (08:08)
[2016-11-11] MEDS: Metoprolol Tartrate TAB* 50 mg PO SCH (08:08)
--- NOTE | 2016-11-11 08:10 | RAD ---
Indication: Follow-up pneumothorax. Single frontal view of the chest performed at 0620 hours was reviewed. Comparison is made with previous exam dated November 09, 2016. Cardiomegaly. Left chest tube in place. Bibasilar atelectasis is noted. Right upper lobe airspace disease and interstitial fibrosis is noted. IMPRESSION: Left chest tube in place. Left pleural effusion is noted which may be loculated. Cardiomegaly is noted. Central line is in place. ET tube in appropriate location.
--- NOTE | 2016-11-11 08:14 | PN ---
Progress Note - Progress Note Note: [facility] Progress Note Sedated with Propofol and Precedex gtts Apparently expected to transfer today to [facility] SBP 104 HR 79 Temp 101.2 PCV Pinsp 25 PEEP 5 FiO2 35 SpO2 100 Skin no diaphoresis, no cyanosis, (+)tattoo RUE Sclerae anicteric, pupils equal Oral mucosa pink Oral ETT and GT Lungs with bilateral BS, no wheezes Lt Chest with drain and dressing Cor RRR no rub Abd soft dist, nontender perez Ext mild-mod edema, (+)SCDs DPs 2(+)bilat Rt SCV line WBC 12.1 Hgb 7.5 Plt 253 K 3.5 BUN/creat 20/0.59 Pi 4.1 Mg 1.6 Alb 2.7 PreAlb 11 TG 249 IMP: MSSA Bacteremia with TV endocarditis and septic pulmonary emboli with resultant cavitary pneumonia Lt pneumothorax with chest drain Acute Respiratory Failure Hx IV drug use (opiate/heroin) Anemia...acceptable Hgb Anasarca Protein calorie malnutrition Mild hypertriglyceridemia....secondary to Propofol PLAN/REC: Continue current Abx therapy Full MV support Keep HOB raised DVT prophylaxis Suctioning PRN Acid Peptic Supp Nutrition Support as tolerated Continue sedation in light of anticipated transfer today Discussed with Dr Carr this AM for hand-off Discussed with ICU Multidisciplinary team Nurses contacted a short while ago by [facility]....they will be sending a team to 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
[2016-11-11] MEDS: fentaNYL PATCH 50 MCG/HR TRANSDERM SCH (09:37)
--- NOTE | 2016-11-11 10:35 | OP ---
CC: Vikas Aldana MD OPERATIVE REPORT: DATE OF OPERATION: DATE OF : 88 PRE-OP DIAGNOSIS: Left pneumothorax. POST-OP DIAGNOSIS: Left pneumothorax. PROCEDURE:Plecement Heimlich valve catheter left chest SURGEON: Vikas Aldana MD INDICATION: The patient is a 26-year-old female with valvular disease and lung infection and multiloculated pneumothorax and bleb disease on the left side and was called urgently by Dr. Carr because the patient was developing some tension pneumothorax. The patient was asleep and intubated and had decreased breath sounds on the left with some mild tracheal deviation towards the right. I discussed with Dr. Carr, decided that Heimlich valve insertion was warranted. DESCRIPTION OF PROCEDURE: Therefore, the left anterior chest was prepped antiseptic and draped in a sterile fashion. Local infiltrative anesthesia was administered and pneumothorax catheter was inserted without difficulty. Air was was forthcoming, the catheter was sutured at the skin. Sterile dressing was placed. It was hooked up to a Heimlich valve. She tolerated the procedure well. There was a modest air leak on the ventilator, not too large. I discussed further with Dr. Carr and I recommended that the patient be transferred to a tertiary level as this is a very complex chest case, he concurred. [id number]/[facility] #: [id number] [facility]ERRam[facility]
[2016-11-11 14:04] VITALS: BP 113/63
== END 2016-11-11 15:30 | disposition short-term general hospital (02) | DRG 200 ==
LOC: ED 18:52 → SSU 21:31 → MEDTELE 10-13 13:02 → ICU 10-15 11:59
PROVIDERS: ADMIT Internal Medicine; ATTEND Internal Medicine Critical Care Medicine
PROC: 0BH17EZ Insertion of Endotracheal Airway into Trachea, Via Natural or Artificial Opening (ICD-10-PCS; principal; 2016-10-16)
PROC: 5A1955Z Respiratory Ventilation, Greater than 96 Consecutive Hours (ICD-10-PCS; 2016-10-16)
PROC: 05HM33Z Insertion of Infusion Device into Right Internal Jugular Vein, Percutaneous Approach (ICD-10-PCS; 2016-10-16)
PROC: 30243N1 Transfusion of Nonautologous Red Blood Cells into Central Vein, Percutaneous Approach (ICD-10-PCS; 2016-10-27)
PROC: 5A1955Z Respiratory Ventilation, Greater than 96 Consecutive Hours (ICD-10-PCS; 2016-10-29)
PROC: 0BH17EZ Insertion of Endotracheal Airway into Trachea, Via Natural or Artificial Opening (ICD-10-PCS; 2016-10-29)
PROC: 02HV33Z Insertion of Infusion Device into Superior Vena Cava, Percutaneous Approach (ICD-10-PCS; 2016-10-29)
PROC: 4A10X4Z Monitoring of Central Nervous Electrical Activity, External Approach (ICD-10-PCS; 2016-11-04)
PROC: 4A00X4Z Measurement of Central Nervous Electrical Activity, External Approach (ICD-10-PCS; 2016-11-05)
PROC: 0W9B30Z Drainage of Left Pleural Cavity with Drainage Device, Percutaneous Approach (ICD-10-PCS; 2016-11-08)
DX: I07.9 Rheumatic tricuspid valve disease, unspecified (principal); A41.01 Sepsis due to Methicillin susceptible Staphylococcus aureus; I26.90 Septic pulmonary embolism without acute cor pulmonale; G93.6 Cerebral edema; I60.9 Nontraumatic subarachnoid hemorrhage, unspecified; D69.6 Thrombocytopenia, unspecified; J15.211 Pneumonia due to Methicillin susceptible Staphylococcus aureus; E87.2 Acidosis; J96.01 Acute respiratory failure with hypoxia; G93.41 Metabolic encephalopathy; N17.0 Acute kidney failure with tubular necrosis; R65.21 Severe sepsis with septic shock; F11.23 Opioid dependence with withdrawal; E44.0 Moderate protein-calorie malnutrition; L02.416 Cutaneous abscess of left lower limb; L02.511 Cutaneous abscess of right hand; B95.61 Methicillin susceptible Staphylococcus aureus infection as the cause of diseases classified elsewhere; Z88.2 Allergy status to sulfonamides; Z82.49 Family history of ischemic heart disease and other diseases of the circulatory system; F19.90 Other psychoactive substance use, unspecified, uncomplicated; Z80.1 Family history of malignant neoplasm of trachea, bronchus and lung; Z56.0 Unemployment, unspecified; Z72.0 Tobacco use; I95.9 Hypotension, unspecified; E80.6 Other disorders of bilirubin metabolism; R33.8 Other retention of urine; B19.20 Unspecified viral hepatitis C without hepatic coma; E87.6 Hypokalemia; D64.9 Anemia, unspecified; R59.0 Localized enlarged lymph nodes; G40.901 Epilepsy, unspecified, not intractable, with status epilepticus; R91.8 Other nonspecific abnormal finding of lung field; E78.1 Pure hyperglyceridemia; T41.295A Adverse effect of other general anesthetics, initial encounter; F32.9 Major depressive disorder, single episode, unspecified
CPT/HCPCS: 31624; 36415; 36600; 70450; 70551; 71010; 71250; 71275; 74176; 80048; 80053; 80076; 80164; 80177; 80185; 80186; 81003; 81015; 82140; 82272; 82330; 82550; 82553; 82803; 83010; 83605; 83615; 83690; 83735; 84100; 84132; 84134; 84146; 84436; 84439; 84443; 84478; 84479; 84484; 84702; 85014; 85018; 85025; 85027; 85049; 85362; 85384; 85610; 85652; 85730; 86140; 86141; 86160; 86703; 86803; 86850; 86900; 86901; 86922; 87040; 87070; 87077; 87086; 87150; 87186; 87205; 93005; 93306; 93308; 94002; 94003; 94640; 94667; 94668; 94760; 94761; 95813; 95951; 99406; A9270-GY; J0330; J0360; J0690; J0696; J1165; J1170; J1644; J1720; J1940; J2060; J2250; J2270; J2543; J2700; J2704; J2920; J3010; J3370; J3480; J7060; J7512; P9016; P9040; P9047; Q9967

== ENCOUNTER 2017-01-02 18:19 | Emergency (ER) | payer MEDICAID, OTHER ==
[2017-01-02 19:56] LABS: Hematocrit 39 % (35-47); Hemoglobin 12.6 g/dl (12.0-16.0); Mean Corpuscular HGB Conc 33 g/dl (31-36); Mean Corpuscular Hemoglobin 29 pg (27-31); Mean Corpuscular Volume 89 fL (80-97); Mean Platelet Volume 8 um3 (7.4-10.4); Red Blood Count 4.34 10^6/ul (4.0-5.4); Red Cell Distribution Width 16 % (10.5-15); White Blood Count 4.9 10^3/ul (3.5-10.8)
[2017-01-02 20:11] LABS: Albumin 4.7 g/dL (3.2-5.2); BUN/Creatinine Ratio 16.7 (8-20); EGFR African American 104.6 (>60); EGFR Non-African American 81.3 (>60); Globulin 3.1 g/dL (2-4); Total Bilirubin 0.5 mg/dL (0.2-1.0); Total Protein 7.8 g/dL (6.4-8.9)
[2017-01-02 20:15] LABS: Potassium 4.1 mmol/L (3.5-5.0)
--- NOTE | 2017-01-02 20:41 | ED ---
Erica Sheppard Alok, scribed for Laverne Mack MD on 01/02/17 at 2004 . Complex/Multi-Sys Presentation - HPI Summary HPI Summary: 26F presents to the ED with right hand and right foot pain. Pt states that her right hand and right foot and chronically in pain but have become worsen than baseline on and off again when taking deep breaths. Pt denies SOB, CP, or lung pain. Pt was recently hospitalized for endocarditis and is taking anti- coagulants for recent PE. Pt is a member of [employer] for opiate abuse and currently takes Subs. - History Of Current Complaint Chief Complaint: EDGeneral Time Seen by Provider: 01/02/17 19:13 Hx Obtained From: Patient Onset/Duration: Lasting Days, Still Present Timing: Intermittent, Lasting: Severity Currently: Moderate Severity Initially: Moderate Location: Pain At: - right hand, right foot Character: Sharp Aggravating Factor(s): deep breaths Associated Signs And Symptoms: Negative: SOB, Chest Pain, Other - lung pain - Allergies/Home Medications Allergies/Adverse Reactions: Allergies Allergy/AdvReac Type Severity Reaction Status Date / Time Sulfa Drugs Allergy Unknown Unknown Verified 10/12/16 18:57 Reaction Details PMH/Surg Hx/FS Hx/Imm Hx Endocrine/Hematology History: Denies: Hx Anticoagulant Therapy, Hx Diabetes Cardiovascular History: Reports: Other Cardiovascular Problems/Disorders - ENDOCARDITIS 10/11 Denies: Hx Hypertension, Hx Pacemaker/ICD Respiratory History: Reports: Other Respiratory Problems/Disorders - RESP DISTRESS 10/11 Denies: Hx Asthma History: Denies: Hx Renal Disease Sensory History: Reports: Hx Contacts or Glasses, 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 Rt EAR - CYST REMOVED Infectious Disease History: No Infectious Disease History: Denies: Traveled Outside the [place] in Last 30 Days - Family History Known Family History: Positive: Cardiac Disease - Social History Lives: With Family Alcohol Use: None Substance Use Type: Reports: Heroin Substance Use Comment - Amount & Last Used: <1/2gram a day, "trying to quit" Hx Tobacco Use: Yes Smoking Status (MU): Light Every Day Tobacco Smoker Type: Cigarettes Review of Systems Negative: Fever Negative: Chest Pain Negative: Shortness Of Breath, Other - lung pain Positive: Other - right hand and right foot pain All Other Systems Reviewed And Are Negative: Yes Physical Exam Triage Information Reviewed: Yes Vital Signs On Initial Exam: Initial Vitals Temp Pulse Resp BP Pulse Ox 98.4 F 96 20 153/96 100 01/02/17 18:29 01/02/17 18:29 01/02/17 18:29 01/02/17 18:29 01/02/17 18:29 Vital Signs Reviewed: Yes Appearance: Positive: Well-Appearing, No Pain Distress Skin: Positive: Warm, Skin Color Reflects Adequate Perfusion, Dry Eyes: Positive: EOMI, ALYSA ENT: Positive: Pharynx normal, TMs normal Neck: Positive: Supple, Nontender Respiratory/Lung Sounds: Positive: Clear to Auscultation, Breath Sounds Present. Negative: Rales, Rhonchi, Wheezes Cardiovascular: Positive: RRR, Other - no gallop. Negative: Murmur, Rub Abdomen Description: Positive: Nontender, Soft, Other: - no rebound. Negative: Distended, Guarding Bowel Sounds: Positive: Present Musculoskeletal: Positive: Strength/ROM Intact. Negative: Edema Left, Edema Right Neurological: Positive: Sensory/Motor Intact, Alert, Oriented to Person Place, Time, CN Intact II-III Psychiatric: Positive: Affect/Mood Appropriate - Valerie Coma Scale Coma Scale Total: 15 Diagnostics - Vital Signs Vital Signs Temp Pulse Resp BP Pulse Ox 01/02/17 18:33 98.3 F 92 20 153/96 100 01/02/17 18:29 98.4 F 96 20 153/96 100 - Laboratory Lab Results: Lab Results 01/02/17 01/02/17 01/02/17 Range/Units 19:46 19:46 19:46 WBC 4.9 (3.5-10.8) 10^3/ul RBC 4.34 (4.0-5.4) 10^6/ul Hgb 12.6 (12.0-16.0) g/dl Hct 39 (35-47) % MCV 89 (80-97) fL MCH 29 (27-31) pg MCHC 33 (31-36) g/dl RDW 16 H (10.5-15) % Plt Count 223 (150-450) 10^3/ul MPV 8 (7.4-10.4) um3 Neut % (Auto) 50.1 (38-83) % Lymph % (Auto) 40.2 (25-47) % Mcdonald % (Auto) 7.3 (1-9) % Eos % (Auto) 1.3 (0-6) % Baso % (Auto) 1.1 (0-2) % Absolute Neuts (auto) 2.5 (1.5-7.7) 10^3/ul Absolute Lymphs (auto) 2.0 (1.0-4.8) 10^3/ul Absolute Monos (auto) 0.4 (0-0.8) 10^3/ul Absolute Eos (auto) 0.1 (0-0.6) 10^3/ul Absolute Basos (auto) 0.1 (0-0.2) 10^3/ul Absolute Nucleated RBC 0 10^3/ul Nucleated RBC % 0 INR (Anticoag Therapy) 1.76 H (0.89-1.11) Sodium 135 (133-145) mmol/L Potassium 4.1 (3.5-5.0) mmol/L Chloride 100 L (101-111) mmol/L Carbon Dioxide 28 (22-32) mmol/L Anion Gap 7 (2-11) mmol/L BUN 14 (6-24) mg/dL Creatinine 0.84 (0.51-0.95) mg/dL Est GFR ( Amer) 104.6 (>60) Est GFR (Non-Af Amer) 81.3 (>60) BUN/Creatinine Ratio 16.7 (8-20) Glucose 86 (70-100) mg/dL Calcium 10.0 (8.6-10.3) mg/dL Total Bilirubin 0.50 (0.2-1.0) mg/dL AST 32 (13-39) U/L ALT 28 (7-52) U/L Alkaline Phosphatase 67 (34-104) U/L Total Protein 7.8 (6.4-8.9) g/dL Albumin 4.7 (3.2-5.2) g/dL Globulin 3.1 (2-4) g/dL Albumin/Globulin Ratio 1.5 (1-3) Result Diagrams: 01/02/17 19:46 06/08/17 19:46 Lab Statement: Any lab studies that have been ordered have been reviewed, and results considered in the medical decision making process. 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 during the hospitalization she did have something fall on her right foot and had right hand pain. That pain has since resolved but since yesterday she started to notice that she was getting pain in her right hand and foot with deep breath occasionally. Her vs are normal and her labs and cxr are good. It is hard to come up with a diagnosis that could be the etiology of her discomfort her pulses are good the areas are non tender to palpation and she does not have calf or arm pain. She will f/u with her pmd - Diagnoses Provider Diagnoses: Upper extremity pain Discharge - Discharge Plan Condition: Stable Disposition: HOME Patient Education Materials: Muscle Cramp (ED) Referrals: Serafin Espinoza MD [Primary Care Provider] - The documentation as recorded by the Erica rivera Alok accurately reflects the service I personally performed and the decisions made by me, Laverne Mack MD.
[2017-01-02 20:45] VITALS: BP 132/98
--- NOTE | 2017-01-02 21:11 | RAD ---
Indication: History of pulmonary embolus. 2 views of the chest including dual energy PA views demonstrates cardiomegaly. Atelectasis is noted in the lung bases. Right upper lobe atelectasis or scarring is noted. No pneumothorax is noted. IMPRESSION: Cardiomegaly. Bibasilar atelectasis is noted without pneumonia.
== END 2017-01-02 20:43 | disposition home or self-care (01) ==
LOC: ED 18:19
DX: M79.641 Pain in right hand (principal); M79.671 Pain in right foot; I51.7 Cardiomegaly; Z88.2 Allergy status to sulfonamides; F17.210 Nicotine dependence, cigarettes, uncomplicated
CPT/HCPCS: 36415; 71020; 80053; 85025; 85610; 93005; 99282